=== PATIENT | female | born 1935 | race Caucasian/White ===

== ENCOUNTER 2024-05-28 11:49 | Emergency (ER) | payer OTHER, SELFPAY ==
--- NOTE | 2024-05-28 12:01 | EKG_ITS ---
[facility] Test Date: 2024-05-28 Pat Name: MARIANO HO Department: Room: - Gender: Female [employer]: : 1935 Requested By: Keaton Kwon Order Number: [id number] Reading MD: Keaton Kwon Measurements Intervals [place] Rate: 63 P: 118 FL: 218 QRS: 45 QRSD: 97 T: 14 QT: 440 QTc: 452 Interpretive Statements ELECTRONIC ATRIAL PACEMAKER ABNORMAL RHYTHM ECG Compared to ECG 02/28/2024 11:50:25 No significant changes /store/S0/[id number].pdf
--- NOTE | 2024-05-28 12:07 | XR_ITS ---
Examination: CT cervical spine without contrast 2-D sagittal reconstructions 2-D coronal reconstructions 3-D reconstructions. Exam date and time:May 28, 2024 1224 hrs. Indications: Ground-level fall today with injury to the neck, neck pain CTDI:vol (mGy) 7.71 DLP: (mGycm) 185 Technique: Multiple 2 mm axial sections of the cervical spine have been obtained. The coronal and sagittal reconstructions have been obtained. 3-D reconstructions have been obtained. Low dose protocols were performed. One or more of the following dose reduction techniques were used; automated exposure control, adjustment of the mA and/or KV according to patient size, use of iterative reconstruction technique. Findings: Axial sections demonstrate intact base of the skull. C1 exhibit satisfactory relationship to the odontoid. No acute cervical vertebral body fracture seen. Alignment posterior spinous processes satisfactory. Impression: No acute cervical fracture.
--- NOTE | 2024-05-28 12:07 | XR_ITS ---
Examination: CT brain head without contrast. 2-D sagittal coronal reconstructions Date and time of exam:May 28, 2024 1224 hrs. Indications: Syncopal episode today followed by ground-level fall with injury to the head, head pain CTDI: vol (mGy):49 DLP: (mGycm):969 Technique: Multiple CT axial sections of the brain have been obtained, 5 mm slice thickness. Contrast has not been administered. 2-D sagittal, coronal reconstructions have been obtained Low dose protocols were performed. One or more of the following dose reduction techniques were used; automated exposure control, adjustment of the mA and/or KV according to patient size, use of iterative reconstruction technique. Findings: No significant ventricular enlargement. Intra-axial or extra-axial hemorrhage density is not seen. No mass effect or midline shift Basal cisterns are not remarkable. Fourth ventricle is midline. Cranial vault intact. Prominent left maxillary sinusitis Impression: Negative for acute hemorrhage, mass effect or midline shift
[2024-05-28 12:10] VITALS: BP 159/75; PULSE 61; RESP 20; TEMP 35.9; O2SAT 94
--- NOTE | 2024-05-28 12:20 | PD.EDADULT ---
ED General RME/HPI General Chief complaint: Syncope / Near Syncope Stated complaint: FALL Time Seen by Provider: 05/28/24 12:00 Arrival date/time: 05/28/24 11:49 Related Data Home Medications ?Medication ?Instructions ?Recorded ?Confirmed Metformin Hcl 1,000 mg PO BID ##0 10/06/12 07/20/23 apixaban 5 mg tablet (Eliquis) 5 mg PO QDAY 07/20/23 07/20/23 ibuprofen 800 mg tablet 800 mg PO Q8H PRN Pain (Scale 07/20/23 07/20/23 Score 7-10) Previous Rx's ?Medication ?Instructions ?Recorded meloxicam 15 mg tablet 15 mg PO QDAY #14 tabs 02/28/24 nitrofurantoin 100 mg PO Q12H 7 days #14 caps 05/28/24 monohydrate/macrocrystals 100 mg capsule (Macrobid) Allergies Allergy/AdvReac Type Severity Reaction Status Date / Time levofloxacin Allergy Severe Rash Verified 05/28/24 12:29 Penicillins Allergy Mild Rash Verified 05/28/24 12:29 codeine Allergy Unknown Verified 05/28/24 12:29 meperidine Allergy Unknown Verified 05/28/24 12:29 phenytoin Allergy Unknown Verified 05/28/24 12:29 Course Quality Measures none Orders Category Date Time Status Bedside COVID-19 Antigen Test NOW Care 05/28/24 12:01 Completed Bedside Influenza A&B Antigen Test NOW Care 05/28/24 12:01 Completed EKG (ED ONLY) *Do not use* NOW Care 05/28/24 12:01 Completed Saline [Insert IV] NOW Care 05/28/24 12:[address] cervical spine wo con Stat Exams 05/28/24 12:[address] head/brain wo con Stat Exams 05/28/24 12:07 Completed EKG (ED Only) Stat Exams 05/28/24 12:01 Draft B-Type Natriuretic Peptide Stat Lab 05/28/24 12:11 Completed CBC Stat Lab 05/28/24 12:11 Completed Comprehensive Metabolic Panel Stat Lab 05/28/24 12:11 Completed Digoxin Stat Lab 05/28/24 12:11 Completed Drug Screen,Urine Stat Lab 05/28/24 14:13 Completed LDH (Lactate Dehydrogenase) Stat Lab 05/28/24 12:11 Completed Magnesium Stat Lab 05/28/24 12:11 Completed Partial Thromboplastin Time Stat Lab 05/28/24 12:11 Completed Prothrombin Time with INR Stat Lab 05/28/24 12:11 Completed Troponin I Stat Lab 05/28/24 12:11 Completed Urinalysis Stat Lab 05/28/24 14:13 Completed Urine Culture Stat Lab 05/28/24 14:13 Received Ondansetron Inj [Zofran Inj] Med 05/28/24 12:06 Discontinued 4 mg IV X1 ONE cefTRIAXone/D5w 1gm IV premix [Rocephin/D5w 1gm IV Med 05/28/24 14:33 Discontinued premix] 50 ml IV X1 Vital Signs Vital signs: Vital Signs Temperature 96.6 F L 05/28/24 12:10 Pulse Rate 61 05/28/24 12:10 Respiratory Rate 20 05/28/24 12:10 Blood Pressure 159/75 H 05/28/24 12:10 Pulse Oximetry (%) 94 L 05/28/24 12:10 Oxygen Delivery Method Room Air 05/28/24 12:10 [facility] Patient data External records reviewed:: [facility] previous records and EMS form Clinical information provided by:: patient and EMS Social determinants that could affect healthcare access:: none Patient has the following chronic illnesses:: Hypertension How is presenting disease/condition affected by chronic disease/condition?: uneffected by Evaluation data The following diagnostics were reviewed and interpreted by me:: lab results and radiology exam(s) Lab and/or radiology exams considered but not ordered:: EKG performed at 1217 shows a ventricular of 6 3 AL interval 218 QRS of 9 7 QTc 448 shows electronically paced. CBC shows no acute leukocytosis anemia thrombocytopenia CMP shows no electrolyte imbalances there is a creatinine elevated at 1.4 however this is consistent with previous blood draws BUN is normal no transaminitis or T. bili elevation Urine is positive for UTI and leukocyte Estrace positive WBCs positive bacteria positive. CT head and C-spine is negative for any acute finding requires emergent or immediate intervention as interpreted by me read by radiology. Interpretation Summary: Syncope UTI Medications Medications considered but not ordered:: None Medication administrations:: Medication Administration History Discontinued Medications Ceftriaxone Sodium/Dextrose (Rocephin/D5w 1gm Iv Premix) 50 mls @ 100 mls/hr IV X1 ONE Stop: 05/28/24 15:02 Last Infusion: 05/28/24 15:38 Dose: Infused Documented By: Admin: 05/28/24 15:01 Dose: 100 mls/hr Documented By: DO Ondansetron HCl (Ondansetron Inj 2 Mg/Ml Inj 2 Ml) 4 mg IV X1 ONE; Protocol Stop: 05/28/24 12:07 Last Admin: 05/28/24 13:08 Dose: 4 mg Documented By: DO None Consultations Consultation(s) initiated? (list below): No Diagnosis Differential Diagnosis ED Complaint MDM: Syncope UTI intracranial hemorrhage Most likely diagnosis given after review of the tests above:: Syncope UTI Admission Indicated Admission indicated?: not indicated Explain why admission is indicated or not indicated:: Stable for outpatient follow-up Admission Request Was there a request for admission?: No Disposition Plan Disposition Plan: Discharge Discharge Attestation Discharge Attestation: The patient and all family members were given an opportunity to ask questions and understood the discharge instructions. Discharge instructions specifically effects, indications for sooner follow up or return to the emergency department, and the expected course of current diagnosis. Patient condition: Stable Medical Decision Making Differential Diagnosis Differential Diagnosis: Syncope UTI intracranial hemorrhage Lab Data 05/28/24 12:11 05/28/24 12:11 Labs: Lab Results 05/28/24 05/28/24 Range/Units 12:11 14:13 WBC 7.7 (3.6-11.0) Thou/mm3 RBC 4.43 (4.00-5.20) Miln/mm3 Hgb 12.5 (12.0-16.0) g/dL Hct 38.5 (36.0-46.0) % MCV 87 (80-100) fL MCH 28.2 (25.0-35.0) pg MCHC 32.5 (31.0-37.0) g/dl RDW Std Deviation 49.2 H (36.4-46.3) fL Plt Count 404 (140-440) Thou/mm3 Neut % (Auto) 73 (37-80) % Lymph % (Auto) 12 (10-50) % [place] % (Auto) 12 (0-12) % Eos % (Auto) 2 (0-10) % Baso % (Auto) 1 (0-2.5) % Neut # (Auto) 5.6 (1.8-7.7) Thou/mm3 Lymph # (Auto) 0.9 L (1.0-4.8) Thou/mm3 [place] # (Auto) 0.9 H (0.0-0.8) Thou/mm3 Eos # (Auto) 0.2 (0.0-0.5) Thou/mm3 Baso # (Auto) 0.1 (0.0-0.2) Thou/mm3 Immature Gran # (Auto) 0.02 H (0.00-0.00) Thou/mm3 Absolute Nucleated RBC 0.00 (0.00-0.00) Thou/mm3 Immature Gran % 0 (0-0) % Nucleated RBC % 0 (0) /100 WBC PT 11.8 (9.0-12.2) Seconds INR 1.1 (0.9-1.3) APTT 29.1 (22.0-36.0) Seconds Sodium 132 L (136-145) mMol/L Potassium 4.2 (3.4-5.1) mMol/L Chloride 99 (98-107) mMol/L Carbon Dioxide 24.5 (20.0-31.0) mMol/L Anion Gap 9 (7-16) BUN 18 (9-23) mg/dL Creatinine 1.4 H (0.6-1.3) mg/dL Estim Creat Clear Calc 26.5 L (>60) mL/min eGFR 36 L (60 - ) See Note BUN/Creatinine Ratio 13 (12-20) Ratio Glucose 159 H (74-106) mg/dL Calculated Osmolality 269 L (275-295) Calcium 9.2 (8.3-10.6) mg/dL Corrected Calcium 9.2 (8.5-10.1) mg/dL Magnesium 1.4 L (1.6-2.6) mg/dL Total Bilirubin 0.4 (0.3-1.2) mg/dL AST 16 (0-34) U/L ALT 27 (10-49) U/L Alkaline Phosphatase 82 (46-116) U/L Lactate Dehydrogenase 217 (120-246) U/L Troponin I < 0.020 (0.0-0.045) ng/mL B-Natriuretic Peptide 197 H (0-100) pg/mL Total Protein 7.4 (5.7-8.2) gm/dL Albumin 4.5 (3.4-4.8) gm/dL Globulin 2.9 (2.3-3.5) gm/dL Albumin/Globulin Ratio 1.6 (1.2-2.2) Ur Collection Type Clean Catch Urine Color Lt Yellow (Lt Yel-Yel) Urine Clarity Cloudy A (Clear/Hazy) Urine pH 7.5 H (5.0-7.0) Ur Specific [place] 1.010 (1.001-1.035) Urine Protein Trace (Neg - Trace) Urine Glucose (UA) Negative (Negative) Urine Ketones Negative (Negative) Urine Blood 2+ A (Negative) Urine Nitrite Negative (Negative) Urine Bilirubin Negative (Negative) Urine Urobilinogen (Auto) Negative (0.0-1.0) mg/dL Ur Leukocyte Esterase Positive (Negative) Urine RBC 63 H (0-3) /hpf Urine WBC 53 H (0-5) /hpf Ur Squamous Epith Cells 2 (0-5) /hpf Amorphous Crystals Present A (Absent) Urine Bacteria 2+ A (None) Hyaline Casts < 1 (0-1) /hpf Digoxin 0.1 L (0.8-2.0) ng/mL Urine Opiates Screen Negative (Negative) Urine Fentanyl Screen Negative (Negative) Ur Barbiturates Screen Negative (Negative) U Amphetamin/Meth Scrn Negative (Negative) U Benzodiazepines Scrn Negative (Negative) U Cocaine Metab Screen Negative (Negative) U Marijuana (THC) Screen Negative (Negative) Discharge Plan Plan Patient Disposition: HOME (Self Care) Patient condition on transfer: Stable Prescriptions/Referrals Prescriptions/Med Rec: New nitrofurantoin monohyd/m-cryst [Macrobid] 100 mg capsule 100 mg PO Q12H 7 Days Qty: 14 0RF Rx Instructions: must administer with a meal/food No Action Metformin Hcl 500 MG tablet 1,000 mg PO BID Qty: 0 ibuprofen 800 mg Tablet 800 mg PO Q8H PRN (Reason: Pain (Scale Score 7-10)) Eliquis 5 mg tablet 5 mg PO QDAY Patient Comments: take 1 tablet by mouth twice a day meloxicam 15 mg tablet 15 mg PO QDAY Qty: 14 0RF Referrals: Mateus García MD [Primary Care Provider] - In 1 week Problem List Clinical Impression: Syncope, UTI (urinary tract infection) due to urinary indwelling catheter, Fall Patient/Caregiver Discharge Instructions Education Materials: Urinary Tract Infections in Women, Causes of Syncope Additional Instructions: Take the medication as prescribed there is worsening symptoms return the emergency room medially for further evaluation. Print Language: [place] Stand Alone Forms: [employer] Award Info., Patient Portal Info Letter
--- NOTE | 2024-05-28 12:23 | PC.NURSE ---
pt to ct
[2024-05-28 12:24] VITALS: BMI 24.2
[2024-05-28 12:30] LABS: Basophils # (Auto) 0.1 Thou/mm3 (0.0-0.2); Basophils % (Auto) 1 % (0-2.5); Eosinophils # (Auto) 0.2 Thou/mm3 (0.0-0.5); Eosinophils % (Auto) 2 % (0-10); Hematocrit 38.5 % (36.0-46.0); Hemoglobin 12.5 g/dL (12.0-16.0); Immature Granulocytes % (Auto) 0 % (0-0); Immature Granulocytes Auto 0.02 Thou/mm3 (0.00-0.00); Lymphocytes # (Auto) 0.9 Thou/mm3 (1.0-4.8); Lymphocytes % (Auto) 12 % (10-50); Mean Corpuscular HGB Conc 32.5 g/dl (31.0-37.0); Mean Corpuscular Hemoglobin 28.2 pg (25.0-35.0); Mean Corpuscular Volume 87 fL (80-100); Monocytes # (Auto) 0.9 Thou/mm3 (0.0-0.8); Monocytes % (Auto) 12 % (0-12); Neutrophils # (Auto) 5.6 Thou/mm3 (1.8-7.7); Neutrophils % (Auto) 73 % (37-80); Nucleated Red Blood Cell % 0 /100 WBC (0); Platelet Count 404 Thou/mm3 (140-440); RDW Standard Deviation 49.2 fL (36.4-46.3); Red Blood Count 4.43 Miln/mm3 (4.00-5.20); White Blood Count 7.7 Thou/mm3 (3.6-11.0)
[2024-05-28 12:50] LABS: INR 1.1 (0.9-1.3); Partial Thromboplastin Time 29.1 Seconds (22.0-36.0); Prothrombin Time 11.8 Seconds (9.0-12.2)
[2024-05-28 12:52] LABS: B-Type Natriuretic Peptide 197 pg/mL (0-100)
[2024-05-28 13:00] LABS: Alanine Aminotransferase 27 U/L (10-49); Albumin, Serum 4.5 gm/dL (3.4-4.8); Albumin/Globulin Ratio 1.6 (1.2-2.2); Alkaline Phosphatase 82 U/L (46-116); Anion Gap 9 (7-16); Aspartate Amino Transferase 16 U/L (0-34); BUN/Creatinine Ratio 13 Ratio (12-20); Bilirubin,Total 0.4 mg/dL (0.3-1.2); Blood Urea Nitrogen 18 mg/dL (9-23); Calcium 9.2 mg/dL (8.3-10.6); Calcium (Corrected) 9.2 mg/dL (8.5-10.1); Carbon Dioxide 24.5 mMol/L (20.0-31.0); Chloride 99 mMol/L (98-107); Creatinine (Component) 1.4 mg/dL (0.6-1.3); Digoxin 0.1 ng/mL (0.8-2.0); Estimated Creatinine Clearance 26.5 mL/min (>60); Globulin 2.9 gm/dL (2.3-3.5); Glucose 159 mg/dL (74-106); LDH (Lactate Dehydrogenase) 217 U/L (120-246); Magnesium 1.4 mg/dL (1.6-2.6); Osmolality,Calculated 269 (275-295); Potassium 4.2 mMol/L (3.4-5.1); Sodium 132 mMol/L (136-145); Total Protein 7.4 gm/dL (5.7-8.2); Troponin I < 0.020 ng/mL (0.0-0.045); eGFR 36 See Note
[2024-05-28] MEDS: ONDANSETRON INJ 2 MG/ML INJ 2 ML 4 MG IV (13:08)
[2024-05-28 14:17] LABS: Collection Type, Urine Clean Catch
[2024-05-28 14:27] LABS: Amorphous Crystals,Urine Present (Absent); Bacteria,Urine 2+; Bilirubin,Urine Negative (Negative); Blood,Urine 2+ (Negative); Glucose, Urine Negative (Negative); Hyaline Casts,Urine < 1 /hpf (0-1); Ketones,Urine Negative (Negative); Leukocyte Esterase,Urine Positive (Negative); Nitrite,Urine Negative (Negative); PH,Urine 7.5 (5.0-7.0); Protein,Urine Trace (Neg - Trace); RBC,Urine 63 /hpf (0-3); Squamous Epithelial Cell,Urine 2 /hpf (0-5); Urobilinogen,Urine Negative mg/dL (0.0-1.0); WBC,Urine 53 /hpf (0-5)
[2024-05-28 14:28] VITALS: BP 159/90; PULSE 60; RESP 18; TEMP 36.4; O2SAT 99
[2024-05-28 14:28] LABS: Clarity,Urine Cloudy (Clear/Hazy); Color,Urine Lt Yellow (Lt Yel-Yel)
[2024-05-28 14:39] LABS: Amphetamine/Methamp Scrn,U Negative (Negative); Barbiturate Screen,Urine Negative (Negative); Benzodiazepines Screen,Urine Negative (Negative); Benzoylecgonine Screen, Ur Negative (Negative); Fentanyl Screen,Urine Negative (Negative); Opiate Screen,Urine Negative (Negative); THC Screen,Urine Negative (Negative)
[2024-05-28] MEDS: cefTRIAXone/D5w 1gm IV premix 50 ML IV (15:01)
== END 2024-05-28 15:50 | disposition home or self-care (01) ==
PROVIDERS: Registered Nurse General Practice; Emergency Provider Emergency Medicine; PCP Family Medicine
DX: T83.511A Infection and inflammatory reaction due to indwelling urethral catheter, initial encounter (principal); N39.0 Urinary tract infection, site not specified; R55 Syncope and collapse; S09.90XA Unspecified injury of head, initial encounter; S19.9XXA Unspecified injury of neck, initial encounter; W18.30XA Fall on same level, unspecified, initial encounter; R94.31 Abnormal electrocardiogram [ECG] [EKG]; I10 Essential (primary) hypertension; Y84.6 Urinary catheterization as the cause of abnormal reaction of the patient, or of later complication, without mention of misadventure at the time of the procedure; Z79.01 Long term (current) use of anticoagulants
CPT/HCPCS: 36415; 70450; 72125; 80053; 80162; 80307; 81001; 83615; 83735; 83880; 84484; 85025; 85610; 85730; 87077; 87086; 87186; 87400; 87811; 93005; 96365; 96375; 99284; J0696; J2405

== ENCOUNTER → 2024-06-02 | Outpatient (CLI) | payer OTHER, SELFPAY ==
--- NOTE | 2024-06-02 | XR_ITS ---
Examination:Right hip AP, lateral, AP pelvis 3 views Technique: Hip AP lateral, AP pelvis, 3 views Exam date and time:June 02, 2024 1223 hours INDICATIONS: Patient fell today with injury to the right hip, right hip pain. 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
[2024-06-02 13:33] LABS: Basophils # (Auto) 0.1 Thou/mm3 (0.0-0.2); Basophils % (Auto) 1 % (0-2.5); Eosinophils # (Auto) 0.2 Thou/mm3 (0.0-0.5); Eosinophils % (Auto) 2 % (0-10); Hematocrit 36.6 % (36.0-46.0); Hemoglobin 11.9 g/dL (12.0-16.0); Immature Granulocytes % (Auto) 1 % (0-0); Immature Granulocytes Auto 0.04 Thou/mm3 (0.00-0.00); Lymphocytes % (Auto) 12 % (10-50); Mean Corpuscular HGB Conc 32.5 g/dl (31.0-37.0); Mean Corpuscular Hemoglobin 28.7 pg (25.0-35.0); Mean Corpuscular Volume 88 fL (80-100); Monocytes % (Auto) 13 % (0-12); Neutrophils # (Auto) 5.8 Thou/mm3 (1.8-7.7); Neutrophils % (Auto) 72 % (37-80); Nucleated Red Blood Cell % 0 /100 WBC (0); Platelet Count 416 Thou/mm3 (140-440); RDW Standard Deviation 48.4 fL (36.4-46.3); Red Blood Count 4.14 Miln/mm3 (4.00-5.20)
[2024-06-02 13:42] LABS: Alanine Aminotransferase 30 U/L (10-49); Albumin, Serum 4.4 gm/dL (3.4-4.8); Albumin/Globulin Ratio 1.9 (1.2-2.2); Alkaline Phosphatase 80 U/L (46-116); Anion Gap 10 (7-16); Aspartate Amino Transferase 21 U/L (0-34); BUN/Creatinine Ratio 14 Ratio (12-20); Bilirubin,Total 0.3 mg/dL (0.3-1.2); Blood Urea Nitrogen 20 mg/dL (9-23); Calcium 9.1 mg/dL (8.3-10.6); Calcium (Corrected) 9.1 mg/dL (8.5-10.1); Carbon Dioxide 26.1 mMol/L (20.0-31.0); Chloride 98 mMol/L (98-107); Creatinine (Component) 1.4 mg/dL (0.6-1.3); Globulin 2.3 gm/dL (2.3-3.5); Glucose 104 mg/dL (74-106); Osmolality,Calculated 270 (275-295); Potassium 4.5 mMol/L (3.4-5.1); Sodium 134 mMol/L (136-145); Total Protein 6.7 gm/dL (5.7-8.2); eGFR 36 See Note
== END | disposition home or self-care (01) ==
LOC: CDIM 11:46 → COPL 12:33
PROVIDERS: PCP Internal Medicine; Referring Provider Student in an Organized Health Care Education/Training Program; Visit Provider Radiology Diagnostic Radiology
DX: M25.551 Pain in right hip (principal); N39.0 Urinary tract infection, site not specified; N18.9 Chronic kidney disease, unspecified
CPT/HCPCS: 36415; 73502; 80053; 81001; 85025

== ENCOUNTER 2024-06-06 10:48 | Emergency (ER) | payer MEDICARE, MEDICAID, SELFPAY ==
[2024-06-06 10:51] VITALS: BP 167/74; PULSE 73; RESP 20; TEMP 36.8; O2SAT 98; BMI 25.7
--- NOTE | 2024-06-06 11:08 | XR_ITS ---
Examination: CT brain head without contrast. 2-D sagittal coronal reconstructions Date and time of exam:June 06, 2024 1206 hours Comparison May 28, 2024 INDICATIONS: Ground-level fall today with injury to the head, head pain, patient is anticoagulated CTDI: vol (mGy):48 DLP: (mGycm):1021 Technique: Multiple CT axial sections of the brain have been obtained, 5 mm slice thickness. Contrast has not been administered. 2-D sagittal, coronal reconstructions have been obtained Low dose protocols were performed. One or more of the following dose reduction techniques were used; automated exposure control, adjustment of the mA and/or KV according to patient size, use of iterative reconstruction technique. Findings: No significant ventricular enlargement. Small area of right frontal convexity subarachnoid hemorrhage, axial image 20, coronal image 15, in near the site of soft tissue scalp swelling No mass effect or midline shift Basal cisterns are not remarkable. Fourth ventricle is midline. Cranial vault intact. Right frontal scalp soft tissue swelling Impression: Positive for small area of subarachnoid hemorrhage right frontal convexity, axial image 20 Recommend close clinical observation and short-term follow-up CT brain scans
--- NOTE | 2024-06-06 11:08 | XR_ITS ---
Examination: CT cervical spine without contrast 2-D sagittal reconstructions 2-D coronal reconstructions 3-D reconstructions. Exam date and time:June 06, 2024 1206 hours INDICATIONS: Ground-level fall today with injury to the neck, neck pain CTDI:vol (mGy) 7.53 DLP: (mGycm) 154 Technique: Multiple 2 mm axial sections of the cervical spine have been obtained. The coronal and sagittal reconstructions have been obtained. 3-D reconstructions have been obtained. Low dose protocols were performed. One or more of the following dose reduction techniques were used; automated exposure control, adjustment of the mA and/or KV according to patient size, use of iterative reconstruction technique. Findings: Axial sections demonstrate intact base of the skull. C1 exhibit satisfactory relationship to the odontoid. No acute cervical vertebral body fracture seen. Alignment posterior spinous processes satisfactory. Sagittal image 37 demonstrates 5 mm focal area of sclerosis in the C6 vertebral body Impression: No acute cervical fracture. 5 mm focal area of sclerosis in the C6 vertebral body, recommend elective MRI cervical spine follow-up, pre and postcontrast to exclude early osseous metastatic disease
--- NOTE | 2024-06-06 11:09 | EDNOTE_ITS ---
<Statement entered by Taylor Velasco MD - 06/13/24 12:01> As co-signing physician, I was present and available for consult prn. I concur with the plan and care as documented by the midlevel provider. ED General RME/HPI General Chief complaint: Fall Stated complaint: FALL Time Seen by Provider: 06/06/24 11:07 Arrival date/time: 06/06/24 10:48 CC: Headache HPI patient presents to the ER via EMS with a headache after a ground-level fall while opening her front door. Patient states she thinks she lost her balance denies LOC. EMS report hypertension, and constant bleeding from a laceration over the right eyebrow. Patient is awake alert oriented x 2 complaining of a headache but no other complaints. Upon discussion with family members at bedside at 2:30 PM, the nurse informed the patient does not want to be intubated and no feeding tubes but wants her heart to be restarted. Related Data Home Medications ?Medication ?Instructions ?Recorded ?Confirmed Metformin Hcl 1,000 mg PO BID ##0 10/06/12 07/20/23 apixaban 5 mg tablet (Eliquis) 5 mg PO QDAY 07/20/23 07/20/23 ibuprofen 800 mg tablet 800 mg PO Q8H PRN Pain (Scale 07/20/23 07/20/23 Score 7-10) Previous Rx's ?Medication ?Instructions ?Recorded meloxicam 15 mg tablet 15 mg PO QDAY #14 tabs 02/28/24 Allergies Allergy/AdvReac Type Severity Reaction Status Date / Time levofloxacin Allergy Severe Rash Verified 05/28/24 12:29 Penicillins Allergy Mild Rash Verified 05/28/24 12:29 codeine Allergy Unknown Verified 05/28/24 12:29 meperidine Allergy Unknown Verified 05/28/24 12:29 phenytoin Allergy Unknown Verified 05/28/24 12:29 Review of Systems Review of Systems Narrative Review of Systems: GEN: No fever, no chills, no weight loss EYES: No discharge, no visual changes, no pain HEENT: No ear pain, no congestion, no sore throat PULM: No shortness of breath, no cough, no congestion CV: No chest pain, no dyspnea on exertion, no palpitations GI: No nausea, no vomiting, no diarrhea, no pain, no constipation : No frequency, no urgency, no dysuria MUSC/SKEL: No joint pain, no back pain SKIN: +laceration,No rash PSYCH: No hallucinations, no depression HEME/LYMPH: No easy bleeding or bruising tendencies NEURO: No weakness, no headache Past Medical History Past Medical History NEUROLOGIC: Negative Neurological Disorders CARDIAC: Positive Cardiac Arrhythmia, Atrial Fibrillation, Heart Murmur, Coronary Artery Disease and Hypertension; Negative Cardiac Disorders, Myocardial Infarction, Angina, Atherosclerotic Heart Disease, Peripheral Vascular Disease, Hypercholesterolemia, Aneurysm, Congestive Heart Failure, Congenital Heart Disease, Valvular Heart Disease, Rheumatic Fever, Cardiomyopathy, Edema, Pericarditis, Cellulitis, Deep Vein Thrombosis, Hypotension or Varicose Veins RESPIRATORY: Positive Bronchitis and Pneumonia; Negative Chronic Obstructive Pulmonary Disease (COPD) or Asthma GASTROINTESTINAL: Negative Gastrointestinal Disorders GENITOURINARY: Positive Genitourinary Disorders; Negative Renal Disease REPRODUCTIVE: Negative Pelvic Inflammatory Disease MUSCULOSKELETAL: Negative Musculoskeletal Disorders ENDOCRINE: Positive Endocrine Disorders and Diabetes Mellitus Type 2; Negative Diabetes Mellitus Type 1 HEMATOLOGIC: Negative Blood Disorders, Anemia or Sickle Cell Disease PSYCHO/SOCIAL: Positive Depression and Anxiety OTHER HISTORY: Positive Blood Transfusions, Cancer and Ovarian Cancer; Negative Autoimmune Disease, MRSA or Clostridium Difficile Family History FAMILY HISTORY: Positive Family Cardiac Disorders; Negative Family Psychiatric Problems, Family Respiratory Disorders, Family Gastrointestinal Problems, Family Cancer, Family Surgery or Family Anesthesia Reaction Surgical History SURGICAL: Positive Hysterectomy; Negative Cardiac Surgery, Pacemaker, Endocrine Surgery, Ear Surgery, Abdominal Surgery, Neurologic Surgery or Brain Shunt Social History SMOKING STATUS: Never smoker SUBSTANCE USE: does not use ED Exam Narrative Physical exam: [General: Thin but not emaciated, deconditioned, appears not in any acute distress Head normocephalic, no step-offs hematomas there is a laceration over the lateral aspect of the right eyebrow. HEENT: Eyes pupils are PERRLA EOMs are intact mouth pink dry membranes uvula is midline swallow symmetrical nose no rhinorrhea epistaxis no facial asymmetry raccoon's eyes or Kaur sign. All other subsystems of HEENT are within acceptable limits Neck is supple nontender Chest equal chest rise nontender to palpation Respiratory: Clear to auscultation no wheezes crackles or rubs CV: Rate rhythm is regular no murmurs rubs or clicks Abdomen is distended secondary to body habitus soft nontender no masses positive bowel sounds all 4 quadrants Back: No CVA tenderness no spinous process tenderness from cervical spine thoracic and lumbar spine Skin: Intact no petechiae rash induration ulceration or crepitus Extremities: Moving all extremity against resistance cap refill less than 2 seconds neurosensory intact Neuro: Awake alert oriented x3 Glascow coma 15 no focal deficits] Course Quality Measures none Orders Category Date Time Status EKG (ED ONLY) *Do not use* NOW Care 06/06/24 11:08 Completed Set Up Suture Tray STAT Care 06/06/24 11:[address] cervical spine wo con Stat Exams 06/06/24 11:[address] head/brain wo con Stat Exams 06/06/24 11:08 Completed EKG (ED Only) Stat Exams 06/06/24 11:08 Ordered B-Type Natriuretic Peptide Stat Lab 06/06/24 12:22 Completed CBC Stat Lab 06/06/24 12:22 Completed Comprehensive Metabolic Panel Stat Lab 06/06/24 12:22 Completed Drug Screen,Urine Stat Lab 06/06/24 11:08 Ordered LDH (Lactate Dehydrogenase) Stat Lab 06/06/24 12:22 Completed Magnesium Stat Lab 06/06/24 12:22 Completed Partial Thromboplastin Time Stat Lab 06/06/24 12:22 Completed Prothrombin Time with INR Stat Lab 06/06/24 12:22 Completed Troponin I Stat Lab 06/06/24 12:22 Completed Urinalysis Stat Lab 06/06/24 11:08 Ordered Lidocaine 1% 20 ml [Xylocaine 1% 20 ML] Med 06/06/24 11:09 Discontinued 20 ml INFL X1 ONE Vital Signs Vital signs: Vital Signs Temperature 98.2 F 06/06/24 10:51 Pulse Rate 73 06/06/24 10:51 Respiratory Rate 20 06/06/24 10:51 Blood Pressure 167/74 H 06/06/24 10:51 Pulse Oximetry (%) 98 06/06/24 10:51 [facility] Patient data External records reviewed:: [facility] previous records and EMS form Clinical information provided by:: patient and EMS Social determinants that could affect healthcare access:: none Patient has the following chronic illnesses:: A-fib on thinners How is presenting disease/condition affected by chronic disease/condition?: u neffected by Evaluation data The following diagnostics were reviewed and interpreted by me:: lab results, radiology exam(s) and EKG tracing(s) Lab and/or radiology exams considered but not ordered:: EKG performed at 1155 shows a ventricular rate of 76 DE interval 215 QRS of 93 QTc of 356 electronically paced rhythm CBC shows leukocytosis of 12.2 with an H&H of 11 and 35 no thrombocytopenia Coags within acceptable limits CMP shows a sodium 129 potassium of 4.0 chloride of 95 CO2 of 25.1 BUN of 15 creatinine 1.1 glucose of 128. Mag 1.3. BNP of 177, troponin is negative CT of the head shows the patient has small area of subarachnoid hemorrhage in the right frontal convexity Interpretation Summary: After lengthy discussion with family members the patient is requesting full code i.e. compressions no DNI no tube feeds. Patient's case discussed at length with Dr. Miramontes at [facility] who agrees to consult on the patient patient accepted by [facility] for transfer Medications Medications considered but not ordered:: None Medication administrations:: Medication Administration History Discontinued Medications Lidocaine HCl (Lidocaine Hcl 1% 20 Ml Vial) 20 ml INFL X1 ONE Stop: 06/06/24 11:10 None Consultations Consultation(s) initiated? (list below): No Diagnosis Differential Diagnosis ED Complaint MDM: Subarachnoid hemorrhage cranial fracture subdural Most likely diagnosis given after review of the tests above:: Subarachnoid hemorrhage hypomagnesemia Admission Indicated Admission indicated?: indicated Explain why admission is indicated or not indicated:: Transfer Admission Request Was there a request for admission?: No Disposition Plan Disposition Plan: Transfer Medical Decision Making Differential Diagnosis Differential Diagnosis: Subarachnoid hemorrhage cranial fracture subdural Lab Data 06/06/24 12:22 06/06/24 12:22 Labs: Lab Results 06/06/24 Range/Units 12:22 WBC 12.2 H D (3.6-11.0) Thou/mm3 RBC 4.14 (4.00-5.20) Miln/mm3 Hgb 11.8 L (12.0-16.0) g/dL Hct 35.6 L (36.0-46.0) % MCV 86 (80-100) fL MCH 28.5 (25.0-35.0) pg MCHC 33.1 (31.0-37.0) g/dl RDW Std Deviation 48.2 H (36.4-46.3) fL Plt Count 327 D (140-440) Thou/mm3 Neut % (Auto) 74 (37-80) % Lymph % (Auto) 7 L (10-50) % [place] % (Auto) 16 H (0-12) % Eos % (Auto) 2 (0-10) % Baso % (Auto) 1 (0-2.5) % Neut # (Auto) 9.1 H (1.8-7.7) Thou/mm3 Lymph # (Auto) 0.9 L (1.0-4.8) Thou/mm3 [place] # (Auto) 1.9 H (0.0-0.8) Thou/mm3 Eos # (Auto) 0.2 (0.0-0.5) Thou/mm3 Baso # (Auto) 0.1 (0.0-0.2) Thou/mm3 Immature Gran # (Auto) 0.05 H (0.00-0.00) Thou/mm3 Absolute Nucleated RBC 0.00 (0.00-0.00) Thou/mm3 Immature Gran % 0 (0-0) % Nucleated RBC % 0 (0) /100 WBC PT 11.7 (9.0-12.2) Seconds INR 1.1 (0.9-1.3) APTT 34.5 (22.0-36.0) Seconds Sodium 129 L (136-145) mMol/L Potassium 4.0 (3.4-5.1) mMol/L Chloride 95 L (98-107) mMol/L Carbon Dioxide 25.1 (20.0-31.0) mMol/L Anion Gap 9 (7-16) BUN 15 (9-23) mg/dL Creatinine 1.1 (0.6-1.3) mg/dL Estim Creat Clear Calc 34.1 L (>60) mL/min eGFR 49 L (60 - ) See Note BUN/Creatinine Ratio 14 (12-20) Ratio Glucose 128 H (74-106) mg/dL Calculated Osmolality 261 L (275-295) Calcium 8.8 (8.3-10.6) mg/dL Corrected Calcium 8.8 (8.5-10.1) mg/dL Magnesium 1.3 L (1.6-2.6) mg/dL Total Bilirubin 0.3 (0.3-1.2) mg/dL AST 47 H (0-34) U/L ALT 67 H (10-49) U/L Alkaline Phosphatase 77 (46-116) U/L Lactate Dehydrogenase 276 H (120-246) U/L Troponin I < 0.020 (0.0-0.045) ng/mL B-Natriuretic Peptide 177 H (0-100) pg/mL Total Protein 6.8 (5.7-8.2) gm/dL Albumin 4.3 (3.4-4.8) gm/dL Globulin 2.5 (2.3-3.5) gm/dL Albumin/Globulin Ratio 1.7 (1.2-2.2) Discharge Plan Plan Patient Disposition: Other Care w/in Hosp ([facility]) Patient condition on transfer: Stable Prescriptions/Referrals Prescriptions/Med Rec: No Action Metformin Hcl 500 MG tablet 1,000 mg PO BID Qty: 0 ibuprofen 800 mg Tablet 800 mg PO Q8H PRN (Reason: Pain (Scale Score 7-10)) Eliquis 5 mg tablet 5 mg PO QDAY Patient Comments: take 1 tablet by mouth twice a day meloxicam 15 mg tablet 15 mg PO QDAY Qty: 14 0RF Referrals: Mateus García MD [Primary Care Provider] - In 1 week Problem List Clinical Impression: Subarachnoid hemorrhage, Hyponatremia, Hypomagnesemia, Ground-level fall Patient/Caregiver Discharge Instructions Print Language: Divehi Stand Alone Forms: Gena Award Info., Patient Portal Info Letter PA/SCRAP METAL BURNER Supervising Physician PA/[employer]NER Supervising Physician: Keaton Villavicencio ENP
[2024-06-06 11:33] VITALS: PULSE 83; RESP 18
[2024-06-06 12:30] LABS: Basophils # (Auto) 0.1 Thou/mm3 (0.0-0.2); Basophils % (Auto) 1 % (0-2.5); Eosinophils # (Auto) 0.2 Thou/mm3 (0.0-0.5); Eosinophils % (Auto) 2 % (0-10); Hematocrit 35.6 % (36.0-46.0); Hemoglobin 11.8 g/dL (12.0-16.0); Immature Granulocytes % (Auto) 0 % (0-0); Immature Granulocytes Auto 0.05 Thou/mm3 (0.00-0.00); Lymphocytes # (Auto) 0.9 Thou/mm3 (1.0-4.8); Lymphocytes % (Auto) 7 % (10-50); Mean Corpuscular HGB Conc 33.1 g/dl (31.0-37.0); Mean Corpuscular Hemoglobin 28.5 pg (25.0-35.0); Mean Corpuscular Volume 86 fL (80-100); Monocytes # (Auto) 1.9 Thou/mm3 (0.0-0.8); Monocytes % (Auto) 16 % (0-12); Neutrophils # (Auto) 9.1 Thou/mm3 (1.8-7.7); Neutrophils % (Auto) 74 % (37-80); Nucleated Red Blood Cell % 0 /100 WBC (0); Platelet Count 327 Thou/mm3 (140-440); RDW Standard Deviation 48.2 fL (36.4-46.3); Red Blood Count 4.14 Miln/mm3 (4.00-5.20); White Blood Count 12.2 Thou/mm3 (3.6-11.0)
[2024-06-06 12:57] LABS: INR 1.1 (0.9-1.3); Partial Thromboplastin Time 34.5 Seconds (22.0-36.0); Prothrombin Time 11.7 Seconds (9.0-12.2)
[2024-06-06 13:00] LABS: Alanine Aminotransferase 67 U/L (10-49); Albumin, Serum 4.3 gm/dL (3.4-4.8); Albumin/Globulin Ratio 1.7 (1.2-2.2); Alkaline Phosphatase 77 U/L (46-116); Anion Gap 9 (7-16); Aspartate Amino Transferase 47 U/L (0-34); BUN/Creatinine Ratio 14 Ratio (12-20); Bilirubin,Total 0.3 mg/dL (0.3-1.2); Blood Urea Nitrogen 15 mg/dL (9-23); Calcium 8.8 mg/dL (8.3-10.6); Calcium (Corrected) 8.8 mg/dL (8.5-10.1); Carbon Dioxide 25.1 mMol/L (20.0-31.0); Chloride 95 mMol/L (98-107); Creatinine (Component) 1.1 mg/dL (0.6-1.3); Estimated Creatinine Clearance 34.1 mL/min (>60); Globulin 2.5 gm/dL (2.3-3.5); Glucose 128 mg/dL (74-106); LDH (Lactate Dehydrogenase) 276 U/L (120-246); Magnesium 1.3 mg/dL (1.6-2.6); Osmolality,Calculated 261 (275-295); Sodium 129 mMol/L (136-145); Total Protein 6.8 gm/dL (5.7-8.2); Troponin I < 0.020 ng/mL (0.0-0.045); eGFR 49 See Note
[2024-06-06 13:01] LABS: B-Type Natriuretic Peptide 177 pg/mL (0-100)
[2024-06-06 14:00] VITALS: BP 154/69; PULSE 76; RESP 19; TEMP 36.8; O2SAT 95
--- NOTE | 2024-06-06 14:10 | PC.NURSE ---
[facility] transfer nurse teodoro is aware of the request of a tranfer for a trauma, brain bleed, all paper work faxed, she will review the paper work and call me back
--- NOTE | 2024-06-06 14:47 | PC.NURSE ---
spoke with Sylvia transfer nurse from [facility]. [facility] excepted pt er to er. to Dr Vasquez. report to be called to [phone]
--- NOTE | 2024-06-06 14:59 | PC.NURSE ---
nakul accepted er to er dr rock
== END 2024-06-06 15:55 | disposition short-term general hospital (02) ==
PROVIDERS: Registered Nurse General Practice; Emergency Provider Emergency Medicine; PCP Family Medicine
DX: I60.9 Nontraumatic subarachnoid hemorrhage, unspecified (principal); E87.1 Hypo-osmolality and hyponatremia; E83.42 Hypomagnesemia; W18.30XA Fall on same level, unspecified, initial encounter; I10 Essential (primary) hypertension
CPT/HCPCS: 36415; 70450; 72125; 80053; 80307; 81001; 83615; 83735; 83880; 84484; 85025; 85610; 85730; 93005; 99285

== ENCOUNTER 2024-06-07 19:23 | Inpatient (IN) | payer MEDICARE, SELFPAY ==
[2024-06-07 20:00] VITALS: PULSE 80
[2024-06-07 20:05] VITALS: BMI 25.7
[2024-06-07 20:37] VITALS: BP 136/69; PULSE 89; RESP 17; TEMP 36.5; O2SAT 96
--- NOTE | 2024-06-07 20:52 | PD.RESHP ---
Documentation for date of: 06/07/24 HPI History of Present Illness Chief complaint: Fall History of present illness: 89-year-old female with past medical history of atrial fibrillation on Eliquis, s/p pacemaker implantation, history of oxygen 2 L at home stopped since 07/2023 after pacemaker implantation, hypertension, diabetes, pelvic and left hip fracture status post fixation, history of left breast cancer s/p mastectomy, hearing loss presented to the hospital on 06/2024 with chief complaints of fall. Patient initially came to the ED on 06/06/2024 with complaints of fall and later patient was transferred to [facility] in view of subarachnoid hemorrhage found on the CT brain done in [facility]. In [facility], repeat CT was done and there is no evidence of subarachnoid hemorrhage or intracranial hemorrhage, found periorbital hematoma which was managed conservatively and patient was transferred back to [facility] on 06/07/2024. Per patient, patient was asleep and somebody knocked on her door, while half-asleep patient tried to walk to the door without the help of the walker which she is using regularly and had a fall because of loss of balance. Denies palpitations, loss of consciousness, abnormal movements, chest pain, dizziness. Patient is following Dr. Yung for atrial fibrillation and is using Eliquis, last dose is on 06/05/2024 Patient was transferred to floors directly from [facility] and admitted in [facility] Vitals at the time of admission to floor: Blood pressure 136/69 mmHg, pulse rate 89 bpm, respiratory rate 17/min, temperature 97.7 ?F, SpO2 96% with 2 L oxygen and Labs done on 06/2023 in [facility] showed WBC 10, Hb 10.2, sodium 129, potassium 3.6, creatinine 1.72, BUN 22, glucose 289, coagulation studies are within normal limits Past medical history: Atrial fibrillation on Eliquis, , history of oxygen 2 L at home stopped since 07/2023 after pacemaker implantation, hypertension, diabetes Past surgical history:s/p pacemaker implantation, pelvic and left hip fracture status post fixation, history of left breast cancer s/p mastectomy Social history: History of remote smoking at the age of 22, denies alcohol, other illicit drug abuse. Review of Systems Review of Systems Narrative Review of Systems: Constitutional: No Weight Change, No Fever, No Chills, No Night Sweats, Fatigue, No Malaise ENT/Mouth: Hearing Changes(decreased hearing), No Ear Pain, No Nasal Congestion, No Sinus Pain, No Hoarseness, No sore throat, No Rhinorrhea, No Swallowing Difficulty Eyes: No Eye Pain, No Swelling, No Redness, No Foreign Body, No Discharge, No Vision Changes Cardiovascular: No Chest Pain, No SOB, No PND, No Dyspnea on Exertion, No Orthopnea, No Edema, No Palpitations Respiratory: No Cough, No Sputum, No Wheezing, No Dyspnea Gastrointestinal: No Nausea, No Vomiting, No Diarrhea, No Constipation, No Pain, No Heartburn, No Anorexia, No Dysphagia, No Hematochezia, No Melena, No Flatulence, No Jaundice Genitourinary: No Dysuria, No Urinary Frequency, No Hematuria, No Urinary Incontinence, No Urgency, No Flank Pain, No Urinary Flow Changes, No Hesitancy Musculoskeletal: No Arthralgias, No Myalgias, No Joint Swelling, No Joint Stiffness, No Back Pain, No Neck Pain, No Injury History Skin: No Skin Lesions, No Pruritis Neuro: No Weakness, No Numbness, No Paresthesias, No Loss of Consciousness, No Syncope, No Dizziness, No Headache, No Coordination Changes, No Recent Falls Exam Vital Signs Temp Pulse Resp BP Pulse Ox O2 Del Method 97.7 F 89 17 136/69 H 96 Nasal Cannula 06/07/24 20:37 06/07/24 20:37 06/07/24 20:37 06/07/24 20:37 06/07/24 20:37 06/07/24 20:37 Narrative Exam General: Awake. HEENT: Normocephalic, atraumatic, mucous membranes moist. Hematoma on right forehead above eyebrow Heart: Irregular rate and rhythm, no murmurs. Lungs: Clear to auscultation with no wheezing or crackles. Abdomen: Soft, nondistended, nontender, positive bowel sounds. ?No guarding or rebound tenderness. Neurologic: Alert and oriented x3, no gross neurological deficit, and patient able to move all 4 extremities. Extremities: No edema. Skin: No rash. Noted right periorbital edema Quality Measures Quality Measures VTE prophylaxis Advance care planning discussed with:: patient and child Medications Home Medications and Allergies Home Medications ?Medication ?Instructions ?Recorded ?Confirmed ?Type apixaban 5 mg tablet (Eliquis) 5 mg PO BID 07/20/23 06/07/24 History amiodarone 200 mg tablet 200 mg PO BID 06/07/24 06/07/24 History amlodipine 5 mg tablet 5 mg PO DAILY 06/07/24 06/07/24 History lisinopril 20 mg tablet 20 mg PO DAILY 06/07/24 06/07/24 History metformin 1,000 mg tablet 1,000 mg PO BID 06/07/24 06/07/24 History metoprolol succinate 100 mg 100 mg PO DAILY 06/07/24 06/07/24 History tablet,extended release 24 hr Allergies Allergy/AdvReac Type Severity Reaction Status Date / Time levofloxacin Allergy Severe Rash Verified 06/07/24 20:25 Penicillins Allergy Mild Rash Verified 06/07/24 20:25 codeine Allergy Unknown Diarrhea Verified 06/07/24 20:26 meperidine Allergy Unknown Verified 06/07/24 20:25 phenytoin Allergy Unknown Verified 06/07/24 20:25 Visit Medications Acetaminophen (Acetaminophen 325 Mg Tablet) 650 mg PO Q6H PRN PRN Reason: Fever >100.3 or mild pain 1-3 Stop: 07/07/24 20:31 Magnesium Hydroxide (Milk Of Magnesia Susp 30 Ml Udc) 30 ml PO QDAY PRN; Protocol PRN Reason: CONSTIPATION Stop: 07/07/24 20:31 Ondansetron HCl (Ondansetron Inj 2 Mg/Ml Inj 2 Ml) 4 mg IV Q6H PRN; Protocol PRN Reason: NAUSEA OR VOMITING Stop: 07/07/24 20:31 Pantoprazole Sodium (Pantoprazole 40 Mg Tablet) 40 mg PO QDAY CATE Stop: 07/08/24 08:59 Assessment & Plan Plan 89-year-old female with past medical history of atrial fibrillation on Eliquis, s/p pacemaker implantation, history of oxygen 2 L at home stopped since 07/2023 after pacemaker implantation, hypertension, diabetes, pelvic and left hip fracture status post fixation, history of left breast cancer s/p mastectomy, hearing loss presented to the hospital on 06/2024 with chief complaints of fall. # Fall # Loss of balance #? polypharmacy -Patient was brought to the ED on 06/06/2024 with the complaints of fall -Denies loss of consciousness, palpitations, chest pain at the time of fall -At the baseline, patient ambulates with the help of a walker and during the time of fall patient did not use a walker as she is in a hurry -At the time of presentation to the ED on 06/06/2024, CT read showed subarachnoid hemorrhage for which patient was transferred to [facility] -In [facility], repeat CT scans did not show any evidence of subarachnoid hemorrhage, so patient was transferred back to the [facility] -Vitals are stable at the time of transfer back -On physical examination, there is a periorbital hematoma with bruise on right forehead above the eyebrow Plan -Physical therapy is ordered -Eliquis is held for now and restart after cardiology consultation # History of atrial fibrillation on Eliquis # S/p pacemaker implantation -Will continue amiodarone 200 Mg p.o. twice daily and metoprolol 50mg p.o qday, increase the dose later if patient is tolerating it well -Home dose of metoprolol is 100mg Xl p.o. qday -Last Eliquis intake was on 06/05/2024 -Held it for now as patient appears to be fall risk -Restart after consultation with gas operations analyst # History of hypertension -Blood pressure at the time of admission on 06/2024 is 136/69 mmHg -Patient is using amlodipine 5 Mg and lisinopril at home -Withheld medication for now and restarted after monitoring of blood pressures # History of diabetes mellitus -A1c is 6.3 on 12/2023 -Patient is using metformin 1000 Mg twice daily p.o. at home -Repeat HbA1c is ordered -Start insulin sliding scale if needed Hospital Maintenance: Dispo: medtele DVT ppx: held for now GI ppx:protonix Diet:low sodium IV lines: peripheral Code status:Full code Patient plan of care was discussed with the attending physician, Dr. Sina Meng, PGY1 Attending Provider Attestation/Addendum I have examined the patient, reviewed labs and imaging findings, discussed the case with the resident(s), and reviewed entered orders. I agree with the plan of care as outlined in this note, with these additional summaries/recommendations: 89-year-old female history of hypertension, hyperlipidemia, DM, A-fib on Eliquis, pacemaker, recurrent falls presented to the ED originally on 06/06/2024 with chief complaint of fall after waking up in the middle the night to answer the door. Patient reports he was unsteady on his feet without walker and slipped and fell hit her head. She was initially transferred to [facility] after initial imaging revealed possible subarachnoid hemorrhage where she was monitored for [address] imaging at their facility was negative. She transferred back today in stable condition, still has right periorbital hematoma from trauma. Pending physical therapy eval and discharge planning, home versus SNF. Robin Andino MD
--- NOTE | 2024-06-07 20:57 | PC.NURSE ---
seen and examined by Dr. Meng, daughter at bedside.
[2024-06-07] MEDS: ACETAMINOPHEN 325 MG TABLET 650 MG PO (21:43)
--- NOTE | 2024-06-07 21:50 | PC.NURSE ---
96% O2 sat on 2L/min/nc O2 inh- Decreased to 1L/min/nc.
[2024-06-08] VITALS (14 sets, daily range): BP systolic 101–168; BP diastolic 52–72; PULSE 70–94; RESP 17–25; TEMP 36.3–37.1; O2SAT 92–99
--- NOTE | 2024-06-08 01:26 | PC.NURSE ---
Pt remmoved O2 inh, with 86% O2 sat on room air- Reapplied O2 inh on at 1L/min/nc.
[2024-06-08 05:52] LABS: Basophils % (Auto) 0 % (0-2.5); Eosinophils % (Auto) 0 % (0-10); Hematocrit 30.4 % (36.0-46.0); Hemoglobin 10.1 g/dL (12.0-16.0); Immature Granulocytes % (Auto) 1 % (0-0); Immature Granulocytes Auto 0.18 Thou/mm3 (0.00-0.00); Lymphocytes # (Auto) 0.8 Thou/mm3 (1.0-4.8); Lymphocytes % (Auto) 4 % (10-50); Mean Corpuscular HGB Conc 33.2 g/dl (31.0-37.0); Mean Corpuscular Hemoglobin 28.5 pg (25.0-35.0); Mean Corpuscular Volume 86 fL (80-100); Monocytes # (Auto) 1.7 Thou/mm3 (0.0-0.8); Monocytes % (Auto) 8 % (0-12); Neutrophils # (Auto) 18.7 Thou/mm3 (1.8-7.7); Neutrophils % (Auto) 87 % (37-80); Nucleated Red Blood Cell % 0 /100 WBC (0); Platelet Count 370 Thou/mm3 (140-440); RDW Standard Deviation 47.9 fL (36.4-46.3); Red Blood Count 3.54 Miln/mm3 (4.00-5.20); White Blood Count 21.4 Thou/mm3 (3.6-11.0)
[2024-06-08 06:13] LABS: Glucose Estimated Average 137 mg/dL (80-131); Hemoglobin A1C 6.4 % Hgb (4.8-6.0)
[2024-06-08 06:17] LABS: Anion Gap 8 (7-16); BUN/Creatinine Ratio 20 Ratio (12-20); Blood Urea Nitrogen 28 mg/dL (9-23); Calcium 8.8 mg/dL (8.3-10.6); Carbon Dioxide 28.3 mMol/L (20.0-31.0); Chloride 96 mMol/L (98-107); Creatinine (Component) 1.4 mg/dL (0.6-1.3); Estimated Creatinine Clearance 26.8 mL/min (>60); Glucose 144 mg/dL (74-106); Osmolality,Calculated 273 (275-295); Potassium 4.4 mMol/L (3.4-5.1); Sodium 132 mMol/L (136-145); eGFR 36 See Note
[2024-06-08] MEDS: AMIODARONE HCL 200 MG TABLET PO ×2 (08:39→20:20)
[2024-06-08] MEDS: METOPROLOL SUCCINATE XL 25 MG TABCR 50 MG PO (08:39)
[2024-06-08] MEDS: PANTOPRAZOLE 40 MG TABLET PO (08:39)
--- NOTE | 2024-06-08 10:02 | XR_ITS ---
Examination: AP chest single view Technique one AP portable sitting chest single view Exam date and time: June 08, 2024 and 15 hours Comparison August 09, 2023 Indications: Increasing cough today. Findings: Left base and bilateral perihilar pneumonia Prominent vascular congestion Mild to moderate enlargement left ventricle Cardiac leads satisfactory position Impression: Bilateral pneumonia, significant left base Mild associated heart failure
[2024-06-08] MEDS: FUROSEMIDE INJ 10 MG/ML VIAL 2 ML 20 MG IVP (12:00)
[2024-06-08] MEDS: guaiFENesin SYRUP 200 MG/10 ML UDC 100 MG PO ×2 (12:00→18:09)
[2024-06-08] MEDS: AZITHROMYCIN 250 MG TABLET 500 MG PO (12:01)
[2024-06-08] MEDS: cefTRIAXone/D5w 1gm IV premix 50 ML IV (12:01)
[2024-06-08 12:59] LABS: Basophils % (Auto) 0 % (0-2.5); Eosinophils # (Auto) 0.1 Thou/mm3 (0.0-0.5); Eosinophils % (Auto) 0 % (0-10); Hematocrit 30.9 % (36.0-46.0); Hemoglobin 10.2 g/dL (12.0-16.0); Immature Granulocytes % (Auto) 1 % (0-0); Immature Granulocytes Auto 0.15 Thou/mm3 (0.00-0.00); Lymphocytes % (Auto) 5 % (10-50); Mean Corpuscular Hemoglobin 28.2 pg (25.0-35.0); Mean Corpuscular Volume 85 fL (80-100); Monocytes # (Auto) 2.1 Thou/mm3 (0.0-0.8); Monocytes % (Auto) 10 % (0-12); Neutrophils # (Auto) 17.1 Thou/mm3 (1.8-7.7); Neutrophils % (Auto) 84 % (37-80); Nucleated Red Blood Cell % 0 /100 WBC (0); Platelet Count 373 Thou/mm3 (140-440); Red Blood Count 3.62 Miln/mm3 (4.00-5.20); White Blood Count 20.4 Thou/mm3 (3.6-11.0)
--- NOTE | 2024-06-08 13:43 | ESPR_ITS ---
Documentation for date of: 06/08/24 Subjective Subjective Interval history: Patient is a 89-year-old female with a past medical history of hypertension, diabetes mellitus type 2 tac-asixazo-[id number] (on metformin home), atrial fibrillation currently rate (on Metoprolol Succinate and Amiodarone) s/p pacemaker, and history of pelvic left hip fracutre s/p fixation. Patient was transferred to [facility] for possible intracranial bleed, which was ruled out. Paulette Goodrich resumed care on 06/07/2024. Patient transferred back from [facility] at approximately 9:00 PM on 06/07/2024. No overnight events reported for patient. Patient examined at bedside. Patinet denied headache or visual changes. Patient complained of cough this morning. WBC elevated this morning. chest xray ordered, UA ordered, and repeat WBC which continued to show elevated WBC. No steroids noted on [facility] transfer paper work. Lasix 20 mg X 1 given. Exam Vital Signs Temp Pulse Resp BP Pulse Ox O2 Del Method 98.6 F 94 22 H 168/65 H 95 Nasal Cannula 06/08/24 12:00 06/08/24 12:26 06/08/24 12:26 06/08/24 12:00 06/08/24 12:06/08/24 12:00 Narrative Exam General Appearance: Alert & Oriented X3, well-nourished female who is lying in bed in mild distress secondary to persistent cough. HEENT: Skull symmetrical and atraumatic. Conjunctivae pale pink and moist. Pupils equal, round, reactive to light and accommodation (PERRL). External ear without lesion or discharge. Straight, nares patient, mucosa pink, no discharge. Cardio: Normal Rate and Rhythm with S1 and S2 heart sounds. No murmurs or extra heart sounds auscultated. No bruits on carotid auscultation. No peripheral edema or cyanosis. Lungs: Symmetric with good expansion. Chest and back non-tender. Breath sounds vesicular with mild crackles at lower lung rasheed. Abdomen: Non-tender, Non-distended, Normal Reactive Bowel Sounds Neuro: Alert, cooperative, oriented to person, place, and time. Speech clear. CN grossly intact. Upper motor strength 5/5 and Lower motor strength 5/5. Sensation intact. Objective Labs 06/08/24 12:25 06/08/24 05:20 Labs: Laboratory Results - last 24 hr 06/08/24 06/08/24 05:20 12:25 WBC 21.4 H D 20.4 H RBC 3.54 L 3.62 L Hgb 10.1 L 10.2 L Hct 30.4 L 30.9 L MCV 86 85 MCH 28.5 28.2 MCHC 33.2 33.0 RDW Std Deviation 47.9 H 48.0 H Plt Count 370 D 373 Neut % (Auto) 87 H 84 H Lymph % (Auto) 4 L 5 L Brewster % (Auto) 8 10 Eos % (Auto) 0 0 Baso % (Auto) 0 0 Neut # (Auto) 18.7 H 17.1 H Lymph # (Auto) 0.8 L 1.0 Brewster # (Auto) 1.7 H 2.1 H Eos # (Auto) 0.0 0.1 Baso # (Auto) 0.0 0.0 Immature Gran # (Auto) 0.18 H 0.15 H Absolute Nucleated RBC 0.00 0.00 Immature Gran % 1 H 1 H Nucleated RBC % 0 0 Sodium 132 L Potassium 4.4 Chloride 96 L Carbon Dioxide 28.3 Anion Gap 8 BUN 28 H Creatinine 1.4 H Estim Creat Clear Calc 26.8 L eGFR 36 L BUN/Creatinine Ratio [address] Glu mg/dL 137 H Hemoglobin A1c 6.4 H Calculated Osmolality 273 L Calcium 8.8 Quality Measures Quality Measures VTE prophylaxis Advance care planning discussed with:: patient Assessment & Plan Assessment Current Active Medications: Generic Name Dose Route Start Last Admin Trade Name Freq PRN Reason Stop Dose Admin Acetaminophen 650 mg 06/07/24 20:32 06/07/24 21:43 Acetaminophen 325 Mg Tablet PO 07/07/24 20:31 650 mg Q6H PRN Administration Fever >100.3 or mild pain 1-3 Albuterol/Ipratropium 3 ml 06/08/24 13:00 06/08/24 12:25 Albuterol/Ipratropium (Duoneb) Rt Jodi 3 Ml Nebu INH 07/08/24 12:59 Not Given Q6HRRT CATE Amiodarone HCl 200 mg 06/08/24 09:00 06/08/24 08:39 Amiodarone Hcl 200 Mg Tablet PO 07/08/24 08:59 200 mg BID CATE Administration Azithromycin 500 mg 06/08/24 11:30 06/08/24 12:01 Azithromycin 250 Mg Tablet PO 06/15/24 11:29 500 mg QDAY CATE Administration Protocol Dextrose 25 ml 06/08/24 08:35 Dextrose 50%-Water Inj 50 Ml Syringe IV 07/08/24 08:34 Q15MIN PRN BG 50-70 responsive npo pt Dextrose 50 ml 06/08/24 08:35 Dextrose 50%-Water Inj 50 Ml Syringe IV 07/08/24 08:34 Q15MIN PRN BG <50 OR BG <70 & pt unresponsive Glucagon 1 mg 06/08/24 08:35 Glucagon Inj 1 Mg Vial IM Q15MIN PRN BG <70, and no IV access Guaifenesin 100 mg 06/08/24 10:01 06/08/24 12:00 Guaifenesin Syrup 200 Mg/10 Ml Udc PO 07/08/24 10:00 100 mg QID PRN Administration COUGH Protocol Ceftriaxone Sodium/Dextrose 50 mls @ 100 mls/hr 06/08/24 11:23 06/08/24 12:01 Rocephin/D5w 1gm Iv Premix IV 06/15/24 11:22 100 mls/hr QDAY CATE Administration Insulin Human Lispro 0 unit 06/08/24 11:30 06/08/24 11:51 Insulin Lispro (Admelog) 1 Unit/0.01 Ml Unit SC 07/08/24 11:29 Not Given ACHS CATE Protocol Magnesium Hydroxide 30 ml 06/07/24 20:32 Milk Of Magnesia Susp 30 Ml Udc PO 07/07/24 20:31 QDAY PRN CONSTIPATION Protocol Metoprolol Succinate 50 mg 06/08/24 09:00 06/08/24 08:39 Metoprolol Succinate Xl 25 Mg Tabcr PO 07/08/24 08:59 50 mg QDAY CATE Administration Ondansetron HCl 4 mg 06/07/24 20:32 Ondansetron Inj 2 Mg/Ml Inj 2 Ml IV 07/07/24 20:31 Q6H PRN NAUSEA OR VOMITING Protocol Pantoprazole Sodium 40 mg 06/08/24 09:00 06/08/24 08:39 Pantoprazole 40 Mg Tablet PO 07/08/24 08:59 40 mg QDAY CATE Administration Plan Patient is a 89-year-old female with a past medical history of hypertension, diabetes mellitus type 2 [id number]-elnisxb-hssfkwyjt (on metformin home), atrial fibrillation currently rate (on Metoprolol Succinate and Amiodarone) s/p pacemaker, and history of pelvic left hip fracutre s/p fixation. Patient was transferred to [facility] for possible intracranial bleed, which was ruled out. Trezevant resumed care on 06/07/2024. #Community Acquired Pneumonia #Leukocytosis #Cough Etiology: On admission patient had mildly elevated leukocytosis which increased with morning labs to 21.4 repeat WBC show 20.4. Likely secondary to pneumonia such as a strep pneumoniae. Given patient's recent hospital-acquired pneumonia cannot be ruled out. Flu and COVID and cocci panel obtained. Patient started on ceftriaxone and azithromycin. DDx:Given history of ejection fraction of 50 to 55% and pulmonary vascular congestion CHF exacerbation cannot be ruled out. Pending new echo. Less likely secondary to PE as patient well score 0 with no tachycardia or hypotension present patient is saturating well. less likely secondary to lisinopril as its currently on hold. Diagnostics: WBC (06/08/2024) 21.4 and repeat 20.4 Cxr (06/08/2024): Bilateral pneumonia, significant left base. Mild associated heart failure Echo (06/08/2023): Normal LV size and function. Estimated EF 50-55%. Diastolic dysfunction present but cannot grade because of Afib. Plan -Lasix 20 mg X 1 -Ceftriaxone 1 g and Azithromycin 500 mg (06/08/2024--) Day 1 -echo -Duonebs scheduled -COVID, Flu, and Cocci panel -Chest physiology -cough syrup as needed -UA pending # Fall # Loss of balance #? polypharmacy -Patient was brought to the ED on 06/06/2024 with the complaints of fall -Denies loss of consciousness, palpitations, chest pain at the time of fall -At the baseline, patient ambulates with the help of a walker and during the time of fall patient did not use a walker as she is in a hurry -At the time of presentation to the ED on 06/06/2024, CT read showed subarachnoid hemorrhage for which patient was transferred to [facility] -In [facility], repeat CT scans did not show any evidence of subarachnoid hemorrhage, so patient was transferred back to the [facility] -Vitals are stable at the time of transfer back -On physical examination, there is a periorbital hematoma with bruise on right forehead above the eyebrow Plan -Physical therapy is ordered -Social Service Consulted for possible SNF, lives alone -Eliquis is held for now and restart after cardiology consultation # History of atrial fibrillation on Eliquis # S/p pacemaker implantation -Will continue amiodarone 200 Mg p.o. twice daily and metoprolol 50mg p.o qday, increase the dose later if patient is tolerating it well Diagnostics: Echo -Home dose of metoprolol is 100mg Xl p.o. qday -HOLDING-Eliquis intake was on 06/05/2024 -Held it for now as patient appears to be fall risk -Restart after consultation with glue drier operator # History of hypertension History of hypertension, restart Amlodipine at higher dose of 10 mg Qday. Holding Lisinopril given CrCl <30. Plan -Home dose of Amlodipine 5 Mg--->Increased to Amlodipine 10 mg QDay -Hold Lisinopril given Crcl <30 #CKD stage IIIb Patient has a past medical history of chronic kidney disease likely secondary to longstanding history of diabetes mellitus leading to diabetic nephropathy. Diagnostics (06/08/2024): BUN 28, Cr 1.4 GFR 36 Plan -Continue monitor renal function -Avoid nephrotoxins -Renally dose medication #Mild Hypovolemic Hyponatremia Patient has mild hyponatremia and appears hypovolemic likely secondary to poor oral oral intake. Patient's osmolarity less than 280. Consider urine electrolytes. Na 132 and Osm 273 Plan -Consider urine Electrolytes -Consider NS if does not improve #Diabetes Mellitus Type 2 non-insulin dependent Patient has a past medical history of diabetes mellitus type 2 on home Metformin, well controlled. Diagnostics: -A1c is 6.3 on 12/2023 -A1c 6.4 (06/08/2024) Plan: -Hold home medication of metformin 1000 Mg twice daily p.o. at home -insulin sliding scale if needed Hospital Maintenance: Dispo: medtele DVT ppx: held for now GI ppx:protonix Diet:low sodium IV lines: peripheral Code status:Full code - The patient's plan was discussed with attending Dr. Katz and senior residents Dr. Lorrie Rodríguez MD PGY1 Internal Medicine Senior Resident Attestation: I discussed with and supervised the senior internet sales consultant physician involved in the care of this patient. I personally saw and examined the patient and discussed the assessment and plan with the entire medicine team, including my attending. I agree with the assessment and plan as documented above. Patient seen and examined at bedside. Patient was transferred from [facility] due to a suspected brain bleed which was ruled out. Patient was transferred back to [facility] with possible CHF exacerbation. Patient has preserved ejection fraction with an EF of 50 to 55% echo was done several months ago. Patient also has history of atrial fibrillation on amiodarone metoprolol and apixaban. Patient is also a diabetic with A1c of 6.4. At bedside patient was complaining of cough and shortness of breath chest x-ray showed bilateral base pneumonia with pulmonary congestion. Lower extremity did not show edema. We started the patient on Rocephin and azithromycin and a dose of Lasix 20 mg IV x 1 was given. He will repeat a transthoracic echocardiogram to review patient's LVEF function. Patient also has a mild KELSEA which will monitor. We will order physical therapy. - Patient's care was discussed with my attending physician. Jalil Andrew MD Internal Medicine PGY-3 Attending Provider Attestation/Addendum I attest that I was physically present for the evaluation, physical examination, lab and imaging review of the patient with the residents. I discussed the case with the residents and agree with the findings and plans of care as documented above. Patient was patient is a 39 years old female with past medical history of hypertension, diabetes mellitus type 2, atrial fibrillation on Eliquis status post pacemaker placement initially presented to [facility] ED after a fall was suspected for subarachnoid hemorrhage on imaging and was transferred to [facility]. She underwent multiple imaging at [facility], had neurosurgery consultation who were brain bleed was ruled out. She was admitted there for management of acute hypoxic respiratory failure possibly secondary to CHF exacerbation. Patient was then transferred back to [facility]. At bedside, patient was coughing, she was also complaining of shortness of breath. Currently on 2 L oxygen via nasal cannula. Auscultation showed bilateral crackles but patient did not have any pedal edema. Chest x-ray was obtained which shows bilateral pneumonia with pulmonary congestion. Started patient on IV Rocephin and azithromycin. We will also add Lasix 20 mg x 1. Plan to obtain echocardiogram. We will obtain physical therapy, holding Eliquis for now. Saida Katz MD
[2024-06-08 14:50] LABS: Cocci Serology, IgM Negative (Negative)
[2024-06-08] MEDS: amLODIPine BESYLATE 5 MG TABLET 10 MG PO (14:56)
--- NOTE | 2024-06-08 14:58 | ECHO_ITS ---
Transthoracic Echo Report Ht (in): 64 Wt (lb): 150 Exam Location: Portable Status: Inpatient Diesel Engineer: Audrey He Indications: Procedure Performed: BP: 120 / 56 HR: 73 Technical Quality: Fair MEASUREMENTS (Male / Female) Normal Values 2D ECHO LV Diastolic Diameter PLAX 4.2 cm 4.2 - 5.9 / 3.9 - 5.3 cm LV Systolic Diameter PLAX 3.0 cm IVS Diastolic Thickness 0.9 cm 0.6 - 1.0 / 0.6 - 0.9 cm LVPW Diastolic Thickness 1.2 cm 0.6 - 1.0 / 0.6 - 0.9 cm LV Relative Wall Thickness 0.5 LVOT Diameter 1.7 cm LA Volume Index 29.9 cm?/m? 16 - 28 cm?/m? Ascending Aorta Diameter 2.6 cm M-MODE Aortic Root Diameter MM 2.8 cm LA Systolic Diameter MM 4.1 cm LA Ao Ratio MM 1.5 AV Cusp Separation MM 2.1 cm DOPPLER AV Peak Velocity 148.0 cm/s AV Peak Gradient 8.8 mmHg AV Mean Gradient 5.0 mmHg AV Velocity Time Integral 31.5 cm LVOT Peak Velocity 130.0 cm/s LVOT Peak Gradient 6.8 mmHg LVOT Velocity Time Integral 27.6 cm LVOT Cardiac Index 2589.1 cm?/min?m? AV Area Cont Eq vti 2.0 cm? AV Area Cont Eq pk 2.0 cm? MV Peak Velocity 138.0 cm/s MV Peak Gradient 7.6 mmHg MV Mean Velocity 72.5 cm/s MV Mean Gradient 3.0 mmHg MV Area PHT 2.9 cm? Mitral E Point Velocity 117.0 cm/s Mitral A Point Velocity 108.0 cm/s Mitral E to A Ratio 1.1 LV E' Lateral Velocity 9.3 cm/s Mitral E to LV E' Lateral Ratio 12.6 LV E' Septal Velocity 6.5 cm/s Mitral E to LV E' Septal Ratio 17.9 FINDINGS Left Ventricle Normal left ventricular size, wall thickness, systolic function with no obvious regional wall motion abnormalities. The ejection fraction is visually estimated at 60-65%. Right Ventricle The right ventricle is normal in size and systolic function. Pacing wire present. Left Atrium The left atrium is normal by two-dimensional, color flow and Doppler imaging with no structural abnormalities, no thrombus formation present. Right Atrium The right atrium is normal by two-dimensional imaging, color flow and Doppler imaging with no struct ural abnormalities, no thrombus formation present. Atrial Septum The interatrial septum appears normal with no evidence of a shunt. Aorta The aorta is normal by two-dimensional, color flow and Doppler interrogation. Mitral Valve The mitral valve is normal by two-dimensional, color flow and Doppler interrogation. There is trace mitral valve regurgitation. Aortic Valve The aortic valve is trileaflet and normal by two-dimensional, color flow and Doppler interrogation. There is no significant aortic valve regurgitation. Tricuspid Valve The tricuspid valve is normal by two-dimensional, color flow and Doppler interrogation. There is tra ce tricuspid valve regurgitation. Pulmonic Valve There is no significant pulmonic valve regurgitation. Vessels The pulmonary artery appears normal. The inferior vena cava pulmonary and hepatic veins appear nikhil l. Pericardium The pericardium is normal by two-dimensional imaging. There is no significant pericardial effusion. CONCLUSIONS Normal LV size and function. Estimated EF 60-65% Normal RV size and function. Pacing wire present. Trace MR, TR. Juanita#[id number] Kymberly Alanis (Electronically Signed) Final Date: 10 June 2024 17:52
[2024-06-08] MEDS: INSULIN LISPRO (AdmeLOG) 1 UNIT/0.01 ML UNIT SC ×2 (17:14→20:20)
[2024-06-08] MEDS: ALBUTEROL/IPRATROPIUM (Duoneb) RT SOL 3 ML NEBU INH (18:48)
--- NOTE | 2024-06-08 21:24 | PC.RT ---
sputum sample collected and sent to lab.
[2024-06-09] VITALS (15 sets, daily range): BP systolic 115–127; BP diastolic 47–66; PULSE 60–87; RESP 17–24; TEMP 36.3–36.7; O2SAT 93–100; BMI 11.0
[2024-06-09] MEDS: ALBUTEROL/IPRATROPIUM (Duoneb) RT SOL 3 ML NEBU INH ×4 (00:19→18:12)
[2024-06-09] MEDS: guaiFENesin SYRUP 200 MG/10 ML UDC 100 MG PO ×2 (01:43→13:31)
[2024-06-09 05:50] LABS: Basophils % (Auto) 0 % (0-2.5); Eosinophils # (Auto) 0.2 Thou/mm3 (0.0-0.5); Eosinophils % (Auto) 2 % (0-10); Hematocrit 30.8 % (36.0-46.0); Hemoglobin 10.3 g/dL (12.0-16.0); Immature Granulocytes % (Auto) 1 % (0-0); Immature Granulocytes Auto 0.08 Thou/mm3 (0.00-0.00); Lymphocytes # (Auto) 1.1 Thou/mm3 (1.0-4.8); Lymphocytes % (Auto) 8 % (10-50); Mean Corpuscular HGB Conc 33.4 g/dl (31.0-37.0); Mean Corpuscular Hemoglobin 28.7 pg (25.0-35.0); Mean Corpuscular Volume 86 fL (80-100); Monocytes # (Auto) 1.7 Thou/mm3 (0.0-0.8); Monocytes % (Auto) 14 % (0-12); Neutrophils # (Auto) 9.6 Thou/mm3 (1.8-7.7); Neutrophils % (Auto) 76 % (37-80); Nucleated Red Blood Cell % 0 /100 WBC (0); Platelet Count 362 Thou/mm3 (140-440); RDW Standard Deviation 48.2 fL (36.4-46.3); Red Blood Count 3.59 Miln/mm3 (4.00-5.20); White Blood Count 12.8 Thou/mm3 (3.6-11.0)
[2024-06-09 06:18] LABS: Anion Gap 8 (7-16); BUN/Creatinine Ratio 19 Ratio (12-20); Blood Urea Nitrogen 25 mg/dL (9-23); Calcium 8.7 mg/dL (8.3-10.6); Chloride 97 mMol/L (98-107); Creatinine (Component) 1.3 mg/dL (0.6-1.3); Estimated Creatinine Clearance 28.9 mL/min (>60); Glucose 116 mg/dL (74-106); Magnesium 1.6 mg/dL (1.6-2.6); Osmolality,Calculated 271 (275-295); Phosphorous 3.7 mg/dL (2.4-5.1); Potassium 3.9 mMol/L (3.4-5.1); Sodium 133 mMol/L (136-145); eGFR 40 See Note
[2024-06-09 07:41] LABS: Influenza A Ag Negative; Influenza B Ag Negative
[2024-06-09] MEDS: AMIODARONE HCL 200 MG TABLET PO ×2 (08:16→20:45)
[2024-06-09] MEDS: cefTRIAXone/D5w 1gm IV premix 50 ML IV (08:16)
[2024-06-09] MEDS: AZITHROMYCIN 250 MG TABLET 500 MG PO (08:24)
[2024-06-09] MEDS: PANTOPRAZOLE 40 MG TABLET PO (08:24)
[2024-06-09] MEDS: METOPROLOL SUCCINATE XL 25 MG TABCR 100 MG PO (08:30)
[2024-06-09] MEDS: Magnesium Sulfate 4 GM Ivpb 4 GM/50 ML BAG IV (08:35)
--- NOTE | 2024-06-09 10:53 | PC.SS ---
Cinthia Toure is a 89 year old female admitted to Med-Surg for CHF Exacerbation. SS conducted bedside contact with the patient to complete initial assessment and to discuss discharge planning information pt accompanied by her son Mook, and granddaughter. Patient confirmed demographic. Patient identifies her son Mook Sandra [phone] as her surrogate decision maker. Patient resides at home alone however son Mook visits daily. Mook mentioned the pt she is typically able to complete all ADL?s independently, utilizes a FWW and Rollator; pt also has O2 at home unsure of provider. Pts PCP is (sees [facility] last visit last week). DC options discussed and they are open to either HH ([facility] Preference) or SNF if recommended by PT. Pts son will provide transportation upon DC. No further intervention required at this time, renal social worker would be available to address any further concerns. DC Plan: HH VS SNF Contact: Mook Sandra [phone] PCP: [facility]
--- NOTE | 2024-06-09 10:53 | PC.SS ---
SS received a call from Jaxson with PT that SNF is recommended s the pt only walked a few feet and was weak and SOB. SS attempted to con carla Delvalle to get SNF preference b ut no answer. VM left.
[2024-06-09] MEDS: Furosemide 20 MG TABLET PO (11:45)
[2024-06-09] MEDS: INSULIN LISPRO (AdmeLOG) 1 UNIT/0.01 ML UNIT SC ×2 (11:45→21:09)
--- NOTE | 2024-06-09 13:45 | PC.SS ---
SNF referral submitted, PASRR LVL 1 completed and downloaded. SS awaiting responses from facilities to provide pt with options
[2024-06-09 13:54] LABS: Cocci Serology, IgG Negative (Negative)
--- NOTE | 2024-06-09 14:31 | ESPR_ITS ---
<Statement entered by Syd Solares MD - 06/09/24 16:29> Patient was seen and examined at the bedside. Patient was having upper respiratory secretions formation with cough and congestion. On examination she was found to have expiratory wheezing. No lower extremity edema noticed. Patient uses hearing aids. She reported that she wants to go home as she is tired of sitting at the hospital. We could not record strict BRIAN's given as PureWick catheter was not working properly therefore will place Wren catheter. Bladder scan recorded 100 cc of urine only. Encouraged the patient to take fluid orally and will follow-up on the lactic acid levels. PT recommended SNF however patient declined it and reported that she wanted to go home with home health. We are currently pending on echocardiogram and will likely talk to the patient regarding Eliquis for A-fib given her age and kidney functions and additionally subdural hematoma suspected after a fall at [facility]. Will continue with Rocephin and azithromycin for CAP. Electrolytes were repleted. All labs and orders were reviewed. I saw and examined the patient, and I agree with current management stated by Dr Marybel MD,PGY1. Plan of care was discussed with the attending physician and resident physician. Disclaimer: Despite multiple revisions, due to the dictation software being used, the document bellow may not be free of grammatical errors including phonetic/typographic errors. However, this does not deter from our commitment to providing health care in the patient's best interest in mind. Dr. Beck MD, PGY 2 Documentation for date of: 06/09/24 Subjective Subjective Interval history: No overnight events. Patient seen and examined at bedside. Patient appears mildly anxious, short of breath. Reports subjective improvement in SOB from yesterday. Notes continued cough, with mild production of sputum. Kidney function improving on labs. Gave additional Lasix 20mg. Echo pending, PT eval pending. Exam Vital Signs Temp Pulse Resp BP Pulse Ox O2 Del Method O2 Flow Rate 97.9 F 82 20 117/51 L 97 Nasal Cannula 4 06/09/24 12:00 06/09/24 12:49 06/09/24 12:49 06/09/24 12:00 06/09/24 12:49 06/09/24 12:00 06/09/24 12:49 Narrative Exam General Appearance: Alert & Oriented X3, well-nourished female who is lying in bed in mild distress secondary to persistent cough. HEENT: Skull symmetrical and atraumatic. Conjunctivae pale pink and moist. Pupils equal, round, reactive to light and accommodation (PERRL). External ear without lesion or discharge. Straight, nares patient, mucosa pink, no discharge. Cardio: Normal Rate and Rhythm with S1 and S2 heart sounds. No murmurs or extra heart sounds auscultated. No peripheral edema or cyanosis. Lungs: Symmetric with good expansion. Chest and back non-tender. Rhonchi and expiratory wheezes in all lung rasheed. Abdomen: Non-tender, Non-distended, Normal Reactive Bowel Sounds Neuro: Alert, cooperative, oriented to person, place, and time. Speech clear. CN grossly intact. Upper motor strength 5/5 and Lower motor strength 5/5. Sensation intact. Objective Labs 06/09/24 05:12 06/09/24 05:12 Labs: Laboratory Results - last 24 hr 06/08/24 06/09/24 06/09/24 12:25 04:12 05:12 WBC 12.8 H D RBC 3.59 L Hgb 10.3 L Hct 30.8 L MCV 86 MCH 28.7 MCHC 33.4 RDW Std Deviation 48.2 H Plt Count 362 Neut % (Auto) 76 Lymph % (Auto) 8 L Smyth % (Auto) 14 H Eos % (Auto) 2 Baso % (Auto) 0 Neut # (Auto) 9.6 H Lymph # (Auto) 1.1 Smyth # (Auto) 1.7 H Eos # (Auto) 0.2 Baso # (Auto) 0.0 Immature Gran # (Auto) 0.08 H Absolute Nucleated RBC 0.00 Immature Gran % 1 H Nucleated RBC % 0 Sodium 133 L Potassium 3.9 D Chloride 97 L Carbon Dioxide 28.0 Anion Gap 8 BUN 25 H Creatinine 1.3 Estim Creat Clear Calc 28.9 L eGFR 40 L BUN/Creatinine Ratio 19 Glucose 116 H Calculated Osmolality 271 L Calcium 8.7 Phosphorus 3.7 Magnesium 1.6 Coccidioides IgG Ab Negative Coccidioides IgM Ab Negative Influenza A (Rapid) Negative Influenza B (Rapid) Negative Quality Measures Quality Measures VTE prophylaxis Advance care planning discussed with:: patient Assessment & Plan Assessment Current Active Medications: Generic Name Dose Route Start Last Admin Trade Name Freq PRN Reason Stop Dose Admin Acetaminophen 650 mg 06/07/24 20:32 06/07/24 21:43 Acetaminophen 325 Mg Tablet PO 07/07/24 20:31 650 mg Q6H PRN Administration Fever >100.3 or mild pain 1-3 Albuterol/Ipratropium 3 ml 06/08/24 13:00 06/09/24 12:48 Albuterol/Ipratropium (Duoneb) Rt Jodi 3 Ml Nebu INH 07/08/24 12:59 3 ml Q6HRRT CATE Administration Amiodarone HCl 200 mg 06/08/24 09:00 06/09/24 08:16 Amiodarone Hcl 200 Mg Tablet PO 07/08/24 08:59 200 mg BID CATE Administration Amlodipine Besylate 5 mg 06/09/24 09:00 06/09/24 08:52 Amlodipine Besylate 5 Mg Tablet PO 07/09/24 08:59 Not Given DAILY CATE Azithromycin 500 mg 06/08/24 11:30 06/09/24 08:24 Azithromycin 250 Mg Tablet PO 06/15/24 11:29 500 mg QDAY CATE Administration Protocol Dextrose 25 ml 06/08/24 08:35 Dextrose 50%-Water Inj 50 Ml Syringe IV 07/08/24 08:34 Q15MIN PRN BG 50-70 responsive npo pt Dextrose 50 ml 06/08/24 08:35 Dextrose 50%-Water Inj 50 Ml Syringe IV 07/08/24 08:34 Q15MIN PRN BG <50 OR BG <70 & pt unresponsive Glucagon 1 mg 06/08/24 08:35 Glucagon Inj 1 Mg Vial IM Q15MIN PRN BG <70, and no IV access Guaifenesin 100 mg 06/08/24 10:01 06/09/24 13:31 Guaifenesin Syrup 200 Mg/10 Ml Udc PO 07/08/24 10:00 100 mg QID PRN Administration COUGH Protocol Ceftriaxone Sodium/Dextrose 50 mls @ 100 mls/hr 06/08/24 11:23 06/09/24 08:16 Rocephin/D5w 1gm Iv Premix IV 06/15/24 11:22 100 mls/hr QDAY CATE Administration Insulin Human Lispro 0 unit 06/08/24 11:30 06/09/24 11:45 Insulin Lispro (Admelog) 1 Unit/0.01 Ml Unit SC 07/08/24 11:29 4 unit ACHS CATE Administration Protocol Magnesium Hydroxide 30 ml 06/07/24 20:32 Milk Of Magnesia Susp 30 Ml Udc PO 07/07/24 20:31 QDAY PRN CONSTIPATION Protocol Metoprolol Succinate 100 mg 06/09/24 09:00 06/09/24 08:30 Metoprolol Succinate Xl 25 Mg Tabcr PO 07/09/24 08:59 100 mg DAILY CATE Administration Ondansetron HCl 4 mg 06/07/24 20:32 Ondansetron Inj 2 Mg/Ml Inj 2 Ml IV 07/07/24 20:31 Q6H PRN NAUSEA OR VOMITING Protocol Pantoprazole Sodium 40 mg 06/08/24 09:00 06/09/24 08:24 Pantoprazole 40 Mg Tablet PO 07/08/24 08:59 40 mg QDAY CATE Administration Plan Patient is a 89-year-old female with a past medical history of hypertension, diabetes mellitus type 2 [id number] (on metformin home), atrial fibrillation currently rate (on Metoprolol Succinate and Amiodarone) s/p pacemaker, and history of pelvic left hip fracutre s/p fixation. Patient was transferred to [facility] for possible intracranial bleed, which was ruled out. Paulette Goodrich resumed care on 06/07/2024. #Community Acquired Pneumonia #Leukocytosis #Cough Etiology: On admission patient had mildly elevated leukocytosis which increased with morning labs to 21.4 repeat WBC show 20.4. Likely secondary to pneumonia such as a strep pneumoniae. Given patient's recent hospital-acquired pneumonia cannot be ruled out. Flu and COVID and cocci panel obtained. Patient started on ceftriaxone and azithromycin. DDx:Given history of ejection fraction of 50 to 55% and pulmonary vascular congestion CHF exacerbation cannot be ruled out. Pending new echo. Less likely secondary to PE as patient well score 0 with no tachycardia or hypotension present patient is saturating well. less likely secondary to lisinopril as its currently on hold. Diagnostics: WBC (06/08/2024) 21.4 and repeat 20.4 Cxr (06/08/2024): Bilateral pneumonia, significant left base. Mild associated heart failure Echo (06/08/2023): Normal LV size and function. Estimated EF 50-55%. Diastolic dysfunction present but cannot grade because of Afib. Patient showed mild improvement of symptoms after 1 dose Lasix 20mg. Flu and cocci tests negative. Plan -Lasix 20 mg X 1 -Ceftriaxone 1 g and Azithromycin 500 mg (06/08/2024--) -echo pending -Duonebs scheduled -Chest physiology -cough syrup as needed -UA pending # Fall # Loss of balance #? polypharmacy -Patient was brought to the ED on 06/06/2024 with the complaints of fall -Denies loss of consciousness, palpitations, chest pain at the time of fall -At the baseline, patient ambulates with the help of a walker and during the time of fall patient did not use a walker as she is in a hurry -At the time of presentation to the ED on 06/06/2024, CT read showed subarachnoid hemorrhage for which patient was transferred to [facility] -In [facility], repeat CT scans did not show any evidence of subarachnoid hemorrhage, so patient was transferred back to the [facility] -Vitals are stable at the time of transfer back -On physical examination, there is a periorbital hematoma with bruise on right forehead above the eyebrow Patient is agreeable to SNF placement for rehab Plan -Physical therapy is ordered, follow up -Eliquis is held for now and restart after cardiology consultation # History of atrial fibrillation on Eliquis # S/p pacemaker implantation -Will continue amiodarone 200 Mg p.o. twice daily and metoprolol 50mg p.o qday, increase the dose later if patient is tolerating it well Diagnostics: Echo -Home dose of metoprolol is 100mg Xl p.o. qday -HOLDING-Eliquis intake was on 06/05/2024 -Held it for now as patient appears to be fall risk -Restart after consultation with corporate compliance manager # History of hypertension History of hypertension, restart Amlodipine at higher dose of 10 mg Qday. Holding Lisinopril given CrCl <30. Plan -Home dose of Amlodipine 5 Mg--->Increased to Amlodipine 10 mg QDay -Hold Lisinopril given Crcl <30 #CKD stage IIIb Patient has a past medical history of chronic kidney disease likely secondary to longstanding history of diabetes mellitus leading to diabetic nephropathy. Diagnostics (06/08/2024): BUN 28, Cr 1.4 GFR 36 Plan -Continue monitor renal function -Avoid nephrotoxins -Renally dose medication #Mild Hypovolemic Hyponatremia Patient has mild hyponatremia and appears hypovolemic likely secondary to poor oral oral intake. Patient's osmolarity less than 280. Consider urine electrolytes. Na 132 and Osm 273 Plan -Consider urine Electrolytes -Consider NS if does not improve #Diabetes Mellitus Type 2 non-insulin dependent Patient has a past medical history of diabetes mellitus type 2 on home Metformin, well controlled. Diagnostics: -A1c is 6.3 on 12/2023 -A1c 6.4 (06/08/2024) Plan: -Hold home medication of metformin 1000 Mg twice daily p.o. at home -insulin sliding scale if needed Hospital Maintenance: Dispo: medtele DVT ppx: SCDs GI ppx:protonix Diet:low sodium IV lines: peripheral Code status:Full code - The patient's plan was discussed with attending Dr. Katz and senior residents Dr. Solares PGY-2. Brian No MD PGY-1 Attending Provider Attestation/Addendum I attest that I was physically present for the evaluation, physical examination, lab and imaging review of the patient with the residents. I discussed the case with the residents and agree with the findings and plans of care as documented above. At bedside, patient was sleeping comfortably. Wakes up on calling and answers questions appropriately. Continues to be on supplemental oxygen, 2 L/min at bedside. States that her cough has been improving slowly. We will continue with antibiotics, supplemental oxygen. We will also give Lasix 20 mg x 1. PT recommended SNF placement for physical therapy. Attempted to discuss about Eliquis in setting of fall risk, patient stated she is sleepy and wanted to discuss it at later time. Saida Katz MD
--- NOTE | 2024-06-09 15:41 | PC.SS ---
SS follow up note; SS met with patient and patient's friend at bedside. Patient confirmed that patient's son cares for patient at home. SS followed up with Decision maker, Mook and the discharge plan is for patient to discharge back home with HH. SS informed Dr. Solares and she would notify [facility] to submit HH order. Disharge Plan: Home
--- NOTE | 2024-06-09 16:05 | PC.NURSE ---
Pt. bladder scan shown the 150cc and Dr. patiñoiq been notified
[2024-06-09 16:46] LABS: Lactate (Lactic Acid) 1.2 mMol/L (0.4-2.0)
--- NOTE | 2024-06-09 17:17 | PC.CC ---
Received order, pt is in [facility]
--- NOTE | 2024-06-09 20:40 | PC.NURSE ---
O2 nasal cannula came off with 82% O2 sat on room air- Reapplied O2 inh on at 4L/min/nc.
[2024-06-09 21:12] LABS: Collection Type, Urine Clean Catch; Squamous Epithelial Cell,Urine 0 /hpf (0-5)
[2024-06-09 22:17] LABS: Bacteria,Urine Rare; Bilirubin,Urine Negative (Negative); Blood,Urine 1+ (Negative); Clarity,Urine Clear (Clear/Hazy); Color,Urine Lt-Yellow (Lt Yel-Yel); Glucose, Urine Negative (Negative); Hyaline Casts,Urine 1 /hpf (0-1); Ketones,Urine Negative (Negative); Leukocyte Esterase,Urine Positive (Negative); Nitrite,Urine Negative (Negative); Protein,Urine Negative (Neg - Trace); RBC,Urine 8 /hpf (0-3); Specific Gravity,Urine 1.009 (1.001-1.035); Urobilinogen,Urine Negative mg/dL (0.0-1.0); WBC,Urine 9 /hpf (0-5)
[2024-06-10] VITALS (15 sets, daily range): BP systolic 109–146; BP diastolic 50–65; PULSE 60–81; RESP 17–26; TEMP 36.2–36.6; O2SAT 91–100
[2024-06-10] MEDS: ALBUTEROL/IPRATROPIUM (Duoneb) RT SOL 3 ML NEBU INH ×4 (00:11→18:31)
[2024-06-10 06:38] LABS: Basophils % (Auto) 0 % (0-2.5); Eosinophils # (Auto) 0.3 Thou/mm3 (0.0-0.5); Eosinophils % (Auto) 3 % (0-10); Hematocrit 31.5 % (36.0-46.0); Hemoglobin 10.4 g/dL (12.0-16.0); Immature Granulocytes % (Auto) 1 % (0-0); Immature Granulocytes Auto 0.06 Thou/mm3 (0.00-0.00); Lymphocytes % (Auto) 8 % (10-50); Mean Corpuscular Hemoglobin 28.6 pg (25.0-35.0); Mean Corpuscular Volume 87 fL (80-100); Monocytes % (Auto) 17 % (0-12); Neutrophils # (Auto) 8.5 Thou/mm3 (1.8-7.7); Neutrophils % (Auto) 72 % (37-80); Nucleated Red Blood Cell % 0 /100 WBC (0); Platelet Count 362 Thou/mm3 (140-440); RDW Standard Deviation 48.4 fL (36.4-46.3); Red Blood Count 3.64 Miln/mm3 (4.00-5.20); White Blood Count 11.9 Thou/mm3 (3.6-11.0)
[2024-06-10 07:03] LABS: Anion Gap 8 (7-16); BUN/Creatinine Ratio 18 Ratio (12-20); Blood Urea Nitrogen 24 mg/dL (9-23); Calcium 8.7 mg/dL (8.3-10.6); Carbon Dioxide 30.2 mMol/L (20.0-31.0); Chloride 96 mMol/L (98-107); Creatinine (Component) 1.3 mg/dL (0.6-1.3); Estimated Creatinine Clearance 28.9 mL/min (>60); Glucose 148 mg/dL (74-106); Osmolality,Calculated 275 (275-295); Phosphorous 4.2 mg/dL (2.4-5.1); Potassium 3.7 mMol/L (3.4-5.1); Sodium 134 mMol/L (136-145); eGFR 40 See Note
[2024-06-10] MEDS: INSULIN LISPRO (AdmeLOG) 1 UNIT/0.01 ML UNIT SC ×4 (07:50→21:32)
[2024-06-10] MEDS: AZITHROMYCIN 250 MG TABLET 500 MG PO (08:29)
[2024-06-10] MEDS: guaiFENesin SYRUP 200 MG/10 ML UDC 100 MG PO ×2 (08:29→21:02)
[2024-06-10] MEDS: AMIODARONE HCL 200 MG TABLET PO ×2 (08:30→21:02)
[2024-06-10] MEDS: METOPROLOL SUCCINATE XL 25 MG TABCR 100 MG PO (08:30)
[2024-06-10] MEDS: cefTRIAXone/D5w 1gm IV premix 50 ML IV (08:32)
[2024-06-10] MEDS: POTASSIUM CHLORIDE 20 mEq TABCR PO (08:47)
[2024-06-10] MEDS: PANTOPRAZOLE 40 MG TABLET PO (08:53)
--- NOTE | 2024-06-10 14:23 | ESDS_ITS ---
<Statement entered by Saida Katz MD - 06/10/24 17:54> I attest that I was physically present for the evaluation, physical examination, lab and imaging review of the patient with the residents. I discussed the case with the residents and agree with the findings and plans of care as documented above. At bedside today, patient states he is feeling well and her cough has been improving. Currently at 2 L nasal cannula which is her home oxygen level. Patient stated that she has oxygen at home but does not use it consistently. Discussed with patient's son about Eliquis use in the setting of increased fall risk. Son is stated he had a discussion with the metal casket assembler and is on agreement not to pursue anticoagulation given her increased fall risk. She understands the risk of not continuing. We will discharge patient to home with home health for continuation of physical therapy. Patient will be discharged on oral antibiotics. Saida Katz MD <Statement entered by Syd Solares MD - 06/10/24 16:07> I saw and examined the patient, and I agree with current management stated by Dr Anne MD,PGY1. Plan of care was discussed with the attending physician and resident physician. Disclaimer: Despite multiple revisions, due to the dictation software being used, the document bellow may not be free of grammatical errors including phonetic/typographic errors. However, this does not deter from our commitment to providing health care in the patient's best interest in mind. Dr. Beck MD, PGY 2 Planned Discharge Date 06/10/24 DS: Providers Provider Date of admission: 06/07/24 19:23 Primary care physician: Physician No Primary/Family Admitting Provider: Saida Katz MD Attending Provider on Admission: Saida Katz MD Consults: 06/07/24 20:53 Referral Infection Control Routine Comment: Reason for Infection Control Referral: Patient In Isolation Readmitted within 30 days Health Equity Referral - Knowledge Deficit Routine Comment: Positive screening for knowledge deficit needs. 06/08/24 04:24 Referral Physical Therapy Routine Comment: Physician Instructions: Attending Provider on DC: Saida Katz MD Discharging Provider: Saida Katz MD DS: Diagnosis Problem List Completed Was Problem List Reviewed/Reconciled?: Yes Hospital Course Hospital Course Hospital course: Summary: Patient is a 89-year-old female with a past medical history of hypertension, diabetes mellitus type 2 [id number]-ihmjtby-[id number] (on metformin home), atrial fibrillation currently rate (on Metoprolol Succinate and Amiodarone) s/p pacemaker, and history of pelvic left hip fracutre s/p fixation. Patient was transferred to [facility] for possible intracranial bleed, which was ruled out. Paulette Goodrich resumed care on 06/07/2024 and subsequently treeated for pneumonia. ER Course: None, patient was a transfer back Hospital Course: In the hospital, patient was found leukocytosis and found to have pneumonia with pulmonary vascular congestion on chest x-ray. Patient was started on antibiotics ceftriaxone and azithromycin, with DuoNebs, and chest physio on board. Cough syrup added. Physical therapy recommended patient rehabilitation placement, but patient denied SNF elation and would like home with home health. Patient has a past medical history of atrial fibrillation status post pacemaker, rate controlled on amiodarone and metoprolol. Given risk of ground-level falls risk outweigh benefits of restarting Eliquis as patient's been rate controlled with pacemaker and is at increased risk of ground-level falls thus increased risk of bleeding. Patient subarachnoid hemorrhage was ruled out hyperkalemia where repeat CT showed negative reading. At this moment patient is going home with Amio and metoprolol on board, DC Eliquis. Given patient's CKD stage III with a creatinine clearance less than 30, at this time it is recommended patient not restart home medication metformin. Start Januvia 50 mg daily. -Take doxycycline 100 mg 2 times daily for 5 more days to complete antibiotic course -Please STOP Metformin given chronic kidney disease -Start Januvia 50 mg once a day -Continue guaifenesin 200 mg as needed for cough -Continue Pantoprazole 40 mg once a day -Continue Atrial Fibrillation medication with Amiodarone 200 mg twice a day, Metoprolol 100 mg once a day -STOP Eliquis given risk of bleed. -Hold antihypertensive medication of Amlodipine 5 mg daily and Lisinopril until you see your primary care provider -Follow up with your primary care provider within one week from discharge --If your symptoms worsen,please seek immediate medical attention and return to your nearest emergency room -If you do not have a primary care provider, you may follow up at the [facility] at [address] [place] [address] [address], [place] [address] Disposition: Home Health #Community Acquired Pneumonia #Leukocytosis #Cough #mechanical fall # History of atrial fibrillation on Eliquis # S/p pacemaker implantation # History of hypertension #CKD stage IIIb #Mild Hypovolemic Hyponatremia, improved - The patient's plan was discussed with attending Dr. Katz and senior residents Dr. Beck Rodríguez MD PGY1 Internal Medicine Time Spent with Patient Time attestation: Total time spent providing and/or coordinating discharge services: greater than 35 minutes Home Health Home Health Referral Orders: 06/09/24 16:15 Home Health Referral Routine Reason For Exam: Community acquired pneumonia, fall Home-Bound The patient must either because of illness or injury, need the aid of supportive devices such as crutches, canes, wheelchairs, and walkers; the use of special transportation; or the assistance of another person in order to leave their place of residence; OR have a condition such that leaving his or her home is medically contraindicated. In addition, the patient also meets the following criteria: patient is normally unable to leave the home and leaving home requires considerable taxing effort. Addendum to Home Health Certification Practitioner's Certification: I certify that the patient has been under my care in the hospital and the care of attending physician (see below). We had a [id number] encounter on (see date below). My clinical findings indicate that the patient is home bound per the above criteria and the Home Health Services noted in these orders are medically necessary. The primary reason for the [id number] encounter is related to the fact that the patient requires home health services. Date Certifying Dkji-jf-Iolt Physician Encounter: 06/07/24 Physician's Name who will Assume Oversight for HH Services: Babak Gacría TIMBER SELECTOR - Community Resources: No PT to Evaluate: Yes PT to evaluate and provide a treatmnet plan to increase patient's mobility and strength. Wound Care: No IV Therapy: No RN Safety Evaluation: Yes RN to evaluate and create a plan of care that will produce positive outcomes. Palliative Treatment: No Palliative treatment and evaluate the need for hospice. Home Health Aide - Personal Care: No Home Health Aide to assist with any ADL's. Exam Vital Signs Temp Pulse Resp BP Pulse Ox O2 Del Method O2 Flow Rate 97.7 F 79 18 130/65 100 Nasal Cannula 3 06/10/24 12:00 06/10/24 13:56 06/10/24 13:56 06/10/24 12:00 06/10/24 13:56 06/10/24 12:00 06/10/24 13:56 Narrative Exam General Appearance: Alert & Oriented X3, well-nourished female who is lying in bed in mild distress secondary to persistent cough. HEENT: Skull symmetrical and atraumatic. Conjunctivae pale pink and moist. Pupils equal, round, reactive to light and accommodation (PERRL). External ear without lesion or discharge. Straight, nares patient, mucosa pink, no discharge. Cardio: Normal Rate and Rhythm with S1 and S2 heart sounds. No murmurs or extra heart sounds auscultated. No peripheral edema or cyanosis. Lungs: Symmetric with good expansion. Chest and back non-tender. Rhonchi and improved wheezing. Crackles not appreciated. Improved vesicular breath sounds. Abdomen: Non-tender, Non-distended, Normal Reactive Bowel Sounds Neuro: Alert, cooperative, oriented to person, place, and time. Speech clear. CN grossly intact. Upper motor strength 5/5 and Lower motor strength 5/5. Sensation intact. Discharge Plan Plan Patient Disposition: Home w/HOME HEALTH Care Plan Goals: Instructions: -Take doxycycline 100 mg 2 times daily for 5 more days to complete antibiotic course -Please STOP Metformin given chronic kidney disease -Start Januvia 50 mg once a day -Continue guaifenesin 200 mg as needed for cough -Continue Pantoprazole 40 mg once a day -Continue Atrial Fibrillation medication with Amiodarone 200 mg twice a day, Metoprolol 100 mg once a day -STOP Eliquis given risk of bleed. -Hold antihypertensive medication of Amlodipine 5 mg daily and Lisinopril until you see your primary care provider -Follow up with your primary care provider within one week from discharge --If your symptoms worsen,please seek immediate medical attention and return to your nearest emergency room -If you do not have a primary care provider, you may follow up at the [facility] at [address], [place] [address] Disposition: Home Health Prescriptions/Referrals Prescriptions/Med Rec: New guaifenesin 200 mg tablet 200 mg PO QID PRN (Reason: Cough) 30 Days Qty: 30 0RF pantoprazole 40 mg Tablet,Delayed Release (Dr/Ec) 40 mg PO QDAY 14 Days Qty: 14 0RF Januvia 50 mg tablet 50 mg PO QDAY Qty: 30 0RF doxycycline monohydrate 100 mg capsule 100 mg PO BID 5 Days Qty: 10 0RF Continued amiodarone 200 mg tablet 200 mg PO BID Patient Comments: take 1 tablet by mouth twice a day metoprolol succinate 100 mg tablet extended release 24 hr 100 mg PO DAILY Patient Comments: take 1 tablet by mouth once daily Held lisinopril 20 mg tablet 20 mg PO DAILY Hold Instructions: Resume on 06/10/24. Hold until you see your PCP as Blood pressure is stable Patient Comments: take 1 tablet by mouth once daily amlodipine 5 mg tablet 5 mg PO DAILY Hold Instructions: Resume on 06/10/24. Until you see your PCP as Blood pressure is stable Patient Comments: take 1 tablet by mouth once daily Discontinued Eliquis 5 mg tablet 5 mg PO BID Patient Comments: take 1 tablet by mouth twice a day metformin 1,000 mg tablet 1,000 mg PO BID Patient Comments: take 1 tablet by mouth twice a day for diabetes Referrals: No Primary/Family,Physician [Primary Care Provider] - Patient/Caregiver Discharge Instructions Print Language: Mongolian Stand Alone Forms: Gena Award Info., Patient Portal Info Letter Discharge Order Discharge Orders: Discharge (Routine); Ordered 06/10/24 Ordered By: Syd Solares Quality Discharge Quality Measures VTE prophylaxis
--- NOTE | 2024-06-10 15:20 | PC.NURSE ---
family said they have concern for the pt. discharging at this time and would like to speak with the social woprker for appeal and the social work specialist [place] been notiofied about this.
--- NOTE | 2024-06-10 16:08 | PC.SS ---
SS follow up note; SS met with patient's son, Mook provided IMM. Mook appealed Case # [id number]. SS will follow up with Appeal status tomorrow.
--- NOTE | 2024-06-10 19:44 | ESCONSULT_ITS ---
RE: MARIANO HO : 1935 DATE OF CONSULTATION: 06/09/2024 DATE OF CONSULTATION: 06/09/2024 REASON FOR CONSULTATION: evaluuation of paroxysmal AFib, anticoagulation regimen. HISTORY OF PRESENT ILLNESS: The patient is an 89-year-old with history of paroxysmal atrial fibrillation with difficulty to control. After pacemaker implantation and amiodarone, she is in sinus rhythm, 100% atrial paced, usually followed by me closely, has a history of hypertension, diabetes, _ pelvic fracture, history of breast carcinoma status post mastectomy, and multiple medical problems. Apparently, the patient fell on 06/06/2024, ground level fall when she tried to answer the door. No loss of consciousness. The patient was transferred to [facility] because of the question of subarachnoid hemorrhage found on CT brain. In [facility], repeat CT showed no evidence of subarachnoid hemorrhage, found to have periorbital hematoma only, managed conservatively, sent back to [facility]. She is feeling better, but anticoagulation is discontinued temporarily. She was on Eliquis at home. Cardiac monge, she has some shortness of breath, no chest pain, orthopnea or PND. ALLERGIES: _ multiple allergies CODEINE, PENICILLIN, AND LEVOTHYROXINE. MEDICATIONS: At home, she was on Eliquis, now is held. Amiodarone 200 mg twice daily, amlodipine 5 mg daily, lisinopril 20 mg daily, metformin 1000 mg b.i.d., metoprolol 100 mg daily. PAST MEDICAL HISTORY: Hypertension, diabetes mellitus, hypercholesterolemia, pacemaker implantation, sick sinus syndrome, tachybrady arrhythmia, Afib, RVR, back in sinus rhythm, pacing 100% of the time. SOCIAL HISTORY: NONSMOKER REVIEW OF SYSTEMS: Cardiovascular: No chest pain _shortness of breath. Gastrointestinal: No NAUSEA Genitourinary: NO DYSURIA Central Nervous System/neurologic: _ No seizures. PHYSICAL EXAMINATION: GENERAL: Well-nourished, FEMALE_. VITAL SIGNS: Blood pressure 112/60, pulse rate 60, respirations 18, HEENT: _ normocephalic. Eyes: Normal. There is evidence of periorbital ecchymosis. otherwise unremarkable. NECK: Supple. No JVD. CHEST: lungs clear. No rales or rhonchi. There are some wheezes in the lungs, shows expiratory wheezes. HEART: S1, S2, regular. No gallop. ABDOMEN: Abdomen is thin and soft. EXTREMITIES: Mild edema. LABORATORY DATA: Hemoglobin and hematocrit stable white count 12.6. Chemistry panel shows creatinine 1.3, BUN 25, electrolytes normal. IMPRESSION/ASSESSMENT: 1. History of accidental fall with periorbital hematoma, no intracranial hemorrhage. 2. Paroxysmal atrial fibrillation, pacemaker implantation, now in 100% atrial pacing mode. No A-fib. 3. Hypertension, stable. 4. Diabetes mellitus. 5. Hypercholesterolemia. RECOMMENDATIONS: The patient should stop Eliquis at least temporarily for a few weeks. She does not have any AFib episodes on pacemaker interrogation probably because of fall risk can also increase risk of bleeding, we will stop the Eliquis for now. If the pacemaker interrogation in the future shows Afib episodes, I will consider anticoagulation. For now, we can stop the Eliquis. We will also get a cardiac echo because of episodes of shortness of breath. DT: 18:10:56 TT: 19:15:00 Ref: [id number] - TID: [id number] MTDD
[2024-06-11] VITALS (13 sets, daily range): BP systolic 130–169; BP diastolic 62–81; PULSE 61–99; RESP 16–28; TEMP 36.1–37.1; O2SAT 92–100; BMI 25.6
[2024-06-11] MEDS: ALBUTEROL/IPRATROPIUM (Duoneb) RT SOL 3 ML NEBU INH ×4 (00:35→18:31)
[2024-06-11] MEDS: guaiFENesin SYRUP 200 MG/10 ML UDC 100 MG PO (06:08)
[2024-06-11 06:47] LABS: Basophils # (Auto) 0.1 Thou/mm3 (0.0-0.2); Basophils % (Auto) 1 % (0-2.5); Eosinophils # (Auto) 0.3 Thou/mm3 (0.0-0.5); Eosinophils % (Auto) 3 % (0-10); Hematocrit 29.2 % (36.0-46.0); Hemoglobin 9.6 g/dL (12.0-16.0); Immature Granulocytes % (Auto) 1 % (0-0); Immature Granulocytes Auto 0.09 Thou/mm3 (0.00-0.00); Lymphocytes # (Auto) 0.9 Thou/mm3 (1.0-4.8); Lymphocytes % (Auto) 8 % (10-50); Mean Corpuscular HGB Conc 32.9 g/dl (31.0-37.0); Mean Corpuscular Hemoglobin 28.5 pg (25.0-35.0); Mean Corpuscular Volume 87 fL (80-100); Monocytes # (Auto) 1.7 Thou/mm3 (0.0-0.8); Monocytes % (Auto) 14 % (0-12); Neutrophils # (Auto) 8.7 Thou/mm3 (1.8-7.7); Neutrophils % (Auto) 74 % (37-80); Nucleated Red Blood Cell % 0 /100 WBC (0); Platelet Count 345 Thou/mm3 (140-440); RDW Standard Deviation 48.2 fL (36.4-46.3); Red Blood Count 3.37 Miln/mm3 (4.00-5.20); White Blood Count 11.7 Thou/mm3 (3.6-11.0)
[2024-06-11 07:20] LABS: Alanine Aminotransferase 97 U/L (10-49); Albumin, Serum 3.4 gm/dL (3.4-4.8); Albumin/Globulin Ratio 1.2 (1.2-2.2); Alkaline Phosphatase 60 U/L (46-116); Anion Gap 8 (7-16); Aspartate Amino Transferase 29 U/L (0-34); BUN/Creatinine Ratio 17 Ratio (12-20); Bilirubin,Total 0.2 mg/dL (0.3-1.2); Blood Urea Nitrogen 17 mg/dL (9-23); Calcium 8.6 mg/dL (8.3-10.6); Calcium (Corrected) 9.1 mg/dL (8.5-10.1); Carbon Dioxide 28.2 mMol/L (20.0-31.0); Chloride 98 mMol/L (98-107); Estimated Creatinine Clearance 37.6 mL/min (>60); Globulin 2.9 gm/dL (2.3-3.5); Glucose 135 mg/dL (74-106); Magnesium 1.6 mg/dL (1.6-2.6); Osmolality,Calculated 271 (275-295); Phosphorous 2.7 mg/dL (2.4-5.1); Sodium 134 mMol/L (136-145); Total Protein 6.3 gm/dL (5.7-8.2); eGFR 55 See Note
[2024-06-11] MEDS: INSULIN LISPRO (AdmeLOG) 1 UNIT/0.01 ML UNIT SC ×4 (08:05→20:25)
[2024-06-11] MEDS: METOPROLOL SUCCINATE XL 25 MG TABCR 100 MG PO (08:06)
[2024-06-11] MEDS: PANTOPRAZOLE 40 MG TABLET PO (08:07)
[2024-06-11] MEDS: AMIODARONE HCL 200 MG TABLET PO ×2 (08:07→20:24)
[2024-06-11] MEDS: AZITHROMYCIN 250 MG TABLET 500 MG PO (08:08)
[2024-06-11] MEDS: cefTRIAXone/D5w 1gm IV premix 50 ML IV (08:11)
[2024-06-11] MEDS: Magnesium Sulfate 2 GM Ivpb 2 GM/50 ML BAG IV (08:59)
--- NOTE | 2024-06-11 09:36 | PC.SS ---
Addendum entered by Keya Gonsalez 06/11/24 15:42: SS follow up note; [employer] appeal notification still showing Physician review completing. Still pending outcome notification. Original Note: SS follow up note; Physician review completed, pending outcome notification.
[2024-06-11] MEDS: BENZONATATE 100 MG CAPSULE 200 MG PO (11:55)
--- NOTE | 2024-06-11 13:47 | ESPR_ITS ---
<Statement entered by Syd Solares MD - 06/11/24 14:32> Patient was seen and examined at the bedside this morning. Patient was having dry cough likely bronchitis and had coarse breath sounds on auscultation. Will likely continue with breathing treatments, chest PT Q6 hourly and antitussives. Patient was a failed discharge that they appealed to stay and likely follow-up with review from hospital tomorrow morning. Will continue with current management as she needs to continue antibiotic course for total 7 days. We stopped Eliquis as per cardiology consultation. Labs were unremarkable. Magnesium was repleted. All labs were reviewed. I saw and examined the patient, and I agree with current management stated by Dr Anne MD,PGY1. Plan of care was discussed with the attending physician and resident physician. Disclaimer: Despite multiple revisions, due to the dictation software being used, the document bellow may not be free of grammatical errors including phonetic/typographic errors. However, this does not deter from our commitment to providing health care in the patient's best interest in mind. Dr. Beck MD, PGY 2 Documentation for date of: 06/11/24 Subjective Subjective Interval history: Patient is a 89-year-old female with a past medical history of hypertension, diabetes mellitus type 2 [id number] (on metformin home), atrial fibrillation currently rate (on Metoprolol Succinate and Amiodarone) s/p pacemaker, and history of pelvic left hip fracutre s/p fixation. Patient was transferred to [facility] for possible intracranial bleed, which was ruled out. [place] resumed care on 06/07/2024. No overnight events reported for patient. Patient examinded at bedside. Patient denied chills or fevers overnight. [place] contiues to complain of cough. Likely discharge tomorrow. Weaning off oxygen. Exam Vital Signs Temp Pulse Resp BP Pulse Ox O2 Del Method O2 Flow Rate 98.2 F 99 24 H 130/62 100 Nasal Cannula 2 06/11/24 12:00 06/11/24 12:17 06/11/24 12:17 06/11/24 12:00 06/11/24 12:17 06/11/24 12:00 06/11/24 12:17 Narrative Exam General Appearance: Alert & Oriented X3, well-nourished female who is lying in bed in mild distress secondary to persistent cough. HEENT: Skull symmetrical and atraumatic. Conjunctivae pale pink and moist. Pupils equal, round, reactive to light and accommodation (PERRL). External ear without lesion or discharge. Straight, nares patient, mucosa pink, no discharge. Cardio: Normal Rate and Rhythm with S1 and S2 heart sounds. No murmurs or extra heart sounds auscultated. No bruits on carotid auscultation. No peripheral edema or cyanosis. Lungs: Symmetric with good expansion. Chest and back non-tender. Breath sounds vesicular with mild crackles at lower lung rasheed. Abdomen: Non-tender, Non-distended, Normal Reactive Bowel Sounds Neuro: Alert, cooperative, oriented to person, place, and time. Speech clear. CN grossly intact. Upper motor strength 5/5 and Lower motor strength 5/5. Sensation intact. Objective Labs 06/12/24 05:29 06/12/24 05:29 Labs: Laboratory Results - last 24 hr 06/11/24 05:42 WBC 11.7 H RBC 3.37 L Hgb 9.6 L Hct 29.2 L MCV 87 MCH 28.5 MCHC 32.9 RDW Std Deviation 48.2 H Plt Count 345 Neut % (Auto) 74 Lymph % (Auto) 8 L Metcalfe % (Auto) 14 H Eos % (Auto) 3 Baso % (Auto) 1 Neut # (Auto) 8.7 H Lymph # (Auto) 0.9 L [place]calfe # (Auto) 1.7 H Eos # (Auto) 0.3 Baso # (Auto) 0.1 Immature Gran # (Auto) 0.09 H Absolute Nucleated RBC 0.00 Immature Gran % 1 H Nucleated RBC % 0 Sodium 134 L Potassium 4.0 Chloride 98 Carbon Dioxide 28.2 Anion Gap 8 BUN 17 Creatinine 1.0 Estim Creat Clear Calc 37.6 L eGFR 55 L BUN/Creatinine Ratio 17 Glucose 135 H Calculated Osmolality 271 L Calcium 8.6 Corrected Calcium 9.1 Phosphorus 2.7 Magnesium 1.6 Total Bilirubin 0.2 L AST 29 ALT 97 H Alkaline Phosphatase 60 Total Protein 6.3 Albumin 3.4 Globulin 2.9 Albumin/Globulin Ratio 1.2 Quality Measures Quality Measures VTE prophylaxis Advance care planning discussed with:: patient Assessment & Plan Assessment Current Active Medications: Generic Name Dose Route Start Last Admin Trade Name Freq PRN Reason Stop Dose Admin Acetaminophen 650 mg 06/07/24 20:32 06/07/24 21:43 Acetaminophen 325 Mg Tablet PO 07/07/24 20:31 650 mg Q6H PRN Administration Fever >100.3 or mild pain 1-3 Acetylcysteine 4 ml 06/09/24 16:47 Acetylcysteine Jodi 20% 4 Ml Nebu INH 07/09/24 16:46 Q4HRRT PRN SHORTNESS OF BREATH OR WHEEZE Albuterol/Ipratropium 3 ml 06/08/24 13:00 06/11/24 12:16 Albuterol/Ipratropium (Duoneb) Rt Jodi 3 Ml Nebu INH 07/08/24 12:59 3 ml Q6HRRT CATE Administration Amiodarone HCl 200 mg 06/08/24 09:00 06/11/24 08:07 Amiodarone Hcl 200 Mg Tablet PO 07/08/24 08:59 200 mg BID CATE Administration Amlodipine Besylate 5 mg 06/09/24 09:00 06/09/24 08:52 Amlodipine Besylate 5 Mg Tablet PO 07/09/24 08:59 Not Given DAILY CATE Azithromycin 500 mg 06/08/24 11:30 06/11/24 08:08 Azithromycin 250 Mg Tablet PO 06/15/24 11:29 500 mg QDAY CATE Administration Protocol Benzonatate 200 mg 06/11/24 09:08 06/11/24 11:55 Benzonatate 100 Mg Capsule PO 07/11/24 09:07 200 mg Q8HR PRN Administration COUGH Protocol Dextrose 25 ml 06/08/24 08:35 Dextrose 50%-Water Inj 50 Ml Syringe IV 07/08/24 08:34 Q15MIN PRN BG 50-70 responsive npo pt Dextrose 50 ml 06/08/24 08:35 Dextrose 50%-Water Inj 50 Ml Syringe IV 07/08/24 08:34 Q15MIN PRN BG <50 OR BG <70 & pt unresponsive Glucagon 1 mg 06/08/24 08:35 Glucagon Inj 1 Mg Vial IM Q15MIN PRN BG <70, and no IV access Guaifenesin 100 mg 06/08/24 10:01 06/11/24 06:08 Guaifenesin Syrup 200 Mg/10 Ml Udc PO 07/08/24 10:00 100 mg QID PRN Administration COUGH Protocol Ceftriaxone Sodium/Dextrose 50 mls @ 100 mls/hr 06/08/24 11:23 06/11/24 08:11 Rocephin/D5w 1gm Iv Premix IV 06/15/24 11:22 100 mls/hr QDAY CATE Administration Insulin Human Lispro 0 unit 06/11/24 07:13 06/11/24 11:53 Insulin Lispro (Admelog) 1 Unit/0.01 Ml Unit SC 07/08/24 11:29 2 unit ACHS CATE Administration Protocol Magnesium Hydroxide 30 ml 06/07/24 20:32 Milk Of Magnesia Susp 30 Ml Udc PO 07/07/24 20:31 QDAY PRN CONSTIPATION Protocol Metoprolol Succinate 100 mg 06/09/24 09:00 06/11/24 08:06 Metoprolol Succinate Xl 25 Mg Tabcr PO 07/09/24 08:59 100 mg DAILY CATE Administration Ondansetron HCl 4 mg 06/07/24 20:32 Ondansetron Inj 2 Mg/Ml Inj 2 Ml IV 07/07/24 20:31 Q6H PRN NAUSEA OR VOMITING Protocol Pantoprazole Sodium 40 mg 06/08/24 09:00 06/11/24 08:07 Pantoprazole 40 Mg Tablet PO 07/08/24 08:59 40 mg QDAY CATE Administration Plan Patient is a 89-year-old female with a past medical history of hypertension, diabetes mellitus type 2 [id number] (on metformin home), atrial fibrillation currently rate (on Metoprolol Succinate and Amiodarone) s/p pacemaker, and history of pelvic left hip fracutre s/p fixation. Patient was transferred to [facility] for possible intracranial bleed, which was ruled out. [facility] resumed care on 06/07/2024. #Community Acquired Pneumonia #Leukocytosis, improved Etiology: On admission patient had mildly elevated leukocytosis which increased with morning labs to 21.4 repeat WBC show 20.4. Likely secondary to pneumonia such as a strep pneumoniae. Given patient's recent hospital-acquired pneumonia cannot be ruled out. Flu and COVID and cocci panel obtained. Patient started on ceftriaxone and azithromycin. DDx:Given history of ejection fraction of 50 to 55% and pulmonary vascular congestion CHF exacerbation cannot be ruled out. Pending new echo. Less likely secondary to PE as patient well score 0 with no tachycardia or hypotension present patient is saturating well. less likely secondary to lisinopril as its currently on hold. Diagnostics: WBC (06/08/2024) 21.4 and repeat 20.4-->WBC (06/11/2024) 11.7 Cxr (06/08/2024): Bilateral pneumonia, significant left base. Mild associated heart failure Echo (06/08/2023): Normal LV size and function. Estimated EF 50-55%. Diastolic dysfunction present but cannot grade because of Afib. Flu Negative Coccidiodes Negative Plan -Ceftriaxone 1 g and Azithromycin 500 mg (06/08/2024--) Day 4 -Duonebs scheduled -Chest physiology -cough syrup as needed #Mechanical Fall -Patient was brought to the ED on 06/06/2024 with the complaints of fall -Denies loss of consciousness, palpitations, chest pain at the time of fall -At the baseline, patient ambulates with the help of a walker and during the time of fall patient did not use a walker as she is in a hurry -At the time of presentation to the ED on 06/06/2024, CT read showed subarachnoid hemorrhage for which patient was transferred to [facility] -In [facility], repeat CT scans did not show any evidence of subarachnoid hemorrhage, so patient was transferred back to the [facility] -Vitals are stable at the time of transfer back -On physical examination, there is a periorbital hematoma with bruise on right forehead above the eyebrow -Physical Therapy Recs: SNF for short term PT, patient uses walker. Plan -Physical therapy is ordered -Social Service Consulted for possible SNF-SNF declined. # History of atrial fibrillation # S/p pacemaker implantation Continue amiodarone 200 Mg p.o. twice daily and metoprolol 50mg p.o qday, increase the dose later if patient is tolerating it well. Patient's Eliquis D/C on 06/10/2024 after conversation with patient's son as well as patient's put in beat adjuster having an extensive coversation with family about risk's outweighting benefits given hisotry of falls. NO eliquis any longer. Diagnostics: Echo 06/08/2024: Normal LV size and function. Estimated EF 60-65%. Normal RV size and function. Pacing wire present.Trace MR, TR. Plan: -Home dose of metoprolol is 100mg Xl p.o. qday & Amiodarone 200 mg PO BID -HOLDING-Eliquis intake was on 06/05/2024 -Held it for now as patient appears to be fall risk -Restart after consultation with put in beat adjuster #History of hypertension Plan -Home dose of Amlodipine 5 Mg -Holding home medication of Lisinopril as blood pressure have been adequate, improved CrCl #CKD stage IIIb, improving Patient has a past medical history of chronic kidney disease likely secondary to longstanding history of diabetes mellitus leading to diabetic nephropathy. Diagnostics (06/08/2024): BUN 17, Cr 1.0 GFR 55, improved Crcl to 37.6 Plan -Continue monitor renal function -Avoid nephrotoxins -Renally dose medication #Mild Hypovolemic Hyponatremia, improving Patient has mild hyponatremia and appears hypovolemic likely secondary to poor oral oral intake. Patient's osmolarity less than 280. Consider urine electrolytes. Diagnostics: 06/11/2024: Na 134, Osmolarity 271 Plan -Consider urine Electrolytes -Consider NS if does not improve #Diabetes Mellitus Type 2 non-insulin dependent Patient has a past medical history of diabetes mellitus type 2 on home Metformin, well controlled. Diagnostics: -A1c is 6.3 on 12/2023 -A1c 6.4 (06/08/2024) Plan: -Hold home medication of metformin 1000 Mg twice daily p.o. at home -insulin sliding scale if needed Hospital Maintenance: Dispo: medtele DVT ppx: held for now GI ppx:protonix Diet:low sodium IV lines: peripheral Code status:Full code - The patient's plan was discussed with attending Dr. Katz and senior residents Dr. Beck Rodríguez MD PGY1 Internal Medicine Attending Provider Attestation/Addendum I attest that I was physically present for the evaluation, physical examination, lab and imaging review of the patient with the residents. I discussed the case with the residents and agree with the findings and plans of care as documented above. Patient failed discharge yesterday as the family appealed against the discharge. At bedside patient continues to be comfortable. States her cough has been improving, saturating well on 2L nasal cannula. Continues to be on sinus rhythm, continues to be on antibiotics. Saida Katz MD
--- NOTE | 2024-06-11 17:09 | PC.IP ---
late entry; RN on MS asked IP on COVID specimen that was sent on 06-10 still showing pending, asked if she still needed to collect, RN was referred back to the doctor to make that determination.
[2024-06-12] VITALS (8 sets, daily range): BP systolic 143–160; BP diastolic 65–94; PULSE 61–74; RESP 12–24; TEMP 36.6; O2SAT 91–100
[2024-06-12] MEDS: ALBUTEROL/IPRATROPIUM (Duoneb) RT SOL 3 ML NEBU INH ×2 (00:20→06:07)
[2024-06-12] MEDS: BENZONATATE 100 MG CAPSULE 200 MG PO (02:48)
[2024-06-12] MEDS: ACETAMINOPHEN 325 MG TABLET 650 MG PO (02:53)
[2024-06-12 06:21] LABS: Basophils # (Auto) 0.1 Thou/mm3 (0.0-0.2); Basophils % (Auto) 1 % (0-2.5); Eosinophils # (Auto) 0.2 Thou/mm3 (0.0-0.5); Eosinophils % (Auto) 2 % (0-10); Hematocrit 29.2 % (36.0-46.0); Hemoglobin 9.7 g/dL (12.0-16.0); Immature Granulocytes % (Auto) 1 % (0-0); Lymphocytes # (Auto) 1.1 Thou/mm3 (1.0-4.8); Lymphocytes % (Auto) 10 % (10-50); Mean Corpuscular HGB Conc 33.2 g/dl (31.0-37.0); Mean Corpuscular Hemoglobin 28.5 pg (25.0-35.0); Mean Corpuscular Volume 86 fL (80-100); Monocytes # (Auto) 1.7 Thou/mm3 (0.0-0.8); Monocytes % (Auto) 15 % (0-12); Neutrophils # (Auto) 8.5 Thou/mm3 (1.8-7.7); Neutrophils % (Auto) 72 % (37-80); Nucleated Red Blood Cell % 0 /100 WBC (0); Platelet Count 356 Thou/mm3 (140-440); RDW Standard Deviation 47.4 fL (36.4-46.3); White Blood Count 11.7 Thou/mm3 (3.6-11.0)
[2024-06-12 06:52] LABS: Alanine Aminotransferase 59 U/L (10-49); Albumin, Serum 3.5 gm/dL (3.4-4.8); Albumin/Globulin Ratio 1.5 (1.2-2.2); Alkaline Phosphatase 58 U/L (46-116); Anion Gap 6 (7-16); Aspartate Amino Transferase 21 U/L (0-34); BUN/Creatinine Ratio 16 Ratio (12-20); Bilirubin,Total 0.3 mg/dL (0.3-1.2); Blood Urea Nitrogen 16 mg/dL (9-23); Calcium 8.6 mg/dL (8.3-10.6); Carbon Dioxide 30.6 mMol/L (20.0-31.0); Chloride 96 mMol/L (98-107); Estimated Creatinine Clearance 37.6 mL/min (>60); Globulin 2.3 gm/dL (2.3-3.5); Glucose 125 mg/dL (74-106); Magnesium 1.8 mg/dL (1.6-2.6); Osmolality,Calculated 268 (275-295); Potassium 4.3 mMol/L (3.4-5.1); Sodium 133 mMol/L (136-145); Total Protein 5.8 gm/dL (5.7-8.2); eGFR 55 See Note
[2024-06-12] MEDS: INSULIN LISPRO (AdmeLOG) 1 UNIT/0.01 ML UNIT SC (07:35)
[2024-06-12] MEDS: METOPROLOL SUCCINATE XL 25 MG TABCR 100 MG PO (08:26)
--- NOTE | 2024-06-12 08:28 | PC.SS ---
SS follow up note; NICHOLAS Nunn Agrees with termination of Hospital services, beneficiary Liability Starts on 06/12/2024. SS will follow up with patient's son, Mook.
[2024-06-12] MEDS: PANTOPRAZOLE 40 MG TABLET PO (08:29)
[2024-06-12] MEDS: AZITHROMYCIN 250 MG TABLET 500 MG PO (08:29)
[2024-06-12] MEDS: cefTRIAXone/D5w 1gm IV premix 50 ML IV (08:29)
[2024-06-12] MEDS: AMIODARONE HCL 200 MG TABLET PO (08:29)
--- NOTE | 2024-06-12 09:05 | PC.SS ---
WheelChairs Patients diagnosis creates mobility limitations that significantly impairs ability to participate in the patient?s activities of daily living either in their entirety, or in a reasonable time frame in the home and the patient?s mobility limitations cannot be sufficiently resolved with an appropriately fitted cane or walker. Also the use of a manual wheelchair will sufficiently improve patient?s ability to participate in the activities of daily living in the home and the patient is willing to use the wheelchair that is provided in the home. The patient has some one in the home that is available, willing and able to provide assistance with the wheelchair. Hospital Bed Patient has (dx) a medical condition which requires positioning of the body in ways not feasible with an ordinary bed due to . Patient requires positioning of the body in ways not feasible with an ordinary bed in order to alleviate pain due to . Patient requires positioning of the head or upper body to be elevated more than 30 degrees most of the time due to (pt dx: COPD, CHF, pulmonary disease). The use of pillows and wedges have been considered and ruled out. Patient diagnosis requires positioning of the head or upper body to be elevated more than 30 degrees. Also the diagnosis requires positioning in order to alleviate pain and if the patient requires frequent changes in the body positioning and/or has an immediate need for change in the body position. Pillows and wedges have been considered and ruled out.
--- NOTE | 2024-06-12 09:06 | PC.SS ---
SS met with patient's son, Mook at bedside and he is requesting a Wheelchair and Hospital bed for patient. Mook requesting for transportation home. SS informed him patient does not have transportation coverage. Mook expressed he is not able to pay for transportation at this time. SS will have [employer] form signed to set up transportation through [facility].
--- NOTE | 2024-06-12 09:36 | PC.SS ---
SS contacted [facility] to set up transportation for patient to discharge to [address]. ETA was set up for 1100AM. SS also submitted DME for Hospital bed and wheelchair through [employer]. Tresa will be contacted patient's son in regards to delivery. SS updated patient's nurse Nimo and patient's son Mook in regard to ETA.
--- NOTE | 2024-06-12 15:19 | ESDS_ITS ---
<Statement entered by Syd Solares MD - 06/12/24 15:43> I saw and examined the patient, and I agree with current management stated by Dr Anne MD,PGY1. Plan of care was discussed with the attending physician and resident physician. Disclaimer: Despite multiple revisions, due to the dictation software being used, the document bellow may not be free of grammatical errors including phonetic/typographic errors. However, this does not deter from our commitment to providing health care in the patient's best interest in mind. Dr. Beck MD, PGY 2 Planned Discharge Date 06/12/24 DS: Providers Provider Date of admission: 06/07/24 19:23 Primary care physician: Physician No Primary/Family Admitting Provider: Saida Katz MD Attending Provider on Admission: Silas Mills DO Consults: 06/07/24 20:53 Referral Infection Control Routine Comment: Reason for Infection Control Referral: Patient In Isolation Readmitted within 30 days Health Equity Referral - Knowledge Deficit Routine Comment: Positive screening for knowledge deficit needs. 06/08/24 04:24 Referral Physical Therapy Routine Comment: Physician Instructions: 06/11/24 07:59 Consult to Cardiology Routine Comment: Consulting Provider: Aura Yung Attending Provider on DC: Sylvia Rodríguez MD Discharging Provider: Sylvia Rodríguez MD DS: Diagnosis Problem List Completed Was Problem List Reviewed/Reconciled?: Yes Hospital Course Hospital Course Hospital course: Summary: Patient is a 89-year-old female with a past medical history of hypertension, diabetes mellitus type 2 [id number] (on metformin home), atrial fibrillation currently rate (on Metoprolol Succinate and Am iodarone) s/p pacemaker, and history of pelvic left hip fracutre s/p fixation. Patient was transferred to [facility] for possible intracranial bleed, which was ruled out. Paulette Goodrich resumed care on 06/07/2024 and subsequently treated for pneumonia and urinary tract infection. ER Course: None, patient was a transfer back Hospital Course: In the hospital, patient was found leukocytosis and found to have pneumonia with pulmonary vascular congestion on chest x-ray. Patient was started on antibiotics ceftriaxone and azithromycin, with DuoNebs, and chest physio on board. Cough syrup added. Physical therapy recommended patient rehabilitation placement, but patient denied SNF [facility] and would like home with home health. Patient has a past medical history of atrial fibrillation status post pacemaker, rate controlled on amiodarone and metoprolol. Given risk of ground-level falls risk outweigh benefits of restarting Eliquis as patient's been rate controlled with pacemaker and is at increased risk of ground-level falls thus increased risk of bleeding. Patient subarachnoid hemorrhage was ruled out hyperkalemia where repeat CT showed negative reading. At this moment patient is going home with Amio and metoprolol on board, DC Eliquis. Given patient's CKD stage III with a creatinine clearance less than 30, at this time it is recommended patient not restart home medication metformin. Start Januvia 50 mg daily. Continue taking Levoquin for UTI and Pneumonia, three more days to complete course. Instructions: -Take Levoquin 750 mg 1 times daily for 3 more days to complete antibiotic course -Please STOP Metformin given chronic kidney disease -Start Januvia 50 mg once a day -Continue guaifenesin 200 mg as needed for cough -Continue Pantoprazole 40 mg once a day -Continue Atrial Fibrillation medication with Amiodarone 200 mg twice a day, Metoprolol 100 mg once a day -STOP Eliquis given risk of bleed. -Hold antihypertensive medication of Amlodipine 5 mg daily and Lisinopril until you see your primary care provider -Follow up with your primary care provider within one week from discharge --If your symptoms worsen,please seek immediate medical attention and return to your nearest emergency room -If you do not have a primary care provider, you may follow up at the [facility] at [address] [place] [address] [address], [place] [address] Disposition: Home Health #Community Acquired Pneumonia #Leukocytosis, improved #Mechanical Fall # History of atrial fibrillation # S/p pacemaker implantation #History of hypertension #CKD stage IIIb, improving #Mild Hypovolemic Hyponatremia, improving #Diabetes Mellitus Type 2 non-insulin dependent #Urinary Tract Infection - The patient's plan was discussed with attending Dr. Mills and senior residents Dr. Beck Rodríguez MD PGY1 Internal Medicine Time Spent with Patient Time attestation: Total time spent providing and/or coordinating discharge services: at least 35 minutes Exam Vital Signs Temp Pulse Resp BP Pulse Ox O2 Del Method O2 Flow Rate 97.9 F 68 18 144/66 H 94 L Nasal Cannula 2 06/12/24 08:00 06/12/24 08:29 06/12/24 08:00 06/12/24 08:29 06/12/24 08:00 06/12/24 08:00 06/12/24 08:00 Narrative Exam General Appearance: Alert & Oriented X3, well-nourished female who is lying in bed in no acute distress HEENT: Skull symmetrical and atraumatic. Conjunctivae pink and moist. Pupils equal, round, reactive to light and accommodation (PERRL). External ear without lesion or discharge. Straight, nares patient, mucosa pink, no discharge. Cardio: Normal Rate and Rhythm with S1 and S2 heart sounds. No murmurs or extra heart sounds auscultated. No bruits on carotid auscultation. No peripheral edema or cyanosis. Lungs: Symmetric with good expansion. Chest and back non-tender. Breath sounds vesicular with mild upper respiratory sounds. Abdomen: Non-tender, Non-distended, Normal Reactive Bowel Sounds Neuro: Alert, cooperative, oriented to person, place, and time. Speech clear. CN grossly intact. Upper motor strength 5/5 and Lower motor strength 5/5. Sensation intact. Discharge Plan Plan Patient Disposition: Home w/HOME HEALTH Patient condition on transfer: Stable Care Plan Goals: Instructions: -Take Levoquin 750 mg 1 times daily for 3 more days to complete antibiotic course -Please STOP Metformin given chronic kidney disease -Start Januvia 50 mg once a day -Continue guaifenesin 200 mg as needed for cough -Continue Pantoprazole 40 mg once a day -Continue Atrial Fibrillation medication with Amiodarone 200 mg twice a day, Metoprolol 100 mg once a day -STOP Eliquis given risk of bleed. -Hold antihypertensive medication of Amlodipine 5 mg daily and Lisinopril until you see your primary care provider -Follow up with your primary care provider within one week from discharge --If your symptoms worsen,please seek immediate medical attention and return to your nearest emergency room -If you do not have a primary care provider, you may follow up at the [facility] [address], [place] [address] Disposition: Home Health Prescriptions/Referrals Prescriptions/Med Rec: New guaifenesin 200 mg tablet 200 mg PO QID PRN (Reason: Cough) 30 Days Qty: 30 0RF pantoprazole 40 mg Tablet,Delayed Release (Dr/Ec) 40 mg PO QDAY 14 Days Qty: 14 0RF Januvia 50 mg tablet 50 mg PO QDAY Qty: 30 0RF sulfamethoxazole-trimethoprim [Bactrim DS] 800-160 mg tablet 1 tab PO BID Qty: 6 0RF Rx Instructions: One DS tab twice daily for three days Continued amiodarone 200 mg tablet 200 mg PO BID Patient Comments: take 1 tablet by mouth twice a day metoprolol succinate 100 mg tablet extended release 24 hr 100 mg PO DAILY Patient Comments: take 1 tablet by mouth once daily Held lisinopril 20 mg tablet 20 mg PO DAILY Hold Instructions: Resume on 06/10/24. Hold until you see your PCP as Blood pressure is stable Patient Comments: take 1 tablet by mouth once daily amlodipine 5 mg tablet 5 mg PO DAILY Hold Instructions: Resume on 06/10/24. Until you see your PCP as Blood pressure is stable Patient Comments: take 1 tablet by mouth once daily Discontinued Eliquis 5 mg tablet 5 mg PO BID Patient Comments: take 1 tablet by mouth twice a day metformin 1,000 mg tablet 1,000 mg PO BID Patient Comments: take 1 tablet by mouth twice a day for diabetes Referrals: No Primary/Family,Physician [Primary Care Provider] - Babak García MD [Physician] - Patient/Caregiver Discharge Instructions Education Materials: Treating Pneumonia Print Language: Tajik Stand Alone Forms: [employer] Award Info., Patient Portal Info Letter Discharge Order Discharge Orders: Discharge (Routine); Ordered 06/10/24 Ordered By: Syd Solares Quality Discharge Quality Measures VTE prophylaxis Attestestation MD Attestation I have discussed and was present for the essential components of the discharge history, physical examination, diagnosis, and discharge treatment plan with the resident. I agree with the patient's discharge care as documented by the resident and amended herein by me. Anthony Mills DO. The patient understood all discharge instructions, all questions were answered satisfactorily. The patient was instructed to return to the Emergency Department is symptoms worsened or persisted. 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 Patient presently on room air at time of discharge however does have home O2 if she should need it. Patient was stable, afebrile and tolerating p.o. intake at time of discharge home. Although this document has been carefully reviewed, there may still be some ph onetic and other typographical errors. These errors are purely grammatical due to imperfections in the software program and should not be construed in any way to compromise the substance of the patient's medical care during this visit.
--- NOTE | 2024-06-12 17:48 | PC.CM ---
Addendum entered by Sid Lamb RN 06/13/24 07:26: Start of care date 06/14/24 with [facility]. Original Note: Patient discharged home today and she requested [facility]. I sent referral today.
== END 2024-06-12 10:58 | disposition home health service (06) | DRG 178 ==
PROVIDERS: Student in an Organized Health Care Education/Training Program; Admitting Provider Student in an Organized Health Care Education/Training Program; Visit Provider Student in an Organized Health Care Education/Training Program
DX: J15.1 Pneumonia due to Pseudomonas (principal); E87.1 Hypo-osmolality and hyponatremia; I13.0 Hypertensive heart and chronic kidney disease with heart failure and stage 1 through stage 4 chronic kidney disease, or unspecified chronic kidney disease; N17.9 Acute kidney failure, unspecified; N39.0 Urinary tract infection, site not specified; N18.32 Chronic kidney disease, stage 3b; I50.9 Heart failure, unspecified; E11.22 Type 2 diabetes mellitus with diabetic chronic kidney disease; R29.6 Repeated falls; E78.00 Pure hypercholesterolemia, unspecified; I48.0 Paroxysmal atrial fibrillation; E86.1 Hypovolemia; S00.11XA Contusion of right eyelid and periocular area, initial encounter; H91.90 Unspecified hearing loss, unspecified ear; Z85.3 Personal history of malignant neoplasm of breast; Z90.12 Acquired absence of left breast and nipple; Z95.0 Presence of cardiac pacemaker; Z91.81 History of falling; Z87.891 Personal history of nicotine dependence; Z79.84 Long term (current) use of oral hypoglycemic drugs; Z79.899 Other long term (current) drug therapy; Z88.0 Allergy status to penicillin; Z88.5 Allergy status to narcotic agent; Z88.8 Allergy status to other drugs, medicaments and biological substances; W01.0XXA Fall on same level from slipping, tripping and stumbling without subsequent striking against object, initial encounter
CPT/HCPCS: 36415; 71045; 80048; 80053; 81001; 83036; 83605; 83735; 84100; 85025; 86331; 86635; 87077; 87081; 87186; 87205; 87502; 87811; 93225; 93306; 94640; 94667; 97162; A9270; J0696; J1815; J1940; J3475

== ENCOUNTER 2024-07-22 19:35 | Inpatient (IN) | payer MEDICARE, MEDICAID, SELFPAY ==
[2024-07-22] VITALS (7 sets, daily range): BP systolic 150–161; BP diastolic 68–73; PULSE 77–86; RESP 18–24; TEMP 37.5–38.5; O2SAT 95–98; BMI 32.8
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
--- NOTE | 2024-07-22 20:24 | XR_ITS ---
Examination: AP chest single view Technique one AP portable semiupright chest single view Exam date and time: July 22, [id number] hrs. Comparison June 08, 2024 Indication: Wheezing shortness of breath today. Findings: Mild to moderate CHF with enlarged cardiac contour Prominent vascular congestion and perihilar edema Superimposed pneumonia in both lungs, prominent at the left lung base Cardiac leads satisfactory position Impression: Mild to moderate CHF Superimposed pneumonia both lungs, prominent at the left lung base
[2024-07-22 21:26] LABS: Basophils % (Auto) 0 % (0-2.5); Eosinophils # (Auto) 0.1 Thou/mm3 (0.0-0.5); Eosinophils % (Auto) 1 % (0-10); Hematocrit 37.6 % (36.0-46.0); Hemoglobin 12.3 g/dL (12.0-16.0); Immature Granulocytes % (Auto) 0 % (0-0); Immature Granulocytes Auto 0.03 Thou/mm3 (0.00-0.00); Lymphocytes % (Auto) 13 % (10-50); Mean Corpuscular HGB Conc 32.7 g/dl (31.0-37.0); Mean Corpuscular Hemoglobin 28.1 pg (25.0-35.0); Mean Corpuscular Volume 86 fL (80-100); Monocytes % (Auto) 13 % (0-12); Neutrophils # (Auto) 5.7 Thou/mm3 (1.8-7.7); Neutrophils % (Auto) 73 % (37-80); Nucleated Red Blood Cell % 0 /100 WBC (0); Platelet Count 246 Thou/mm3 (140-440); RDW Standard Deviation 49.4 fL (36.4-46.3); Red Blood Count 4.38 Miln/mm3 (4.00-5.20); White Blood Count 7.8 Thou/mm3 (3.6-11.0)
[2024-07-22] MEDS: ALBUTEROL/IPRATROPIUM (Duoneb) RT SOL 3 ML NEBU INH (21:31)
[2024-07-22 21:45] LABS: Alanine Aminotransferase 68 U/L (10-49); Albumin, Serum 3.9 gm/dL (3.4-4.8); Anion Gap 12 (7-16); Aspartate Amino Transferase 78 U/L (0-34); BUN/Creatinine Ratio 13 Ratio (12-20); Bilirubin,Total 0.3 mg/dL (0.3-1.2); Blood Urea Nitrogen 15 mg/dL (9-23); Calcium 8.8 mg/dL (8.3-10.6); Calcium (Corrected) 8.9 mg/dL (8.5-10.1); Carbon Dioxide 28.5 mMol/L (20.0-31.0); Chloride 100 mMol/L (98-107); Creatinine (Component) 1.2 mg/dL (0.6-1.3); Estimated Creatinine Clearance 36.5 mL/min (>60); Glucose 154 mg/dL (74-106); Magnesium 1.7 mg/dL (1.6-2.6); Osmolality,Calculated 283 (275-295); Potassium 3.5 mMol/L (3.4-5.1); Sodium 140 mMol/L (136-145); Total Protein 6.4 gm/dL (5.7-8.2); Troponin I < 0.020 ng/mL (0.0-0.045); eGFR 44 See Note
[2024-07-22 21:46] LABS: Albumin/Globulin Ratio 1.6 (1.2-2.2); Alkaline Phosphatase 75 U/L (46-116); Globulin 2.5 gm/dL (2.3-3.5); Partial Thromboplastin Time 27.1 Seconds (22.0-36.0); Prothrombin Time 11.2 Seconds (9.0-12.2)
[2024-07-22 21:48] LABS: B-Type Natriuretic Peptide 256 pg/mL (0-100)
[2024-07-22 22:12] LABS: LDH (Lactate Dehydrogenase) 396 U/L (120-246)
[2024-07-22 23:01] LABS: Lactate (Lactic Acid) 2.1 mMol/L (0.4-2.0)
[2024-07-22] MEDS: ACETAMINOPHEN 325 MG TABLET 650 MG PO (23:11)
--- NOTE | 2024-07-22 23:16 | PD.EDADDENDU ---
Emergency Room Addendum Addendum Narrative: 2300: Care assumed from Keaton Villavicencio NP. Past medical, surgical, social and family history reviewed. Vitals and home medications reviewed. Results and treatment plan discussed. I will assume the care of the patient at this time and will follow the patient, pending labs. Sepsis alert was initiated at 2238 by Keaton Villavicencio. NS IVF started at 0013. Rocephin and Azithromycin also given. 0045: Spoke with the patient and her family member at bedside regarding her test results. Patient states she is agreeable to be admitted to the hospital. 0052: Discussed case with [Dr. Marcelo] from Hospitalist service regarding admission. Discussed patients ED course, exam findings, labs, and radiology results. The Hospitalist [agrees] to accept the patient for admission. Diagnoses: pneumonia, sepsis
[2024-07-22 23:25] LABS: B-Type Natriuretic Peptide 268 pg/mL (0-100)
[2024-07-22 23:28] LABS: Lipase 27 U/L (12-53); Magnesium 1.6 mg/dL (1.6-2.6); Troponin I < 0.020 ng/mL (0.0-0.045)
[2024-07-22 23:31] LABS: Collection Type, Urine Clean Catch; RBC,Urine 0 /hpf (0-3); Squamous Epithelial Cell,Urine 0 /hpf (0-5); WBC,Urine 0 /hpf (0-5)
[2024-07-22 23:33] LABS: Procalcitonin 0.15 ng/ml (0.0-0.49)
[2024-07-22 23:56] LABS: Amphetamine/Methamp Scrn,U Negative (Negative); Barbiturate Screen,Urine Negative (Negative); Benzodiazepines Screen,Urine Negative (Negative); Benzoylecgonine Screen, Ur Negative (Negative); Fentanyl Screen,Urine Negative (Negative); Opiate Screen,Urine Negative (Negative); THC Screen,Urine Negative (Negative)
[2024-07-23] VITALS (17 sets, daily range): BP systolic 129–186; BP diastolic 57–90; PULSE 67–86; RESP 15–26; TEMP 36.3–37.7; O2SAT 89–98
[2024-07-23] MEDS: SODIUM CHLORIDE 0.9% 1000 ML 1,000 ML 999 ML IV ×2 (00:13→02:51)
[2024-07-23] MEDS: cefTRIAXone 1,000 MG in SODIUM CHLORIDE 0.9% (Popper) 50 ML 100 MG IV (00:14)
[2024-07-23 00:41] LABS: Bilirubin,Urine Negative (Negative); Blood,Urine Negative (Negative); Clarity,Urine Clear (Clear/Hazy); Color,Urine Lt Yellow (Lt Yel-Yel); Glucose, Urine Negative (Negative); Ketones,Urine 1+ (Negative); Leukocyte Esterase,Urine Trace (Negative); Nitrite,Urine Negative (Negative); PH,Urine 6.5 (5.0-7.0); Protein,Urine 1+ (Neg - Trace); Specific Gravity,Urine 1.015 (1.001-1.035); Urobilinogen,Urine 0.2 mg/dL (0.0-1.0)
[2024-07-23] MEDS: AZITHROMYCIN INJ 500 MG in SODIUM CHLORIDE 0.9% 250 ML 250 ML 250 MG IV (01:01)
--- NOTE | 2024-07-23 01:28 | ESHP_ITS ---
Documentation for date of: 07/23/24 [facility] History of Present Illness History of present illness: This is a 89-year-old female with PMHx of atrial fibrillation, s/p pacemaker, HTN, 2 L home oxygen dependency, T2DM, previous hip fracture, presenting with shortness of breath. She uses 2 L oxygen at home at baseline. However over the last 4 days she has been having worsening SOB, increased oxygen use, and was found desatting in the low 90s. Symptoms associated with reductive cough, clear sputum, and a few episodes of fever. She was admitted for pneumonia in June 2024, discharged on oral ANTIBIOTICS which she completed. She felt well after discharge except for usual dry cough. However, over the last 4 days she's had worsening productive cough. No recent travel or sick exposure. Denies headaches, chills, LOC, fall, chest pain, palpitations, abdominal pain, N/V/D/C, dysuria, urinary frequency or urgency, or abnormal bleed. ED COURSE: Tmax 101.3, HR 77, BP 150/68, RR 22, satting 93% on room air. CBC showed WBC 7.8, Hgb 12.3. Normal coag studies. Chemistry significant for lactic acid 2.1 > 2.2, BNP 268, TSH 0.6, free T4 1.81. Troponin normal. EKG shows pacemaker rhythm with HR in 70s. CXR showed mild to moderate CHF, bibasilar pneumonia worse on the left. Patient admitted for acute hypoxemic respiratory failure likely secondary to pneumonia. PMHx: A-fib, HTN, home oxygen, T2DM, previous hip fracture PSHx: Left hip ORIF, s/p pacemaker MEDS: AMIODARONE 200 mg BID, METOPROLOL 100 mg daily, JANUVIA 50 mg daily. ALLERGIES: LEVOFLOXACIN, PENICILLIN, CODEINE, PHENYTOIN, MEPERIDINE FHx: Parents of natural causes. SH: Smokes tobacco briefly in her 20s, denies alcohol or drug use. Exam Vital Signs Temp Pulse Resp BP Pulse Ox O2 Del Method O2 Flow Rate 101.3 F H 77 22 H 150/68 H 96 Nasal Cannula 2 07/22/24 23:11 07/22/24 21:32 07/22/24 21:32 07/22/24 21:27 07/22/24 21:32 07/22/24 21:27 07/22/24 21:32 Narrative Exam GENERAL * Normal appearing elderly female, no apparent distress, on 2 L NC. HEENT * NCAT.?JEN. Oral mucosa is dry. Patent Nares NECK * Supple, nontender, no thyromegaly, no meningismus, no JVD, no step offs CHEST * RRR, no m/g/r * Coarse breath sound bilaterally with wheezing. No rales * Symmetrical chest rise. No intercostal subcostal retraction * Atraumatic, nontender, no crepitus, symmetrical expansion. ABDOMEN * Soft, flat, nontender. No guarding/rebound tenderness/masses. * Bowel sounds presents EXTREMITIES * Nontender, no cyanosis, no edema * No edema/cyanosis.? SKIN * Warm and dry, no jaundice/rashes. * Decreased skin turgor. NEUROMUSCULAR * No lumbar or midline, no CVA, no paraspinal muscle spasm or tenderness. * Moves all 4 extremities well, with full ROM and good CSM. * MCCLENDON x4, CN II-XII grossly intact. * No focal neurologic deficits. PSYCHIATRY * Normal mood and affect, cooperative, no SI or HI or hallucinations. Results: Labs 07/22/24 20:47 07/22/24 20:47 Labs: Short CBC 07/22/24 Range/Units 20:47 WBC 7.8 (3.6-11.0) Thou/mm3 Hgb 12.3 (12.0-16.0) g/dL Hct 37.6 (36.0-46.0) % Plt Count 246 D (140-440) Thou/mm3 BMP 07/22/24 20:47 Sodium 140 Potassium 3.5 Chloride 100 Carbon Dioxide 28.5 BUN 15 Creatinine 1.2 Glucose 154 H Calcium 8.8 Cardiac Enzymes 07/22/24 07/22/24 Range/Units 20:47 22:53 Troponin I < 0.020 < 0.020 (0.0-0.045) ng/mL Liver Function 07/22/24 Range/Units 20:47 Total Bilirubin 0.3 (0.3-1.2) mg/dL AST 78 H (0-34) U/L ALT 68 H (10-49) U/L Alkaline Phosphatase 75 (46-116) U/L Albumin 3.9 (3.4-4.8) gm/dL Urine 07/22/24 Range/Units 23:26 Urine Color Lt Yellow (Lt Yel-Yel) Urine Clarity Clear (Clear/Hazy) Urine pH 6.5 (5.0-7.0) Ur Specific [place] 1.015 (1.001-1.035) Urine Protein 1+ A (Neg - Trace) Urine Glucose (UA) Negative (Negative) Quality Measures Quality Measures sepsis Current suspected stage: sepsis Possible source: pulmonary Blood cultures ordered: yes Antibiotic ordered: Yes Advance care planning discussed with:: patient and child Medications Home Medications and Allergies Home Medications ?Medication ?Instructions ?Recorded ?Confirmed ?Type amiodarone 200 mg tablet 200 mg PO BID 06/07/2406/07 History amlodipine 5 mg tablet 5 mg PO DAILY 06/07/2406/07 History Held on 06/10/24. Instructions: Resume on 06/10/24. Until you see your PCP as Blood pressure is stable lisinopril 20 mg tablet 20 mg PO DAILY 06/07/2409/26 History Held on 06/10/24. Instructions: Resume on 06/10/24. Hold until you see your PCP as Blood pressure is stable metoprolol succinate 100 mg 100 mg PO DAILY 06/07/24 0 06/07/24 History tablet,extended release 24 hr Allergies Allergy/AdvReac Type Severity Reaction Status Date / Time levofloxacin Allergy Severe Rash Verified 06/07/24 20:25 Penicillins Allergy Mild Rash Verified 06/07/24 20:25 codeine Allergy Unknown Diarrhea Verified 06/07/24 20:26 meperidine Allergy Unknown Verified 06/07/24 20:25 phenytoin Allergy Unknown Verified 06/07/24 20:25 Visit Medications Acetaminophen (Acetaminophen 325 Mg Tablet) 650 mg PO Q6H PRN PRN Reason: PAIN SCALE 1-3 (mild Stop: 08/22/24 01:20 Acetaminophen (Acetaminophen 325 Mg Tablet) 650 mg PO Q6H PRN PRN Reason: Fever >100.4 Stop: 08/22/24 01:20 Albuterol/Ipratropium (Albuterol/Ipratropium (Duoneb) Rt Jodi 3 Ml Nebu) 3 ml INH Q6HRRT CATE Stop: 08/22/24 06:59 Enoxaparin Sodium (Enoxaparin Sod Inj 40 Mg/0.4 Ml Syringe) 40 mg SC QDAY CATE Stop: 08/06/24 08:59 Azithromycin 250 mg/ Sodium (Chloride) 250 mls @ 250 mls/hr IV QDAY CATE Stop: 07/30/24 08:59 Ceftriaxone Sodium 1,000 mg/ (Sodium Chloride) 50 mls @ 100 mls/hr IV QDAY CATE Stop: 07/30/24 08:59 Sodium Chloride (Ns) 1,000 mls @ 999 mls/hr IV .Q1H1M ONE Stop: 07/23/24 02:25 Sodium Chloride (Ns) 500 mls @ 999 mls/hr IV .Q31M ONE Stop: 07/23/24 01:55 Ondansetron HCl (Ondansetron Inj 2 Mg/Ml Inj 2 Ml) 4 mg IV Q6H PRN; Protocol PRN Reason: NAUSEA OR VOMITING Stop: 08/22/24 01:20 Pantoprazole Sodium (Pantoprazole Inj 40 Mg Vial) 40 mg IVP QDAY [facility] Stop: 08/22/24 08:59 Discontinued Medications Acetaminophen (Acetaminophen 325 Mg Tablet) 650 mg PO X1 ONE Stop: 07/22/24 22:24 Last Admin: 07/22/24 23:11 Dose: 650 mg Albuterol/Ipratropium (Albuterol/Ipratropium (Duoneb) Rt Jodi 3 Ml Nebu) 3 ml INH X1 ONE Stop: 07/22/24 20:28 Last Admin: 07/22/24 21:31 Dose: 3 ml Ceftriaxone Sodium 1,000 mg/ (Sodium Chloride) 50 mls @ 100 mls/hr IV X1 ONE Stop: 07/23/24 00:29 Last Admin: 07/23/24 00:14 Dose: 100 mls/hr Azithromycin 500 mg/ Sodium (Chloride) 250 mls @ 250 mls/hr IV X1 ONE Stop: 07/23/24 00:59 Last Admin: 07/23/24 01:01 Dose: 250 mls/hr Sodium Chloride (Ns) 1,000 mls @ 999 mls/hr IV .Q1H1M ONE Stop: 07/23/24 00:59 Last Admin: 07/23/24 00:13 Dose: 999 mls/hr Sodium Chloride (Sodium Chloride Rt 10% 15 Ml Nebu) 5 ml INH X1 ONE Stop: 07/23/24 01:22 Assessment & Plan Plan In summary: 72-year-old female PMHx of A-fib s/p pacemaker, HTN, T2DM, 2 L home oxygen dependency, left hip fracture, presenting with 4 days of shortness of breath. Admitted for AHRF in settings of sepsis and community-acquired pneumonia. #Acute hypoxic respiratory failure #Sepsis #Community-acquired pneumonia #Home oxygen dependency #Lactic acidosis Type A Presenting with 4 days of clear productive cough, worsening shortness of breath, desatting low 90s at home despite oxygen. She was treated for pneumonia inpatient in June. Met 2/4 sepsis criteria with tachypnea, fever, and EOD i.e. lactic acidosis of 2.1 > 2.2. Has wheezing and coarse breath sounds bilaterally on exam. No lower extremity edema. CXR showed mild-moderate CHF, superimposed bilateral pneumonia, worse in left lung base. Low concern for CHF exacerbation, last echo from 06/2024 showed EF 60-65% and normal LV size and function, no crackles on lung exam, no lower extremity edema, appears dry on exam. Negative COVID and influenza A/B. ED gave 1 L normal saline bolus. ? Continue oxygen PRN ? Continue CEFTRIAXONE and AZITHROMYCIN (07/23 to present) ? Continue DuoNebs Q6H ? Started 1.5 L NS bolus per sepsis guideline ? Pending cultures: Blood, sputum, RSV ? Trending lactic acid HTN A-fib S/P pacemaker BP 150/68, HR 77. EKG showed pacemaker rhythm, no acute ST changes. LISINOPRIL and AMLODIPINE were held on last discharge. She states she is only taken AMIODARONE, METOPROLOL and diabetes medications. ? Continue home AMIODARONE 200 mg BID ? Continue home METOPROLOL succinate 100 mg daily Mild BNP elevation BNP 268, appears to have chronic BNP elevation. Last echo from June showed EF 60-65% as stated above. CXR shows mild?moderate CHF with minimal angle blunting. She appears dry, no lower extremity edema, no crackles on lung exam, with dry skin/mucosa. Again, low concern for CHF exacerbation. Will continue with fluid resuscitation and lactic acidosis/sepsis. ? Consider repeat echo ? Monitor closely, discontinue fluids if symptomatic. T2DM Admission GLUCOSE 154. A1c 6.4 from June 2024. ? INSULIN sliding scale ? Accu-Cheks Mild transaminitis Likely in settings of sepsis. Anticipate improvement with fluid resuscitation. ? Daily labs ? Euthyroid hyperthyroxinemia TSH 0.6 normal, free T4 1.81 mildly elevated. Likely in settings of acute illness. ? Recommended repeat thyroid function outpatient in 3-6 months Health maintenance Diet: Cardiac, CHO consistent GI prophylaxis: PROTONIX DVT prophylaxis: LOVENOX Antibiotics: AZITHROMYCIN, CEFTRIAXONE CODE STATUS: DNR [facility] Patient case was discussed with attending, Robin Marcelo MD. Reymundo Hawtohrne DO PGYI Attending Provider Attestation/Addendum Pt was evaluated and plan formulated together with the housestaff team. I have reviewed the residents note above and agree with most of its content. Please refer to the residents note for additional details.
[2024-07-23 01:29] LABS: Free T4 (Free Thyroxine) 1.81 ng/dL (0.89-1.76)
[2024-07-23 01:50] LABS: Lactate (Lactic Acid) 2.2 mMol/L (0.4-2.0)
[2024-07-23 01:58] LABS: Reflex Lactate? Y
[2024-07-23 04:48] LABS: Reflex Lactate? Y
[2024-07-23] MEDS: SODIUM CHLORIDE RT 10% 15 ML NEBU 5 ML INH (05:05)
[2024-07-23] MEDS: SODIUM CHLORIDE 0.9% 500 ML 500 ML 999 ML IV (06:14)
--- NOTE | 2024-07-23 07:42 | PC.NURSE ---
MD Decker made aware that patient's BP 186/90 with re-take BP 182/82. made me aware that she will put in metoprolol PO now instead of scheduled 0900 dose.
[2024-07-23] MEDS: METOPROLOL SUCCINATE XL 25 MG TABCR 100 MG PO (07:50)
[2024-07-23 08:34] LABS: Lactate (Lactic Acid) 2.3 mMol/L (0.4-2.0)
[2024-07-23 08:35] LABS: Basophils % (Auto) 1 % (0-2.5); Eosinophils % (Auto) 0 % (0-10); Hematocrit 34.4 % (36.0-46.0); Hemoglobin 11.1 g/dL (12.0-16.0); Immature Granulocytes % (Auto) 1 % (0-0); Immature Granulocytes Auto 0.04 Thou/mm3 (0.00-0.00); Lymphocytes # (Auto) 0.9 Thou/mm3 (1.0-4.8); Lymphocytes % (Auto) 11 % (10-50); Mean Corpuscular HGB Conc 32.3 g/dl (31.0-37.0); Mean Corpuscular Hemoglobin 28.3 pg (25.0-35.0); Mean Corpuscular Volume 88 fL (80-100); Monocytes % (Auto) 11 % (0-12); Neutrophils # (Auto) 6.3 Thou/mm3 (1.8-7.7); Neutrophils % (Auto) 76 % (37-80); Nucleated Red Blood Cell % 0 /100 WBC (0); Platelet Count 245 Thou/mm3 (140-440); RDW Standard Deviation 51.3 fL (36.4-46.3); Red Blood Count 3.92 Miln/mm3 (4.00-5.20); White Blood Count 8.3 Thou/mm3 (3.6-11.0)
[2024-07-23] MEDS: ENOXAPARIN SOD INJ 40 MG/0.4 ML SYRINGE SC (09:04)
[2024-07-23] MEDS: amLODIPine BESYLATE 5 MG TABLET PO (09:04)
[2024-07-23] MEDS: PANTOPRAZOLE INJ 40 MG VIAL IVP (09:04)
[2024-07-23] MEDS: AMIODARONE HCL 200 MG TABLET PO ×2 (09:09→21:35)
[2024-07-23 09:14] LABS: Alanine Aminotransferase 93 U/L (10-49); Albumin, Serum 3.6 gm/dL (3.4-4.8); Albumin/Globulin Ratio 1.4 (1.2-2.2); Alkaline Phosphatase 64 U/L (46-116); Anion Gap 12 (7-16); Aspartate Amino Transferase 114 U/L (0-34); BUN/Creatinine Ratio 10 Ratio (12-20); Bilirubin,Total 0.2 mg/dL (0.3-1.2); Blood Urea Nitrogen 10 mg/dL (9-23); Calcium (Corrected) 8.3 mg/dL (8.5-10.1); Chloride 102 mMol/L (98-107); Estimated Creatinine Clearance 35.7 mL/min (>60); Globulin 2.5 gm/dL (2.3-3.5); Glucose 178 mg/dL (74-106); Magnesium 1.5 mg/dL (1.6-2.6); Osmolality,Calculated 280 (275-295); Phosphorous 2.7 mg/dL (2.4-5.1); Potassium 3.5 mMol/L (3.4-5.1); Sodium 139 mMol/L (136-145); Total Protein 6.1 gm/dL (5.7-8.2); eGFR 55 See Note
--- NOTE | 2024-07-23 09:47 | XR_ITS ---
Examination: CT chest with intravenous contrast 2-D sagittal and coronal reconstructions Exam date and time: July 23, 2024 1505 hours INDICATIONS: Shortness of breath today, difficulty breathing this week with wheezing CTDI:vol (mGy) 11.1 DLP: (mGycm) 394 Technique: Multiple axial sections of the thorax have been obtained. Sections have been obtained, 3 mm slice thickness. Mediastinal and lung density settings have been obtained. Intravenous contrast administered, 60 cc Isovue-370. 2-D sagittal, coronal images obtained. Low dose protocols were performed. One or more of the following dose reduction techniques were used; automated exposure control, adjustment of the mA and/or KV according to patient size, use of iterative reconstruction technique. Findings: Mildly enlarged right thyroid lobe No thoracic cardiac aneurysm dilatation No pulmonary artery emboli on this non-CTA study Pretracheal and right tracheobronchial lymph nodes, the largest in the right tracheobronchial region 13 mm Bilateral intracapsular breast implant ruptures Extensive bilateral pneumonia most severe at the lung bases and right upper lobe Right lower lobe pulmonary nodule which appears to contain calcification, 12 mm, image 134 Prominent vascular congestion No focal liver or splenic lesions Gallstones versus gallbladder sludge No pancreatic mass Kidneys partially visualized no hydronephrosis Prominent osteopenia IMPRESSION: Mildly enlarged right thyroid lobe Mediastinal lymphadenopathy Extensive bilateral pneumonia Recommend gallbladder sonography to assess gallbladder sludge versus stones
--- NOTE | 2024-07-23 10:04 | ESPR_ITS ---
<Statement entered by Arlin Blackman MD - 07/23/24 10:50> I discussed with and supervised my co-resident involved in the care of this patient. I agree with the assessment and plan as documented above. Patient seen and examined at bedside. Spoke with granddaughter at bedside. Patient live with her son and have in-house round the clock assistance. Been having fever and increased sputum production and cough over the last few days. Suspect sepsis due to PNA, will broaden antibiotics to include Pseudomonal coverage as patient has history of pseudomona pneumonia. Will also get CT chest as suspect underlying fibrosis component given recurrent pneumonia. Will continue O2 (baseline 2-3L), cough syrup, acapella device, and IV antibiotics. Home blood pressure medications restarted. Arlin Blackman MD PGY-3 Documentation for date of: 07/23/24 Subjective Subjective Interval history: Patient was hypoxic at 85% on 3 L via nasal cannula. Called RT to place patient on non-rebreather or high flow. Blood pressure elevated this morning, restarted patient's amlodipine and lisinopril which were discontinued during previous admission. CT of the chest today to evaluate for pulmonary fibrosis. Switched from ceftriaxone to Zosyn, previous sputum shows Pseudomonas. Will trend lactic acid today most likely elevated secondary to hypoxia. Exam Vital Signs Temp Pulse Resp BP Pulse Ox O2 Del Method O2 Flow Rate 97.8 F 74 20 176/74 H 95 Nasal Cannula 3 07/23/24 08:00 07/23/24 09:09 07/23/24 08:00 07/23/24 09:09 07/23/24 08:00 07/23/24 08:00 07/23/24 08:00 Narrative Exam Constitutional: Ill-appearing, resting comfortably in bed Head: Normocephalic Eyes: no conjunctival injection , symmetrical lids. ENMT: Moist Mucous Membranes CVS: RRR, S1 and S2 present, no murmurs, rubs or gallops . RESP: Rhonchi throughout, no increased work of breathing, hypoxic at 85% on 3 L via nasal cannula GI: Soft, nondistended, nontender MSK: No lower extremity edema Skin: Warm to touch, Dry. Neuro: Alert and oriented Psych: Appropriate mood and affect. Objective Labs 07/24/24 05:15 07/24/24 05:15 Labs: Laboratory Results - last 24 hr 07/22/24 07/22/24 07/22/24 20:47 22:53 23:26 WBC 7.8 RBC 4.38 Hgb 12.3 Hct 37.6 MCV 86 MCH 28.1 MCHC 32.7 RDW Std Deviation 49.4 H Plt Count 246 D Neut % (Auto) 73 Lymph % (Auto) 13 [place] % (Auto) 13 H Eos % (Auto) 1 Baso % (Auto) 0 Neut # (Auto) 5.7 Lymph # (Auto) 1.0 [place] # (Auto) 1.0 H Eos # (Auto) 0.1 Baso # (Auto) 0.0 Immature Gran # (Auto) 0.03 H Absolute Nucleated RBC 0.00 Immature Gran % 0 Nucleated RBC % 0 PT 11.2 INR 1.0 APTT 27.1 Sodium 140 Potassium 3.5 Chloride 100 Carbon Dioxide 28.5 Anion Gap 12 BUN 15 Creatinine 1.2 Estim Creat Clear Calc 36.5 L eGFR 44 L BUN/Creatinine Ratio 13 Glucose 154 H Calculated Osmolality 283 Lactic Acid 2.1 H Calcium 8.8 Corrected Calcium 8.9 Phosphorus 3.0 Magnesium 1.7 1.6 Total Bilirubin 0.3 AST 78 H ALT 68 H Alkaline Phosphatase 75 Lactate Dehydrogenase 396 H Troponin I < 0.020 < 0.020 B-Natriuretic Peptide 256 H 268 H Total Protein 6.4 Albumin 3.9 Globulin 2.5 Albumin/Globulin Ratio 1.6 Lipase 27 Procalcitonin 0.15 TSH 0.60 Free T4 1.81 H Ur Collection Type Clean Catch Urine Color Lt Yellow Urine Clarity Clear Urine pH 6.5 Ur Specific [place] 1.015 Urine Protein 1+ A Urine Glucose (UA) Negative Urine Ketones 1+ A Urine Blood Negative Urine Nitrite Negative Urine Bilirubin Negative Urine Urobilinogen (Auto) 0.2 Ur Leukocyte Esterase Trace Urine RBC 0 Urine WBC 0 Ur Squamous Epith Cells 0 Urine Bacteria None Urine Opiates Screen Negative Urine Fentanyl Screen Negative Ur Barbiturates Screen Negative U Amphetamin/Meth Scrn Negative U Benzodiazepines Scrn Negative U Cocaine Metab Screen Negative U Marijuana (THC) Screen Negative 07/23/24 07/23/24 01:46 08:26 WBC 8.3 RBC 3.92 L Hgb 11.1 L Hct 34.4 L MCV 88 MCH 28.3 MCHC 32.3 RDW Std Deviation 51.3 H Plt Count 245 Neut % (Auto) 76 Lymph % (Auto) 11 [place] % (Auto) 11 Eos % (Auto) 0 Baso % (Auto) 1 Neut # (Auto) 6.3 Lymph # (Auto) 0.9 L [place] # (Auto) 1.0 H Eos # (Auto) 0.0 Baso # (Auto) 0.0 Immature Gran # (Auto) 0.04 H Absolute Nucleated RBC 0.00 Immature Gran % 1 H Nucleated RBC % 0 PT INR APTT Sodium 139 Potassium 3.5 Chloride 102 Carbon Dioxide 25.0 Anion Gap 12 BUN 10 Creatinine 1.0 Estim Creat Clear Calc 35.7 L eGFR 55 L BUN/Creatinine Ratio 10 L Glucose 178 H Calculated Osmolality 280 Lactic Acid 2.2 H 2.3 H Calcium 8.0 L Corrected Calcium 8.3 L Phosphorus 2.7 Magnesium 1.5 L Total Bilirubin 0.2 L AST 114 H ALT 93 H Alkaline Phosphatase 64 Lactate Dehydrogenase Troponin I B-Natriuretic Peptide Total Protein 6.1 Albumin 3.6 Globulin 2.5 Albumin/Globulin Ratio 1.4 Lipase Procalcitonin TSH Free T4 Ur Collection Type Urine Color Urine Clarity Urine pH Ur Specific [place] Urine Protein Urine Glucose (UA) Urine Ketones Urine Blood Urine Nitrite Urine Bilirubin Urine Urobilinogen (Auto) Ur Leukocyte Esterase Urine RBC Urine WBC Ur Squamous Epith Cells Urine Bacteria Urine Opiates Screen Urine Fentanyl Screen Ur Barbiturates Screen U Amphetamin/Meth Scrn U Benzodiazepines Scrn U Cocaine Metab Screen U Marijuana (THC) Screen Quality Measures Quality Measures sepsis Current suspected stage: sepsis Possible source: pulmonary Blood cultures ordered: yes Antibiotic ordered: Yes Advance care planning discussed with:: patient Assessment & Plan Assessment Current Active Medications: Generic Name Dose Route Start Last Admin Trade Name Freq PRN Reason Stop Dose Admin Acetaminophen 650 mg 07/23/24 01:21 Acetaminophen 325 Mg Tablet PO 08/22/24 01:20 Q6H PRN PAIN SCALE 1-3 (mild Acetaminophen 650 mg 07/23/24 01:21 Acetaminophen 325 Mg Tablet PO 08/22/24 01:20 Q6H PRN Fever >100.4 Albuterol/Ipratropium 3 ml 07/23/24 11:00 Albuterol/Ipratropium (Duoneb) Rt Jodi 3 Ml Nebu INH 08/22/24 10:59 Q4HRRT CATE Amiodarone HCl 200 mg 07/23/24 09:00 07/23/24 09:09 Amiodarone Hcl 200 Mg Tablet PO 08/22/24 08:59 200 mg BID CATE Administration Amlodipine Besylate 5 mg 07/23/24 09:00 07/23/24 09:04 Amlodipine Besylate 5 Mg Tablet PO 08/22/24 08:59 5 mg QDAY CATE Administration Dextrose 25 ml 07/23/24 01:51 Dextrose 50%-Water Inj 50 Ml Syringe IV 08/22/24 01:50 Q15MIN PRN BG 50-70 responsive npo pt Dextrose 50 ml 07/23/24 01:51 Dextrose 50%-Water Inj 50 Ml Syringe IV 08/22/24 01:50 Q15MIN PRN BG <50 OR BG <70 & pt unresponsive Enoxaparin Sodium 40 mg 07/23/24 09:00 07/23/24 09:04 Enoxaparin Sod Inj 40 Mg/0.4 Ml Syringe SC 08/06/24 08:59 40 mg QDAY CATE Administration Glucagon 1 mg 07/23/24 01:51 Glucagon Inj 1 Mg Vial IM Q15MIN PRN BG <70, and no IV access Azithromycin 250 mg/ Sodium 250 mls @ 250 mls/hr 07/23/24 21:00 Chloride IV 07/30/24 20:59 QDAY@2100 [facility] Piperacillin Sod/Tazobactam 50 mls @ 100 mls/hr 07/23/24 10:00 Sod 3.375 gm/ Sodium Chloride IV 07/23/24 10:29 X1 ONE Piperacillin Sod/Tazobactam 50 mls @ 12.5 mls/hr 07/23/24 22:00 Sod 3.375 gm/ Sodium Chloride IV 07/30/24 21:59 Q8HR [facility] Insulin Human Lispro 0 unit 07/23/24 07:30 07/23/24 07:37 Insulin Lispro (Admelog) 1 Unit/0.01 Ml Unit SC 08/22/24 07:29 Not Given [facility] Protocol Lisinopril 20 mg 07/23/24 09:30 Lisinopril 20 Mg Tablet PO 08/22/24 09:29 QDAY [facility] Metoprolol Succinate 100 mg 07/23/24 08:00 07/23/24 07:50 Metoprolol Succinate Xl 25 Mg Tabcr PO 08/22/24 07:59 100 mg QDAY CATE Administration Ondansetron HCl 4 mg 07/23/24 01:21 Ondansetron Inj 2 Mg/Ml Inj 2 Ml IV 08/22/24 01:20 Q6H PRN NAUSEA OR VOMITING Protocol Pantoprazole Sodium 40 mg 07/23/24 09:00 07/23/24 09:04 Pantoprazole Inj 40 Mg Vial IVP 08/22/24 08:59 40 mg QDAY CATE Administration Promethazine HCl/Dextromethorphan 5 ml 07/23/24 09:51 Promethazine/Dm Syrup 5 Ml Dose PO 08/22/24 09:50 Q6HR PRN COUGH Protocol Plan In summary: 72-year-old female PMHx of A-fib s/p pacemaker, HTN, T2DM, 2 L home oxygen dependency, left hip fracture, presenting with 4 days of shortness of breath. Admitted for AHRF in settings of sepsis and community-acquired pneumonia. #Acute hypoxic respiratory failure #Sepsis #Community-acquired pneumonia #Home oxygen dependency #Lactic acidosis Type A Presenting with 4 days of clear productive cough, worsening shortness of breath, desatting low 90s at home despite oxygen. She was treated for pneumonia inpatient in June. Met 2/4 sepsis criteria with tachypnea, fever, and EOD i.e. lactic acidosis of 2.1 > 2.2. Has wheezing and coarse breath sounds bilaterally on exam. No lower extremity edema. CXR showed mild-moderate CHF, superimposed bilateral pneumonia, worse in left lung base. Low concern for CHF exacerbation, last echo from 06/2024 showed EF 60-65% and normal LV size and function, no crackles on lung exam, no lower extremity edema, appears dry on exam. Negative COVID and influenza A/B. Sputum culture from 06/08 positive for Pseudomonas. Per chart review patient has had multiple admissions for pneumonia in the last year. Possible has underlying etiology, especially considering patient is hypoxic, with a negative Pro-Damián and without leukocytosis. ? Continue oxygen PRN, DuoNebs Q4hr, Incentive spirometry,Acapella, Promethazine/dextromethorph PRN ? s/p CEFTRIAXONE (07/23) ? Azithromycin, Zosyn (07/23?present) ? Pending: Blood, urine, sputum cultures, RSV, cocci ? Trending lactic acid, likely 2/2 hypoxia (type A lactic acidosis) ? CT chest to rule out pulmonary fibrosis HTN A-fib S/P pacemaker ? Continue home AMIODARONE 200 mg BID, METOPROLOL succinate 100 mg daily ?Restarted amlodipine 5 mg daily, lisinopril 20 mg. Will continue to monitor BP. T2DM Admission GLUCOSE 154. A1c 6.4 from June 2024. ? INSULIN sliding scale ? Accu-Cheks Mild transaminitis Likely in settings of sepsis. Anticipate improvement with fluid resuscitation. ? Daily labs ? Euthyroid hyperthyroxinemia TSH 0.6 normal, free T4 1.81 mildly elevated. Likely in settings of acute illness. ? Recommended repeat thyroid function outpatient in 3-6 months Health maintenance Diet: Cardiac, CHO consistent GI prophylaxis: PROTONIX DVT prophylaxis: LOVENOX Antibiotics: Azithromycin, Zosyn CODE STATUS: DNR [facility] Patient case was discussed with attending Dr. Gaffney, Rolo Decker, PGY1 Attending Provider Attestation/Addendum I reviewed labs, imaging, EKG, home medications and prior available records. Face to face evaluation was performed by me. I have personally examined the patient and discussed assessment and plan with the IM team. I reviewed the resident note and agree with the plan with exceptions as below. Acute on chronic hypoxic respiratory failure Bilateral pneumonia Possible interstitial lung disease History of recurrent pneumonias Transaminitis Atrial fibrillation with controlled ventricular rhythm Patient has recurrent pneumonias. Concern for possible interstitial lung disease given the chest x-ray comparison. Ordered CT scan of the chest Started IV Zosyn for Pseudomonas coverage given the recent sputum culture results. Follow-up cultures from this hospital stay Continue oxygen and wean off as tolerated Resume metoprolol and amiodarone Trend LFTs
--- NOTE | 2024-07-23 10:56 | CHAP ---
Patient was visited by a spiritual care volunteer 0n 07/23/2024 between 0923 and 1015 and received encouragement, comfort and/or prayer. This patient refused prayer at this time.
[2024-07-23] MEDS: ALBUTEROL/IPRATROPIUM (Duoneb) RT SOL 3 ML NEBU INH ×4 (10:59→23:15)
[2024-07-23 11:29] LABS: Reflex Lactate? Y
[2024-07-23] MEDS: PIPER/TAZO INJ 3.375 GM in SODIUM CHLORIDE 0.9% (Popper) 50 ML IV ×2 (12:14→21:41)
[2024-07-23 13:02] LABS: Lactic Acid, 3 HR 1.6 mMol/L (0.4-2.0)
--- NOTE | 2024-07-23 15:10 | PC.SS ---
OIL ANALYST conducted bedside contact with the patient conduct initial assessment and to discuss discharge planning.? Patient confirmed demographic information.? Patient resides at home with son, Mook Sandra .? Patient utilizes a walker to assist with ambulation.? Patient utilizes home oxygen.? Patient requires assistance with completion of ADL?s.? Patient?s medical surrogate decision maker is son, Mook Sandra.? Patient?s PCP is Dr. García.? Patient utilizes [facility] for medication services.? Plan is for the patient to return home at the time of discharge.? Family will provide transportation on behalf of the patient. ?No discharge needs identified by the patient.? No further intervention required at this time, social and human services assistant will be available to address any further concerns.? Next of Kin: Mook Sandra D/C Plan: Home
[2024-07-23] MEDS: Magnesium Sulfate 2 GM Ivpb 2 GM/50 ML BAG IV (16:28)
--- NOTE | 2024-07-23 18:58 | PC.CC ---
Pt is open with [facility]
--- NOTE | 2024-07-23 18:59 | PC.CC ---
Pt is open with [facility]
[2024-07-23] MEDS: INSULIN LISPRO (AdmeLOG) 1 UNIT/0.01 ML UNIT SC (21:40)
[2024-07-23] MEDS: AZITHROMYCIN INJ 250 MG in SODIUM CHLORIDE 0.9% 250 ML 250 ML IV (21:54)
[2024-07-24] VITALS (16 sets, daily range): BP systolic 122–162; BP diastolic 55–74; PULSE 59–94; RESP 16–22; TEMP 35.9–36.5; O2SAT 92–100; BMI 24.0
[2024-07-24] MEDS: ALBUTEROL/IPRATROPIUM (Duoneb) RT SOL 3 ML NEBU INH ×6 (03:20→22:10)
[2024-07-24] MEDS: PIPER/TAZO INJ 3.375 GM in SODIUM CHLORIDE 0.9% (Popper) 50 ML IV ×3 (05:57→21:27)
[2024-07-24 06:07] LABS: Basophils % (Auto) 0 % (0-2.5); Eosinophils % (Auto) 0 % (0-10); Hematocrit 31.8 % (36.0-46.0); Hemoglobin 10.5 g/dL (12.0-16.0); Immature Granulocytes % (Auto) 1 % (0-0); Immature Granulocytes Auto 0.03 Thou/mm3 (0.00-0.00); Lymphocytes # (Auto) 0.6 Thou/mm3 (1.0-4.8); Lymphocytes % (Auto) 12 % (10-50); Mean Corpuscular Hemoglobin 27.8 pg (25.0-35.0); Mean Corpuscular Volume 84 fL (80-100); Monocytes # (Auto) 0.3 Thou/mm3 (0.0-0.8); Monocytes % (Auto) 6 % (0-12); Neutrophils # (Auto) 3.9 Thou/mm3 (1.8-7.7); Neutrophils % (Auto) 82 % (37-80); Nucleated Red Blood Cell % 0 /100 WBC (0); Platelet Count 235 Thou/mm3 (140-440); RDW Standard Deviation 49.1 fL (36.4-46.3); Red Blood Count 3.78 Miln/mm3 (4.00-5.20); White Blood Count 4.7 Thou/mm3 (3.6-11.0)
[2024-07-24 06:33] LABS: Respiratory Syncytial Virus Ag Negative (Negative)
[2024-07-24 06:49] LABS: Alanine Aminotransferase 98 U/L (10-49); Albumin, Serum 3.4 gm/dL (3.4-4.8); Albumin/Globulin Ratio 1.4 (1.2-2.2); Alkaline Phosphatase 57 U/L (46-116); Anion Gap 10 (7-16); Aspartate Amino Transferase 96 U/L (0-34); BUN/Creatinine Ratio 13 Ratio (12-20); Bilirubin,Total 0.3 mg/dL (0.3-1.2); Blood Urea Nitrogen 13 mg/dL (9-23); Calcium 8.5 mg/dL (8.3-10.6); Carbon Dioxide 27.3 mMol/L (20.0-31.0); Chloride 101 mMol/L (98-107); Estimated Creatinine Clearance 35.7 mL/min (>60); Globulin 2.4 gm/dL (2.3-3.5); Glucose 227 mg/dL (74-106); Osmolality,Calculated 282 (275-295); Phosphorous 3.1 mg/dL (2.4-5.1); Potassium 3.2 mMol/L (3.4-5.1); Sodium 138 mMol/L (136-145); Total Protein 5.8 gm/dL (5.7-8.2); eGFR 55 See Note
[2024-07-24] MEDS: INSULIN LISPRO (AdmeLOG) 1 UNIT/0.01 ML UNIT SC ×4 (07:40→20:09)
[2024-07-24] MEDS: METOPROLOL SUCCINATE XL 25 MG TABCR 100 MG PO (09:02)
[2024-07-24] MEDS: Lisinopril 20 MG TABLET PO (09:03)
[2024-07-24] MEDS: amLODIPine BESYLATE 5 MG TABLET PO (09:04)
[2024-07-24] MEDS: AMIODARONE HCL 200 MG TABLET PO ×2 (09:04→20:11)
[2024-07-24] MEDS: POTASSIUM CHL 10 mEq IVPB 10 MEQ/100 ML BAG 75 MEQ IV ×3 (09:05→12:56)
[2024-07-24] MEDS: ENOXAPARIN SOD INJ 40 MG/0.4 ML SYRINGE SC (09:06)
[2024-07-24] MEDS: PANTOPRAZOLE INJ 40 MG VIAL IVP (09:07)
--- NOTE | 2024-07-24 10:12 | XR_ITS ---
Examination: Thyroid sonography complete TECHNIQUE: Grayscale sonographic images thyroid lobes with color flow analysis Exam date and time: July 24, 1999 2557 hours INDICATIONS: Clinical diagnosis thyromegaly, mildly enlarged right thyroid lobe on CT chest study July 23, 2024 FINDINGS: Right thyroid 2.9 x 1.8 x 0.9 cm Right mid pole nodule 9 x 10 x 11 mm Left thyroid 3.8 x 2.3 x 2.0 cm No thyroid nodules IMPRESSION: Right thyroid nodule as above
--- NOTE | 2024-07-24 10:23 | ESPR_ITS ---
<Statement entered by Arlin Blackman MD - 07/24/24 16:04> I discussed with and supervised my co-resident involved in the care of this patient. I agree with the assessment and plan as documented above. Patient seen at bedside. On 1L of NC. No acute complaints. Regaridng her pneumonia, RSV was negative and blood cultures negative so far. Cocci pending. Urine culture did grow GPC. Will continue Zosyn. CT imaging also did show enlarged thryoid. Will check TSH and follow up with thyroid ultrasound. Arlin Blackman MD PGY-3 Documentation for date of: 07/24/24 Subjective Subjective Interval history: Patient is doing well. Does not endorse shortness of breath. Is still having a nonproductive cough. Feels she is at her baseline. No fevers or chills. Does have occasional urinary incontinence which is her. UA this morning is positive for gram positive cocci. CT of chest from yesterday shows enlarged right thyroid lobe, consulted oncology Dr. Helms. Will order ultrasound of the thyroid. Still pending cocci studies and urine culture. Will consider switching to Levaquin tomorrow pending studies. Exam Vital Signs Temp Pulse Resp BP Pulse Ox O2 Del Method O2 Flow Rate 96.7 F L 70 16 133/57 H 96 Nasal Cannula 1 07/24/24 08:00 07/24/24 09:04 07/24/24 08:00 07/24/24 09:04 07/24/24 08:00 07/24/24 08:00 07/24/24 08:00 Narrative Exam Constitutional: Resting comfortably in bed Head: Normocephalic Eyes: no conjunctival injection , symmetrical lids. ENMT: Moist Mucous Membranes CVS: RRR, S1 and S2 present, no murmurs, rubs or gallops . RESP: Rhonchi throughout, no increased work of breathing, on 1L via nasal cannula Skin: Warm to touch, Dry. Neuro: Alert and oriented Psych: Appropriate mood and affect. Objective Labs 07/24/24 05:15 07/24/24 05:15 Labs: Laboratory Results - last 24 hr 07/23/24 07/24/24 07/24/24 12:36 05:15 06:00 WBC 4.7 D RBC 3.78 L Hgb 10.5 L Hct 31.8 L MCV 84 MCH 27.8 MCHC 33.0 RDW Std Deviation 49.1 H Plt Count 235 Neut % (Auto) 82 H Lymph % (Auto) 12 [place] % (Auto) 6 Eos % (Auto) 0 Baso % (Auto) 0 Neut # (Auto) 3.9 Lymph # (Auto) 0.6 L [place] # (Auto) 0.3 Eos # (Auto) 0.0 Baso # (Auto) 0.0 Immature Gran # (Auto) 0.03 H Absolute Nucleated RBC 0.00 Immature Gran % 1 H Nucleated RBC % 0 Sodium 138 Potassium 3.2 L Chloride 101 Carbon Dioxide 27.3 Anion Gap 10 BUN 13 Creatinine 1.0 Estim Creat Clear Calc 35.7 L eGFR 55 L BUN/Creatinine Ratio 13 Glucose 227 H Calculated Osmolality 282 Lactic Acid 1.6 Calcium 8.5 Corrected Calcium 9.0 Phosphorus 3.1 Magnesium 2.0 Total Bilirubin 0.3 AST 96 H ALT 98 H Alkaline Phosphatase 57 Total Protein 5.8 Albumin 3.4 Globulin 2.4 Albumin/Globulin Ratio 1.4 RSV Rapid Negative Quality Measures Quality Measures sepsis Current suspected stage: sepsis Possible source: pulmonary Blood cultures ordered: yes Antibiotic ordered: Yes Advance care planning discussed with:: patient Assessment & Plan Assessment Current Active Medications: Generic Name Dose Route Start Last Admin Trade Name Freq PRN Reason Stop Dose Admin Acetaminophen 650 mg 07/23/24 01:21 Acetaminophen 325 Mg Tablet PO 08/22/24 01:20 Q6H PRN PAIN SCALE 1-3 (mild Acetaminophen 650 mg 07/23/24 01:21 Acetaminophen 325 Mg Tablet PO 08/22/24 01:20 Q6H PRN Fever >100.4 Albuterol/Ipratropium 3 ml 07/23/24 11:00 07/24/24 06:38 Albuterol/Ipratropium (Duoneb) Rt Jodi 3 Ml Nebu INH 08/22/24 10:59 3 ml Q4HRRT CATE Administration Amiodarone HCl 200 mg 07/23/24 09:00 07/24/24 09:04 Amiodarone Hcl 200 Mg Tablet PO 08/22/24 08:59 200 mg BID CATE Administration Amlodipine Besylate 5 mg 07/23/24 09:00 07/24/24 09:04 Amlodipine Besylate 5 Mg Tablet PO 08/22/24 08:59 5 mg QDAY CATE Administration Dextrose 25 ml 07/23/24 01:51 Dextrose 50%-Water Inj 50 Ml Syringe IV 08/22/24 01:50 Q15MIN PRN BG 50-70 responsive npo pt Dextrose 50 ml 07/23/24 01:51 Dextrose 50%-Water Inj 50 Ml Syringe IV 08/22/24 01:50 Q15MIN PRN BG <50 OR BG <70 & pt unresponsive Enoxaparin Sodium 40 mg 07/23/24 09:00 07/24/24 09:06 Enoxaparin Sod Inj 40 Mg/0.4 Ml Syringe SC 08/06/24 08:59 40 mg QDAY CATE Administration Glucagon 1 mg 07/23/24 01:51 Glucagon Inj 1 Mg Vial IM Q15MIN PRN BG <70, and no IV access Azithromycin 250 mg/ Sodium 250 mls @ 250 mls/hr 07/23/24 21:00 07/23/24 21:54 Chloride IV 07/30/24 20:59 250 mls/hr QDAY@2100 CATE Administration Piperacillin Sod/Tazobactam 50 mls @ 12.5 mls/hr 07/23/24 22:00 07/24/24 05:57 Sod 3.375 gm/ Sodium Chloride IV 07/30/24 21:59 12.5 mls/hr Q8HR CATE Administration Potassium Chloride 10 meq in 100 mls @ 100 mls/hr 07/24/24 07:36 07/24/24 09:05 Kcl Ivpb IV 07/24/24 10:35 75 mls/hr Q1H CATE Administration Insulin Human Lispro 0 unit 07/23/24 07:30 07/24/24 07:40 Insulin Lispro (Admelog) 1 Unit/0.01 Ml Unit SC 08/22/24 07:29 2 unit ACHS CATE Administration Protocol Lisinopril 20 mg 07/23/24 09:30 07/24/24 09:03 Lisinopril 20 Mg Tablet PO 08/22/24 09:29 20 mg QDAY CATE Administration Methylprednisolone Sodium Succinate 40 mg 07/23/24 14:30 07/24/24 09:07 Methylprednisolone Sod Succ 40 Mg Vial IVP 07/30/24 14:29 40 mg QDAY CATE Administration Metoprolol Succinate 100 mg 07/23/24 08:00 07/24/24 09:02 Metoprolol Succinate Xl 25 Mg Tabcr PO 08/22/24 07:59 100 mg QDAY CATE Administration Ondansetron HCl 4 mg 07/23/24 01:21 Ondansetron Inj 2 Mg/Ml Inj 2 Ml IV 08/22/24 01:20 Q6H PRN NAUSEA OR VOMITING Protocol Pantoprazole Sodium 40 mg 07/23/24 09:00 07/24/24 09:07 Pantoprazole Inj 40 Mg Vial IVP 08/22/24 08:59 40 mg QDAY CATE Administration Promethazine HCl/Dextromethorphan 5 ml 07/23/24 09:51 Promethazine/Dm Syrup 5 Ml Dose PO 08/22/24 09:50 Q6HR PRN COUGH Protocol Plan In summary: 72-year-old female PMHx of A-fib s/p pacemaker, HTN, T2DM, 2 L home oxygen dependency, left hip fracture, presenting with 4 days of shortness of breath. Admitted for AHRF in settings of sepsis and community-acquired pneumonia. #Acute on chronic hypoxic respiratory failure #Sepsis-resolved #Bilateral Community-acquired pneumonia #Home oxygen dependency #Lactic acidosis Type A-resolved #History of recurrent pneumonias #Gram positive UTI Presenting with 4 days of clear productive cough, worsening shortness of breath, desatting low 90s at home despite oxygen. She was treated for pneumonia inpatient in June. Met 2/4 sepsis criteria with tachypnea, fever, and EOD i.e. lactic acidosis of 2.1 > 2.2. Had wheezing and coarse breath sounds bilaterally on exam. No lower extremity edema. CXR showed mild-moderate CHF, superimposed bilateral pneumonia, worse in left lung base. Last echo from 06/2024 showed EF 60-65% and normal LV size and function Negative COVID and influenza A/B. Sputum culture from 06/08 positive for Pseudomonas. Per chart review patient has had multiple admissions for pneumonia in the last year. Possible has underlying etiology, especially considering patient is hypoxic, with a negative Pro-Damián and without leukocytosis. Blood cultures negative at 24 hours. Negative RSV. Urine shows gram-positive cocci. Lactic acidosis resolved. CT chest from 07/23 shows enlarged right thyroid lobe, mediastinal lymphadenopathy, bilateral pneumonia. No pulmonary fibrosis. ? Continue oxygen PRN, DuoNebs Q4hr, Incentive spirometry,Acapella, Promethazine/dextromethorph PRN ? s/p CEFTRIAXONE (07/23) ? Azithromycin, Zosyn (07/23?present). Will consider switching zosyn to Levaquin pending urine culture results. ? Pending: urine culture, cocci studies Enlarged right thyroid lobe Chest CT shows a large right lobe with mediastinal lymphadenopathy TSH 0.6 normal, free T4 1.81 mildly elevated. ?Oncology consulted ?Ultrasound of thyroid pending HTN A-fib S/P pacemaker ?Continue home AMIODARONE 200 mg BID, METOPROLOL succinate 100 mg daily ?amlodipine 5 mg daily, lisinopril 20 mg. T2DM Admission GLUCOSE 154. A1c 6.4 from June 2024. ? INSULIN sliding scale ? Accu-Cheks Mild transaminitis Likely in settings of sepsis. Anticipate improvement with fluid resuscitation. ? Daily labs Health maintenance Diet: Cardiac, CHO consistent GI prophylaxis: PROTONIX DVT prophylaxis: LOVENOX Antibiotics: Azithromycin, Zosyn CODE STATUS: DNR Disposition: Treating AHRF. Patient case was discussed with attending Dr. Gaffney, Rolo Decker, PGY1 Attending Provider Attestation/Addendum I reviewed labs, imaging, EKG, home medications and prior available records. Face to face evaluation was performed by me. I have personally examined the patient and discussed assessment and plan with the IM team. I reviewed the resident note and agree with the plan with exceptions as below. Acute on chronic hypoxic respiratory failure Bilateral pneumonia Possible interstitial lung disease History of recurrent pneumonias Transaminitis Atrial fibrillation with controlled ventricular rhythm Thyroid nodule Patient has recurrent pneumonias. Concern for possible interstitial lung disease given the chest x-ray comparison. Ordered CT scan of the chest: Showed bilateral pneumonia. It also showed a thyroid nodule along with lymphadenopathy. TSH is WNL. Consulted oncology. Ordered thyroid ultrasound Continue IV Zosyn for Pseudomonas coverage given the recent sputum culture results. Follow-up cultures from this hospital stay: Urine culture showed gram- positive cocci Continue oxygen and wean off as tolerated Resume metoprolol and amiodarone Trend LFTs: Downtrending
[2024-07-24 13:20] LABS: Cocci Serology, IgM Negative (Negative)
--- NOTE | 2024-07-24 14:25 | PD.ONCCONS ---
HPI Data of Consult Consult date: 07/24/24 Requesting Physician: Modesto Gaffney MD Primary Care Provider: Babak García MD Consult Narrative Reason for consult: Patient with pneumonia thyroid nodules History of present illness: Patient a month ago, was experiencing several days of cough worsening shortness of breath in the setting low 90s at home despite O2. Who was treated for pneumonia. Chest x-ray 07/22/2024 revealed superimposed pneumonia both lungs prominent at left lung base. Chest CT 07/23/2024 showed mildly enlarged right thyroid lobe mediastinal adenopathy extensive bilateral pneumonia. Patient with elevated temp with lactic acid elevated, sepsis was also suspected. Receiving O2 and antibiotics. Thyroid ultrasound today revealed right thyroid nodule 9 x 10 x 11 mm. Referred for oncological consultation. cc:: cc: Modesto Gaffney MD Past Medical History Social History SOCIAL: Limited to history of smoking no alcohol or drug abuse Past Medical History Comments PMH COMMENT: A-fib hypertension type 2 diabetes history of prior hip fracture ORIF left hip Meds Home Medications and Allergies Home Medications ?Medication ?Instructions ?Recorded ?Confirmed ?Type amiodarone 200 mg tablet 200 mg PO BID 06/07/24 07/23/24 History amlodipine 5 mg tablet 5 mg PO DAILY 06/07/24 06/07/24 History Held on 06/10/24. Instructions: Resume on 06/10/24. Until you see your PCP as Blood pressure is stable lisinopril 20 mg tablet 20 mg PO DAILY 06/07/24 06/07/24 History Held on 06/10/24. Instructions: Resume on 06/10/24. Hold until you see your PCP as Blood pressure is stable metoprolol succinate 100 mg 100 mg PO DAILY 06/07/24 07/23/24 History tablet,extended release 24 hr Allergies Allergy/AdvReac Type Severity Reaction Status Date / Time levofloxacin Allergy Severe Rash Verified 06/07/24 20:25 Penicillins Allergy Mild Rash Verified 06/07/24 20:25 codeine Allergy Unknown Diarrhea Verified 06/07/24 20:26 meperidine Allergy Unknown Verified 06/07/24 20:25 phenytoin Allergy Unknown Verified 06/07/24 20:25 Exam Vital Signs Temp Pulse Resp BP Pulse Ox O2 Del Method O2 Flow Rate 96.7 F L 75 18 133/57 H 100 Nasal Cannula 1 07/24/24 08:00 07/24/24 12:00 07/24/24 10:34 07/24/24 09:04 07/24/24 10:34 07/24/24 08:00 07/24/24 10:34 Narrative Exam Appearing tired but comfortable Results Labs 07/24/24 05:15 07/24/24 05:15 Labs: Short CBC 07/24/24 Range/Units 05:15 WBC 4.7 D (3.6-11.0) Thou/mm3 Hgb 10.5 L (12.0-16.0) g/dL Hct 31.8 L (36.0-46.0) % Plt Count 235 (140-440) Thou/mm3 BMP 07/24/24 05:15 Sodium 138 Potassium 3.2 L Chloride 101 Carbon Dioxide 27.3 BUN 13 Creatinine 1.0 Glucose 227 H Calcium 8.5 Liver Function 07/24/24 Range/Units 05:15 Total Bilirubin 0.3 (0.3-1.2) mg/dL AST 96 H (0-34) U/L ALT 98 H (10-49) U/L Alkaline Phosphatase 57 (46-116) U/L Albumin 3.4 (3.4-4.8) gm/dL Assessment and Plan Additional Assessment & Plan Additional Plan: 1. Admitted with pneumonia acute hypoxic respiratory failure sepsis. 3. Right thyroid nodule noted on ultrasound. 4. 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 5. The nodule at [id number] mm is barely biopsy size, and not recommended due to the indolent nature of most differentiated thyroid cancers and usually not treated for patient in her age and condition. 5. Spoke to daughter about following her upon discharge at the cancer treatment center.
--- NOTE | 2024-07-24 17:10 | PC.SS ---
Rounding Note: Patient receiving IV antibiotics. Dr. Helms consulting. Possible d/c home tomorrow.
[2024-07-24] MEDS: AZITHROMYCIN INJ 250 MG in SODIUM CHLORIDE 0.9% 250 ML 250 ML IV (20:12)
[2024-07-25] VITALS (13 sets, daily range): BP systolic 142–167; BP diastolic 61–93; PULSE 65–99; RESP 16–20; TEMP 36.2–36.9; O2SAT 94–100; BMI 24.1
[2024-07-25] MEDS: PIPER/TAZO INJ 3.375 GM in SODIUM CHLORIDE 0.9% (Popper) 50 ML IV ×3 (05:19→21:44)
[2024-07-25 06:08] LABS: Basophils % (Auto) 0 % (0-2.5); Eosinophils % (Auto) 0 % (0-10); Hematocrit 29.2 % (36.0-46.0); Hemoglobin 9.8 g/dL (12.0-16.0); Immature Granulocytes % (Auto) 0 % (0-0); Immature Granulocytes Auto 0.04 Thou/mm3 (0.00-0.00); Lymphocytes # (Auto) 1.2 Thou/mm3 (1.0-4.8); Lymphocytes % (Auto) 12 % (10-50); Mean Corpuscular HGB Conc 33.6 g/dl (31.0-37.0); Mean Corpuscular Hemoglobin 28.4 pg (25.0-35.0); Mean Corpuscular Volume 85 fL (80-100); Monocytes # (Auto) 0.8 Thou/mm3 (0.0-0.8); Monocytes % (Auto) 8 % (0-12); Neutrophils # (Auto) 7.7 Thou/mm3 (1.8-7.7); Neutrophils % (Auto) 79 % (37-80); Nucleated Red Blood Cell % 0 /100 WBC (0); Platelet Count 270 Thou/mm3 (140-440); RDW Standard Deviation 50.7 fL (36.4-46.3); Red Blood Count 3.45 Miln/mm3 (4.00-5.20); White Blood Count 9.7 Thou/mm3 (3.6-11.0)
[2024-07-25 06:48] LABS: Alanine Aminotransferase 99 U/L (10-49); Albumin, Serum 3.5 gm/dL (3.4-4.8); Albumin/Globulin Ratio 1.5 (1.2-2.2); Alkaline Phosphatase 54 U/L (46-116); Anion Gap 10 (7-16); Aspartate Amino Transferase 81 U/L (0-34); BUN/Creatinine Ratio 14 Ratio (12-20); Bilirubin,Total 0.3 mg/dL (0.3-1.2); Blood Urea Nitrogen 17 mg/dL (9-23); Calcium 8.7 mg/dL (8.3-10.6); Calcium (Corrected) 9.1 mg/dL (8.5-10.1); Carbon Dioxide 26.9 mMol/L (20.0-31.0); Chloride 100 mMol/L (98-107); Creatinine (Component) 1.2 mg/dL (0.6-1.3); Estimated Creatinine Clearance 29.7 mL/min (>60); Globulin 2.4 gm/dL (2.3-3.5); Glucose 174 mg/dL (74-106); Magnesium 1.8 mg/dL (1.6-2.6); Osmolality,Calculated 279 (275-295); Phosphorous 2.4 mg/dL (2.4-5.1); Potassium 3.4 mMol/L (3.4-5.1); Sodium 137 mMol/L (136-145); Total Protein 5.9 gm/dL (5.7-8.2); eGFR 44 See Note
[2024-07-25] MEDS: ALBUTEROL/IPRATROPIUM (Duoneb) RT SOL 3 ML NEBU INH ×4 (07:27→22:52)
[2024-07-25] MEDS: PANTOPRAZOLE INJ 40 MG VIAL IVP (09:13)
[2024-07-25] MEDS: ENOXAPARIN SOD INJ 40 MG/0.4 ML SYRINGE SC (09:13)
[2024-07-25] MEDS: amLODIPine BESYLATE 5 MG TABLET PO (09:14)
[2024-07-25] MEDS: METOPROLOL SUCCINATE XL 25 MG TABCR 100 MG PO (09:14)
[2024-07-25] MEDS: AMIODARONE HCL 200 MG TABLET PO ×2 (09:15→20:14)
[2024-07-25] MEDS: Lisinopril 20 MG TABLET PO (09:15)
[2024-07-25] MEDS: INSULIN LISPRO (AdmeLOG) 1 UNIT/0.01 ML UNIT SC ×3 (09:16→20:22)
--- NOTE | 2024-07-25 11:00 | ESPR_ITS ---
Documentation for date of: 07/25/24 Subjective Subjective Interval history: Patient endorsing generalized weakness and shaking. Attributes symptoms to the medications she has been taking. Denies current shortness of breath. On home amount of O2. Still has wheezes and rhonchi on exam. Will continue to monitor for 1 more day. Exam Vital Signs Temp Pulse Resp BP Pulse Ox O2 Del Method O2 Flow Rate 97.6 F 77 16 158/93 H 99 Nasal Cannula 3 07/25/24 08:00 07/25/24 09:15 07/25/24 08:00 07/25/24 09:15 07/25/24 08:00 07/25/24 08:00 07/25/24 08:00 Narrative Exam Constitutional: Resting comfortably in bed Head: Normocephalic Eyes: no conjunctival injection , symmetrical lids. ENMT: Moist Mucous Membranes CVS: RRR, S1 and S2 present, no murmurs, rubs or gallops . RESP: Wheezing and rhonchi throughout, no increased work of breathing, on 1L via nasal cannula Skin: Warm to touch, Dry. Neuro: Alert and oriented Psych: Appropriate mood and affect. Objective Labs 07/25/24 05:36 07/25/24 05:36 Labs: Laboratory Results - last 24 hr 07/23/24 07/25/24 12:36 05:36 WBC 9.7 D RBC 3.45 L Hgb 9.8 L Hct 29.2 L MCV 85 MCH 28.4 MCHC 33.6 RDW Std Deviation 50.7 H Plt Count 270 D Neut % (Auto) 79 Lymph % (Auto) 12 [place] % (Auto) 8 Eos % (Auto) 0 Baso % (Auto) 0 Neut # (Auto) 7.7 Lymph # (Auto) 1.2 [place] # (Auto) 0.8 Eos # (Auto) 0.0 Baso # (Auto) 0.0 Immature Gran # (Auto) 0.04 H Absolute Nucleated RBC 0.00 Immature Gran % 0 Nucleated RBC % 0 Sodium 137 Potassium 3.4 Chloride 100 Carbon Dioxide 26.9 Anion Gap 10 BUN 17 Creatinine 1.2 Estim Creat Clear Calc 29.7 L eGFR 44 L BUN/Creatinine Ratio 14 Glucose 174 H D Calculated Osmolality 279 Calcium 8.7 Corrected Calcium 9.1 Phosphorus 2.4 Magnesium 1.8 Total Bilirubin 0.3 AST 81 H ALT 99 H Alkaline Phosphatase 54 Total Protein 5.9 Albumin 3.5 Globulin 2.4 Albumin/Globulin Ratio 1.5 Coccidioides IgM Ab Negative Quality Measures Quality Measures sepsis Current suspected stage: sepsis Possible source: pulmonary Blood cultures ordered: yes Antibiotic ordered: Yes Advance care planning discussed with:: patient Assessment & Plan Assessment Current Active Medications: Generic Name Dose Route Start Last Admin Trade Name Freq PRN Reason Stop Dose Admin Acetaminophen 650 mg 07/23/24 01:21 Acetaminophen 325 Mg Tablet PO 08/22/24 01:20 Q6H PRN PAIN SCALE 1-3 (mild Acetaminophen 650 mg 07/23/24 01:21 Acetaminophen 325 Mg Tablet PO 08/22/24 01:20 Q6H PRN Fever >100.4 Albuterol/Ipratropium 3 ml 07/23/24 11:00 07/25/24 07:27 Albuterol/Ipratropium (Duoneb) Rt Jodi 3 Ml Nebu INH 08/22/24 10:59 3 ml Q4HRRT CATE Administration Amiodarone HCl 200 mg 07/23/24 09:00 07/25/24 09:15 Amiodarone Hcl 200 Mg Tablet PO 08/22/24 08:59 200 mg BID CATE Administration Amlodipine Besylate 5 mg 07/23/24 09:00 07/25/24 09:14 Amlodipine Besylate 5 Mg Tablet PO 08/22/24 08:59 5 mg QDAY CATE Administration Dextrose 25 ml 07/23/24 01:51 Dextrose 50%-Water Inj 50 Ml Syringe IV 08/22/24 01:50 Q15MIN PRN BG 50-70 responsive npo pt Dextrose 50 ml 07/23/24 01:51 Dextrose 50%-Water Inj 50 Ml Syringe IV 08/22/24 01:50 Q15MIN PRN BG <50 OR BG <70 & pt unresponsive Enoxaparin Sodium 40 mg 07/23/24 09:00 07/25/24 09:13 Enoxaparin Sod Inj 40 Mg/0.4 Ml Syringe SC 08/06/24 08:59 40 mg QDAY CATE Administration Glucagon 1 mg 07/23/24 01:51 Glucagon Inj 1 Mg Vial IM Q15MIN PRN BG <70, and no IV access Azithromycin 250 mg/ Sodium 250 mls @ 250 mls/hr 07/23/24 21:00 07/24/24 20:12 Chloride IV 07/30/24 20:59 250 mls/hr QDAY@2100 CATE Administration Piperacillin Sod/Tazobactam 50 mls @ 12.5 mls/hr 07/23/24 22:00 07/25/24 05:19 Sod 3.375 gm/ Sodium Chloride IV 07/30/24 21:59 12.5 mls/hr Q8HR CATE Administration Insulin Human Lispro 0 unit 07/23/24 07:30 07/25/24 09:16 Insulin Lispro (Admelog) 1 Unit/0.01 Ml Unit SC 08/22/24 07:29 1 unit ACHS CATE Administration Protocol Lisinopril 20 mg 07/23/24 09:30 07/25/24 09:15 Lisinopril 20 Mg Tablet PO 08/22/24 09:29 20 mg QDAY CATE Administration Methylprednisolone Sodium Succinate 40 mg 07/23/24 14:30 07/25/24 09:13 Methylprednisolone Sod Succ 40 Mg Vial IVP 07/30/24 14:29 40 mg QDAY CATE Administration Metoprolol Succinate 100 mg 07/23/24 08:00 07/25/24 09:14 Metoprolol Succinate Xl 25 Mg Tabcr PO 08/22/24 07:59 100 mg QDAY CATE Administration Ondansetron HCl 4 mg 07/23/24 01:21 Ondansetron Inj 2 Mg/Ml Inj 2 Ml IV 08/22/24 01:20 Q6H PRN NAUSEA OR VOMITING Protocol Pantoprazole Sodium 40 mg 07/23/24 09:00 07/25/24 09:13 Pantoprazole Inj 40 Mg Vial IVP 08/22/24 08:59 40 mg QDAY CATE Administration Promethazine HCl/Dextromethorphan 5 ml 07/23/24 09:51 Promethazine/Dm Syrup 5 Ml Dose PO 08/22/24 09:50 Q6HR PRN COUGH Protocol Plan In summary: 72-year-old female PMHx of A-fib s/p pacemaker, HTN, T2DM, 2 L home oxygen dependency, left hip fracture, presenting with 4 days of shortness of breath. Admitted for AHRF in settings of sepsis and community-acquired pneumonia. #Acute on chronic hypoxic respiratory failure #Sepsis-resolved #Bilateral Community-acquired pneumonia #Home oxygen dependency #Lactic acidosis Type A-resolved #History of recurrent pneumonias #Gram positive UTI Presenting with 4 days of clear productive cough, worsening shortness of breath, desatting low 90s at home despite oxygen. She was treated for pneumonia inpatient in June. Met 2/4 sepsis criteria with tachypnea, fever, and EOD i.e. lactic acidosis of 2.1 > 2.2. Had wheezing and coarse breath sounds bilaterally on exam. No lower extremity edema. CXR showed mild-moderate CHF, superimposed bilateral pneumonia, worse in left lung base. Last echo from 06/2024 showed EF 60-65% and normal LV size and function Negative COVID and influenza A/B. Sputum culture from 06/08 positive for Pseudomonas. Per chart review patient has had multiple admissions for pneumonia in the last year. Possible has underlying etiology, especially considering patient is hypoxic, with a negative Pro-Damián and without leukocytosis. Blood cultures negative at 24 hours. Negative RSV. Urine shows gram-positive cocci. Lactic acidosis resolved. CT chest from 07/23 shows enlarged right thyroid lobe, mediastinal lymphadenopathy, bilateral pneumonia. No pulmonary fibrosis. Cocci IgM is negative. ? Continue oxygen PRN, DuoNebs Q4hr, Incentive spirometry,Acapella, Promethazine/dextromethorph PRN ? s/p CEFTRIAXONE (07/23) ?Methylprednisolone 40 mg daily (07/24-present) ? Azithromycin, Zosyn (07/23?present). Will consider switching zosyn to Levaquin pending urine culture results. ? Pending: urine culture ?Likely discharge tomorrow Enlarged right thyroid lobe Chest CT shows a large right lobe with mediastinal lymphadenopathy TSH 0.6 normal, free T4 1.81 mildly elevated. 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 Nodules not biopsy size, patient can follow-up at the cancer treatment center. HTN A-fib S/P pacemaker ?Continue home AMIODARONE 200 mg BID, METOPROLOL succinate 100 mg daily ?amlodipine 5 mg daily, lisinopril 20 mg. T2DM Admission GLUCOSE 154. A1c 6.4 from June 2024. ? INSULIN sliding scale ? Accu-Cheks Mild transaminitis Likely in settings of sepsis. Anticipate improvement with fluid resuscitation. ? Daily labs Health maintenance Diet: Cardiac, CHO consistent GI prophylaxis: PROTONIX DVT prophylaxis: LOVENOX Antibiotics: Azithromycin, Zosyn CODE STATUS: DNR Disposition: Treating AHRF. Patient case was discussed with attending Rolo Cortez, PGY1 Attending Provider Attestation/Addendum I reviewed labs, imaging, EKG, home medications and prior available records. Face to face evaluation was performed by me. I have personally examined the patient and discussed assessment and plan with the IM team. I reviewed the resident note and agree with the plan with exceptions as below. Acute on chronic hypoxic respiratory failure Bilateral pneumonia Possible interstitial lung disease History of recurrent pneumonias Transaminitis Atrial fibrillation with controlled ventricular rhythm Thyroid nodule Patient has recurrent pneumonias. Concern for possible interstitial lung disease given the chest x-ray comparison. Ordered CT scan of the chest: Showed bilateral pneumonia. It also showed a thyroid nodule along with lymphadenopathy. TSH is WNL. Consulted oncology: Possible malignancy however recommended outpatient follow-up. Continue IV Zosyn for Pseudomonas coverage given the recent sputum culture results. Follow-up cultures from this hospital stay: Urine culture showed gram- positive cocci. Cocci IgM is negative Continue oxygen and wean off as tolerated Resume metoprolol and amiodarone Trend LFTs: Downtrending
[2024-07-25 13:10] LABS: Cocci Serology, IgG Negative (Negative)
--- NOTE | 2024-07-25 14:23 | PC.SS ---
Rounding note: staying another night, continue treating for pneumonia.
--- NOTE | 2024-07-25 15:55 | PC.NURSE ---
Patient is alert and oriented. Patient removed pulsoc oxygen monitor and is refusing placement of another probe. Charge nurse Maicol has been informed and will speak to the patient.
[2024-07-25] MEDS: AZITHROMYCIN INJ 250 MG in SODIUM CHLORIDE 0.9% 250 ML 250 ML IV (20:14)
[2024-07-26] VITALS (11 sets, daily range): BP systolic 136–159; BP diastolic 61–79; PULSE 68–84; RESP 12–20; TEMP 36.2–36.6; O2SAT 90–100; BMI 25.3
[2024-07-26] MEDS: ALBUTEROL/IPRATROPIUM (Duoneb) RT SOL 3 ML NEBU INH ×4 (02:12→15:04)
[2024-07-26] MEDS: PIPER/TAZO INJ 3.375 GM in SODIUM CHLORIDE 0.9% (Popper) 50 ML IV (05:40)
[2024-07-26] MEDS: PANTOPRAZOLE INJ 40 MG VIAL IVP (08:26)
[2024-07-26] MEDS: ENOXAPARIN SOD INJ 40 MG/0.4 ML SYRINGE SC (08:28)
[2024-07-26] MEDS: METOPROLOL SUCCINATE XL 25 MG TABCR 100 MG PO (08:28)
[2024-07-26] MEDS: INSULIN LISPRO (AdmeLOG) 1 UNIT/0.01 ML UNIT SC ×2 (08:28→12:34)
[2024-07-26] MEDS: amLODIPine BESYLATE 5 MG TABLET PO (08:29)
[2024-07-26] MEDS: Lisinopril 20 MG TABLET PO (08:29)
[2024-07-26] MEDS: AMIODARONE HCL 200 MG TABLET PO (08:29)
[2024-07-26 09:44] LABS: Basophils % (Auto) 0 % (0-2.5); Eosinophils % (Auto) 0 % (0-10); Hematocrit 29.8 % (36.0-46.0); Hemoglobin 9.5 g/dL (12.0-16.0); Immature Granulocytes % (Auto) 1 % (0-0); Immature Granulocytes Auto 0.08 Thou/mm3 (0.00-0.00); Lymphocytes # (Auto) 1.3 Thou/mm3 (1.0-4.8); Lymphocytes % (Auto) 14 % (10-50); Mean Corpuscular HGB Conc 31.9 g/dl (31.0-37.0); Mean Corpuscular Hemoglobin 27.9 pg (25.0-35.0); Mean Corpuscular Volume 87 fL (80-100); Monocytes # (Auto) 0.7 Thou/mm3 (0.0-0.8); Monocytes % (Auto) 8 % (0-12); Neutrophils # (Auto) 7.5 Thou/mm3 (1.8-7.7); Neutrophils % (Auto) 78 % (37-80); Nucleated Red Blood Cell % 0 /100 WBC (0); Platelet Count 290 Thou/mm3 (140-440); RDW Standard Deviation 53.2 fL (36.4-46.3); Red Blood Count 3.41 Miln/mm3 (4.00-5.20); White Blood Count 9.7 Thou/mm3 (3.6-11.0)
[2024-07-26 10:09] LABS: Alanine Aminotransferase 85 U/L (10-49); Albumin, Serum 3.3 gm/dL (3.4-4.8); Albumin/Globulin Ratio 1.4 (1.2-2.2); Alkaline Phosphatase 53 U/L (46-116); Anion Gap 9 (7-16); Aspartate Amino Transferase 46 U/L (0-34); BUN/Creatinine Ratio 18 Ratio (12-20); Bilirubin,Total 0.3 mg/dL (0.3-1.2); Blood Urea Nitrogen 22 mg/dL (9-23); Calcium 8.4 mg/dL (8.3-10.6); Carbon Dioxide 26.1 mMol/L (20.0-31.0); Chloride 102 mMol/L (98-107); Creatinine (Component) 1.2 mg/dL (0.6-1.3); Estimated Creatinine Clearance 31.5 mL/min (>60); Globulin 2.4 gm/dL (2.3-3.5); Glucose 193 mg/dL (74-106); Magnesium 1.7 mg/dL (1.6-2.6); Osmolality,Calculated 282 (275-295); Phosphorous 2.3 mg/dL (2.4-5.1); Potassium 3.8 mMol/L (3.4-5.1); Sodium 137 mMol/L (136-145); Total Protein 5.7 gm/dL (5.7-8.2); eGFR 44 See Note
[2024-07-26] MEDS: POTASSIUM CHLORIDE 20 mEq TABCR 40 MEQ PO (11:14)
--- NOTE | 2024-07-26 18:41 | PD.RESDS ---
Planned Discharge Date 07/26/24 DS: Providers Provider Date of admission: 07/23/24 01:21 Primary care physician: Babak García MD Admitting Provider: Robin Marcelo MD Attending Provider on Admission: Modesto Gaffney MD Consults: 07/24/24 10:09 Consult to Oncology Routine Comment: enlarged right thyroid lobe Consulting Provider: Adam Helms 07/24/24 10:23 PT [Referral Physical Therapy] Routine Comment: Physician Instructions: Attending Provider on DC: Jazz Covington MD Discharging Provider: Jazz Covington MD DS: Diagnosis Problem List Completed Was Problem List Reviewed/Reconciled?: Yes Hospital Course Hospital Course Hospital course: Reason for hospitalization: AHRF, sepsis 2/2 PNA Cinthia Toure is 89 yr female with PMH of atrial fibrillation, s/p pacemaker, HTN, 2 L home oxygen dependency, T2DM, previous hip fracture who presented to [facility] ED on 07/23/24 due to shortness of breath. Her home oxygen requirements were increasing, O2 sats in 90s, productive cough with clear sputum, and subjective fevers. In ED, patient was found to have 2 or more SIRS criteria (T101.3), RR (22) and was evaluated for sepsis. Acute sepsis-related organ dysfunction was evidenced by mild transaminitis. WBCs were WNL and lactic acid 2.1. CXR showed mild to moderate CHF, bibasilar pneumonia worse on the left. Patient was admitted for acute hypoxemic respiratory failure secondary to pneumonia. She was started on Zosyn. RSV, flu, COVID, blood cultures, and cocci serology were negative. Symptoms and oxygen requirements improved with duonebs, prednisone, antbiotics, dextromethorphan, and chest PT. CT chest had shown an enlarged right thyroid lobe with mediastinal LAD. Oncologist Dr. Analia Mednia was consulted. He stated that the nodule is barely biopsy size, and not recommended at this time. Family agreed to follow up with Dr. Medina outpatient. Patient is now in stable condition and ready for discharge. Recommendations were given as below. Discharge Recommendations: Continue taking amoxicillin/clavulanate 500 mg 3 times daily for treatment of pneumonia. Continue taking doxycycline 100 mg twice a day for pneumonia. Follow-up with oncology Dr. Analia Medina in 1-2 weeks for workup of thyroid nodule. Follow-up with PCP in 1-2 weeks. Hospital Diagnoses: #Acute on chronic hypoxic respiratory failure-resolved #Sepsis-resolved #Bilateral Community-acquired pneumonia #Home oxygen dependency #Lactic acidosis Type A-resolved #History of recurrent pneumonias #Enterococcus UTI #Enlarged right thyroid lobe #HTN #A-fib #S/P pacemaker #T2DM #Mild transaminitis The patient's management plan was discussed with my attending physician Dr. Covington. Edna Mabry MD, PGY-1 Time Spent with Patient Time attestation: Total time spent providing and/or coordinating discharge services: Time spent: Greater than 30 minutes Home Health Home Health Referral Orders: 07/26/24 09:47 Home Health Referral Routine Reason For Exam: PT Home-Bound The patient must either because of illness or injury, need the aid of supportive devices such as crutches, canes, wheelchairs, and walkers; the use of special transportation; or the assistance of another person in order to leave their place of residence; OR have a condition such that leaving his or her home is medically contraindicated. In addition, the patient also meets the following criteria: patient is normally unable to leave the home and leaving home requires considerable taxing effort. Addendum to Home Health Certification Practitioner's Certification: I certify that the patient has been under my care in the hospital and the care of attending physician (see below). We had a [id number] encounter on (see date below). My clinical findings indicate that the patient is home bound per the above criteria and the Home Health Services noted in these orders are medically necessary. The primary reason for the [id number] encounter is related to the fact that the patient requires home health services. Date Certifying Zocu-lt-Zehk Physician Encounter: 07/23/24 Physician's Name who will Assume Oversight for Services: Babak García Physician's Phone No.who will Assume Oversight for Service[place] [facility] [place]: No PT to Evaluate: Yes PT to evaluate and provide a treatmnet plan to increase patient's mobility and strength. Wound Care: No IV Therapy: No RN Safety Evaluation: Yes RN to evaluate and create a plan of care that will produce positive outcomes. Palliative Treatment: No Palliative treatment and evaluate the need for hospice. Home Health Aide - Personal Care: No Home Health Aide to assist with any ADL's. Exam Vital Signs Temp Pulse Resp BP Pulse Ox O2 Del Method O2 Flow Rate 97.9 F 84 19 155/79 H 94 L Room Air 1 07/26/24 16:00 07/26/24 16:00 07/26/24 16:00 07/26/24 16:00 07/26/24 16:00 07/26/24 16:00 07/26/24 06:45 Narrative Exam Constitutional: Elderly lady, Resting comfortably in bed, cooperative Head: Normocephalic Eyes: no conjunctival injection , symmetrical lids. ENMT: Moist Mucous Membranes CVS: RRR, S1 and S2 present, no murmurs, rubs or gallops . RESP: Wheezing and rhonchi throughout, no increased work of breathing, on room air Skin: Warm to touch, Dry. Neuro: Alert and orientedx3 Psych: Appropriate mood and affect. Discharge Plan Plan Patient Disposition: Home w/HOME HEALTH Patient condition on transfer: Stable Prescriptions/Referrals Prescriptions/Med Rec: New doxycycline hyclate 100 mg tablet 100 mg PO BID 7 Days Qty: 14 0RF amoxicillin-pot clavulanate [Augmentin] 500-125 mg tablet 1 tab PO TID 7 Days Qty: 21 0RF Continued amiodarone 200 mg tablet 200 mg PO BID Patient Comments: take 1 tablet by mouth twice a day lisinopril 20 mg tablet 20 mg PO DAILY Patient Comments: take 1 tablet by mouth once daily metoprolol succinate 100 mg tablet extended release 24 hr 100 mg PO DAILY Patient Comments: take 1 tablet by mouth once daily amlodipine 5 mg tablet 5 mg PO DAILY Patient Comments: take 1 tablet by mouth once daily Januvia 50 mg tablet 50 mg PO QDAY Qty: 30 0RF Discontinued sulfamethoxazole-trimethoprim [Bactrim DS] 800-160 mg tablet 1 tab PO BID Qty: 6 0RF Rx Instructions: One DS tab twice daily for three days Referrals: Babak García MD [Primary Care Provider] - Patient/Caregiver Discharge Instructions Other Discharge Activity Instructions:: Continue taking amoxicillin/clavulanate 500 mg 3 times daily for treatment of pneumonia. Continue taking doxycycline 100 mg twice a day for pneumonia. Follow-up with oncology Dr. Analia Adam in 1-2 weeks for workup of thyroid nodule. Follow-up with PCP in 1-2 weeks. Education Materials: Sepsis Print Language: Kinyarwanda Stand Alone Forms: Gena Award Info., Patient Portal Info Letter Discharge Order Discharge Orders: Discharge (Routine); Ordered 07/26/24 Ordered By: Edna Mabry Quality Discharge Quality Measures VTE prophylaxis
--- NOTE | 2024-07-27 07:13 | PC.CC ---
Addendum entered by Keely Alvarenga RN 07/27/24 09:32: [facility] accepted the pt. Booked [facility]. Pending resume of care date. Original Note: Pt is open with [facility]. HH referral sent on [facility]. Awaiting response. Pending Start of care date.
--- NOTE | 2024-07-28 07:03 | PC.CC ---
Pt accepted by [facility] and DELON is 07/28/24
== END 2024-07-26 16:20 | disposition home health service (06) | DRG 871 ==
LOC: SERX 21:38 → S2NX 07-23 06:25 → SERHOLD 07-24 06:10
PROVIDERS: Registered Nurse General Practice; Admitting Provider Internal Medicine; Emergency Provider Emergency Medicine; PCP Family Medicine; Visit Provider Student in an Organized Health Care Education/Training Program
DX: A41.81 Sepsis due to Enterococcus (principal); J18.9 Pneumonia, unspecified organism; J96.21 Acute and chronic respiratory failure with hypoxia; N39.0 Urinary tract infection, site not specified; E87.20 Acidosis, unspecified; E11.9 Type 2 diabetes mellitus without complications; I48.91 Unspecified atrial fibrillation; R74.01 Elevation of levels of liver transaminase levels; I11.0 Hypertensive heart disease with heart failure; R65.20 Severe sepsis without septic shock; I50.9 Heart failure, unspecified; R59.0 Localized enlarged lymph nodes; E04.2 Nontoxic multinodular goiter; Z66 Do not resuscitate; Z99.81 Dependence on supplemental oxygen; Z95.0 Presence of cardiac pacemaker; Z11.52 Encounter for screening for COVID-19; Z87.01 Personal history of pneumonia (recurrent); Z87.891 Personal history of nicotine dependence; Z79.899 Other long term (current) drug therapy; Z88.0 Allergy status to penicillin; Z88.5 Allergy status to narcotic agent; Z88.8 Allergy status to other drugs, medicaments and biological substances; Z79.84 Long term (current) use of oral hypoglycemic drugs; Z87.81 Personal history of (healed) traumatic fracture
CPT/HCPCS: 36415; 71045; 71260; 76536; 80053; 80307; 81001; 83605; 83615; 83690; 83735; 83880; 84100; 84145; 84439; 84443; 84484; 85025; 85610; 85730; 86331; 86635; 87040; 87077; 87086; 87186; 87400; 87634; 87811; 89220; 93005; 94640; 94664; 94762; 96365; 96366; 96367; 97162; 99285; A4649; A9270; J0456; J0696; J1650; J1815; J2470; J2543; J2919; J3475; J3480; J7030; J7040; J7050; Q9967

== ENCOUNTER 2024-08-06 02:09 | Inpatient (IN) | payer OTHER, MEDICAID, MEDICARE, SELFPAY ==
[2024-08-06] VITALS (12 sets, daily range): BP systolic 148–180; BP diastolic 47–103; PULSE 60–82; RESP 16–18; TEMP 36.9–37.7; O2SAT 94–99; BMI 24.0
--- NOTE | 2024-08-06 03:04 | PD.EDFALL ---
ED Fall Injury RME/HPI General Chief Complaint: Hip Injury/Pain Stated Complaint: FALL Time Seen by Provider: 08/06/24 03:13 Arrival date/time: 08/06/24 02:09 RME / HPI RME / HPI Narrative: Dr. 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 Patient was seen by me upon ED arrival. Per EMS, patient slipped and fell at home when she was ambulating to the bathroom, landing on her right side. Patient complains of RLE pain. EMS denies any loss of consciousness. Patient is not on any blood thinners. Patient denies any chest pain, abdominal pain, shortness of breath or any other associated symptoms. Related Data Home Medications ?Medication ?Instructions ?Recorded ?Confirmed amiodarone 200 mg tablet 200 mg PO BID 06/07/24 07/23/24 amlodipine 5 mg tablet 5 mg PO DAILY 06/07/24 06/07/24 lisinopril 20 mg tablet 20 mg PO DAILY 06/07/24 06/07/24 metoprolol succinate 100 mg 100 mg PO DAILY 06/07/24 07/23/24 tablet,extended release 24 hr Previous Rx's ?Medication ?Instructions ?Recorded sitagliptin phosphate 50 mg tablet 50 mg PO QDAY #30 tabs 06/10/24 (Januvia) Allergies Allergy/AdvReac Type Severity Reaction Status Date / Time levofloxacin Allergy Severe Rash Verified 06/07/24 20:25 Penicillins Allergy Mild Rash Verified 06/07/24 20:25 codeine Allergy Unknown Diarrhea Verified 06/07/24 20:26 meperidine Allergy Unknown Verified 06/07/24 20:25 phenytoin Allergy Unknown Verified 06/07/24 20:25 Review of Systems Review of Systems Systems Reviewed: All systems reviewed, normal except as documented Past Medical History Past Medical History NEUROLOGIC: Positive Brain Tumor and Head Trauma; Negative Neurological Disorders CARDIAC: Positive Cardiac Arrhythmia, Atrial Fibrillation, Heart Murmur, Coronary Artery Disease and Hypertension; Negative Cardiac Disorders, Myocardial Infarction, Angina, Atherosclerotic Heart Disease, Peripheral Vascular Disease, Hypercholesterolemia, Aneurysm, Congestive Heart Failure, Congenital Heart Disease, Valvular Heart Disease, Rheumatic Fever, Cardiomyopathy, Edema, Pericarditis, Cellulitis, Deep Vein Thrombosis, Hypotension or Varicose Veins RESPIRATORY: Positive Chronic Obstructive Pulmonary Disease (COPD), Bronchitis and Pneumonia; Negative Asthma GASTROINTESTINAL: Positive Gastrointestinal Disorders GENITOURINARY: Positive Genitourinary Disorders; Negative Renal Disease or Kidney Stones REPRODUCTIVE: Negative Pelvic Inflammatory Disease MUSCULOSKELETAL: Negative Musculoskeletal Disorders ENT: Positive Cataracts and Head Trauma ENDOCRINE: Positive Endocrine Disorders and Diabetes Mellitus Type 2; Negative Diabetes Mellitus Type 1 HEMATOLOGIC: Negative Blood Disorders, Anemia or Sickle Cell Disease PSYCHO/SOCIAL: Positive Depression and Anxiety OTHER HISTORY: Positive Falls, Blood Transfusions, Anesthesia Reactions, Cancer and Ovarian Cancer; Negative Autoimmune Disease, Blood Transfusion Reaction, MRSA or Clostridium Difficile Family History FAMILY HISTORY: Positive Family Cardiac Disorders; Negative Family Psychiatric Problems, Family Respiratory Disorders, Family Gastrointestinal Problems, Family Cancer, Family Surgery or Family Anesthesia Reaction Surgical History SURGICAL: Positive Pacemaker, Eye Surgery and Hysterectomy; Negative Cardiac Surgery, Endocrine Surgery, Ear Surgery, Abdominal Surgery, Neurologic Surgery or Brain Shunt Social History SMOKING STATUS: Never smoker SECOND HAND EXPOSURE: No SUBSTANCE USE: does not use ED Exam Narrative Physical exam: GENERAL APPEARANCE: alert and oriented, mild confusion at baseline, well-developed, well-nourished, no acute distress VITALS: All vitals were reviewed and the pulse ox is 98% on room air, which is normal according to my interpretation. HEENT: Normocephalic, atraumatic; pupils equal, round, reactive to light; EOMI; mucous membranes pink, moist; oropharynx clear NECK: Supple LUNGSL no wheezes, fine rales bilaterally, no rhonchi HEART: Regular rate, regular rhythm; normal S1, S2; no murmurs ABDOMEN: non distended; normal BS; soft, no tenderness, no guarding, no rebound; no masses, no organomegaly, no hernia BACK: no CVA tenderness EXTREMITIES: RLE is shortened and externally rotated; tenderness to palpation of the right knee, tenderness to the axial loading of the RLE, no edema NEUROLOGIC: awake; alert and oriented x4; cranial nerves II-XII grossly intact; no focal sensory or motor deficits PSYCHIATRIC: appropriate mood and affect SKIN: warm, dry, normal color; no rashes Course Course Course Narrative: CXR is ordered to r/o pneumothorax. Quality Measures none Orders Category Date Time Status CT Screening NOW Care 08/06/24 03:18 Active Tankroom Tender NOW Care 08/06/24 03:15 Active Continuous Pulse Oximetry NOW Care 08/06/24 03:14 Completed EKG (ED ONLY) *Do not use* NOW Care 08/06/24 03:15 Completed Wren [Urinary Catheter] QS Care 08/06/24 05:03 Active Insert IV NOW Care 08/06/24 03:15 Active NPO NOW Care 08/06/24 03:[address] cervical spine wo con Stat Exams 08/06/24 03:[address] chest abdomen pelvis w Stat Exams 08/06/24 03:[address] head/brain wo con Stat Exams 08/06/24 03:14 Ordered EKG (ED Only) Stat Exams 08/06/24 03:14 Ordered XR chest 1V portable Stat Exams 08/06/24 03:14 Taken XR hip RT w pelvis 2-3V Stat Exams 08/06/24 03:14 Taken XR knee limited RT 2V Stat Exams 08/06/24 03:14 Taken Alcohol, Blood Medical Stat Lab 08/06/24 03:15 Completed CBC Stat Lab 08/06/24 03:15 Completed Comprehensive Metabolic Panel Stat Lab 08/06/24 03:15 Completed Drug Screen,Urine Stat Lab 08/06/24 05:15 Received Lipase Stat Lab 08/06/24 03:15 Completed Partial Thromboplastin Time Stat Lab 08/06/24 03:15 Completed Prothrombin Time with INR Stat Lab 08/06/24 03:15 Completed Troponin I Stat Lab 08/06/24 03:15 Completed Urinalysis Stat Lab 08/06/24 05:15 Completed Morphine Inj Med 08/06/24 03:43 Discontinued 1 mg IVP X1 ONE Morphine Inj Med 08/06/24 03:14 Discontinued 2 mg IVP X1 ONE Morphine Inj Med 08/06/24 05:18 Discontinued 2 mg IVP X1 ONE Morphine Inj Med 08/06/24 05:33 Discontinued 2 mg IVP X1 ONE Morphine Inj Med 08/06/24 05:33 Discontinued 2 mg IVP X1 ONE Ondansetron Inj [Zofran Inj] Med 08/06/24 03:14 Discontinued 4 mg IV X1 ONE Sodium Chloride 0.9% 500 ml [Ns] 500 ml Med 08/06/24 03:14 Discontinued IV 999 mls/hr Vital Signs Vital signs: Vital Signs Temperature 98.9 F 08/06/24 02:12 Pulse Rate 65 08/06/24 02:12 Respiratory Rate 17 08/06/24 02:12 Blood Pressure 175/73 H 08/06/24 02:12 Pulse Oximetry (%) 94 L 08/06/24 02:12 Fall MDM Narrative MDM Narrative:: Scribe Attestation: 08/06/24 - Deisi Knapp am scribing for and in the presence of Dr. Fisher. 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 CXR shows dual chamber pacemaker in place, no fractures, and blurring of the left costophrenic angle, according to my interpretation. Right knee x-ray shows severe osteoarthritis, no patellar fracture, and minimal joint effusions, according to my interpretation. Right hip with pelvis x-ray shows a comminuted intertrochanteric right hip fracture with displacement of the lesser trochanter, well-healing left superior and inferior pubic rami fracture, and left hip hardware in place, according to my interpretation. EKG done at 0238, NSR, rate of 70, normal axis, no ectopy, QTc: 356, no STEMI, according to my interpretation. Medications / Prescriptions Medications or Prescriptions considered but not ordered:: none Medication administrations:: Medication Administration History Discontinued Medications Sodium Chloride (Ns) 500 mls @ 999 mls/hr IV .Q31M ONE Stop: 08/06/24 03:44 Last Infusion: 08/06/24 04:00 Dose: Infused Documented By: Admin: 08/06/24 03:29 Dose: 999 mls/hr Documented By: GRAHAM Morphine Sulfate (Morphine Sulf Inj 10 Mg/Ml Vial) 2 mg IVP X1 ONE Stop: 08/06/24 03:15 Last Admin: 08/06/24 03:47 Dose: Not Given Documented By: GRAHAM Non-Admin Reason: Discontinued Morphine Sulfate (Morphine Sulf Inj 10 Mg/Ml Vial) 1 mg IVP X1 ONE Stop: 08/06/24 03:44 Last Admin: 08/06/24 03:45 Dose: 1 mg Documented By: WO Morphine Sulfate (Morphine Sulf Inj 10 Mg/Ml Vial) 2 mg IVP X1 ONE Stop: 08/06/24 05:19 Last Admin: 08/06/24 05:22 Dose: 2 mg Documented By: WO Morphine Sulfate (Morphine Sulf Inj 10 Mg/Ml Vial) 2 mg IVP X1 ONE Stop: 08/06/24 05:34 Morphine Sulfate (Morphine Sulf Inj 10 Mg/Ml Vial) 2 mg IVP X1 ONE Stop: 08/06/24 05:34 Last Admin: 08/06/24 05:34 Dose: Not Given Documented By: GRAHAM Non-Admin Reason: Duplicate Medication on eMAR Ondansetron HCl (Ondansetron Inj 2 Mg/Ml Inj 2 Ml) 4 mg IV X1 ONE; Protocol Stop: 08/06/24 03:15 Last Admin: 08/06/24 03:46 Dose: 4 mg Documented By: GRAHAM see above Consultations Consultation(s) initiated? (list below): No Diagnosis Fall Differential Diagnosis: other (femur fx, pelvis fx, hip fx) Most likely diagnosis given after review of the tests above:: hip fracture; CTs pending at sign out. Admission Indicated Admission indicated?: not indicated Explain why admission is indicated or not indicated:: Patient is pending CTs at signout. Admission Request Was there a request for admission?: No Disposition Plan Disposition Plan: other (specify) (Signed out to Dr. Helms at 0600 pending CTs.) Discharge Plan Prescriptions/Referrals Prescriptions/Med Rec: No Action amiodarone 200 mg tablet 200 mg PO BID Patient Comments: take 1 tablet by mouth twice a day lisinopril 20 mg tablet 20 mg PO DAILY Patient Comments: take 1 tablet by mouth once daily metoprolol succinate 100 mg tablet extended release 24 hr 100 mg PO DAILY Patient Comments: take 1 tablet by mouth once daily amlodipine 5 mg tablet 5 mg PO DAILY Patient Comments: take 1 tablet by mouth once daily Januvia 50 mg tablet 50 mg PO QDAY Qty: 30 0RF Referrals: Babak García MD [Primary Care Provider] - In 1 week Problem List Clinical Impression: Closed hip fracture Patient/Caregiver Discharge Instructions Print Language: Peruvian
--- NOTE | 2024-08-06 03:14 | XR_ITS ---
Examination: CT chest with intravenous contrast CT abdomen with intravenous contrast CT pelvis with intravenous contrast 2-D coronal and sagittal reconstructions Time of exam: August 06, 2024 0556 hrs. Indications: Patient fell today with injury to the chest and abdomen, chest and abdomen pain CTDI: vol (mGy) : 12.4 DLP: (mGycm): 8.86 Technique: Multiple axial images of the chest, abdomen and pelvis with intravenous contrast, 3.0 mm slice thickness. Images obtained post intravenous injection Isovue 370 60 cc. 2-D sagittal and coronal reconstructions. Low dose protocols were performed. One or more of the following dose reduction techniques were used; automated exposure control, adjustment of the mA and/or KV according to patient size, use of iterative reconstruction technique. Findings: Right thyromegaly with poorly defined right thyroid nodules Thoracic aorta pulmonary arteries intact, no aneurysm dilatation thoracic aorta no pulmonary artery filling defects on this non-CTA study Heavy calcification left anterior descending left circumflex coronary arteries No hemopericardium No pneumothorax Mild opacity throughout the lungs with prominent vascular congestion 12 mm pulmonary nodule right lower lobe calcification The manubrium the body the sternum intact Rib detail is obscured by patient motion, no acute displaced rib fractures Sacral segments bones of the pelvis including acetabular regions appear intact Acute intertrochanteric fracture right hip with a avulsion of the lesser trochanter Old fractures right superior inferior pubic rami No thoracic or lumbar vertebral body compression fracture Chronic intracapsular breast implant ruptures No liver or splenic laceration No gallstones Pancreatic calcifications Abdominal aorta intact, no free blood in the abdomen Moderate bilateral renal parenchymal scar formation, no renal laceration Negative for pneumoperitoneum Abundant stool in the right and transverse colon No pericecal inflammatory change Left hip arthroplasty generates artifacts in the pelvis Urinary bladder contracted around a Wren catheter Impression: Thoracic aorta pulmonary arteries appear intact No hemopericardium or hemothorax Subtle opacity throughout both lungs, consider pneumonia and/or pulmonary edema No abdominal parenchymal laceration Abdominal aorta intact No free blood in the abdomen. Acute intertrochanteric fracture right hip Right thyromegaly with poorly defined right thyroid nodules
--- NOTE | 2024-08-06 03:14 | XR_ITS ---
Examination: CT brain head without contrast. 2-D sagittal coronal reconstructions Date and time of exam:August 06, 2024 0546 hrs. Indications: Patient fell today with injury to head, head pain CTDI: vol (mGy):49.2 DLP: (mGycm):978 Technique: Multiple CT axial sections of the brain have been obtained, 5 mm slice thickness. Contrast has not been administered. 2-D sagittal, coronal reconstructions have been obtained Low dose protocols were performed. One or more of the following dose reduction techniques were used; automated exposure control, adjustment of the mA and/or KV according to patient size, use of iterative reconstruction technique. Findings: No significant ventricular enlargement. Left maxillary sinusitis Intra-axial or extra-axial hemorrhage density is not seen. No mass effect or midline shift Basal cisterns are not remarkable. Fourth ventricle is midline. Cranial vault intact. Impression: Negative for acute hemorrhage, mass effect or midline shift
--- NOTE | 2024-08-06 03:14 | XR_ITS ---
Examination:Right hip AP, lateral, AP pelvis 3 views Technique: Hip AP lateral, AP pelvis, 3 views Exam date and time:August 06, 2024 0340 hours INDICATIONS: Patient fell today with injury to the right hip, right hip pain. FINDINGS: Acute intertrochanteric fracture right hip 9 mm separation of the main fracture fragments Avulsion of the lesser trochanter No hip dislocation Severe osteopenia IMPRESSION: Acute intertrochanteric fracture right hip.
--- NOTE | 2024-08-06 03:14 | XR_ITS ---
Examination: CT cervical spine without contrast 2-D sagittal reconstructions 2-D coronal reconstructions 3-D reconstructions. Exam date and time: August 06 2024 at 0546 hrs. Indications: Patient fell today with into the neck, neck pain CTDI:vol (mGy) 7.63 DLP: (mGycm) 147 Technique: Multiple 2 mm axial sections of the cervical spine have been obtained. The coronal and sagittal reconstructions have been obtained. 3-D reconstructions have been obtained. Low dose protocols were performed. One or more of the following dose reduction techniques were used; automated exposure control, adjustment of the mA and/or KV according to patient size, use of iterative reconstruction technique. Findings: Axial sections demonstrate intact base of the skull. Past disc narrowing C4-C5 C1 exhibit satisfactory relationship to the odontoid. No acute cervical vertebral body fracture seen. Alignment posterior spinous processes satisfactory. Impression: No acute cervical fracture.
--- NOTE | 2024-08-06 03:14 | XR_ITS ---
Examination: AP chest single view TECHNIQUE: AP portable semiupright chest single view Exam date and time: August 06, 2024 0335 hours Comparison July 22, 2024 INDICATIONS: Patient fell today with injury to the chest, chest pain FINDINGS: Bilateral lung opacity consistent with pneumonia and/or edema Mild prominence left ventricle Cardiac leads satisfactory position No pneumothoraces Prominent osteopenia IMPRESSION: No pneumothorax Bilateral edema and/or pneumonia
--- NOTE | 2024-08-06 03:14 | XR_ITS ---
Examination: Right knee 2 views TECHNIQUE: AP lateral right knee 2 views Exam date and time: August 06, 2024 1559 hours INDICATIONS: Patient fell today with injury to the knee, knee pain FINDINGS: Severe osteopenia No acute fracture No dislocation IMPRESSION: No acute fracture
[2024-08-06] MEDS: SODIUM CHLORIDE 0.9% 500 ML 500 ML 999 ML IV (03:29)
[2024-08-06 03:31] LABS: Basophils # (Auto) 0.1 Thou/mm3 (0.0-0.2); Basophils % (Auto) 1 % (0-2.5); Eosinophils % (Auto) 0 % (0-10); Hematocrit 34.5 % (36.0-46.0); Hemoglobin 11.2 g/dL (12.0-16.0); Immature Granulocytes % (Auto) 1 % (0-0); Immature Granulocytes Auto 0.12 Thou/mm3 (0.00-0.00); Lymphocytes # (Auto) 0.8 Thou/mm3 (1.0-4.8); Lymphocytes % (Auto) 7 % (10-50); Mean Corpuscular HGB Conc 32.5 g/dl (31.0-37.0); Mean Corpuscular Hemoglobin 27.7 pg (25.0-35.0); Mean Corpuscular Volume 85 fL (80-100); Monocytes # (Auto) 1.3 Thou/mm3 (0.0-0.8); Monocytes % (Auto) 12 % (0-12); Neutrophils # (Auto) 9.2 Thou/mm3 (1.8-7.7); Neutrophils % (Auto) 79 % (37-80); Nucleated Red Blood Cell % 0 /100 WBC (0); Platelet Count 271 Thou/mm3 (140-440); RDW Standard Deviation 51.2 fL (36.4-46.3); Red Blood Count 4.04 Miln/mm3 (4.00-5.20); White Blood Count 11.6 Thou/mm3 (3.6-11.0)
[2024-08-06] MEDS: MORPHINE SULF INJ 10 MG/ML VIAL IVP (03:45)
[2024-08-06] MEDS: ONDANSETRON INJ 2 MG/ML INJ 2 ML 4 MG IV (03:46)
[2024-08-06 03:48] LABS: Prothrombin Time 11.3 Seconds (9.0-12.2)
[2024-08-06 03:53] LABS: Alanine Aminotransferase 30 U/L (10-49); Albumin/Globulin Ratio 1.5 (1.2-2.2); Alcohol, Blood Medical < 3.0 mg/dL (0-10.0); Alkaline Phosphatase 78 U/L (46-116); Anion Gap 11 (7-16); Aspartate Amino Transferase 33 U/L (0-34); BUN/Creatinine Ratio 13 Ratio (12-20); Bilirubin,Total 0.3 mg/dL (0.3-1.2); Blood Urea Nitrogen 15 mg/dL (9-23); Calcium 9.1 mg/dL (8.3-10.6); Calcium (Corrected) 9.1 mg/dL (8.5-10.1); Carbon Dioxide 25.4 mMol/L (20.0-31.0); Chloride 103 mMol/L (98-107); Creatinine (Component) 1.2 mg/dL (0.6-1.3); Estimated Creatinine Clearance 28.5 mL/min (>60); Globulin 2.6 gm/dL (2.3-3.5); Glucose 153 mg/dL (74-106); Lipase 34 U/L (12-53); Osmolality,Calculated 281 (275-295); Potassium 3.8 mMol/L (3.4-5.1); Sodium 139 mMol/L (136-145); Total Protein 6.6 gm/dL (5.7-8.2); Troponin I < 0.020 ng/mL (0.0-0.045); eGFR 44 See Note
[2024-08-06] MEDS: MORPHINE SULF INJ 10 MG/ML VIAL 2 MG IVP ×4 (05:22→17:43)
[2024-08-06 05:23] LABS: Collection Type, Urine Catheter
[2024-08-06 05:25] LABS: Bilirubin,Urine Negative (Negative); Blood,Urine Negative (Negative); Clarity,Urine Clear (Clear/Hazy); Color,Urine Lt-Yellow (Lt Yel-Yel); Glucose, Urine Negative (Negative); Ketones,Urine Trace (Negative); Leukocyte Esterase,Urine Negative (Negative); Nitrite,Urine Negative (Negative); Protein,Urine Trace (Neg - Trace); RBC,Urine 1 /hpf (0-3); Specific Gravity,Urine 1.013 (1.001-1.035); Squamous Epithelial Cell,Urine < 1 /hpf (0-5); Urobilinogen,Urine Negative mg/dL (0.0-1.0); WBC,Urine < 1 /hpf (0-5)
[2024-08-06 05:48] LABS: Amphetamine/Methamp Scrn,U Negative (Negative); Barbiturate Screen,Urine Negative (Negative); Benzodiazepines Screen,Urine Negative (Negative); Benzoylecgonine Screen, Ur Negative (Negative); Fentanyl Screen,Urine Negative (Negative); Opiate Screen,Urine Positive (Negative); THC Screen,Urine Negative (Negative)
--- NOTE | 2024-08-06 07:23 | PD.EDADDENDU ---
Emergency Room Addendum <Gisella Narayanan - Last Filed: 08/06/24 09:46> Addendum Narrative: I took over the care from Dr. Fisher at 6 AM on 08/06/2024, see his notes for complete H&P and ED course. I reviewed all diagnostic test results. My interpretation of the EKG is? My interpretation of the chest x-ray is My review of the CT report is? Blood tests and urine tests At this point, diagnoses include Treatment here included Significant improvement Not yet done: I discussed the case with our hospitalist.? About the presentation and exam and diagnostics and treatments here.? And need of further care in the hospital. Will accept the patient. Not yet done: Based on my best medical judgment, made decision no further evaluation or treatment indicated at this time.? Patient understands and agrees to the discharge instructions customized and printed, see below. Cheo Helms MD <Cheo Helms MD - Last Filed: 08/06/24 09:54> Addendum Narrative: I took over the care from Dr. Fisher at 6 AM on 08/06/2024, see his notes for complete H&P and ED course. I reviewed all diagnostic test results. At this point, diagnoses include right hip fracture. I discussed the case with our orthopedic surgeon, Dr. Slade, and our hospitalist.? About the presentation and exam and diagnostics and treatments here.? And need of further care in the hospital. Will accept the patient. Cheo Helms MD
--- NOTE | 2024-08-06 07:30 | PC.NURSE ---
PT IS RESTING IN BED, PT IS ABLE TO ANSWER QUESTIONS PT IS AAOX4 INFORMED PT THAT I WILL BE HER NURSE TODAY. SHE IS WANTING TO REST. ADVISED THAT IF SHE NEED ANYTHING TO LET ME KNOW.
--- NOTE | 2024-08-06 08:34 | PC.NURSE ---
PROVIDER IN ROOM WITH PT.
--- NOTE | 2024-08-06 08:35 | PC.NURSE ---
WENT IN TO SEE HOW PT WAS DOING ASKED HOW SHE WAS AND WHERE SHE WAS SHE NOW THINKS SHE IS IN HER APARTMENT AT HOME. ADVISED HER THAT WE ARE AT [facility] SHE WAS ASKING ABOUT THE NOISE. SHE STATED OK.
[2024-08-06] MEDS: HEPARIN SOD INJ 5000 UNIT/ML VIAL SC ×2 (09:13→22:04)
--- NOTE | 2024-08-06 09:47 | ESHP_ITS ---
<Statement entered by Caridad Blackman MD - 08/06/24 16:03> Patient was seen and examined by me personally. I have directly supervised and reviewed documentation by the team resident and agree with its findings with any exceptions or additional findings as below. Plan of care was discussed with the attending, Dr. Mckeon. Patient is a 89-year-old female with past medical history of atrial fibrillation on Eliquis s/p pacemaker, hypertension, non-insulin dependent type 2 diabetes, on 2L home oxygen presenting to the ED on 08/06/2024 with an episode of ground- level fall and found to have right acute intertrochanteric fracture of the hip. Orthopedic surgery Dr. Slade was consulted from the ED, will plan for surgery, tentatively planned for Tuesday 08/08. Cardiology Dr. Hines on-call consulted for cardiac clearance. Caridad Blackman, PGY-2 Documentation for date of: 08/06/24 HPI History of Present Illness Chief complaint: R-hip pain History of present illness: 89-year-old female with past medical history of atrial fibrillation on Eliquis status post pacemaker, hypertension, non-insulin dependent type 2 diabetes, on 2 L home oxygen presenting to the ED on 08/06/2024 with an episode of ground-level fall. There was no family at bedside while obtaining history for this patient. Patient is alert oriented x 2 (name and purpose but cannot answer where she is currently). Patient states that she was walking her dogs inside her house when she had a fall. Patient otherwise unable to provide much substantial history; moreover, unable to obtain a full ROS but the patient denies having any chest pain, shortness of breat at this time. Past medical history: A-fib, HTN, home oxygen, T2DM, previous hip fracture Past surgical history: Left hip ORIF, s/p pacemaker Allergies: Levofloxacin, Penicillin, Codeine, Phenytoin, Meperidine Medications: Amiodarone 200 mg BID, metoprolol 100 mg daily, Januvia 50 mg daily. Family history: Parents of natural causes. Social history: Smokes tobacco briefly in her 20s, denies alcohol or drug use. ROS: Unable to obtain full 12 system review of systems. In the ED, patient presented hypertensive with BP of 175/73, HR of 65, RR 17, afebrile and satting 94 on 1L nasal cannuli. Pertinent lab findings include WBC 11.6, hemoglobin 11.2 with MCV of 85, BUN 15, creatinine 1.2, EGFR 44, troponin within normal limits and urinalysis shows no signs of infection. Imaging findings included cervical spine CT which showed no acute fracture chest x-ray which showed no pneumothorax but bilateral edema/pneumonia, CT chest/abdomen/pelvis showed acute intertrochanteric fracture of the right hip with a right thyromegaly and right thyroid nodules, head CT was negative for any acute process hip/pelvis x-ray confirmed a fracture of the right hip, and knee x-ray was negative for any acute fracture and femur x-ray again confirmed fracture of the right hip. Patient will be admitted for orthopedic consultation and likely surgery pending cardiac clearance. Exam Vital Signs Temp Pulse Resp BP Pulse Ox O2 Del Method O2 Flow Rate 99.0 F 75 18 176/95 H 99 Nasal Cannula 1 08/06/24 08:50 08/06/24 08:50 08/06/24 08:50 08/06/24 08:50 08/06/24 08:50 08/06/24 08:50 08/06/24 08:50 Narrative Exam Physical Exam: GENERAL: Awake, answers some questions appropriately, appears stated age, frail and in pain 2/2 to R-hip fracture HEENT: NC/AT. Moist mucosa. PERRLA/EOMI. CARDIO: Heart RRR, no obvious murmurs, no JVD. PULM: No coughing or visible SOB. Lungs CTA B/L. GI: Abdomen soft, NT/ND, +BS. SKIN/MSK/EXT: No wounds/discoloration/rashes/edema/amputations noted. +Pedal pulses present B/L. NEURO: Oriented x2 (person, purpose - not location), no focal neurological deficits noted Results: Labs 08/07/24 05:06 08/07/24 05:06 Labs: Short CBC 08/06/24 Range/Units 03:15 WBC 11.6 H (3.6-11.0) Thou/mm3 Hgb 11.2 L (12.0-16.0) g/dL Hct 34.5 L (36.0-46.0) % Plt Count 271 (140-440) Thou/mm3 BMP 08/06/24 03:15 Sodium 139 Potassium 3.8 Chloride 103 Carbon Dioxide 25.4 BUN 15 Creatinine 1.2 Glucose 153 H Calcium 9.1 Cardiac Enzymes 08/06/24 Range/Units 03:15 Troponin I < 0.020 (0.0-0.045) ng/mL Liver Function 08/06/24 Range/Units 03:15 Total Bilirubin 0.3 (0.3-1.2) mg/dL AST 33 (0-34) U/L ALT 30 (10-49) U/L Alkaline Phosphatase 78 (46-116) U/L Albumin 4.0 (3.4-4.8) gm/dL Urine 08/06/24 Range/Units 05:15 Urine Color Lt-Yellow (Lt Yel-Yel) Urine Clarity Clear (Clear/Hazy) Urine pH 7.0 (5.0-7.0) Ur Specific [place] 1.013 (1.001-1.035) Urine Protein Trace (Neg - Trace) Urine Glucose (UA) Negative (Negative) Quality Measures Quality Measures none Advance care planning discussed with:: patient and child (Son) Medications Home Medications and Allergies Home Medications ?Medication ?Instructions ?Recorded ?Confirmed ?Type amiodarone 200 mg tablet 200 mg PO BID 06/07/2408/06 History amlodipine 5 mg tablet 5 mg PO DAILY 06/07/2408/06 History lisinopril 20 mg tablet 20 mg PO DAILY 06/07/2409/26 History metoprolol succinate 100 mg 100 mg PO DAILY 06/07/24 0 08/06/24 History tablet,extended release 24 hr Allergies Allergy/AdvReac Type Severity Reaction Status Date / Time levofloxacin Allergy Severe Rash Verified 06/07/24 20:25 Penicillins Allergy Mild Rash Verified 06/07/24 20:25 codeine Allergy Unknown Diarrhea Verified 06/07/24 20:26 meperidine Allergy Unknown Verified 06/07/24 20:25 phenytoin Allergy Unknown Verified 06/07/24 20:25 Visit Medications Acetaminophen (Acetaminophen 325 Mg Tablet) 650 mg PO Q6H PRN PRN Reason: Pain 1-3 and/or Fever >100.1 Stop: 09/05/24 08:34 Heparin Sodium (Porcine) (Heparin Sod Inj 5000 Unit/Ml Vial) 5,000 unit SC Q12HR CATE Stop: 08/20/24 08:59 Last Admin: 08/06/24 09:13 Dose: 5,000 unit Morphine Sulfate (Morphine Sulf Inj 10 Mg/Ml Vial) 2 mg IVP Q2H PRN PRN Reason: PAIN SCALE 7-10 (Severe Stop: 08/11/24 08:34 Ondansetron HCl (Ondansetron Inj 2 Mg/Ml Inj 2 Ml) 4 mg IV Q6H PRN; Protocol PRN Reason: NAUSEA OR VOMITING Stop: 09/05/24 08:34 Oxycodone/Acetaminophen (Oxycodone/Apap 5/325 Tablet) 1 tab PO Q6H PRN PRN Reason: PAIN SCALE 4-6 (Moderate Stop: 08/11/24 08:34 Sennosides (Senna Tablet) 1 tab PO QDAY CATE; Protocol Stop: 09/05/24 08:59 Last Admin: 08/06/24 09:10 Dose: Not Given Discontinued Medications Sodium Chloride (Ns) 500 mls @ 999 mls/hr IV .Q31M ONE Stop: 08/06/24 03:44 Last Infusion: 08/06/24 04:00 Dose: Infused Morphine Sulfate (Morphine Sulf Inj 10 Mg/Ml Vial) 2 mg IVP X1 ONE Stop: 08/06/24 03:15 Last Admin: 08/06/24 03:47 Dose: Not Given Morphine Sulfate (Morphine Sulf Inj 10 Mg/Ml Vial) 1 mg IVP X1 ONE Stop: 08/06/24 03:44 Last Admin: 08/06/24 03:45 Dose: 1 mg Morphine Sulfate (Morphine Sulf Inj 10 Mg/Ml Vial) 2 mg IVP X1 ONE Stop: 08/06/24 05:19 Last Admin: 08/06/24 05:22 Dose: 2 mg Morphine Sulfate (Morphine Sulf Inj 10 Mg/Ml Vial) 2 mg IVP X1 ONE Stop: 08/06/24 05:34 Last Admin: 08/06/24 05:33 Dose: 2 mg Morphine Sulfate (Morphine Sulf Inj 10 Mg/Ml Vial) 2 mg IVP X1 ONE Stop: 08/06/24 05:34 Last Admin: 08/06/24 05:34 Dose: Not Given Ondansetron HCl (Ondansetron Inj 2 Mg/Ml Inj 2 Ml) 4 mg IV X1 ONE; Protocol Stop: 08/06/24 03:15 Last Admin: 08/06/24 03:46 Dose: 4 mg Assessment & Plan Plan 89-year-old female with past medical history of atrial fibrillation on Eliquis status post pacemaker, hypertension, non-insulin dependent type 2 diabetes, on 2 L home oxygen presenting to the ED on 08/06/2024 with an episode of ground-level fall will be admitted for orthopedic consultation and likely surgery pending cardiac clearance. #Ground-level fall #Acute Intertrochanteric fracture of the right hip Per HPI above, patient had a ground-level fall while walking her dogs inside her residence Patient denies losing consciousness or hitting her head but she is not the most accurate historian In the ED, patient presented hypertensive likely secondary to pain and given a total of 5 mg IV morphine Imaging findings included cervical spine CT which showed no acute fracture CT chest/abdomen/pelvis showed acute intertrochanteric fracture of the right hip Head CT was negative for any acute process Hip/pelvis x-ray confirmed a fracture of the right hip, and knee x-ray was negative for any acute fracture and femur x-ray again confirmed fracture of the right hip. Patient's family understands that the patient will require SNF placement after surgery Plan: Multimodal analgesia Dr. Slade, orthopedic surgery, consulted appreciate recommendations Cardiac clearance needed but tentative date for surgery is on 08/08/2024 Will do n.p.o. after midnight on 08/07 if the above remains true PT consult #Atrial fibrillation, likely paroxysmal #Hypertension #Cardiac clearance CHADVASc of 5?points Stroke risk was 7.2% per year in >90,000 patients? Patient on home amiodarone 200 mg p.o. twice daily and Eliquis for atrial fibrillation On home amlodipine 5 mg p.o. daily and metoprolol succinate 100 mg p.o. daily for hypertension Currently normal sinus rhythm Plan: Holding Eliquis Restarted amiodarone, metoprolol and amlodipine Dr. Hines, cardiology, consulted for cardiac clearance; appreciate recommendations Cardiac diet Telemetry monitoring #Pulmonary edema/pneumonia? #Leukocytosis Patient has noted pulmonary edema/possible pneumonia noted on chest x-ray and CT chest abdomen/pelvis Patient is also on supplemental oxygen 2 L but at baseline she uses 2 L at home No fevers noted but the patient does have a mild leukocytosis with WBC of 11.6 Plan: Will monitor for now and consider adding antibiotics #Pvs-qjamnxa-kuzsbstll type 2 diabetes Last A1c on file 6.4 on 06/08/2024 Patient does not appear to be on any home medications for diabetes Plan: Sliding scale insulin Bedside blood glucose monitoring #Thyroid nodules CT chest/abdomen/pelvis showed right thyromegaly and right thyroid nodules On last admission, Dr. Helms was consulted about these thyroid nodules but there were not big enough for biopsy Plan at that time was for the patient to follow-up with Dr. Helms outpatient Plan: Reiterate that the patient will need to follow-up with Dr. Helms upon discharge Hospital Management: Lines: PIV Diet: Dysphagia I, cardiac Bowel: Senna GI prophylaxis: Not needed DVT prophylaxis: Heparin subcu Dispo: Pending cardiac clearance for right hip surgery Code: Limited (chest compressions okay until patient's family notified, no intubation) Patient seen and examined with attending Dr. Mckeon and senior resident Dr. Hiral Handy, PGY-1 Attending Provider Attestation/Addendum I have examined the patient, reviewed labs and imaging findings, discussed the case with the resident(s), and reviewed entered orders. I agree with the plan of care as outlined in this note, with these additional summaries/recommendations: Patient is a 89-year-old female with a medical history of previous hip fracture, chronic atrial fibrillation, history of pacemaker, primary hypertension, chronic O2 home therapy, diabetes mellitus type 2 who presented to [facility] emergency department on 08/06/2024 with chief complaint of ground-level mechanical fall. Patient was ambulating to the bathroom and fell. She denied losing consciousness or hitting her head. She denies taking blood thinners at this time. In the emergency room patient was found to have acute intertrochanteric fracture of right hip. We will continue pain management with oral [place] and IV morphine for breakthrough pain. Orthopedics consulted, recommendations appreciated. We will consult in-house cardiology for cardiac clearance. Continue home amiodarone for history of A-fib. No longer taking anticoagulation. Repeat hematology and chemistry panel in AM. Dr. Mike MD
--- NOTE | 2024-08-06 09:52 | PC.NURSE ---
son pauline in room with pt
--- NOTE | 2024-08-06 10:02 | PC.NURSE ---
called tele to give report nurse will call back
--- NOTE | 2024-08-06 11:18 | XR_ITS ---
Examination: Right femur 2 views Technique one AP lateral right femur 2 views Exam date and time: August 06, 2024 1140 hours INDICATIONS: Patient fell today with injury to the right hip, right femur pain FINDINGS: Acute intertrochanteric fracture right hip Avulsion of the lesser trochanter Shaft of the femur intact IMPRESSION: Acute intertrochanteric fracture right hip
[2024-08-06] MEDS: METOPROLOL SUCCINATE XL 25 MG TABCR 100 MG PO (12:18)
[2024-08-06] MEDS: amLODIPine BESYLATE 5 MG TABLET PO (12:19)
--- NOTE | 2024-08-06 14:44 | PC.NURSE ---
Pt. and family requesting Dr. Medina to do hip surgery. Dr. Mckeon aware and states our team will reach out to Dr. Medina and as if he is available. If not, Dr. Slade will be the surgeon. Family aware.
--- NOTE | 2024-08-06 16:26 | PD.IMCONS ---
HPI Data of Consult Requesting Physician: Trenton Mckeon MD Primary Care Provider: Babak García MD Consult Narrative History of present illness: This is a 89-year-old female with past medical history of atrial fibrillation on Eliquis status post pacemaker, hypertension, non-insulin dependent type 2 diabetes, on 2 L home oxygen pt seen in the ER with s/p fall presenting to the ED on 08/06/2024 with an episode of ground-level fall. There was no family at bedside while obtaining history for this patient. Patient is alert oriented x 2 (name and purpose but cannot answer where she is currently). Patient states that she was walking her dogs inside her house when she had a fall. Patient otherwise unable to provide much substantial history; moreover, unable to obtain a full ROS but the patient denies having any chest pain, shortness of breat at this time. cc:: cc: Trenton Mckeon MD Meds Home Medications and Allergies Home Medications ?Medication ?Instructions ?Recorded ?Confirmed ?Type amiodarone 200 mg tablet 200 mg PO BID 06/07/24 08/06/24 History amlodipine 5 mg tablet 5 mg PO DAILY 06/07/24 08/06/24 History lisinopril 20 mg tablet 20 mg PO DAILY 06/07/24 06/07/24 History metoprolol succinate 100 mg 100 mg PO DAILY 06/07/24 08/06/24 History tablet,extended release 24 hr Allergies Allergy/AdvReac Type Severity Reaction Status Date / Time levofloxacin Allergy Severe Rash Verified 06/07/24 20:25 Penicillins Allergy Mild Rash Verified 06/07/24 20:25 codeine Allergy Unknown Diarrhea Verified 06/07/24 20:26 meperidine Allergy Unknown Verified 06/07/24 20:25 phenytoin Allergy Unknown Verified 06/07/24 20:25 Exam Vital Signs Temp Pulse Resp BP Pulse Ox O2 Del Method O2 Flow Rate 98.4 F 75 17 156/82 H 95 Nasal Cannula 2 08/06/24 12:00 08/06/24 12:19 08/06/24 12:00 08/06/24 15:00 08/06/24 12:00 08/06/24 12:00 08/06/24 12:00 Results Labs 08/06/24 03:15 08/06/24 03:15 Labs: Short CBC 08/06/24 Range/Units 03:15 WBC 11.6 H (3.6-11.0) Thou/mm3 Hgb 11.2 L (12.0-16.0) g/dL Hct 34.5 L (36.0-46.0) % Plt Count 271 (140-440) Thou/mm3 BMP 08/06/24 03:15 Sodium 139 Potassium 3.8 Chloride 103 Carbon Dioxide 25.4 BUN 15 Creatinine 1.2 Glucose 153 H Calcium 9.1 Cardiac Enzymes 08/06/24 Range/Units 03:15 Troponin I < 0.020 (0.0-0.045) ng/mL Liver Function 08/06/24 Range/Units 03:15 Total Bilirubin 0.3 (0.3-1.2) mg/dL AST 33 (0-34) U/L ALT 30 (10-49) U/L Alkaline Phosphatase 78 (46-116) U/L Albumin 4.0 (3.4-4.8) gm/dL Urine 08/06/24 Range/Units 05:15 Urine Color Lt-Yellow (Lt Yel-Yel) Urine Clarity Clear (Clear/Hazy) Urine pH 7.0 (5.0-7.0) Ur Specific [place] 1.013 (1.001-1.035) Urine Protein Trace (Neg - Trace) Urine Glucose (UA) Negative (Negative)
--- NOTE | 2024-08-06 18:26 | PC.NURSE ---
Called to Dr. Cespedes with the hospitalist team covering for Dr. Handy. Dr. espinal pt. continues to refuse to eat. RN asked if pain was a barrier and pt. said yes. Pt. provided pain medication but continues to refuse to eat. Pt. refused lunch as well. Dr. espinal pt. refusing to eat and is at times forgetful, son stated earlier today that this is not her normal Dr. espinal, no orders recieved at this time.
[2024-08-07] VITALS (9 sets, daily range): BP systolic 125–151; BP diastolic 55–78; PULSE 66–76; RESP 16–24; TEMP 36.1–37.7; O2SAT 96–100
[2024-08-07 01:57] LABS: Lactate (Lactic Acid) 1.2 mMol/L (0.4-2.0)
[2024-08-07] MEDS: RINGERS LACTATED 1000 ML 500 ML 999 ML IV (02:11)
[2024-08-07] MEDS: DiphenhydrAMINE INJ 50 MG/ML VIAL 12.5 MG IM (02:16)
[2024-08-07 02:23] LABS: Ammonia < 10 uMol/L (11-32)
[2024-08-07] MEDS: MORPHINE SULF INJ 10 MG/ML VIAL 2 MG IVP (05:41)
[2024-08-07 05:54] LABS: Basophils % (Auto) 0 % (0-2.5); Eosinophils % (Auto) 0 % (0-10); Hematocrit 29.9 % (36.0-46.0); Immature Granulocytes % (Auto) 1 % (0-0); Immature Granulocytes Auto 0.09 Thou/mm3 (0.00-0.00); Lymphocytes # (Auto) 0.9 Thou/mm3 (1.0-4.8); Lymphocytes % (Auto) 9 % (10-50); Mean Corpuscular HGB Conc 33.4 g/dl (31.0-37.0); Mean Corpuscular Hemoglobin 28.2 pg (25.0-35.0); Mean Corpuscular Volume 84 fL (80-100); Monocytes # (Auto) 1.5 Thou/mm3 (0.0-0.8); Monocytes % (Auto) 14 % (0-12); Neutrophils # (Auto) 7.9 Thou/mm3 (1.8-7.7); Neutrophils % (Auto) 76 % (37-80); Nucleated Red Blood Cell % 0 /100 WBC (0); Platelet Count 148 Thou/mm3 (140-440); RDW Standard Deviation 51.5 fL (36.4-46.3); Red Blood Count 3.55 Miln/mm3 (4.00-5.20); White Blood Count 10.4 Thou/mm3 (3.6-11.0)
[2024-08-07 06:33] LABS: Alanine Aminotransferase 50 U/L (10-49); Albumin, Serum 3.4 gm/dL (3.4-4.8); Albumin/Globulin Ratio 1.5 (1.2-2.2); Alkaline Phosphatase 56 U/L (46-116); Anion Gap 9 (7-16); Aspartate Amino Transferase 67 U/L (0-34); BUN/Creatinine Ratio 15 Ratio (12-20); Bilirubin,Total 0.3 mg/dL (0.3-1.2); Blood Urea Nitrogen 17 mg/dL (9-23); Calcium 8.5 mg/dL (8.3-10.6); Carbon Dioxide 26.1 mMol/L (20.0-31.0); Chloride 103 mMol/L (98-107); Creatinine (Component) 1.1 mg/dL (0.6-1.3); Globulin 2.3 gm/dL (2.3-3.5); Glucose 146 mg/dL (74-106); Osmolality,Calculated 280 (275-295); Potassium 4.8 mMol/L (3.4-5.1); Sodium 138 mMol/L (136-145); Total Protein 5.7 gm/dL (5.7-8.2); eGFR 49 See Note
[2024-08-07] MEDS: RINGERS LACTATED 500 ML 500 ML 125 ML IV ×2 (06:36→08:59)
[2024-08-07 08:31] LABS: Magnesium 1.5 mg/dL (1.6-2.6)
[2024-08-07] MEDS: AMIODARONE HCL 200 MG TABLET PO ×2 (08:45→21:02)
[2024-08-07] MEDS: HEPARIN SOD INJ 5000 UNIT/ML VIAL SC (08:45)
[2024-08-07] MEDS: amLODIPine BESYLATE 5 MG TABLET PO (08:46)
[2024-08-07] MEDS: METOPROLOL SUCCINATE XL 25 MG TABCR 100 MG PO (08:46)
[2024-08-07] MEDS: SENNA TABLET 1 TAB PO (08:47)
[2024-08-07 08:51] LABS: INR 1.1 (0.9-1.3); Prothrombin Time 11.6 Seconds (9.0-12.2)
--- NOTE | 2024-08-07 09:03 | ESCONSULT_ITS ---
<Statement entered by Aura Yung MD - 08/10/24 16:45> The patient is well known to me, I examined and reviewed the findings with DR Del Real PGY3 and agree with assessment and recommendations, low risk for surgery HPI Data of Consult Requesting Physician: Trenton Mckeon MD Admitting Provider: Trenton Mckeon MD Attending Provider: Trenton Mckeon MD Primary Care Provider: Babak García MD Consult Narrative Reason for consult: Cardiac Clearance History of present illness: Patient is a 89-year-old female with history of hypertension, atrial fibrillation on Eliquis s/p pacemaker in July 2023 for, zwq-ebuerqn-zstqumysd diabetes mellitus, and home 2 L of oxygen who presented to the ED with concerns of ground-level fall, was found to have right-sided acute intertrochanteric fracture. Orthopedic surgeon Dr. Slade was consulted with possible surgery planned for 08/08/2024, cardiology team was consulted for preoperative cardiac clearance. Today patient was examined at bedside and was AOx2 (name, place), however had difficulty answering all questions, history limited. Patient did endorse pain on her left hip and leg, however was unable to provide additional information. History obtained per chart review, patient reported to have had ground-level fall while walking her dogs, unclear of patient's physical activity tolerance prior to fall at this time. Past surgical history includes a left hip ORIF and a pacemaker placement July 2023 due to bradycardia. Home medications per chart include amiodarone 200 Mg twice daily, Eliquis 5 mg twice daily, amlodipine 5 Mg daily, metoprolol succinate 100 mg daily, and lisinopril 20 Mg daily, patient unable to confirm medication list at this time. PMH: hypertension, atrial fibrillation on Eliquis s/p pacemaker in July 2023 for, [id number]-hdapmnaov diabetes mellitus, and home 2 L of oxygen FH: Unable to obtain at this time Surgical Hx: Left hip ORIF, pacemaker placement July 2023 Social Hx: No current alcohol, tobacco, or drug use cc:: cc: Trenton Mckeon MD Review of Systems Review of Systems ROS Unobtainable: unobtainable due to mental status (Patient unable to answer ROS questions) Exam Vital Signs Temp Pulse Resp BP Pulse Ox O2 Del Method O2 Flow Rate 99.8 F 76 24 H 151/78 H 98 Nasal Cannula 1 08/07/24 08:00 08/07/24 08:00 08/07/24 08:00 08/07/24 08:00 08/07/24 08:00 08/07/24 08:00 08/07/24 08:00 Narrative Exam General: AOx2 (person, place), in no acute distress, unable to answer questions HEENT: Atraumatic/normocephalic Heart: RRR, S1 and S2 without clicks or murmurs Lungs: Clear on auscultation bilaterally Abdomen: Soft, nontender. Bowel sounds present on all quadrants Neuro: No focal neurological deficits noted on appearance, however unable to test individual cranial nerves Results Labs 08/07/24 05:06 08/07/24 05:06 Labs: Short CBC 08/07/24 Range/Units 05:06 WBC 10.4 (3.6-11.0) Thou/mm3 Hgb 10.0 L (12.0-16.0) g/dL Hct 29.9 L (36.0-46.0) % Plt Count 148 D (140-440) Thou/mm3 BMP 08/07/24 05:06 Sodium 138 Potassium 4.8 D Chloride 103 Carbon Dioxide 26.1 BUN 17 Creatinine 1.1 Glucose 146 H Calcium 8.5 Liver Function 08/07/24 Range/Units 05:06 Total Bilirubin 0.3 (0.3-1.2) mg/dL AST 67 H (0-34) U/L ALT 50 H (10-49) U/L Alkaline Phosphatase 56 D (46-116) U/L Albumin 3.4 D (3.4-4.8) gm/dL Quality Measures Quality Measures none Advance care planning discussed with:: patient Medications Home Medications and Allergies Home Medications ?Medication ?Instructions ?Recorded ?Confirmed ?Type amiodarone 200 mg tablet 200 mg PO BID 06/07/2408/06 History amlodipine 5 mg tablet 5 mg PO DAILY 06/07/2408/06 History lisinopril 20 mg tablet 20 mg PO DAILY 06/07/2409/26 History metoprolol succinate 100 mg 100 mg PO DAILY 06/07/24 0 08/06/24 History tablet,extended release 24 hr Allergies Allergy/AdvReac Type Severity Reaction Status Date / Time levofloxacin Allergy Severe Rash Verified 06/07/24 20:25 Penicillins Allergy Mild Rash Verified 06/07/24 20:25 codeine Allergy Unknown Diarrhea Verified 06/07/24 20:26 meperidine Allergy Unknown Verified 06/07/24 20:25 phenytoin Allergy Unknown Verified 06/07/24 20:25 Visit Medications Acetaminophen (Acetaminophen 325 Mg Tablet) 650 mg PO Q6H PRN PRN Reason: Pain 1-3 and/or Fever >100.1 Stop: 09/05/24 08:34 Amiodarone HCl (Amiodarone Hcl 200 Mg Tablet) 200 mg PO BID [facility] Stop: 09/05/24 20:59 Last Admin: 08/06/24 22:12 Dose: Not Given Amlodipine Besylate (Amlodipine Besylate 5 Mg Tablet) 5 mg PO DAILY [facility] Stop: 09/05/24 10:59 Last Admin: 08/06/24 12:19 Dose: 5 mg Dextrose (Dextrose 50%-Water Inj 50 Ml Syringe) 25 ml IV Q15MIN PRN PRN Reason: BG 50-70 responsive npo pt Stop: 09/05/24 11:04 Dextrose (Dextrose 50%-Water Inj 50 Ml Syringe) 50 ml IV Q15MIN PRN PRN Reason: BG <50 OR BG <70 & pt unresponsive Stop: 09/05/24 11:04 Glucagon (Glucagon Inj 1 Mg Vial) 1 mg IM Q15MIN PRN PRN Reason: BG <70, and no IV access Heparin Sodium (Porcine) (Heparin Sod Inj 5000 Unit/Ml Vial) 5,000 unit SC Q12HR [facility] Stop: 08/20/24 08:59 Last Admin: 08/06/24 22:04 Dose: 5,000 unit Lactated Ringer's (Lactated Ringers) 500 mls @ 125 mls/hr IV .Q4H [facility] Stop: 08/07/24 09:34 Last Admin: 08/07/24 06:36 Dose: 125 mls/hr Insulin Human Lispro (Insulin Lispro (Admelog) 1 Unit/0.01 Ml Unit) 0 unit SC [facility]; Protocol Stop: 09/05/24 11:29 Last Admin: 08/07/24 07:17 Dose: Not Given Metoprolol Succinate (Metoprolol Succinate Xl 25 Mg Tabcr) 100 mg PO DAILY [facility] Stop: 09/05/24 10:59 Last Admin: 08/06/24 12:18 Dose: 100 mg Morphine Sulfate (Morphine Sulf Inj 10 Mg/Ml Vial) 2 mg IVP Q2H PRN PRN Reason: PAIN SCALE 7-10 (Severe Stop: 08/11/24 08:34 Last Admin: 08/07/24 05:41 Dose: 2 mg Ondansetron HCl (Ondansetron Inj 2 Mg/Ml Inj 2 Ml) 4 mg IV Q6H PRN; Protocol PRN Reason: NAUSEA OR VOMITING Stop: 09/05/24 08:34 Oxycodone/Acetaminophen (Oxycodone/Apap 5/325 Tablet) 1 tab PO Q6H PRN PRN Reason: PAIN SCALE 4-6 (Moderate Stop: 08/11/24 08:34 Sennosides (Senna Tablet) 1 tab PO QDAY CATE; Protocol Stop: 09/05/24 08:59 Last Admin: 08/06/24 09:10 Dose: Not Given Discontinued Medications Diphenhydramine HCl (Diphenhydramine Inj 50 Mg/Ml Vial) 12.5 mg IM X1 ONE Stop: 08/07/24 01:57 Last Admin: 08/07/24 02:16 Dose: 12.5 mg Sodium Chloride (Ns) 500 mls @ 999 mls/hr IV .Q31M ONE Stop: 08/06/24 03:44 Last Infusion: 08/06/24 04:00 Dose: Infused Lactated Ringer's (Lactated Ringers) 500 mls @ 999 mls/hr IV .Q31M ONE Stop: 08/07/24 02:04 Last Admin: 08/07/24 06:36 Dose: Not Given Lactated Ringer's (Lactated Ringers) 500 mls @ 999 mls/hr IV .Q31M ONE Stop: 08/07/24 02:38 Last Admin: 08/07/24 02:11 Dose: 999 mls/hr Morphine Sulfate (Morphine Sulf Inj 10 Mg/Ml Vial) 2 mg IVP X1 ONE Stop: 08/06/24 03:15 Last Admin: 08/06/24 03:47 Dose: Not Given Morphine Sulfate (Morphine Sulf Inj 10 Mg/Ml Vial) 1 mg IVP X1 ONE Stop: 08/06/24 03:44 Last Admin: 08/06/24 03:45 Dose: 1 mg Morphine Sulfate (Morphine Sulf Inj 10 Mg/Ml Vial) 2 mg IVP X1 ONE Stop: 08/06/24 05:19 Last Admin: 08/06/24 05:22 Dose: 2 mg Morphine Sulfate (Morphine Sulf Inj 10 Mg/Ml Vial) 2 mg IVP X1 ONE Stop: 08/06/24 05:34 Last Admin: 08/06/24 05:33 Dose: 2 mg Morphine Sulfate (Morphine Sulf Inj 10 Mg/Ml Vial) 2 mg IVP X1 ONE Stop: 08/06/24 05:34 Last Admin: 08/06/24 05:34 Dose: Not Given Ondansetron HCl (Ondansetron Inj 2 Mg/Ml Inj 2 Ml) 4 mg IV X1 ONE; Protocol Stop: 08/06/24 03:15 Last Admin: 08/06/24 03:46 Dose: 4 mg Assessment & Plan Plan Patient is a 89-year-old female with history of hypertension, atrial fibrillation on Eliquis s/p pacemaker in July 2023 for, mbe-ttisuqj-nhnigfiyf diabetes mellitus, and home 2 L of oxygen who presented to the ED with concerns of ground-level fall, was found to have right-sided acute intertrochanteric fracture. Orthopedic surgeon Dr. Slade was consulted with possible surgery planned for 08/08/2024, cardiology team was consulted for preoperative cardiac clearance. #Right sided intertrochanteric hip fracture #Hx of Hypertension #Hx of Atrial fibrillation on Eliquis s/p Pacemaker placement - Femur xray: Acute intertrochanteric fracture right hip - EKG (08/06): Electronic atrial pacemaker, HR 70 bpm - Echo (Jun 2024): EF 60-65%, normal LV and RV size/function - Echo (August 2024): EF 60-65%, Diastolic dysfunction II. MAC with mild mitral regurgitation. Aortic sclerosis no stenosis. Mild TR - CHADVasc 5 - Independent risk factors predicting major cardiac complications: No CAD, renal insufficiency (pre-op Cr noted to be 1.1, less than 2.0), diabetes requiring insulin, heart failure, or CVA history noted. - Continue home amiodarone, amlodipine, and metoprolol - Hold Eliquis for orthopedic surgery, plan to resume 2 days following surgery if clinically warranted - Patient remains low-risk for cardiac complications, surgery intermediate-risk - Patient is cleared for orthopedic surgery from cardiac standpoint. #Thyroid nodules #Hx Sacral Pressure Ulcer #Hx of NIDDM - Management per primary team Patient case discussed with attending physician Dr. Dilshad Del Real, DO PGY-3
--- NOTE | 2024-08-07 10:23 | PC.SS ---
Addendum entered by Chana Rees 08/07/24 12:44: SS has sent inquiry to the local SNF using [facility]. Son's choice is [facility]. Addendum entered by Chana Rees 08/07/24 12:24: [facility] assessment has been completed. Original Note: SS met with patient and her son, Mook regarding patient's d/c plan.? Pt is alert/oriented.? Pt was admitted for Ground Level Fall.? Son confirmed patient's demographic and contact information is correct on facesheet.? Pt resides alone but has family (son and grandson) who stays over to help care for her at home.? Pt ambulates using a 2 wheel walker.? Pt has a gate belt, hospital bed, shower chair, toilet extension, commode, wheelchair, and power recliner.? Pt utilizes O2 at home from [facility].? Pt is on 1 liters of O2.? Pt requires assistance with all ADLs.? SS provided son with d/c options for home or SNF.? Son's choice is for pt to go to SNF and he prefers [facility] and 2nd choice is [facility].? Son declines [facility].? ?Patient's son, Mook Sandra and her dtr, Milvia Buckley are patient's medical decision maker if she is unable.? Per son, pt followed up with PCP in June 2024.? Per son, pt was followed up [facility] in the past. D/C plan:? SNF Next of Kin:? Mook Sandra, son, phone# [phone] PCP:? Dr. Babak García Address:? Correct on facesheet
[2024-08-07] MEDS: Magnesium Sulfate 4 GM Ivpb 4 GM/50 ML BAG IV (10:40)
--- NOTE | 2024-08-07 11:17 | ECHO_ITS ---
Transthoracic Echo Report Ht (in): 64 Wt (lb): 148 Exam Location: Echo Lab Status: Inpatient Slotter Operator: RAMIRO Hughes^^^^ Indications: Procedure Performed: BP: 132 / 74 HR: 73 Rhythm: Sinus Technical Quality: Fair MEASUREMENTS (Male / Female) Normal Values 2D ECHO LV Diastolic Diameter PLAX 3.9 cm 4.2 - 5.9 / 3.9 - 5.3 cm LV Systolic Diameter PLAX 2.6 cm IVS Diastolic Thickness 0.7 cm 0.6 - 1.0 / 0.6 - 0.9 cm LVPW Diastolic Thickness 0.6 cm 0.6 - 1.0 / 0.6 - 0.9 cm LV Relative Wall Thickness 0.3 LVOT Diameter 1.5 cm Aortic Root Diameter 3.0 cm LA Systolic Diameter LX 3.8 cm 3.0 - 4.0 / 2.7 - 3.8 cm LV Ejection Fraction MOD BP 67.3 % >= 55 % LV Cardiac Index MOD BP 2626.7 cm?/min?m? LV Ejection Fraction MOD 4C 61.9 % LV Cardiac Index MOD 4C 3167.9 cm?/min?m? LV Ejection Fraction 4C AL 63.1 % LV Cardiac Index 4C AL 3345.0 cm?/min?m? LV Ejection Fraction MOD 2C 69.1 % LV Cardiac Index MOD 2C 1860.8 cm?/min?m? LV Ejection Fraction 2C AL 70.0 % LV Cardiac Index 2C AL 1914.0 cm?/min?m? LA Volume Index 39.2 cm?/m? 16 - 28 cm?/m? Ascending Aorta Diameter 2.7 cm DOPPLER AV Peak Velocity 174.0 cm/s AV Peak Gradient 12.1 mmHg AV Mean Gradient 9.0 mmHg AV Velocity Time Integral 39.0 cm LVOT Peak Velocity 125.0 cm/s LVOT Peak Gradient 6.3 mmHg LVOT Velocity Time Integral 31.7 cm LVOT Cardiac Index 2331.9 cm?/min?m? AV Area Cont Eq vti 1.4 cm? AV Area Cont Eq pk 1.3 cm? MV Area PHT 2.9 cm? MR Peak Velocity 431.5 cm/s MR Peak Gradient 74.5 mmHg Mitral E Point Velocity 130.0 cm/s Mitral A Point Velocity 79.6 cm/s Mitral E to A Ratio 1.6 LV E' Lateral Velocity 5.7 cm/s Mitral E to LV E' Lateral Ratio 22.7 LV E' Septal Velocity 6.2 cm/s Mitral E to LV E' Septal Ratio 21.0 TR Peak Velocity 235.0 cm/s TR Peak Gradient 22.1 mmHg PV Peak Velocity 90.5 cm/s PV Peak Gradient 3.3 mmHg RVOT Peak Velocity 77.6 cm/s FINDINGS Left Ventricle Normal left ventricular size, wall thickness, systolic function with no obvious regional wall motion abnormalities. There is grade II diastolic dysfunction of the left ventricle (pseudonormal filling pattern). The left ventricular ejection fraction is normal, estimated at 55-60%. Right Ventricle The right ventricle is normal in size and systolic function. The estimated right ventricular systolic pressure, 23 mmHg. Left Atrium The left atrium is normal by two-dimensional, color flow and Doppler imaging with no structural abnormalities, no thrombus formation present. Right Atrium The right atrium is normal by two-dimensional imaging, color flow and Doppler imaging with no structural abnormalities, no thrombus formation present. Atrial Septum The interatrial septum appears normal with no evidence of a shunt. Aorta The aorta is normal by two-dimensional, color flow and Doppler interrogation. Mitral Valve Moderate mitral regurgitation. Mild mitral annular calcification. Aortic Valve Aortic valve sclerosis. Tricuspid Valve There is mild tricuspid valve regurgitation. Pulmonic Valve Trivial pulmonic valve regurgitation. Vessels The pulmonary artery appears normal. The inferior vena cava pulmonary and hepatic veins appear normal. Pericardium The pericardium is normal by two-dimensional imaging. There is no significant pericardial effusion. CONCLUSIONS indication: Cardiac clearance LV appears normal with EF 60-65%. Diastolic Dysfunction II is present. RV appears normal with RVSP 22 mmHg. MAC with mild mitral regurgitation Aortic sclerosis no stenosis mild Tricuspid regurgitation Kymberly Alanis (Electronically Signed) Final Date: 07 August 2024 17:17
--- NOTE | 2024-08-07 12:06 | PC.NURSE ---
Pt. agreeable to turn for complete skin assessment at this time, pt. was previously not agreeable due to pain from hip fracture but pt. educated on importance of turning and assessing skin due to risk for skin breakdown. When pt. turned, RN assessed a large stage 1 to sacrum area. Pt. also assessed to have a full thickness wound to the medial right thigh and appearance of infection to groin. Dr. Handy at bedside and aware. wound veterinary meat inspector ordered. Sacrum cleansed and allevyn applied. Attempted to apply allevyn to medial right groin and pt. refused to all RN to put dressing to that area, pt. would not cooperate. Groin cleansed and cream applied as much as pt. would allow.
--- NOTE | 2024-08-07 14:43 | ESPR_ITS ---
<Statement entered by Caridad Blackman MD - 08/07/24 22:08> Patient was seen and examined by me personally. I have directly supervised and reviewed documentation by the team resident and agree with its findings with any exceptions or additional findings as below. Plan of care was discussed with the attending, Dr. Mckeon. Overnight, patient was agitated so was given a dose of diphenhydramine 12.5 mg IV x1. Patient was also not consuming much so night team gave fluids. This morning she was unable to answer questions appropriately but arousable and reactive to pain. Patient will be cleared for surgery by cardiology and is planned for right hip procedure Sunday, 08/[address] Slade. Prophylactic heparin has been held and the patient was placed NPO after midnight. Anticipate PT and acute rehab placement following surgery. Caridad Blackman, PGY-2 Documentation for date of: 08/07/24 Subjective Subjective Interval history: 08/07/2024: Overnight patient was confused and was removing nasal cannula and desatting; improved after nasal cannula reapplied. Night team also gave the patient 500cc bolus of IVF and 1 bag (@150cc/hr) of maintenance fluids as she has not been eating. Patient did pass swallow eval; will add Ensure to diet. Patient seen this morning, awake but not answering to questioning but she does talk and react to noxious stimuli. Patient's son updated and he will be the one to give consent for the surgery. Weaning off pain medications as this might be playing part in her current mental stauts. Surgery planned tentatively for 08/08/[address] Slade if cardiology clears the patient this afternoon. Will be NPO after midnight on anticipation of surgery. Family is expecting SNF placement. Exam Vital Signs Temp Pulse Resp BP Pulse Ox O2 Del Method O2 Flow Rate 98.0 F 73 16 142/67 H 100 Nasal Cannula 1 08/07/24 12:00 08/07/24 12:08/07/24 12:08/07/24 12:08/07/24 12:08/07/24 12:08/07/24 12:00 Narrative Exam Physical Exam: GENERAL: Awake, not answering to questioning, appears stated age, frail and in pain 2/2 to R-hip fracture HEENT: NC/AT. Moist mucosa. PERRLA/EOMI. CARDIO: Heart RRR, no obvious murmurs, no JVD. PULM: No coughing or visible SOB. Lungs CTA B/L. GI: Abdomen soft, NT/ND, +BS. SKIN/MSK/EXT: Grade I/II Sacral wound noted. No discoloration/rashes/edema/amputations noted. +Pedal pulses present B/L. NEURO: Oriented x0 (awake but not answering questions), no focal neurological deficits noted Objective Labs 08/08/24 05:07 08/08/24 05:07 Labs: Laboratory Results - last 24 hr 08/07/24 08/07/24 08/07/24 01:46 05:06 07:28 WBC 10.4 RBC 3.55 L Hgb 10.0 L Hct 29.9 L MCV 84 MCH 28.2 MCHC 33.4 RDW Std Deviation 51.5 H Plt Count 148 D Neut % (Auto) 76 Lymph % (Auto) 9 L [place] % (Auto) 14 H Eos % (Auto) 0 Baso % (Auto) 0 Neut # (Auto) 7.9 H Lymph # (Auto) 0.9 L [place] # (Auto) 1.5 H Eos # (Auto) 0.0 Baso # (Auto) 0.0 Immature Gran # (Auto) 0.09 H Absolute Nucleated RBC 0.00 Immature Gran % 1 H Nucleated RBC % 0 PT 11.6 INR 1.1 Sodium 138 Potassium 4.8 D Chloride 103 Carbon Dioxide 26.1 Anion Gap 9 BUN 17 Creatinine 1.1 Estim Creat Clear Calc 34.0 L eGFR 49 L BUN/Creatinine Ratio 15 Glucose 146 H Calculated Osmolality 280 Lactic Acid 1.2 Calcium 8.5 Corrected Calcium 9.0 Magnesium 1.5 L Total Bilirubin 0.3 AST 67 H ALT 50 H Alkaline Phosphatase 56 D Ammonia < 10 L Total Protein 5.7 Albumin 3.4 D Globulin 2.3 Albumin/Globulin Ratio 1.5 Quality Measures Quality Measures none Advance care planning discussed with:: child (Son) Assessment & Plan Assessment Current Active Medications: Generic Name Dose Route Start Last Admin Trade Name Freq PRN Reason Stop Dose Admin Acetaminophen 650 mg 08/06/24 08:35 Acetaminophen 325 Mg Tablet PO 09/05/24 08:34 Q6H PRN Pain 1-3 and/or Fever >100.1 Amiodarone HCl 200 mg 08/06/24 21:00 08/07/24 08:45 Amiodarone Hcl 200 Mg Tablet PO 09/05/24 20:59 200 mg BID CATE Administration Amlodipine Besylate 5 mg 08/06/24 11:00 08/07/24 08:46 Amlodipine Besylate 5 Mg Tablet PO 09/05/24 10:59 5 mg DAILY CATE Administration Dextrose 25 ml 08/06/24 11:05 Dextrose 50%-Water Inj 50 Ml Syringe IV 09/05/24 11:04 Q15MIN PRN BG 50-70 responsive npo pt Dextrose 50 ml 08/06/24 11:05 Dextrose 50%-Water Inj 50 Ml Syringe IV 09/05/24 11:04 Q15MIN PRN BG <50 OR BG <70 & pt unresponsive Glucagon 1 mg 08/06/24 11:05 Glucagon Inj 1 Mg Vial IM Q15MIN PRN BG <70, and no IV access Heparin Sodium (Porcine) 5,000 unit 08/06/24 09:00 08/07/24 08:45 Heparin Sod Inj 5000 Unit/Ml Vial SC 08/20/24 08:59 5,000 unit Q12HR CATE Administration Insulin Human Lispro 0 unit 08/06/24 11:30 08/07/24 11:59 Insulin Lispro (Admelog) 1 Unit/0.01 Ml Unit SC 09/05/24 11:29 Not Given ACHS [facility] Protocol Metoprolol Succinate 100 mg 08/06/24 11:00 08/07/24 08:46 Metoprolol Succinate Xl 25 Mg Tabcr PO 09/05/24 10:59 100 mg DAILY CATE Administration Morphine Sulfate 1 mg 08/07/24 10:19 Morphine Sulf Inj 10 Mg/Ml Vial IVP 08/11/24 08:34 Q2H PRN PAIN SCALE 7-10 (Severe Ondansetron HCl 4 mg 08/06/24 08:35 Ondansetron Inj 2 Mg/Ml Inj 2 Ml IV 09/05/24 08:34 Q6H PRN NAUSEA OR VOMITING Protocol Oxycodone/Acetaminophen 1 tab 08/06/24 08:35 Oxycodone/Apap 5/325 Tablet PO 08/11/24 08:34 Q6H PRN PAIN SCALE 4-6 (Moderate Sennosides 1 tab 08/06/24 09:00 08/07/24 08:47 Senna Tablet PO 09/05/24 08:59 1 tab QDAY CATE Administration Protocol Plan 89-year-old female with past medical history of atrial fibrillation on Eliquis status post pacemaker, hypertension, non-insulin dependent type 2 diabetes, on 2 L home oxygen presenting to the ED on 08/06/2024 with an episode of ground-level fall will be admitted for orthopedic consultation and likely surgery pending cardiac clearance. #Ground-level fall #Acute Intertrochanteric fracture of the right hip Per HPI above, patient had a ground-level fall while walking her dogs inside her residence Patient denies losing consciousness or hitting her head but she is not the most accurate historian In the ED, patient presented hypertensive likely secondary to pain and given a total of 5 mg IV morphine Imaging findings included cervical spine CT which showed no acute fracture CT chest/abdomen/pelvis showed acute intertrochanteric fracture of the right hip Head CT was negative for any acute process Hip/pelvis x-ray confirmed a fracture of the right hip, and knee x-ray was negative for any acute fracture and femur x-ray again confirmed fracture of the right hip. Patient's family understands that the patient will require SNF placement after surgery Plan: Multimodal analgesia; reduced morphine dose Dr. Slade, orthopedic surgery, consulted appreciate recommendations Cardiac clearance needed but tentative date for surgery is on 08/08/2024 Will do n.p.o. after midnight on 08/07 if the above remains true PT consult #Atrial fibrillation, likely paroxysmal #Hypertension #Cardiac clearance CHADVASc of 5?points Stroke risk was 7.2% per year in >90,000 patients? Patient on home amiodarone 200 mg p.o. twice daily and Eliquis for atrial fibrillation On home amlodipine 5 mg p.o. daily and metoprolol succinate 100 mg p.o. daily for hypertension Currently normal sinus rhythm Plan: Holding Eliquis, will restart when appropriate Continue amiodarone, metoprolol and amlodipine Dr. Yung, cardiology, consulted for cardiac clearance; appreciate recommendations Cardiac diet Telemetry monitoring #Bti-[id number] type 2 diabetes Last A1c on file 6.4 on 06/08/2024 Patient does not appear to be on any home medications for diabetes Plan: Sliding scale insulin Bedside blood glucose monitoring #Thyroid nodules CT chest/abdomen/pelvis showed right thyromegaly and right thyroid nodules On last admission, Dr. Helms was consulted about these thyroid nodules but there were not big enough for biopsy Plan at that time was for the patient to follow-up with Dr. Helms outpatient Plan: Patient will need to follow-up with Dr. Helms upon discharge #Sacral Pressure Ulcer As noted on exam, patient has G1/2 sacral ulcer Plan: Wound care ordered Hospital Management: Lines: PIV Diet: Dysphagia I, cardiac + Ensure added Bowel: Senna GI prophylaxis: Not needed DVT prophylaxis: Heparin subcu Dispo: Pending cardiac clearance for right hip surgery Code: Limited (chest compressions okay until patient's family notified, no intubation) Patient seen and examined with attending Dr. Mckeon and senior resident Dr. Hiral Handy, PGY-1 Attending Provider Attestation/Addendum I have examined the patient, reviewed labs and imaging findings, discussed the case with the resident(s), and reviewed entered orders. I agree with the plan of care as outlined in this note, with these additional summaries/recommendations: Patient is a 89-year-old female with a medical history of previous hip fracture, chronic atrial fibrillation, history of pacemaker, primary hypertension, chronic O2 home therapy, diabetes mellitus type 2 who presented to [facility] emergency department on 08/06/2024 with chief complaint of ground-level mechanical fall. Patient was ambulating to the bathroom and fell. She denied losing consciousness or hitting her head. She denies taking blood thinners at this time. In the emergency room patient was found to have acute intertrochanteric fracture of right hip. Today at bedside patient reports her pain is controlled. We will continue pain management with oral [place] and IV morphine for breakthrough pain. Orthopedics consulted, recommendations appreciated. Pending cardiac clearance and cardiology following. Continue home amiodarone for history of A-fib. No longer taking anticoagulation. Repeat hematology and chemistry panel in AM. Dr. Mike MD
[2024-08-07] MEDS: MORPHINE SULF INJ 10 MG/ML VIAL IVP (19:18)
--- NOTE | 2024-08-07 19:23 | PD.SUROPNT ---
Date of Procedure 08/08/24 Pre Op Diagnosis right hip intertrochanteric fracture Post Op Diagnosis right hip intertrochanteric fracture Procedure right hip cephalomedullary nail Findings intertrochanteric fracture right Procedure Description Indications Patient is a pleasant 89 yo female with a ground level fall. We discussed operative treatment with a cephalomedullary nail given the intertrochanteric fracture. We Discussed nonoperative and operative options. He understands the risk of surgery, including infection, nonunion, malunion, hardware failure, and medical complications including , and would like to proceed with surgery Procedure in detail The patient was brought to the [place] table and was prepped and draped in the usual sterile fashion. We first obtained prereduction fluoroscopy films. We reduced it with traction and gentle internal rotation. Once an adequate reduction was performed, the patient was prepped and draped in usual sterile fashion. A surgical timeout was then performed. A trochanteric starting point was found and an entry wire was inserted followed by an opening reamer. We then inserted a 11 mm 130 degrees intermediate TFNA nail into the femur and ensured that it was reduced. We then inserted a wire into the 130 degree holding the jig and try to ensure that was center center on both the AP and lateral films. We then used a drill and inserted a helical blade. We ensured on both AP and lateral fluoroscopy views that we were in good position. We then used the static interlock screw. The patient was closed in the usual sterile fashion with Vicryl and Monocryl. Patient is to be weightbearing as tolerated Plan: WBAT Resume dvt ppx PT/OT Anesthesia spinal Implants adam intermediate nail Pathology / specimen None Pathology comment: none Estimated Blood Loss 150 Condition Stable Disposition floor Surgeon Woodrow Slade MD Surgical Staff Operation Date: 08/08/24 15:45 <No data on this case meets the specified criteria>
--- NOTE | 2024-08-07 19:24 | ESCONSULT_ITS ---
HPI Consult details Reason for consultation narrative: right hip fracture History of present illness: Patient is a 89-year-old female with past medical history of atrial fibrillation on Eliquis s/p pacemaker, hypertension, non-insulin dependent type 2 diabetes, on 2L home oxygen presenting to the ED on 08/06/2024 with an episode of ground- level fall. She reports significant right hip pain and found to have right acute intertrochanteric fracture of the hip. She is a baseline ambulator with a walker and her last dose of eliquis was believed to be 08/05/2024 at night. Meds Home Medications and Allergies Home Medications ?Medication ?Instructions ?Recorded ?Confirmed ?Type amiodarone 200 mg tablet 200 mg PO BID 06/07/2408/06 History amlodipine 5 mg tablet 5 mg PO DAILY 06/07/2408/06 History lisinopril 20 mg tablet 20 mg PO DAILY 06/07/2409/26 History metoprolol succinate 100 mg 100 mg PO DAILY 06/07/24 0 08/06/24 History tablet,extended release 24 hr Allergies Allergy/AdvReac Type Severity Reaction Status Date / Time levofloxacin Allergy Severe Rash Verified 06/07/24 20:25 Penicillins Allergy Mild Rash Verified 06/07/24 20:25 codeine Allergy Unknown Diarrhea Verified 06/07/24 20:26 meperidine Allergy Unknown Verified 06/07/24 20:25 phenytoin Allergy Unknown Verified 06/07/24 20:25 Exam Vital Signs Temp Pulse Resp BP Pulse Ox O2 Del Method O2 Flow Rate 98.8 F 68 16 145/65 H 100 Nasal Cannula 1 08/07/24 16:00 08/07/24 16:00 08/07/24 16:00 08/07/24 16:00 08/07/24 16:00 08/07/24 16:00 08/07/24 16:00 Additional findings Additional findings: NAD AAOx2 RLE: shortened and ER +DP/PT SILT +EHL/FHL/PF/DF Range of motion not performed secondary to pain Results - Ortho Labs 08/07/24 05:06 08/07/24 05:06 Labs: Short CBC 08/07/24 Range/Units 05:06 WBC 10.4 (3.6-11.0) Thou/mm3 Hgb 10.0 L (12.0-16.0) g/dL Hct 29.9 L (36.0-46.0) % Plt Count 148 D (140-440) Thou/mm3 BMP 08/07/24 05:06 Sodium 138 Potassium 4.8 D Chloride 103 Carbon Dioxide 26.1 BUN 17 Creatinine 1.1 Glucose 146 H Calcium 8.5 Liver Function 08/07/24 Range/Units 05:06 Total Bilirubin 0.3 (0.3-1.2) mg/dL AST 67 H (0-34) U/L ALT 50 H (10-49) U/L Alkaline Phosphatase 56 D (46-116) U/L Albumin 3.4 D (3.4-4.8) gm/dL Assessment & Plan Problem List (1) Fracture of hip, right, closed: Status: Acute Assessment and plan: Patient is a 89 yo female with a closed right interotrchanteric fracture s/p fall. SHe is on eliquis and we are obtaining cardiac clearance. I discussed different options with her daughter who is power of assistant attorney general as the patient is altered at this time. We discussed nonopperative treatment vs operative treatment. We discussed cephalomedullary nail of the right femur as a reasonable option. We discussed the risks including infection, malunion, nonunion, fracture, and medical complications from having surgery. - NWB - Plan for surgery 08/08/2024 once eliquis has been discontinued
[2024-08-08] VITALS (16 sets, daily range): BP systolic 119–143; BP diastolic 47–92; PULSE 60–89; RESP 14–22; TEMP 36.2–36.7; O2SAT 91–100; BMI 25.8
[2024-08-08] MEDS: MORPHINE SULF INJ 10 MG/ML VIAL IVP ×2 (02:11→19:30)
[2024-08-08 05:22] LABS: Basophils % (Auto) 1 % (0-2.5); Eosinophils % (Auto) 0 % (0-10); Hemoglobin 9.5 g/dL (12.0-16.0); Immature Granulocytes % (Auto) 1 % (0-0); Immature Granulocytes Auto 0.07 Thou/mm3 (0.00-0.00); Lymphocytes # (Auto) 0.6 Thou/mm3 (1.0-4.8); Lymphocytes % (Auto) 7 % (10-50); Mean Corpuscular HGB Conc 32.8 g/dl (31.0-37.0); Mean Corpuscular Hemoglobin 27.9 pg (25.0-35.0); Mean Corpuscular Volume 85 fL (80-100); Monocytes # (Auto) 1.2 Thou/mm3 (0.0-0.8); Monocytes % (Auto) 15 % (0-12); Neutrophils # (Auto) 5.9 Thou/mm3 (1.8-7.7); Neutrophils % (Auto) 76 % (37-80); Nucleated Red Blood Cell % 0 /100 WBC (0); Platelet Count 185 Thou/mm3 (140-440); RDW Standard Deviation 51.7 fL (36.4-46.3); White Blood Count 7.7 Thou/mm3 (3.6-11.0)
[2024-08-08 05:34] LABS: Prothrombin Time 10.9 Seconds (9.0-12.2)
[2024-08-08 05:50] LABS: Alanine Aminotransferase 46 U/L (10-49); Albumin, Serum 2.9 gm/dL (3.4-4.8); Albumin/Globulin Ratio 1.2 (1.2-2.2); Alkaline Phosphatase 52 U/L (46-116); Anion Gap 9 (7-16); Aspartate Amino Transferase 63 U/L (0-34); BUN/Creatinine Ratio 15 Ratio (12-20); Bilirubin,Total 0.3 mg/dL (0.3-1.2); Blood Urea Nitrogen 18 mg/dL (9-23); Calcium 8.2 mg/dL (8.3-10.6); Calcium (Corrected) 9.1 mg/dL (8.5-10.1); Carbon Dioxide 26.6 mMol/L (20.0-31.0); Chloride 103 mMol/L (98-107); Creatinine (Component) 1.2 mg/dL (0.6-1.3); Estimated Creatinine Clearance 31.4 mL/min (>60); Globulin 2.4 gm/dL (2.3-3.5); Glucose 129 mg/dL (74-106); Osmolality,Calculated 281 (275-295); Potassium 3.7 mMol/L (3.4-5.1); Sodium 139 mMol/L (136-145); Total Protein 5.3 gm/dL (5.7-8.2); eGFR 44 See Note
--- NOTE | 2024-08-08 08:02 | PC.NURSE ---
Per Dr. Ole dhillon to administer morning medications related to patient being NPO for procedure.
[2024-08-08] MEDS: METOPROLOL SUCCINATE XL 25 MG TABCR 100 MG PO (08:08)
[2024-08-08] MEDS: amLODIPine BESYLATE 5 MG TABLET PO (08:09)
[2024-08-08] MEDS: AMIODARONE HCL 200 MG TABLET PO ×2 (08:09→21:07)
[2024-08-08] MEDS: SENNA TABLET 1 TAB PO (08:09)
--- NOTE | 2024-08-08 11:59 | PC.SS ---
Follow up note: Pt will have surgery today. Pt will d/c to SNF and family prefers [facility]. If [facility] is unable to accept 2nd choice is [facility].
--- NOTE | 2024-08-08 14:05 | PD.RESPRO ---
Documentation for date of: 08/08/24 Subjective Subjective Interval history: 08/08/2024: No acute overnight events to report. Patient seen and assessed in hospital bed, appears to be more awake and answering questions more appropriately. Patient has scheduled surgery with Dr. Slade this afternoon at 3:30pm (08/08/24). Family bedside is aware and understand that the patient will need SNF placement. Will monitor for any acute changes and control pain after the surgery. Exam Vital Signs Temp Pulse Resp BP Pulse Ox O2 Del Method O2 Flow Rate 97.3 F 61 18 137/55 H 96 Nasal Cannula 2 08/08/24 12:00 08/08/24 12:00 08/08/24 12:00 08/08/24 12:00 08/08/24 12:00 08/08/24 12:00 08/08/24 12:00 Narrative Exam Physical Exam: GENERAL: Awake, answering questions appropriately, appears stated age, frail and in pain 2/2 to R-hip fracture HEENT: NC/AT. Moist mucosa. PERRLA/EOMI. CARDIO: Heart RRR, no obvious murmurs, no JVD. PULM: No coughing or visible SOB. Lungs CTA B/L. GI: Abdomen soft, NT/ND, +BS. SKIN/MSK/EXT: Grade I/II Sacral wound noted. No discoloration/rashes/edema/amputations noted. +Pedal pulses present B/L. NEURO: Oriented x3, no focal neurological deficits noted Objective Labs 08/09/24 05:12 08/09/24 05:12 Labs: Laboratory Results - last 24 hr 08/08/24 08/08/24 05:07 11:50 WBC 7.7 RBC 3.40 L Hgb 9.5 L Hct 29.0 L MCV 85 MCH 27.9 MCHC 32.8 RDW Std Deviation 51.7 H Plt Count 185 D Neut % (Auto) 76 Lymph % (Auto) 7 L Grand % (Auto) 15 H Eos % (Auto) 0 Baso % (Auto) 1 Neut # (Auto) 5.9 Lymph # (Auto) 0.6 L Grand # (Auto) 1.2 H Eos # (Auto) 0.0 Baso # (Auto) 0.0 Immature Gran # (Auto) 0.07 H Absolute Nucleated RBC 0.00 Immature Gran % 1 H Nucleated RBC % 0 PT 10.9 INR 1.0 Sodium 139 Potassium 3.7 D Chloride 103 Carbon Dioxide 26.6 Anion Gap 9 BUN 18 Creatinine 1.2 Estim Creat Clear Calc 31.4 L eGFR 44 L BUN/Creatinine Ratio 15 Glucose 129 H Calculated Osmolality 281 Calcium 8.2 L Corrected Calcium 9.1 Total Bilirubin 0.3 AST 63 H ALT 46 Alkaline Phosphatase 52 Total Protein 5.3 L Albumin 2.9 L D Globulin 2.4 Albumin/Globulin Ratio 1.2 Blood Type O Positive Antibody Screen NEGATIVE Crossmatch See Detail Blood Bank Wristband ID Yes Quality Measures Quality Measures none Advance care planning discussed with:: patient and child Assessment & Plan Assessment Current Active Medications: Generic Name Dose Route Start Last Admin Trade Name Freq PRN Reason Stop Dose Admin Acetaminophen 650 mg 08/06/24 08:35 Acetaminophen 325 Mg Tablet PO 09/05/24 08:34 Q6H PRN Pain 1-3 and/or Fever >100.1 Amiodarone HCl 200 mg 08/06/24 21:00 08/08/24 08:09 Amiodarone Hcl 200 Mg Tablet PO 09/05/24 20:59 200 mg BID CATE Administration Amlodipine Besylate 5 mg 08/06/24 11:00 08/08/24 08:09 Amlodipine Besylate 5 Mg Tablet PO 09/05/24 10:59 5 mg DAILY CATE Administration Dextrose 25 ml 08/06/24 11:05 Dextrose 50%-Water Inj 50 Ml Syringe IV 09/05/24 11:04 Q15MIN PRN BG 50-70 responsive npo pt Dextrose 50 ml 08/06/24 11:05 Dextrose 50%-Water Inj 50 Ml Syringe IV 09/05/24 11:04 Q15MIN PRN BG <50 OR BG <70 & pt unresponsive Glucagon 1 mg 08/06/24 11:05 Glucagon Inj 1 Mg Vial IM Q15MIN PRN BG <70, and no IV access Heparin Sodium (Porcine) 5,000 unit 08/06/24 09:00 08/07/24 08:45 Heparin Sod Inj 5000 Unit/Ml Vial SC 08/20/24 08:59 5,000 unit Q12HR CATE Administration Insulin Human Lispro 0 unit 08/08/24 06:00 08/08/24 13:09 Insulin Lispro (Admelog) 1 Unit/0.01 Ml Unit SC 09/07/24 05:59 Not Given Q6HR [facility] Protocol Metoprolol Succinate 100 mg 08/06/24 11:00 08/08/24 08:08 Metoprolol Succinate Xl 25 Mg Tabcr PO 09/05/24 10:59 100 mg DAILY CATE Administration Morphine Sulfate 1 mg 08/07/24 10:19 08/08/24 02:11 Morphine Sulf Inj 10 Mg/Ml Vial IVP 08/11/24 08:34 1 mg Q2H PRN Administration PAIN SCALE 7-10 (Severe Ondansetron HCl 4 mg 08/06/24 08:35 Ondansetron Inj 2 Mg/Ml Inj 2 Ml IV 09/05/24 08:34 Q6H PRN NAUSEA OR VOMITING Protocol Oxycodone/Acetaminophen 1 tab 08/06/24 08:35 Oxycodone/Apap 5/325 Tablet PO 08/11/24 08:34 Q6H PRN PAIN SCALE 4-6 (Moderate Sennosides 1 tab 08/06/24 09:00 08/08/24 08:09 Senna Tablet PO 09/05/24 08:59 1 tab QDAY CATE Administration Protocol Plan 89-year-old female with past medical history of atrial fibrillation on Eliquis status post pacemaker, hypertension, non-insulin dependent type 2 diabetes, on 2 L home oxygen presenting to the ED on 08/06/2024 with an episode of ground-level fall will be admitted for orthopedic consultation and likely surgery pending cardiac clearance. #Ground-level fall #Acute Intertrochanteric fracture of the right hip Per HPI above, patient had a ground-level fall while walking her dogs inside her residence Patient denies losing consciousness or hitting her head but she is not the most accurate historian In the ED, patient presented hypertensive likely secondary to pain and given a total of 5 mg IV morphine Imaging findings included cervical spine CT which showed no acute fracture CT chest/abdomen/pelvis showed acute intertrochanteric fracture of the right hip Head CT was negative for any acute process Hip/pelvis x-ray confirmed a fracture of the right hip, and knee x-ray was negative for any acute fracture and femur x-ray again confirmed fracture of the right hip. Patient's family understands that the patient will require SNF placement after surgery Cleared by cardiology Plan: Multimodal analgesia; reduced morphine dose Dr. Slade, orthopedic surgery, consulted appreciate recommendations Surgery on 08/08/2024 PT consult #Atrial fibrillation, likely paroxysmal #Hypertension #Cardiac clearance CHADVASc of 5?points Stroke risk was 7.2% per year in >90,000 patients? Patient on home amiodarone 200 mg p.o. twice daily and Eliquis for atrial fibrillation On home amlodipine 5 mg p.o. daily and metoprolol succinate 100 mg p.o. daily for hypertension Currently normal sinus rhythm Plan: Holding Eliquis, will restart when appropriate Continue amiodarone, metoprolol and amlodipine Dr. Yung, cardiology, consulted for cardiac clearance; appreciate recommendations Cardiac diet Telemetry monitoring #[id number] type 2 diabetes Last A1c on file 6.4 on 06/08/2024 Patient does not appear to be on any home medications for diabetes Plan: Sliding scale insulin Bedside blood glucose monitoring #Thyroid nodules CT chest/abdomen/pelvis showed right thyromegaly and right thyroid nodules On last admission, Dr. Helms was consulted about these thyroid nodules but there were not big enough for biopsy Plan at that time was for the patient to follow-up with Dr. Helms outpatient Plan: Patient will need to follow-up with Dr. Helms upon discharge #Sacral Pressure Ulcer As noted on exam, patient has G1/2 sacral ulcer Plan: Wound care ordered Hospital Management: Lines: PIV Diet: Dysphagia I, cardiac + Ensure added Bowel: Senna GI prophylaxis: Not needed DVT prophylaxis: Heparin subcu Dispo: Pending cardiac clearance for right hip surgery Code: Limited (chest compressions okay until patient's family notified, no intubation) Patient seen and examined with attending Dr. Mckeon and senior resident Dr. Real Handy, PGY-1 -- ATTESTATION: I saw and examined the patient this morning, and I agree with current management stated by the resident. Will continue to monitor patient during their stay. Patient is a 89-year-old female past medical history of A-fib on Eliquis status post pacemaker, hypertension, insulin-dependent diabetes type 2, on home 2 L of oxygen that came in on 08/06/2024 due to a fall that caused her to have a right hip fracture. Patient is undergoing surgery today with Dr. Slade and will restart her food postop as well as anticoagulation as per Ortho recommendations. Disclaimer: Despite multiple revisions, due to the dictation software being used, the document bellow may not be free of grammatical errors including phonetic/typographic errors. However, this does not deter from our commitment to providing health care in the patient's best interest in mind. Dr. Rajiv Noble, PGY-3 Attending Provider Attestation/Addendum I have examined the patient, reviewed labs and imaging findings, discussed the case with the resident(s), and reviewed entered orders. I agree with the plan of care as outlined in this note, with these additional summaries/recommendations: Patient is a 89-year-old female with a medical history of previous hip fracture, chronic atrial fibrillation, history of pacemaker, primary hypertension, chronic O2 home therapy, diabetes mellitus type 2 who presented to [facility] emergency department on 08/06/2024 with chief complaint of ground-level mechanical fall patient was found to have right hip fracture and hospitalist team consulted for continuation of care. Patient seen at bedside. No acute overnight events. She reports her pain is currently controlled. Patient has been cleared by cardiology for surgery. Orthopedics following and patient will go for surgical correction of acute intertrochanteric fracture of right hip. Continue pain management. Hold chemical anticoagulation. Continue amiodarone for history of A-fib. Repeat hematology and chemistry panel in AM. Dr. Mike MD
--- NOTE | 2024-08-08 14:47 | ESPR_ITS ---
<Statement entered by Aura Yung MD - 08/10/24 16:46> I examined and reviewed the findings with DR Del Real PGY3 , in NSR today and agree with assessment and recommendations, low risk for surgery, Documentation for date of: 08/08/24 Subjective Subjective Interval history: Overnight events, lab/imaging results, and notes reviewed. Patient examined bedside, reports feeling better today than yesterday, does not appear as lethargic. Orthopedic surgery team following, surgery planned for today. Exam Vital Signs Temp Pulse Resp BP Pulse Ox O2 Del Method O2 Flow Rate 97.3 F 61 18 137/55 H 96 Nasal Cannula 2 08/08/24 12:00 08/08/24 12:00 08/08/24 12:00 08/08/24 12:00 08/08/24 12:00 08/08/24 12:00 08/08/24 12:00 Narrative Exam General: AOx2 (person, place), in no acute distress HEENT: Atraumatic/normocephalic Heart: RRR, S1 and S2 without clicks or murmurs Lungs: Clear on auscultation bilaterally Abdomen: Soft, nontender. Bowel sounds present on all quadrants Neuro: No focal neurological deficits noted on appearance, however unable to test individual cranial nerves Objective Labs 08/08/24 05:07 08/08/24 05:07 Labs: Laboratory Results - last 24 hr 08/08/24 08/08/24 05:07 11:50 WBC 7.7 RBC 3.40 L Hgb 9.5 L Hct 29.0 L MCV 85 MCH 27.9 MCHC 32.8 RDW Std Deviation 51.7 H Plt Count 185 D Neut % (Auto) 76 Lymph % (Auto) 7 L Bartholomew % (Auto) 15 H Eos % (Auto) 0 Baso % (Auto) 1 Neut # (Auto) 5.9 Lymph # (Auto) 0.6 L Bartholomew # (Auto) 1.2 H Eos # (Auto) 0.0 Baso # (Auto) 0.0 Immature Gran # (Auto) 0.07 H Absolute Nucleated RBC 0.00 Immature Gran % 1 H Nucleated RBC % 0 PT 10.9 INR 1.0 Sodium 139 Potassium 3.7 D Chloride 103 Carbon Dioxide 26.6 Anion Gap 9 BUN 18 Creatinine 1.2 Estim Creat Clear Calc 31.4 L eGFR 44 L BUN/Creatinine Ratio 15 Glucose 129 H Calculated Osmolality 281 Calcium 8.2 L Corrected Calcium 9.1 Total Bilirubin 0.3 AST 63 H ALT 46 Alkaline Phosphatase 52 Total Protein 5.3 L Albumin 2.9 L D Globulin 2.4 Albumin/Globulin Ratio 1.2 Blood Type O Positive Antibody Screen NEGATIVE Crossmatch See Detail Blood Bank Wristband ID Yes Quality Measures Quality Measures none Advance care planning discussed with:: patient Assessment & Plan Assessment Current Active Medications: Generic Name Dose Route Start Last Admin Trade Name Freq PRN Reason Stop Dose Admin Acetaminophen 650 mg 08/06/24 08:35 Acetaminophen 325 Mg Tablet PO 09/05/24 08:34 Q6H PRN Pain 1-3 and/or Fever >100.1 Amiodarone HCl 200 mg 08/06/24 21:00 08/08/24 08:09 Amiodarone Hcl 200 Mg Tablet PO 09/05/24 20:59 200 mg BID CATE Administration Amlodipine Besylate 5 mg 08/06/24 11:00 08/08/24 08:09 Amlodipine Besylate 5 Mg Tablet PO 09/05/24 10:59 5 mg DAILY CATE Administration Dextrose 25 ml 08/06/24 11:05 Dextrose 50%-Water Inj 50 Ml Syringe IV 09/05/24 11:04 Q15MIN PRN BG 50-70 responsive npo pt Dextrose 50 ml 08/06/24 11:05 Dextrose 50%-Water Inj 50 Ml Syringe IV 09/05/24 11:04 Q15MIN PRN BG <50 OR BG <70 & pt unresponsive Glucagon 1 mg 08/06/24 11:05 Glucagon Inj 1 Mg Vial IM Q15MIN PRN BG <70, and no IV access Heparin Sodium (Porcine) 5,000 unit 08/06/24 09:00 08/07/24 08:45 Heparin Sod Inj 5000 Unit/Ml Vial SC 08/20/24 08:59 5,000 unit Q12HR CATE Administration Insulin Human Lispro 0 unit 08/08/24 06:00 08/08/24 13:09 Insulin Lispro (Admelog) 1 Unit/0.01 Ml Unit SC 09/07/24 05:59 Not Given Q6HR CATE Protocol Metoprolol Succinate 100 mg 08/06/24 11:00 08/08/24 08:08 Metoprolol Succinate Xl 25 Mg Tabcr PO 09/05/24 10:59 100 mg DAILY CATE Administration Morphine Sulfate 1 mg 08/07/24 10:19 08/08/24 02:11 Morphine Sulf Inj 10 Mg/Ml Vial IVP 08/11/24 08:34 1 mg Q2H PRN Administration PAIN SCALE 7-10 (Severe Ondansetron HCl 4 mg 08/06/24 08:35 Ondansetron Inj 2 Mg/Ml Inj 2 Ml IV 09/05/24 08:34 Q6H PRN NAUSEA OR VOMITING Protocol Oxycodone/Acetaminophen 1 tab 08/06/24 08:35 Oxycodone/Apap 5/325 Tablet PO 08/11/24 08:34 Q6H PRN PAIN SCALE 4-6 (Moderate Sennosides 1 tab 08/06/24 09:00 08/08/24 08:09 Senna Tablet PO 09/05/24 08:59 1 tab QDAY CATE Administration Protocol Plan Patient is a 89-year-old female with history of hypertension, atrial fibrillation on Eliquis s/p pacemaker in July 2023 for, [id number] diabetes mellitus, and home 2 L of oxygen who presented to the ED with concerns of ground-level fall, was found to have right-sided acute intertrochanteric fracture. Orthopedic surgeon Dr. Slade was consulted with possible surgery planned for 08/08/2024, cardiology team was consulted for preoperative cardiac clearance. #Right sided intertrochanteric hip fracture #Hx of Hypertension #Hx of Atrial fibrillation on Eliquis s/p Pacemaker placement - Femur xray: Acute intertrochanteric fracture right hip - EKG (08/06): Electronic atrial pacemaker, HR 70 bpm - Echo (Jun 2024): EF 60-65%, normal LV and RV size/function - Echo (August 2024): EF 60-65%, Diastolic dysfunction II. MAC with mild mitral regurgitation. Aortic sclerosis no stenosis. Mild TR - CHADVasc 5 - Independent risk factors predicting major cardiac complications: No CAD, renal insufficiency (pre-op Cr noted to be 1.1, less than 2.0), diabetes requiring insulin, heart failure, or CVA history noted. - Continue home amiodarone, amlodipine, and metoprolol - Patient remains low-risk for cardiac complications, surgery intermediate-risk - Patient is cleared for orthopedic surgery from cardiac standpoint. - Surgery planned for 08/08, advise resuming Eliquis 48 hours after surgery if clinically warranted #Thyroid nodules #Hx Sacral Pressure Ulcer #Hx of NIDDM - Management per primary team Patient case discussed with attending physician Dr. Dilshad Del Real, DO PGY-3
--- NOTE | 2024-08-08 15:10 | PC.NURSE ---
Patient transported to surgery via bed per DAVID Martinez. No signs of acute distress.
--- NOTE | 2024-08-08 15:30 | XR_ITS ---
Examination: AP lateral spot fluoroscopic films femur, 22 views Fluoroscopy Exam date and time: August 08, 2024 1707 hrs. Indications: Acute right hip fracture August 06, 2024, operative reduction internal fixation hip fracture today Findings: Operative reduction internal fixation right hip fracture. Satisfactory alignment. The hardware satisfactory position Fluoroscopy 30 seconds 22 spot fluoroscopic films of the femur Impression: Operative reduction internal fixation right hip fracture with satisfactory alignment
--- NOTE | 2024-08-08 17:25 | SUR.PHASEI ---
1725: pt received from OR via bed. report received from DAVID Benites and Dr. Trujillo. pt alert and oriented to name, place and time. denies any pain or discomfort. no s/s of resp. distress or discomfort. dressing to right hip clean, dry and intact. CMS positive. cap reill less than 2 seconds.
--- NOTE | 2024-08-08 17:32 | XR_ITS ---
Examination:Right hip AP, lateral, AP pelvis 3 views Technique: Hip AP lateral, AP pelvis, 3 views Exam date and time:August 18, 2024 7056 hours Indications: Acute fracture right hip August 06, 2024, postop reduction internal session and fracture today. Findings: Operative reduction internal fixation intertrochanteric fracture right hip. Satisfactory alignment Satisfactory position orthopedic hardware Impression: Postop reduction internal fixation intertrochanteric fracture right hip with satisfactory alignment.
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
--- NOTE | 2024-08-08 18:03 | SUR.PHASEI ---
x-ray completed at this time.
--- NOTE | 2024-08-08 18:10 | SUR.PHASEI ---
given report to DAVID Santo
--- NOTE | 2024-08-08 18:30 | SUR.PHASEI ---
1830: update report given to DAVID Santo.
--- NOTE | 2024-08-08 18:33 | SUR.PHASEI ---
1833: pt transfer back to room 278 via bed. pt alert and oriented to name, place and time. denies any c/o pain or discomfort. no s/s of resp. distress or discomfort. dressing to right hip clean, dry and intact. no bleeding or discharge noted. CMS positive. able to move right toes when asked. cap refill less than 2 seconds.
[2024-08-09] VITALS (13 sets, daily range): BP systolic 124–143; BP diastolic 56–76; PULSE 60–77; RESP 14–99; TEMP 36.3–37.1; O2SAT 91–100; BMI 24.6
[2024-08-09] MEDS: MORPHINE SULF INJ 10 MG/ML VIAL IVP (02:56)
[2024-08-09 05:46] LABS: Basophils % (Auto) 0 % (0-2.5); Eosinophils % (Auto) 0 % (0-10); Hemoglobin 9.5 g/dL (12.0-16.0); Immature Granulocytes % (Auto) 0 % (0-0); Immature Granulocytes Auto 0.03 Thou/mm3 (0.00-0.00); Lymphocytes # (Auto) 0.7 Thou/mm3 (1.0-4.8); Lymphocytes % (Auto) 7 % (10-50); Mean Corpuscular HGB Conc 32.8 g/dl (31.0-37.0); Mean Corpuscular Volume 86 fL (80-100); Monocytes # (Auto) 1.4 Thou/mm3 (0.0-0.8); Monocytes % (Auto) 14 % (0-12); Neutrophils # (Auto) 7.4 Thou/mm3 (1.8-7.7); Neutrophils % (Auto) 78 % (37-80); Nucleated Red Blood Cell % 0 /100 WBC (0); Platelet Count 225 Thou/mm3 (140-440); RDW Standard Deviation 50.5 fL (36.4-46.3); Red Blood Count 3.39 Miln/mm3 (4.00-5.20); White Blood Count 9.5 Thou/mm3 (3.6-11.0)
[2024-08-09 06:01] LABS: Prothrombin Time 10.9 Seconds (9.0-12.2)
[2024-08-09 06:18] LABS: Alanine Aminotransferase 56 U/L (10-49); Albumin, Serum 3.2 gm/dL (3.4-4.8); Albumin/Globulin Ratio 1.4 (1.2-2.2); Alkaline Phosphatase 62 U/L (46-116); Anion Gap 9 (7-16); Aspartate Amino Transferase 82 U/L (0-34); BUN/Creatinine Ratio 23 Ratio (12-20); Bilirubin,Total 0.3 mg/dL (0.3-1.2); Blood Urea Nitrogen 32 mg/dL (9-23); Calcium 8.7 mg/dL (8.3-10.6); Calcium (Corrected) 9.3 mg/dL (8.5-10.1); Carbon Dioxide 28.3 mMol/L (20.0-31.0); Chloride 101 mMol/L (98-107); Creatinine (Component) 1.4 mg/dL (0.6-1.3); Estimated Creatinine Clearance 24.4 mL/min (>60); Globulin 2.3 gm/dL (2.3-3.5); Glucose 187 mg/dL (74-106); Osmolality,Calculated 287 (275-295); Potassium 3.7 mMol/L (3.4-5.1); Sodium 138 mMol/L (136-145); Total Protein 5.5 gm/dL (5.7-8.2); eGFR 36 See Note
[2024-08-09] MEDS: SODIUM CHLORIDE 0.9% 500 ML 500 ML 100 ML IV (07:51)
[2024-08-09] MEDS: AMIODARONE HCL 200 MG TABLET PO ×2 (08:26→21:30)
[2024-08-09] MEDS: amLODIPine BESYLATE 5 MG TABLET PO (08:26)
[2024-08-09] MEDS: SENNA TABLET 1 TAB PO (08:26)
[2024-08-09] MEDS: METOPROLOL SUCCINATE XL 25 MG TABCR 100 MG PO (08:27)
--- NOTE | 2024-08-09 11:17 | PC.SS ---
SLATE HANDLER summited SNF referral via ENSO, and completed PASSAR
[2024-08-09] MEDS: oxyCODONE/APAP 5/325 TABLET 1 TAB PO (11:28)
[2024-08-09] MEDS: INSULIN LISPRO (AdmeLOG) 1 UNIT/0.01 ML UNIT SC ×3 (12:02→21:30)
--- NOTE | 2024-08-09 13:03 | ESPR_ITS ---
<Statement entered by Caridad Blackman MD - 08/10/24 01:00> Patient was seen and examined by me personally. I have directly supervised and reviewed documentation by the team resident and agree with its findings with any exceptions or additional findings as below. Plan of care was discussed with the attending, Dr. Mckeon. Patient is post-op day 1 following right hip surgery with Dr. Slade. She is sleeping but arousable to voice, able to answer questions. She denies any complaints of pain this morning. She is receiving morphine and [place] as needed for pain control. Plan to resume home Eliquis 48 hours post-op. Patient creatinine was noted to uptrend from 1.1 to 1.4, therefore given 500 ml fluids and encouraged oral intake. Plan is for discharge to SNF in the next 48 hours. Per case management insurance authorization is likely to be obtained Sunday. Caridad Blackman, PGY-2 Documentation for date of: 08/09/24 Subjective Subjective Interval history: 08/09/2024: No acute overnight events to report; patient is postop day 1 from right hip surgery. Patient seen and examined in hospital bed is awake and answering questions, but does have some pain secondary to the surgery. Patient otherwise denies having any concerning symptoms such as chest pain, shortness of breath, palpitations, abdominal pain or any new headaches. Patient's kidney function worsened with laboratory findings today creatinine went up from 1.1- 1.4; likely secondary to dehydration and poor p.o. intake. Started patient on 100 cc an hour of maintenance fluids for one 500 cc bag; moreover, will continue to assess the patient and expect discharge within the next 24 hours to SNF. Exam Vital Signs Temp Pulse Resp BP Pulse Ox O2 Del Method O2 Flow Rate 98.3 F 76 23 H 124/67 99 Nasal Cannula 1 08/09/24 08:00 08/09/24 08:27 08/09/24 08:00 08/09/24 08:27 08/09/24 08:00 08/09/24 08:00 08/09/24 08:00 Narrative Exam Physical Exam: GENERAL: Awake, answering questions appropriately, appears stated age, frail and in pain 2/2 to R-hip fracture HEENT: NC/AT. Moist mucosa. PERRLA/EOMI. CARDIO: Heart RRR, no obvious murmurs, no JVD. PULM: No coughing or visible SOB. Lungs CTA B/L. GI: Abdomen soft, NT/ND, +BS. SKIN/MSK/EXT: Grade I/II Sacral wound noted. No discoloration/rashes/edema/amputations noted. +Pedal pulses present B/L. NEURO: Oriented x3, no focal neurological deficits noted Objective Labs 08/10/24 05:54 08/10/24 05:54 Labs: Laboratory Results - last 24 hr 08/08/24 08/09/24 11:50 05:12 WBC 9.5 RBC 3.39 L Hgb 9.5 L Hct 29.0 L MCV 86 MCH 28.0 MCHC 32.8 RDW Std Deviation 50.5 H Plt Count 225 D Neut % (Auto) 78 Lymph % (Auto) 7 L [place] % (Auto) 14 H Eos % (Auto) 0 Baso % (Auto) 0 Neut # (Auto) 7.4 Lymph # (Auto) 0.7 L [place] # (Auto) 1.4 H Eos # (Auto) 0.0 Baso # (Auto) 0.0 Immature Gran # (Auto) 0.03 H Absolute Nucleated RBC 0.00 Immature Gran % 0 Nucleated RBC % 0 PT 10.9 INR 1.0 Sodium 138 Potassium 3.7 Chloride 101 Carbon Dioxide 28.3 Anion Gap 9 BUN 32 H Creatinine 1.4 H Estim Creat Clear Calc 24.4 L eGFR 36 L BUN/Creatinine Ratio 23 H Glucose 187 H D Calculated Osmolality 287 Calcium 8.7 Corrected Calcium 9.3 Magnesium 2.0 Total Bilirubin 0.3 AST 82 H ALT 56 H Alkaline Phosphatase 62 Total Protein 5.5 L Albumin 3.2 L Globulin 2.3 Albumin/Globulin Ratio 1.4 Blood Type O Positive Antibody Screen NEGATIVE Crossmatch See Detail Blood Bank Wristband ID Yes Quality Measures Quality Measures none Advance care planning discussed with:: patient and child Assessment & Plan Assessment Current Active Medications: Generic Name Dose Route Start Last Admin Trade Name Freq PRN Reason Stop Dose Admin Acetaminophen 650 mg 08/06/24 08:35 Acetaminophen 325 Mg Tablet PO 09/05/24 08:34 Q6H PRN Pain 1-3 and/or Fever >100.1 Amiodarone HCl 200 mg 08/06/24 21:00 08/09/24 08:26 Amiodarone Hcl 200 Mg Tablet PO 09/05/24 20:59 200 mg BID CATE Administration Amlodipine Besylate 5 mg 08/06/24 11:00 08/09/24 08:26 Amlodipine Besylate 5 Mg Tablet PO 09/05/24 10:59 5 mg DAILY CATE Administration Dextrose 25 ml 08/06/24 11:05 Dextrose 50%-Water Inj 50 Ml Syringe IV 09/05/24 11:04 Q15MIN PRN BG 50-70 responsive npo pt Dextrose 50 ml 08/06/24 11:05 Dextrose 50%-Water Inj 50 Ml Syringe IV 09/05/24 11:04 Q15MIN PRN BG <50 OR BG <70 & pt unresponsive Glucagon 1 mg 08/06/24 11:05 Glucagon Inj 1 Mg Vial IM Q15MIN PRN BG <70, and no IV access Heparin Sodium (Porcine) 5,000 unit 08/06/24 09:00 08/07/24 08:45 Heparin Sod Inj 5000 Unit/Ml Vial SC 08/20/24 08:59 5,000 unit Q12HR CATE Administration Insulin Human Lispro 0 unit 08/08/24 21:00 08/09/24 12:02 Insulin Lispro (Admelog) 1 Unit/0.01 Ml Unit SC 09/07/24 20:59 3 unit ACHS CATE Administration Protocol Metoprolol Succinate 100 mg 08/06/24 11:00 08/09/24 08:27 Metoprolol Succinate Xl 25 Mg Tabcr PO 09/05/24 10:59 100 mg DAILY CATE Administration Midazolam HCl 1 mg 08/08/24 16:58 Midazolam Inj 1 Mg/Ml Vial 2 Ml IV 08/09/24 16:57 Q5MIN PRN ANXIETY Morphine Sulfate 1 mg 08/07/24 10:19 08/09/24 02:56 Morphine Sulf Inj 10 Mg/Ml Vial IVP 08/11/24 08:34 1 mg Q2H PRN Administration PAIN SCALE 7-10 (Severe Ondansetron HCl 4 mg 08/06/24 08:35 Ondansetron Inj 2 Mg/Ml Inj 2 Ml IV 09/05/24 08:34 Q6H PRN NAUSEA OR VOMITING Protocol Oxycodone/Acetaminophen 1 tab 08/06/24 08:35 08/09/24 11:28 Oxycodone/Apap 5/325 Tablet PO 08/11/24 08:34 1 tab Q6H PRN Administration PAIN SCALE 4-6 (Moderate Sennosides 1 tab 08/06/24 09:00 08/09/24 08:26 Senna Tablet PO 09/05/24 08:59 1 tab QDAY CATE Administration Protocol Plan 89-year-old female with past medical history of atrial fibrillation on Eliquis status post pacemaker, hypertension, non-insulin dependent type 2 diabetes, on 2 L home oxygen presenting to the ED on 08/06/2024 with an episode of ground-level fall will be admitted for orthopedic consultation and likely surgery pending cardiac clearance. #Ground-level fall #Acute Intertrochanteric fracture of the right hip Per HPI above, patient had a ground-level fall while walking her dogs inside her residence Patient denies losing consciousness or hitting her head but she is not the most accurate historian In the ED, patient presented hypertensive likely secondary to pain and given a total of 5 mg IV morphine Imaging findings included cervical spine CT which showed no acute fracture CT chest/abdomen/pelvis showed acute intertrochanteric fracture of the right hip Head CT was negative for any acute process Hip/pelvis x-ray confirmed a fracture of the right hip, and knee x-ray was negative for any acute fracture and femur x-ray again confirmed fracture of the right hip. Patient's family understands that the patient will require SNF placement after surgery Cleared by cardiology Plan: Multimodal analgesia Dr. Slade, orthopedic surgery, consulted appreciate recommendations PT consult, SNF placement pending #KELSEA #Likely prerenal azotemia Patient's creatinine uptrending from 1.1 to 1.4 Patient does have poor p.o. intake and has not been eating well as noted on meal inquiry Plan: Started gentle IV fluid hydration with 100 cc an hour of NS for one bag 500 cc Will monitor with morning labs Encourage p.o. intake #Atrial fibrillation, likely paroxysmal #Hypertension #Cardiac clearance CHADVASc of 5?points Stroke risk was 7.2% per year in >90,000 patients? Patient on home amiodarone 200 mg p.o. twice daily and Eliquis for atrial fibrillation On home amlodipine 5 mg p.o. daily and metoprolol succinate 100 mg p.o. daily for hypertension Currently normal sinus rhythm Plan: Holding Eliquis, will restart upon 48 hours postop Continue amiodarone, metoprolol and amlodipine Dr. Yung, cardiology, consulted for cardiac clearance; appreciate recommendations Cardiac diet Telemetry monitoring #[id number] type 2 diabetes Last A1c on file 6.4 on 06/08/2024 Patient does not appear to be on any home medications for diabetes Plan: Sliding scale insulin Bedside blood glucose monitoring #Thyroid nodules CT chest/abdomen/pelvis showed right thyromegaly and right thyroid nodules On last admission, Dr. Helms was consulted about these thyroid nodules but there were not big enough for biopsy Plan at that time was for the patient to follow-up with Dr. Helms outpatient Plan: Patient will need to follow-up with Dr. Helms upon discharge #Sacral Pressure Ulcer As noted on exam, patient has G1/2 sacral ulcer Plan: Wound care ordered Hospital Management: Lines: PIV Diet: Dysphagia I, cardiac + Ensure added Bowel: Senna GI prophylaxis: Not needed DVT prophylaxis: Heparin subcu Dispo: Pending cardiac clearance for right hip surgery Code: Limited (chest compressions okay until patient's family notified, no intubation) Patient seen and examined with attending Dr. Mckeon and senior resident Dr. Hiral Handy, PGY-1 Attending Provider Attestation/Addendum I have examined the patient, reviewed labs and imaging findings, discussed the case with the resident(s), and reviewed entered orders. I agree with the plan of care as outlined in this note, with these additional summaries/recommendations: Patient is a 89-year-old female with a medical history of previous hip fracture, chronic atrial fibrillation, history of pacemaker, primary hypertension, chronic O2 home therapy, diabetes mellitus type 2 who presented to [facility] emergency department on 08/06/2024 with chief complaint of ground-level mechanical fall patient was found to have right hip fracture and hospitalist team consulted for continuation of care. Patient seen at bedside. No acute overnight events. Patient appears very somnolent at bedside and we will hold increasing pain regimen. Patient is POD # 2 s/p surgical correction of acute intertrochanteric fracture of right hip. Continue pain management. Hold chemical anticoagulation and will resume tomorrow 08/10. Continue amiodarone for history of A-fib. Cardiology following. Repeat hematology and chemistry panel in AM. Patient encouraged to work with physical therapy. Dr. Mike MD
[2024-08-10] VITALS (11 sets, daily range): BP systolic 122–152; BP diastolic 57–77; PULSE 61–76; RESP 13–96; TEMP 36.1–36.9; O2SAT 92–99; BMI 25.0; BMI 12.0
[2024-08-10 06:29] LABS: Basophils % (Auto) 0 % (0-2.5); Eosinophils # (Auto) 0.1 Thou/mm3 (0.0-0.5); Eosinophils % (Auto) 1 % (0-10); Hematocrit 27.6 % (36.0-46.0); Immature Granulocytes % (Auto) 1 % (0-0); Immature Granulocytes Auto 0.06 Thou/mm3 (0.00-0.00); Lymphocytes # (Auto) 1.1 Thou/mm3 (1.0-4.8); Lymphocytes % (Auto) 9 % (10-50); Mean Corpuscular HGB Conc 32.6 g/dl (31.0-37.0); Mean Corpuscular Volume 86 fL (80-100); Monocytes # (Auto) 1.6 Thou/mm3 (0.0-0.8); Monocytes % (Auto) 14 % (0-12); Neutrophils # (Auto) 8.5 Thou/mm3 (1.8-7.7); Neutrophils % (Auto) 76 % (37-80); Nucleated Red Blood Cell % 0 /100 WBC (0); Platelet Count 258 Thou/mm3 (140-440); RDW Standard Deviation 51.5 fL (36.4-46.3); Red Blood Count 3.22 Miln/mm3 (4.00-5.20); White Blood Count 11.3 Thou/mm3 (3.6-11.0)
[2024-08-10 06:45] LABS: Alanine Aminotransferase 47 U/L (10-49); Albumin, Serum 3.1 gm/dL (3.4-4.8); Albumin/Globulin Ratio 1.4 (1.2-2.2); Alkaline Phosphatase 60 U/L (46-116); Anion Gap 6 (7-16); Aspartate Amino Transferase 48 U/L (0-34); BUN/Creatinine Ratio 26 Ratio (12-20); Bilirubin,Total 0.4 mg/dL (0.3-1.2); Blood Urea Nitrogen 34 mg/dL (9-23); Calcium 8.8 mg/dL (8.3-10.6); Calcium (Corrected) 9.5 mg/dL (8.5-10.1); Carbon Dioxide 28.6 mMol/L (20.0-31.0); Chloride 107 mMol/L (98-107); Creatinine (Component) 1.3 mg/dL (0.6-1.3); Estimated Creatinine Clearance 28.6 mL/min (>60); Globulin 2.2 gm/dL (2.3-3.5); Glucose 171 mg/dL (74-106); Osmolality,Calculated 294 (275-295); Potassium 4.9 mMol/L (3.4-5.1); Sodium 142 mMol/L (136-145); Total Protein 5.3 gm/dL (5.7-8.2); eGFR 40 See Note
[2024-08-10] MEDS: INSULIN LISPRO (AdmeLOG) 1 UNIT/0.01 ML UNIT SC ×4 (07:56→21:37)
[2024-08-10] MEDS: METOPROLOL SUCCINATE XL 25 MG TABCR 100 MG PO (09:17)
[2024-08-10] MEDS: amLODIPine BESYLATE 5 MG TABLET PO (09:20)
[2024-08-10] MEDS: AMIODARONE HCL 200 MG TABLET PO ×2 (09:20→20:11)
[2024-08-10] MEDS: SENNA TABLET 1 TAB PO (09:20)
[2024-08-10] MEDS: SODIUM CHLORIDE 0.9% 1000 ML 1,000 ML 75 ML IV (09:22)
[2024-08-10] MEDS: APIXABAN 2.5 MG TABLET 5 MG PO ×2 (10:38→20:11)
--- NOTE | 2024-08-10 10:58 | PC.SS ---
CANDIDO followed up with Rach from [employer] on pt's auth, and Rach stated it was still pending
--- NOTE | 2024-08-10 14:34 | PD.RESPRO ---
Documentation for date of: 08/10/24 Subjective Subjective Interval history: No acute events overnight.?Patient seen and examined at bedside this AM.?Patient is post-op Day 2 following right hip surgery. She denied pain this morning. She was unable to participate much in PT secondary to pain at that time. Pain meds to be given prior to next PT session. Patient appears to express lethargy and doubts as to whether she will get better. She was given encouragement. Labs and vitals were reviewed. Patient stable on room air. On labs there is mild leukocytosis of 11.3, likely reactive. Creatinine downtrended slightly from 1.4 to 1.3, will add another 1L IV fluids at 75 ml/hr. Planning to continue patient's Eliquis today as it has been 48 hours post-op. Pending discharge to SNF, insurance authorization awaiting approval, likely Sunday.?No further complaints at this time. Review of systems otherwise negative except what is mentioned above. Exam Vital Signs Temp Pulse Resp BP Pulse Ox O2 Del Method O2 Flow Rate 98.1 F 69 15 128/73 97 Room Air 1 08/10/24 12:00 08/10/24 12:00 08/10/24 12:00 08/10/24 12:00 08/10/24 12:00 08/10/24 12:00 08/10/24 04:00 Narrative Exam Physical Exam: GENERAL: Awake, answering questions appropriately, appears stated age, frail and in pain 2/2 to R-hip fracture HEENT: NC/AT. Moist mucosa. PERRLA/EOMI. CARDIO: Heart RRR, no obvious murmurs, no JVD. PULM: No coughing or visible SOB. Lungs CTA B/L. GI: Abdomen soft, NT/ND, +BS. SKIN/MSK/EXT: Grade I/II Sacral wound noted. No discoloration/rashes/edema/amputations noted. +Pedal pulses present B/L. NEURO: Oriented x3, no focal neurological deficits noted Objective Labs 08/11/24 05:32 08/11/24 05:32 Labs: Laboratory Results - last 24 hr 08/10/24 05:54 WBC 11.3 H RBC 3.22 L Hgb 9.0 L Hct 27.6 L MCV 86 MCH 28.0 MCHC 32.6 RDW Std Deviation 51.5 H Plt Count 258 D Neut % (Auto) 76 Lymph % (Auto) 9 L [place] % (Auto) 14 H Eos % (Auto) 1 Baso % (Auto) 0 Neut # (Auto) 8.5 H Lymph # (Auto) 1.1 [place] # (Auto) 1.6 H Eos # (Auto) 0.1 Baso # (Auto) 0.0 Immature Gran # (Auto) 0.06 H Absolute Nucleated RBC 0.00 Immature Gran % 1 H Nucleated RBC % 0 Sodium 142 Potassium 4.9 D Chloride 107 Carbon Dioxide 28.6 Anion Gap 6 L BUN 34 H Creatinine 1.3 Estim Creat Clear Calc 28.6 L eGFR 40 L BUN/Creatinine Ratio 26 H Glucose 171 H Calculated Osmolality 294 Calcium 8.8 Corrected Calcium 9.5 Total Bilirubin 0.4 AST 48 H ALT 47 Alkaline Phosphatase 60 Total Protein 5.3 L Albumin 3.1 L Globulin 2.2 L Albumin/Globulin Ratio 1.4 Quality Measures Quality Measures none Advance care planning discussed with:: patient Assessment & Plan Assessment Current Active Medications: Generic Name Dose Route Start Last Admin Trade Name Freq PRN Reason Stop Dose Admin Acetaminophen 650 mg 08/06/24 08:35 Acetaminophen 325 Mg Tablet PO 09/05/24 08:34 Q6H PRN Pain 1-3 and/or Fever >100.1 Amiodarone HCl 200 mg 08/06/24 21:00 08/10/24 09:20 Amiodarone Hcl 200 Mg Tablet PO 09/05/24 20:59 200 mg BID CATE Administration Amlodipine Besylate 5 mg 08/06/24 11:00 08/10/24 09:20 Amlodipine Besylate 5 Mg Tablet PO 09/05/24 10:59 5 mg DAILY CATE Administration Apixaban 5 mg 08/10/24 10:00 08/10/24 10:38 Apixaban 2.5 Mg Tablet PO 09/09/24 09:59 5 mg BID CATE Administration Dextrose 25 ml 08/06/24 11:05 Dextrose 50%-Water Inj 50 Ml Syringe IV 09/05/24 11:04 Q15MIN PRN BG 50-70 responsive npo pt Dextrose 50 ml 08/06/24 11:05 Dextrose 50%-Water Inj 50 Ml Syringe IV 09/05/24 11:04 Q15MIN PRN BG <50 OR BG <70 & pt unresponsive Glucagon 1 mg 08/06/24 11:05 Glucagon Inj 1 Mg Vial IM Q15MIN PRN BG <70, and no IV access Sodium Chloride 1,000 mls @ 75 mls/hr 08/10/24 07:50 08/10/24 09:22 Ns IV 08/10/24 21:09 75 mls/hr .[id number] CATE Administration Insulin Human Lispro 0 unit 08/08/24 21:00 08/10/24 11:49 Insulin Lispro (Admelog) 1 Unit/0.01 Ml Unit SC 09/07/24 20:59 1 unit ACHS CATE Administration Protocol Metoprolol Succinate 100 mg 08/06/24 11:00 08/10/24 09:17 Metoprolol Succinate Xl 25 Mg Tabcr PO 09/05/24 10:59 100 mg DAILY CATE Administration Morphine Sulfate 1 mg 08/07/24 10:19 08/09/24 02:56 Morphine Sulf Inj 10 Mg/Ml Vial IVP 08/11/24 08:34 1 mg Q2H PRN Administration PAIN SCALE 7-10 (Severe Ondansetron HCl 4 mg 08/06/24 08:35 Ondansetron Inj 2 Mg/Ml Inj 2 Ml IV 09/05/24 08:34 Q6H PRN NAUSEA OR VOMITING Protocol Oxycodone/Acetaminophen 1 tab 08/06/24 08:35 08/09/24 11:28 Oxycodone/Apap 5/325 Tablet PO 08/11/24 08:34 1 tab Q6H PRN Administration PAIN SCALE 4-6 (Moderate Sennosides 1 tab 08/06/24 09:00 08/10/24 09:20 Senna Tablet PO 09/05/24 08:59 1 tab QDAY CATE Administration Protocol Plan 89-year-old female with past medical history of atrial fibrillation on Eliquis status post pacemaker, hypertension, non-insulin dependent type 2 diabetes, on 2 L home oxygen presenting to the ED on 08/06/2024 with an episode of ground-level fall will be admitted for orthopedic consultation and likely surgery pending cardiac clearance. #Ground-level fall #Acute Intertrochanteric fracture of the right hip Per HPI above, patient had a ground-level fall while walking her dogs inside her residence Patient denies losing consciousness or hitting her head but she is not the most accurate historian In the ED, patient presented hypertensive likely secondary to pain and given a total of 5 mg IV morphine Imaging findings included cervical spine CT which showed no acute fracture CT chest/abdomen/pelvis showed acute intertrochanteric fracture of the right hip Head CT was negative for any acute process Hip/pelvis x-ray confirmed a fracture of the right hip, and knee x-ray was negative for any acute fracture and femur x-ray again confirmed fracture of the right hip. Patient's family understands that the patient will require SNF placement after surgery Cleared by cardiology Plan: Multimodal analgesia, morphine and [place] Dr. Slade, orthopedic surgery, consulted appreciate recommendations PT consult, SNF placement pending insurance authorization #KELSEA #Likely prerenal azotemia Patient's creatinine uptrending from 1.1 to 1.4 Patient does have poor p.o. intake and has not been eating well as noted on meal inquiry Plan: Continue gentle IV fluid hydration with 75 cc an hour of NS for one bag 1000 cc Will monitor with morning labs Encourage p.o. intake #Atrial fibrillation, likely paroxysmal #Hypertension #Cardiac clearance CHADVASc of 5?points Stroke risk was 7.2% per year in >90,000 patients? Patient on home amiodarone 200 mg p.o. twice daily and Eliquis for atrial fibrillation On home amlodipine 5 mg p.o. daily and metoprolol succinate 100 mg p.o. daily for hypertension Currently normal sinus rhythm Plan: Restart home Eliquis 5 mg BID Continue amiodarone, metoprolol and amlodipine Dr. Yung, cardiology, consulted for cardiac clearance; appreciate recommendations Cardiac diet Telemetry monitoring #[id number] type 2 diabetes Last A1c on file 6.4 on 06/08/2024 Patient does not appear to be on any home medications for diabetes Plan: Sliding scale insulin Bedside blood glucose monitoring #Thyroid nodules CT chest/abdomen/pelvis showed right thyromegaly and right thyroid nodules On last admission, Dr. Helms was consulted about these thyroid nodules but there were not big enough for biopsy Plan at that time was for the patient to follow-up with Dr. Helms outpatient Plan: Patient will need to follow-up with Dr. Helms upon discharge #Sacral Pressure Ulcer As noted on exam, patient has G1/2 sacral ulcer Plan: Wound care ordered Hospital Management: Lines: PIV Diet: Dysphagia I, cardiac + Ensure added Bowel: Senna GI prophylaxis: Not needed DVT prophylaxis: Eliquis Dispo: Pending insurance auth for SNF placement Code: Limited (chest compressions okay until patient's family notified, no intubation) Patient plan of care was discussed with the attending physician, Dr. Mckeon. Caridad Blackman, PGY-2 Attending Provider Attestation/Addendum I have examined the patient, reviewed labs and imaging findings, discussed the case with the resident(s), and reviewed entered orders. I agree with the plan of care as outlined in this note, with these additional summaries/recommendations: Patient is a 89-year-old female with a medical history of previous hip fracture, chronic atrial fibrillation, history of pacemaker, primary hypertension, chronic O2 home therapy, diabetes mellitus type 2 who presented to [facility] emergency department on 08/06/2024 with chief complaint of ground-level mechanical fall patient was found to have right hip fracture and hospitalist team consulted for continuation of care. Patient seen at bedside. No acute overnight events. Patient is somewhat somnolent today but appears comfortable. She reports her pain is controlled. Continue pain management. Patient is encouraged to continue to work with physical therapy. Continue amiodarone for history of chronic atrial fibrillation. We will resume home Eliquis for atrial fibrillation and DVT prophylaxis. Patient is cleared for discharge although pending authorization for half-way facility. Patient updated on the plan and in agreement. Anticipate discharge in the next [address] Mike MD
--- NOTE | 2024-08-10 18:12 | PD.IMPROG ---
Documentation for date of: 08/10/24 Subjective Subjective Interval history: Patient seen and examined at the bedside. No new cardiac complaints. patient had successful right hip fracture surgery with an intermediate TFNA without any major cardiac complications. Resume Eliquis 48 hours after surgery if clinically warranted if hemostasis achieved. Overall patient doing well and plan is to discharge her to senior living facility. Rest of the labs and vitals appear to be stable. Exam Vital Signs Temp Pulse Resp BP Pulse Ox O2 Del Method O2 Flow Rate 98.4 F 70 20 122/67 96 Room Air 1 08/10/24 16:00 08/10/24 16:00 08/10/24 16:00 08/10/24 16:00 08/10/24 16:00 08/10/24 16:08/10/24 04:00 Narrative Exam General: AAOx2 (person, place), in no acute distress HEENT: Atraumatic/normocephalic Heart: RRR, S1 and S2 without clicks or murmurs Lungs: Clear on auscultation bilaterally Abdomen: Soft, nontender. Bowel sounds present on all quadrants Neuro: No focal neurological deficits noted on appearance, however unable to test individual cranial nerves Extremities: s/p dressing right thigh, site appears clean and slightly tender Objective Labs 08/11/24 05:32 08/11/24 05:32 Labs: Laboratory Results - last 24 hr 08/10/24 05:54 WBC 11.3 H RBC 3.22 L Hgb 9.0 L Hct 27.6 L MCV 86 MCH 28.0 MCHC 32.6 RDW Std Deviation 51.5 H Plt Count 258 D Neut % (Auto) 76 Lymph % (Auto) 9 L [place] % (Auto) 14 H Eos % (Auto) 1 Baso % (Auto) 0 Neut # (Auto) 8.5 H Lymph # (Auto) 1.1 [place] # (Auto) 1.6 H Eos # (Auto) 0.1 Baso # (Auto) 0.0 Immature Gran # (Auto) 0.06 H Absolute Nucleated RBC 0.00 Immature Gran % 1 H Nucleated RBC % 0 Sodium 142 Potassium 4.9 D Chloride 107 Carbon Dioxide 28.6 Anion Gap 6 L BUN 34 H Creatinine 1.3 Estim Creat Clear Calc 28.6 L eGFR 40 L BUN/Creatinine Ratio 26 H Glucose 171 H Calculated Osmolality 294 Calcium 8.8 Corrected Calcium 9.5 Total Bilirubin 0.4 AST 48 H ALT 47 Alkaline Phosphatase 60 Total Protein 5.3 L Albumin 3.1 L Globulin 2.2 L Albumin/Globulin Ratio 1.4 Assessment & Plan A&P Narrative Patient is a 89-year-old female with history of hypertension, atrial fibrillation on Eliquis s/p pacemaker in July 2023 for, [id number] diabetes mellitus, and home 2 L of oxygen who presented to the ED with concerns of ground-level fall, was found to have right-sided acute intertrochanteric fracture. Orthopedic surgeon Dr. Slade was consulted with possible surgery planned for 08/08/2024, cardiology team was consulted for preoperative cardiac clearance. #Right sided intertrochanteric hip fracture #Hx of Hypertension #Hx of Atrial fibrillation on Eliquis s/p Pacemaker placement - Femur xray: Acute intertrochanteric fracture right hip - EKG (08/06): Electronic atrial pacemaker, HR 70 bpm - Echo (Jun 2024): EF 60-65%, normal LV and RV size/function - Echo (August 2024): EF 60-65%, Diastolic dysfunction II. MAC with mild mitral regurgitation. Aortic sclerosis no stenosis. Mild TR - CHADVasc 5 - Independent risk factors predicting major cardiac complications: No CAD, renal insufficiency (pre-op Cr noted to be 1.1, less than 2.0), diabetes requiring insulin, heart failure, or CVA history noted. - Continue home amiodarone, amlodipine, and metoprolol - Patient remains low-risk for cardiac complications, surgery intermediate-risk - patient had successful right hip fracture surgery with an intermediate TFNA without any major cardiac complications. - Overall patient doing well and plan is to discharge her to senior living facility. - Rest of the labs and vitals appear to be stable - Resume Eliquis 48 hours after surgery if clinically warranted #Thyroid nodules #Hx Sacral Pressure Ulcer #Hx of NIDDM - Management per primary team Management of rest of the medical conditions as per primary team and other consultants. Thank you for the consult and allowing me to participate in the care of the patient. Cardiology will continue to follow. Nate Murphy M.D. Interventional Cardiology Time Spent With Patient Time: Total time spent is greater than 50% in coordination of care (as documented) at patient's floor/unit and/or counseling patient:
[2024-08-11] VITALS (8 sets, daily range): BP systolic 123–156; BP diastolic 56–75; PULSE 60–86; RESP 15–93; TEMP 36.3–36.7; O2SAT 92–97; BMI 26.1; BMI 12.0
[2024-08-11] MEDS: MORPHINE SULF INJ 10 MG/ML VIAL IVP (01:10)
[2024-08-11] MEDS: oxyCODONE/APAP 5/325 TABLET 1 TAB PO (04:54)
[2024-08-11 06:12] LABS: Basophils % (Auto) 0 % (0-2.5); Eosinophils # (Auto) 0.1 Thou/mm3 (0.0-0.5); Eosinophils % (Auto) 1 % (0-10); Hematocrit 25.6 % (36.0-46.0); Immature Granulocytes % (Auto) 1 % (0-0); Immature Granulocytes Auto 0.08 Thou/mm3 (0.00-0.00); Lymphocytes # (Auto) 0.8 Thou/mm3 (1.0-4.8); Lymphocytes % (Auto) 8 % (10-50); Mean Corpuscular HGB Conc 32.4 g/dl (31.0-37.0); Mean Corpuscular Hemoglobin 27.4 pg (25.0-35.0); Mean Corpuscular Volume 85 fL (80-100); Monocytes # (Auto) 1.2 Thou/mm3 (0.0-0.8); Monocytes % (Auto) 12 % (0-12); Neutrophils # (Auto) 8.4 Thou/mm3 (1.8-7.7); Neutrophils % (Auto) 79 % (37-80); Nucleated Red Blood Cell % 0 /100 WBC (0); Platelet Count 269 Thou/mm3 (140-440); RDW Standard Deviation 50.7 fL (36.4-46.3); Red Blood Count 3.03 Miln/mm3 (4.00-5.20); White Blood Count 10.6 Thou/mm3 (3.6-11.0)
[2024-08-11 06:32] LABS: Hemoglobin 8.3 g/dL (12.0-16.0)
[2024-08-11 06:43] LABS: Alanine Aminotransferase 44 U/L (10-49); Albumin, Serum 2.9 gm/dL (3.4-4.8); Anion Gap 9 (7-16); Aspartate Amino Transferase 45 U/L (0-34); BUN/Creatinine Ratio 30 Ratio (12-20); Bilirubin,Total 0.6 mg/dL (0.3-1.2); Blood Urea Nitrogen 30 mg/dL (9-23); Calcium 8.7 mg/dL (8.3-10.6); Calcium (Corrected) 9.6 mg/dL (8.5-10.1); Carbon Dioxide 26.4 mMol/L (20.0-31.0); Chloride 105 mMol/L (98-107); Estimated Creatinine Clearance 37.9 mL/min (>60); Glucose 222 mg/dL (74-106); Osmolality,Calculated 292 (275-295); Potassium 3.5 mMol/L (3.4-5.1); Sodium 140 mMol/L (136-145); Total Protein 5.1 gm/dL (5.7-8.2); eGFR 55 See Note
[2024-08-11 06:44] LABS: Albumin/Globulin Ratio 1.3 (1.2-2.2); Alkaline Phosphatase 63 U/L (46-116); Globulin 2.2 gm/dL (2.3-3.5)
[2024-08-11] MEDS: INSULIN LISPRO (AdmeLOG) 1 UNIT/0.01 ML UNIT SC ×2 (07:35→12:00)
--- NOTE | 2024-08-11 08:40 | PC.SS ---
Addendum entered by Chana Rees 08/11/24 16:04: SS spoke to Malini at [facility] who explained she will be providing [facility] with insurance authorization. SS has spoke to Rach at [facility] who states they have received insurance authorization. SS has setup gurney transportation with Sera from [facility] and requested transportation time of 6pm with [facility]. Ref# [id number]. Estimated time is 3-4 hours. SS has sent patient's facesheet and ambulance form to [facility] using [employer]. SS spoke to Nereyda at [facility] and provided her with 2nd floor's phone# to follow up with transport time once they have been [facility]. SS provided [employer] with 2nd floor's phone# to follow up with transport. Patient's son is aware transport time is around 6pm to [facility]. Bedside nurse, Sukhwinder is aware. Rach at [facility] is aware. Joyce CHOWDHURY is aware and [facility] [phone] will contact her with transport time. Addendum entered by Chana Rees 08/11/24 13:39: SS followed up with Concepción at [facility] for insurance authorization. Insurance authorization is still pending. SS left phone# for [facility] to contact SS once authorization is provided. Concepción is aware [facility] has accepted pt. Addendum entered by Chana Rees 08/11/24 11:13: SS has confirmed with Rach at [facility] she is working on insurance authorization. SS has sent updated PT notes and PASRR assessment to [facility] using [employer]. Original Note: Follow up note: SS spoke to Rach at [facility] who explained she will start insurance authorization this morning.? Insurance authorization was not started yesterday due to being Sunday (unable to start insurance authorization over the weekend)
[2024-08-11] MEDS: AMIODARONE HCL 200 MG TABLET PO (08:55)
[2024-08-11] MEDS: SENNA TABLET 1 TAB PO (08:55)
[2024-08-11] MEDS: amLODIPine BESYLATE 5 MG TABLET PO (08:56)
[2024-08-11] MEDS: METOPROLOL SUCCINATE XL 25 MG TABCR 100 MG PO (08:56)
[2024-08-11] MEDS: APIXABAN 2.5 MG TABLET 5 MG PO (08:56)
[2024-08-11] MEDS: INSULIN HUM REGULAR 1 UNIT/0.01 ML (PER UNIT) 5 UNIT IV (10:57)
[2024-08-11] MEDS: POTASSIUM CHLORIDE 10% 20 MEQ/15 ML UDC 40 MEQ PO (10:58)
--- NOTE | 2024-08-11 13:00 | ESPR_ITS ---
<Statement entered by Aura Yung MD - 08/13/24 08:45> I personally examined the patient appears to be doing better postoperatively recovering well no complication remains in sinus rhythm evaluated the patient with resident physician Dr. Bernard Del Real agree with the treatment plan recommendation recommend the patient to keep her regular appointment to see me as an outpatient Documentation for date of: 08/11/24 Subjective Subjective Interval history: Overnight events, lab/imaging results, and notes reviewed. Patient examined bedside, reports feeling well today without any complaints. States her leg pain has mostly resolved, still AOx2 today, may be patient's baseline. Right hip cephalomedullary nail procedure was completed by orthopedic surgery team on 08/08, patient pending discharge to SNF. Exam Vital Signs Temp Pulse Resp BP Pulse Ox O2 Del Method O2 Flow Rate 97.9 F 77 19 151/62 H 96 Room Air 1 08/11/24 12:00 08/11/24 12:00 08/11/24 12:00 08/11/24 12:00 08/11/24 12:00 08/11/24 12:00 08/11/24 04:00 Narrative Exam General: AOx2 (person, place), in no acute distress HEENT: Atraumatic/normocephalic Heart: RRR, S1 and S2 without clicks or murmurs Lungs: Clear on auscultation bilaterally Abdomen: Soft, nontender. Bowel sounds present on all quadrants Neuro: No focal neurological deficits noted on appearance, however unable to test individual cranial nerves Objective Labs 08/11/24 05:32 08/11/24 05:32 Labs: Laboratory Results - last 24 hr 08/08/24 08/11/24 11:50 05:32 WBC 10.6 RBC 3.03 L Hgb 8.3 L Hct 25.6 L MCV 85 MCH 27.4 MCHC 32.4 RDW Std Deviation 50.7 H Plt Count 269 Neut % (Auto) 79 Lymph % (Auto) 8 L Stearns % (Auto) 12 Eos % (Auto) 1 Baso % (Auto) 0 Neut # (Auto) 8.4 H Lymph # (Auto) 0.8 L Stearns # (Auto) 1.2 H Eos # (Auto) 0.1 Baso # (Auto) 0.0 Immature Gran # (Auto) 0.08 H Absolute Nucleated RBC 0.00 Immature Gran % 1 H Nucleated RBC % 0 Sodium 140 Potassium 3.5 D Chloride 105 Carbon Dioxide 26.4 Anion Gap 9 BUN 30 H Creatinine 1.0 Estim Creat Clear Calc 37.9 L eGFR 55 L BUN/Creatinine Ratio 30 H Glucose 222 H D Calculated Osmolality 292 Calcium 8.7 Corrected Calcium 9.6 Total Bilirubin 0.6 AST 45 H ALT 44 Alkaline Phosphatase 63 Total Protein 5.1 L Albumin 2.9 L Globulin 2.2 L Albumin/Globulin Ratio 1.3 Crossmatch See Detail Quality Measures Quality Measures none Advance care planning discussed with:: patient Assessment & Plan Assessment Current Active Medications: Generic Name Dose Route Start Last Admin Trade Name Freq PRN Reason Stop Dose Admin Acetaminophen 650 mg 08/06/24 08:35 Acetaminophen 325 Mg Tablet PO 09/05/24 08:34 Q6H PRN Pain 1-3 and/or Fever >100.1 Amiodarone HCl 200 mg 08/06/24 21:00 08/11/24 08:55 Amiodarone Hcl 200 Mg Tablet PO 09/05/24 20:59 200 mg BID CATE Administration Amlodipine Besylate 5 mg 08/06/24 11:00 08/11/24 08:56 Amlodipine Besylate 5 Mg Tablet PO 09/05/24 10:59 5 mg DAILY CATE Administration Apixaban 5 mg 08/10/24 10:00 08/11/24 08:56 Apixaban 2.5 Mg Tablet PO 09/09/24 09:59 5 mg BID CATE Administration Dextrose 25 ml 08/06/24 11:05 Dextrose 50%-Water Inj 50 Ml Syringe IV 09/05/24 11:04 Q15MIN PRN BG 50-70 responsive npo pt Dextrose 50 ml 08/06/24 11:05 Dextrose 50%-Water Inj 50 Ml Syringe IV 09/05/24 11:04 Q15MIN PRN BG <50 OR BG <70 & pt unresponsive Glucagon 1 mg 08/06/24 11:05 Glucagon Inj 1 Mg Vial IM Q15MIN PRN BG <70, and no IV access Insulin Glargine 10 unit 08/11/24 21:00 Insulin Glargine (Lantus) 5 Unit/0.05 Ml (Per 5 Units) SC 09/10/24 20:59 HS CATE Insulin Human Lispro 0 unit 08/08/24 21:00 08/11/24 12:00 Insulin Lispro (Admelog) 1 Unit/0.01 Ml Unit SC 09/07/24 20:59 1 unit ACHS CATE Administration Protocol Metoprolol Succinate 100 mg 08/06/24 11:00 08/11/24 08:56 Metoprolol Succinate Xl 25 Mg Tabcr PO 09/05/24 10:59 100 mg DAILY CATE Administration Ondansetron HCl 4 mg 08/06/24 08:35 Ondansetron Inj 2 Mg/Ml Inj 2 Ml IV 09/05/24 08:34 Q6H PRN NAUSEA OR VOMITING Protocol Sennosides 1 tab 08/06/24 09:00 08/11/24 08:55 Senna Tablet PO 09/05/24 08:59 1 tab QDAY CATE Administration Protocol Plan Patient is a 89-year-old female with history of hypertension, atrial fibrillation on Eliquis s/p pacemaker in July 2023 for, ssd-qorbgci-nvgarwkda diabetes mellitus, and home 2 L of oxygen who presented to the ED with concerns of ground-level fall, was found to have right-sided acute intertrochanteric fracture. Orthopedic surgeon Dr. Slade was consulted with possible surgery planned for 08/08/2024, cardiology team was consulted for preoperative cardiac clearance. #Right sided intertrochanteric hip fracture s/p right hip cephalomedullary nail (intermediate TFNA #Hx of Hypertension #Hx of Atrial fibrillation on Eliquis s/p Pacemaker placement - Femur xray: Acute intertrochanteric fracture right hip - EKG (08/06): Electronic atrial pacemaker, HR 70 bpm - Echo (Jun 2024): EF 60-65%, normal LV and RV size/function - Echo (August 2024): EF 60-65%, Diastolic dysfunction II. MAC with mild mitral regurgitation. Aortic sclerosis no stenosis. Mild TR - CHADVasc 5 - Independent risk factors predicting major cardiac complications: No CAD, renal insufficiency (pre-op Cr noted to be 1.1, less than 2.0), diabetes requiring insulin, heart failure, or CVA history noted. - Continue home amiodarone, amlodipine, and metoprolol - Patient remains low-risk for cardiac complications, surgery intermediate-risk - Patient is cleared for orthopedic surgery from cardiac standpoint. - Surgery completed on 08/08, right hip cephalomedullary nail (intermediate TFNA) completed - Advise resuming eliquis 48 hours after surgery if clinically warranted #Thyroid nodules #Hx Sacral Pressure Ulcer #Hx of NIDDM - Management per primary team Patient case discussed with attending physician Dr. Dilshad Del Real, DO PGY-3
--- NOTE | 2024-08-11 13:45 | ESDS_ITS ---
<Statement entered by Caridad Blackman MD - 08/12/24 08:20> Patient was seen and examined by me personally. I have reviewed the below documentation by the team resident and agree with its findings with any exceptions as below. Discharge plan was discussed with the attending, Dr. Mckeon. Patient ready for discharge and will continue to work with physical therapy s/p right hip repair at acute rehab facility. Caridad Blackman, PGY-2 Planned Discharge Date 08/11/24 DS: Providers Provider Date of admission: 08/06/24 08:50 Primary care physician: Babak García MD Admitting Provider: Trenton Mckeon MD Attending Provider on Admission: Trenton Mckeon MD Consults: 08/06/24 07:12 Consult to Orthopedic Stat Comment: Right hip fracture Consulting Provider: Woodrow Slade 08/06/24 08:38 Referral Physical Therapy Routine Comment: Physician Instructions: 08/06/24 11:15 Consult to Cardiology Routine Comment: Cardiac clearance for R hip surgery Consulting Provider: Aura Yung 08/07/24 12:05 Referral Wound Care Stat Comment: See nurses note 08/07/24 15:47 Referral Nutritional Services Routine Comment: Wounds 08/08/24 17:33 PT [Referral Physical Therapy] Routine Comment: Physician Instructions: Instructions: wbat Attending Provider on DC: Christiano Handy MD Discharging Provider: Christiano Handy MD DS: Diagnosis Problem List Completed Was Problem List Reviewed/Reconciled?: Yes Hospital Course Status at Discharge Cognitive/behavioral status at discharge: 89-year-old female with past medical history of atrial fibrillation on Eliquis status post pacemaker, hypertension, irt-mzgdtux-kmdecxxdz type 2 diabetes, on 2 L home oxygen presenting to the ED on 08/06/2024 with episode of ground-level fall. In the ED, patient presented hypertensive, regular heart rate and afebrile satting 94 on 1 L nasal cannula. Pertinent lab findings include WBC 11.6, troponin within normal limits and urinalysis showed no signs of infection. Imaging studies including cervical spine CT showed no acute fracture, head CT was negative for any acute process, hip/pelvis x-ray confirmed fracture of the right hip and femur x-ray confirmed presence of a fracture. Chest x-ray also showed bilateral edema which was noted. Orthopedic surgery was consulted and requested cardiac clearance for the patient before surgery. Cardiology was consulted and their recommendations were to hold anticoagulation at this time but continue other home medications. Patient was deemed low risk for cardiac complications and surgery; thus, on 08/07/2024 patient completed right hip intertrochanteric cephalomedullary nail placement with orthopedic surgery. There were no acute complications postoperatively and the patient's pain was m anaged with multimodal analgesia and physical therapy was consulted. During hospitalization, patient did develop acute kidney injury likely secondary to prerenal azotemia which later on improved. Patient will be discharged to SNF with the following strict instructions. Please take [place] 5-325mg for pain 4-6 every 6 hours as needed Please take Eliquis 5mg by mouth twice a day for atrial fibrillation Please take Senna 8.6mg daily for constipation as needed Continue taking all your home medications as needed Please follow-up with your PCP within 1 week after discharge - ask about thyroid nodules; follow-up with Dr. Helms (oncology) Continue physical therapy at SNF, daily If your symptoms worsen or if you develop new fever/chills, chest pain, shortness of breath or severe leg pain - please come back to the ED immediately. Hospital Diagnosis: #Ground-level fall #Acute Intertrochanteric fracture of the right hip, s/p surgery #[place] #Prerenal azotemia #Atrial fibrillation, likely paroxysmal #Hypertension #Qwq-qynvzrg-lkszucyty type 2 diabetes #Thyroid nodules #Sacral Pressure Ulcer Christiano Handy, PGY-1 Overall status at discharge: patient is progressing back to baseline Time Spent with Patient Time attestation: Total time spent providing and/or coordinating discharge services: 45 minutes Time spent: Greater than 30 minutes Exam Vital Signs Temp Pulse Resp BP Pulse Ox O2 Del Method O2 Flow Rate 97.9 F 77 19 151/62 H 96 Room Air 1 08/11/24 12:00 08/11/24 12:00 08/11/24 12:08/11/24 12:08/11/24 12:08/11/24 12:08/11/24 04:00 Narrative Exam Physical Exam: GENERAL: Awake, answering questions appropriately, appears stated age, frail and in pain 2/2 to R-hip fracture HEENT: NC/AT. Moist mucosa. PERRLA/EOMI. CARDIO: Heart RRR, no obvious murmurs, no JVD. PULM: No coughing or visible SOB. Lungs CTA B/L. GI: Abdomen soft, NT/ND, +BS. SKIN/MSK/EXT: Grade I/II Sacral wound noted. No discoloration/rashes/edema/amputations noted. +Pedal pulses present B/L. NEURO: Oriented x3, no focal neurological deficits noted Discharge Plan Plan Patient Disposition: Xfer Skilled Nsg Fac (SNF) Care Plan Goals: Please take [place] 5-325mg for pain 4-6 every 6 hours as needed Please take Eliquis 5mg by mouth twice a day for atrial fibrillation Please take Senna 8.6mg daily for constipation as needed Continue taking all your home medications as needed Please follow-up with your PCP within 1 week after discharge - ask about thyroid nodules; follow-up with Dr. Helms (oncology) Continue physical therapy at SNF, daily If your symptoms worsen or if you develop new fever/chills, chest pain, shortness of breath or severe leg pain - please come back to the ED immediately. Prescriptions/Referrals Prescriptions/Med Rec: New oxycodone-acetaminophen 5-325 mg Tablet 1 tab PO Q6H MDD 20mg oxycodone PRN (Reason: Pain Scale 4-6 (Moderate) 3 Days Qty: 12 0RF sennosides [senna] 8.6 mg Tablet 8.6 mg PO QDAY PRN (Reason: constipation) 7 Days Qty: 7 0RF metformin 1,000 mg tablet 1,000 mg PO BID 30 Days Qty: 60 3RF Eliquis 2.5 mg Tablet 5 mg PO BID 30 Days Qty: 120 3RF Continued amiodarone 200 mg tablet 200 mg PO BID Patient Comments: take 1 tablet by mouth twice a day metoprolol succinate 100 mg tablet extended release 24 hr 100 mg PO DAILY Patient Comments: take 1 tablet by mouth once daily amlodipine 5 mg tablet 5 mg PO DAILY Patient Comments: take 1 tablet by mouth once daily Discontinued lisinopril 20 mg tablet 20 mg PO DAILY Patient Comments: take 1 tablet by mouth once daily Januvia 50 mg tablet 50 mg PO QDAY Qty: 30 0RF Referrals: Babak García MD [Primary Care Provider] - Patient/Caregiver Discharge Instructions Education Materials: AFL/Afib, After a Hip Fracture: Common Questions Print Language: German Stand Alone Forms: E Ink., Patient Portal Info Letter Discharge Order Discharge Orders: Discharge (Routine); Ordered 08/11/24 Ordered By: Christiano Handy Quality Discharge Quality Measures VTE prophylaxis MD Attestestation MD Attestation I have examined the patient, reviewed labs and imaging findings, discussed the case with the resident(s), and reviewed entered orders. I agree with the plan of care as outlined in this note. Dr. Mike MD
== END 2024-08-11 17:15 | disposition skilled nursing facility (03) | DRG 481 ==
LOC: SERX 07:52 → SERHOLD 08:53 → S2NX 10:22
PROVIDERS: Emergency Medicine; Orthopaedic Surgery Adult Reconstructive Orthopaedic Surgery; Student in an Organized Health Care Education/Training Program; Admitting Provider Student in an Organized Health Care Education/Training Program; Emergency Provider Emergency Medicine; PCP Family Medicine; Visit Provider Student in an Organized Health Care Education/Training Program
DX: S72.141A Displaced intertrochanteric fracture of right femur, initial encounter for closed fracture (principal); I48.20 Chronic atrial fibrillation, unspecified; N17.9 Acute kidney failure, unspecified; J81.1 Chronic pulmonary edema; I10 Essential (primary) hypertension; E11.9 Type 2 diabetes mellitus without complications; E04.2 Nontoxic multinodular goiter; R45.1 Restlessness and agitation; R79.89 Other specified abnormal findings of blood chemistry; Z99.81 Dependence on supplemental oxygen; Z95.0 Presence of cardiac pacemaker; Z79.899 Other long term (current) drug therapy; L89.152 Pressure ulcer of sacral region, stage 2; Z79.84 Long term (current) use of oral hypoglycemic drugs; Z79.01 Long term (current) use of anticoagulants; W01.0XXA Fall on same level from slipping, tripping and stumbling without subsequent striking against object, initial encounter; Y92.009 Unspecified place in unspecified non-institutional (private) residence as the place of occurrence of the external cause; Y93.01 Activity, walking, marching and hiking; Z88.5 Allergy status to narcotic agent; Z88.0 Allergy status to penicillin; Z88.1 Allergy status to other antibiotic agents; Z88.8 Allergy status to other drugs, medicaments and biological substances; Z87.81 Personal history of (healed) traumatic fracture; Z79.4 Long term (current) use of insulin
CPT/HCPCS: 36415; 70450; 71045; 71260; 72125; 73502; 73552; 73560; 74177; 76000; 80053; 80307; 80320; 81001; 82140; 83605; 83690; 83735; 84484; 85025; 85610; 85730; 86850; 86900; 86901; 86923; 87081; 93005; 93306; 96361; 96372; 96374; 96375; 96376; 97161; 99285; A4217; A4649; C1713; C1776; J0736; J1200; J1643; J1815; J2250; J2270; J2405; J2704; J3010; J3475; J3490; J7030; J7040; J7120; Q9967; A9270; G0480

== ENCOUNTER 2024-08-26 10:55 | Outpatient (AMB) | payer MEDICAID, MEDICARE, SELFPAY ==
[2024-08-26 11:06] VITALS: BP 138/73; PULSE 70; RESP 19; TEMP 36.1
--- NOTE | 2024-08-26 11:06 | ORTHONT_ITS ---
Vital signs 08/26/24 11:06 BP 138/73 H Blood Pressure Source Automatic Cuff Blood Pressure Location Right Upper Arm Position Sitting Respiration 19 Pulse 70 Pulse Source Monitor Temp 97.0 F Temp Source Temporal Artery Scan Med/Allergies Allergies & Medications Allergies levofloxacin Allergy (Severe, Verified 08/26/24 11:07) Rash Penicillins Allergy (Mild, Verified 08/26/24 11:07) Rash codeine Allergy (Unknown, Verified 08/26/24 11:07) Diarrhea meperidine Allergy (Unknown, Verified 08/26/24 11:07) phenytoin Allergy (Unknown, Verified 08/26/24 11:07) Medication Reconciliation amiodarone 200 mg tablet 200 mg PO BID 06/07/24 [History Confirmed 08/26/24] amlodipine 5 mg tablet 5 mg PO DAILY 06/07/24 [History Confirmed 08/26/24] metoprolol succinate 100 mg tablet,extended release 24 hr 100 mg PO DAILY 06/07/24 [History Confirmed 08/26/24] apixaban 2.5 mg tablet (Eliquis) 5 mg (2 x 2.5 mg) PO BID 1 month #120 tabs 08/11/24 [Rx Confirmed 08/26/24] metformin 1,000 mg tablet 1,000 mg PO BID 1 month #60 tabs 08/11/24 [Rx Confirmed 08/26/24] Exam Exam Patient is in no acute distress and is cooperative with the examination today. Patient has a normal mood and affect. Breathing is nonlabored. In no respiratory distress. Bilateral extremities were evaluated and demonstrates sensation intact to light touch. Palpable pedal pulses are present. No significant edema is present. Right hip incision is clean dry intact Assessment and Plan Problem List (1) Fracture of hip, right, closed: Status: Acute Plan: Patient is a pleasant 89-year-old female with a right hip cephalomedullary nail for right hip fracture. She is doing well. We recommend follow-up in approximately 2 weeks with new x-rays. She should continue to work with therapy Advanced Care Planning Discussion Advance care planning discussed with:: patient Office Procedures GNS Level of Care Nursing/Assessment Patient Status: Established Patient Nursing Assessment/Reassesment: Medication Reconciliation, Update PMH in EMR and Vital Signs Coordination of Care: Complex Care/Chronic Disease 5 or more, Education Complex Pt/Fam and Staff clarify orders Established Patient Charge Established Patient Point Assignment: 95 Established Patient Point Charge: EP Level 3 (80-115) [place] Intake Visit Data Collection New Patient or Established: Established Patient (seen at [facility] within 3 years) Reason for Visit:: POST OP RIGHT [place] Education Sales Consultant Required: No Questionairres Past Medical History Past Medical History Have you ever been diagnosed with any of the following: Neurological Problems Brain Tumor: Yes Seizures: No Head Trauma: Yes Cardiology Problems Myocardial Infarction: No Cardiac Arrhythmia: Yes Atrial Fibrillation: Yes Angina: No Heart Murmur: Yes Coronary Artery Disease: Yes Atherosclerotic Heart Disease: No Peripheral Vascular Disease: No Hypercholesterolemia: No Aneurysm: No Congestive Heart Failure: No Congenital Heart Disease: No Valvular Heart Disease: No Rheumatic Fever: No Cardiomyopathy: No Edema: No Pericarditis: No Cellulitis: No Deep Vein Thrombosis: No Hypertension: Yes Hypotension: No Varicose Veins: No Respiratory Problems Chronic Obstructive Pulmonary Disease (COPD): Yes Asthma: No Bronchitis: Yes Pneumonia: Yes Smoking: No Smoking Exposure: No Genital/Urinary Problems Renal Disease: No Kidney Stones: No Reproductive Problems Pelvic Inflammatory Disease: No Head,Eye,Nose,Throat Problems Cataracts: Yes Endocrine Problems Diabetes Mellitus Type 1: No Diabetes Mellitus Type 2: Yes Blood Problems Anemia: No Sickle Cell Disease: No Psychologic Problems Depression: Yes Anxiety: Yes Other Problems Falls: Yes Blood Transfusions: Yes Blood Transfusion Reaction: No Anesthesia Reactions: No MRSA: No Clostridium Difficile: No Cancer: Yes Ovarian Cancer: Yes Surgical History Hysterectomy: Yes Pacemaker: Yes Subjective Visit Visit for: post op #1 Immunization / Flu Flu Vaccine in the Last 12 Months: Yes Flu Vaccine Exclusion Criteria: Already Received History of Present Illness Chief complaint: POST OP RIGHT Hip nailing Patient is an 89-year-old female who is status post right hip cephalomedullary nail . She is in a halfway and has not been walking very much. We recommend continued physical therapy. I would like to see new x-rays Personal History Red flag PMH: none BMI Counceling provided: Yes Additional comments: PATIENT IS WHEELCHAIR BOUND Pain Pain level (0-10): 8 Pain duration: INTERMITTENT Review of Systems Review of Systems: All systems negative unless otherwise noted in HPI.
== END 2024-08-26 11:26 | disposition home or self-care (01) ==
LOC: HODSRG 10:55
PROVIDERS: PCP Family Medicine; Referring Provider Family Medicine; Supervising Provider Orthopaedic Surgery Adult Reconstructive Orthopaedic Surgery; Visit Provider Orthopaedic Surgery Adult Reconstructive Orthopaedic Surgery
DX: S72.001D Fracture of unspecified part of neck of right femur, subsequent encounter for closed fracture with routine healing (principal); X58.XXXD Exposure to other specified factors, subsequent encounter; I10 Essential (primary) hypertension; E11.9 Type 2 diabetes mellitus without complications; I48.91 Unspecified atrial fibrillation; I25.10 Atherosclerotic heart disease of native coronary artery without angina pectoris; J44.9 Chronic obstructive pulmonary disease, unspecified; Z99.3 Dependence on wheelchair
CPT/HCPCS: 99213; G0463

== ENCOUNTER 2024-09-23 10:42 | Outpatient (AMB) | payer MEDICARE, MEDICAID, SELFPAY ==
[2024-09-23 10:51] VITALS: BP 137/75; PULSE 71; RESP 18; TEMP 36.3; O2SAT 92
--- NOTE | 2024-09-23 10:51 | ORTHONT_ITS ---
Vital signs 09/23/24 10:51 Height 1.63 m Height Method Stated BP 137/75 H Blood Pressure Source Automatic Cuff Blood Pressure Location Right Upper Arm Position Sitting Respiration 18 Pulse 71 Pulse Source Monitor Temp 97.4 F Temp Source Temporal Artery Scan Pulse Oximetry (%) 92 L Oxygen Delivery Method Room Air Med/Allergies Allergies & Medications Allergies levofloxacin Allergy (Severe, Verified 09/23/24 10:52) Rash Penicillins Allergy (Mild, Verified 09/23/24 10:52) Rash codeine Allergy (Unknown, Verified 09/23/24 10:52) Diarrhea meperidine Allergy (Unknown, Verified 09/23/24 10:52) phenytoin Allergy (Unknown, Verified 09/23/24 10:52) Medication Reconciliation amiodarone 200 mg tablet 200 mg PO BID 06/07/24 [History Confirmed 09/23/24] amlodipine 5 mg tablet 5 mg PO DAILY 06/07/24 [History Confirmed 09/23/24] metoprolol succinate 100 mg tablet,extended release 24 hr 100 mg PO DAILY 06/07/24 [History Confirmed 09/23/24] apixaban 2.5 mg tablet (Eliquis) 5 mg (2 x 2.5 mg) PO BID 1 month #120 tabs 08/11/24 [Rx Confirmed 09/23/24] metformin 1,000 mg tablet 1,000 mg PO BID 1 month #60 tabs 08/11/24 [Rx Confirmed 09/23/24] Assessment and Plan Advanced Care Planning Discussion Advance care planning discussed with:: patient Office Procedures GNS Level of Care Nursing/Assessment Patient Status: Established Patient Nursing Assessment/Reassesment: Medication Reconciliation, Update PMH in EMR and Vital Signs Coordination of Care: Complex Care and Chronic Disease 1-5, Education Complex Pt/Fam, Consent,records obtained, informed consent, Lab and Imaging orders, Results/Orders obtained and Staff clarify orders Established Patient Charge Established Patient Point Assignment: 110 Established Patient Point Charge: EP Level 3 (80-115) [place] Intake Visit Data Collection New Patient or Established: Established Patient (seen at [facility] within 3 years) Reason for Visit:: follow up Seen by Clinical Staff ONLY (RN/MA): No Verbal consent obtained for Telemed visit?: No Exhibits Curator Required: No PCP or OBGYN visit in last 3 months: Yes Hx Now: No Do You Feel Safe at Home: Yes Authorities Contacted: N/A Questionairres Past Medical History Past Medical History Have you ever been diagnosed with any of the following: Neurological Problems Brain Tumor: Yes Seizures: No Head Trauma: Yes Cardiology Problems Myocardial Infarction: No Cardiac Arrhythmia: Yes Atrial Fibrillation: Yes Angina: No Heart Murmur: Yes Coronary Artery Disease: Yes Atherosclerotic Heart Disease: No Peripheral Vascular Disease: No Hypercholesterolemia: No Aneurysm: No Congestive Heart Failure: No Congenital Heart Disease: No Valvular Heart Disease: No Rheumatic Fever: No Cardiomyopathy: No Edema: No Pericarditis: No Cellulitis: No Deep Vein Thrombosis: No Hypertension: Yes Hypotension: No Varicose Veins: No Respiratory Problems Chronic Obstructive Pulmonary Disease (COPD): Yes Asthma: No Bronchitis: Yes Pneumonia: Yes Smoking: No Smoking Exposure: No Genital/Urinary Problems Renal Disease: No Kidney Stones: No Reproductive Problems Pelvic Inflammatory Disease: No Head,Eye,Nose,Throat Problems Cataracts: Yes Endocrine Problems Diabetes Mellitus Type 1: No Diabetes Mellitus Type 2: Yes Blood Problems Anemia: No Sickle Cell Disease: No Psychologic Problems Depression: Yes Anxiety: Yes Other Problems Falls: Yes Blood Transfusions: Yes Blood Transfusion Reaction: No Anesthesia Reactions: No MRSA: No Clostridium Difficile: No Cancer: Yes Ovarian Cancer: Yes Surgical History Hysterectomy: Yes Pacemaker: Yes Subjective Visit Visit for: follow up visit and x-rays Immunization / Flu Flu Vaccine in the Last 12 Months: No Flu Vaccine Exclusion Criteria: No Exclusion Criteria History of Present Illness Chief complaint: follow up Personal History Red flag PMH: BMI BMI Counceling provided: Yes Pain Pain level (0-10): 0 Associated signs & symptoms: none Ambulatory data Ambulatory device: other (specify) (wheelchair) Treatments Improvement with previous injections: No Improvement with PT: No Improvement with NSAIDS: no Review of Systems Review of Systems: All systems negative unless otherwise noted in HPI.
== END 2024-09-23 10:56 | disposition home or self-care (01) ==
LOC: HODSRG 10:42
PROVIDERS: PCP Family Medicine; Referring Provider Family Medicine; Supervising Provider Orthopaedic Surgery Adult Reconstructive Orthopaedic Surgery; Visit Provider Orthopaedic Surgery Adult Reconstructive Orthopaedic Surgery
CPT/HCPCS: 99213; G0463

== ENCOUNTER 2024-10-21 13:57 | Outpatient (AMB) | payer MEDICARE, MEDICAID, SELFPAY ==
[2024-10-21 14:07] VITALS: BP 120/67; PULSE 60; RESP 17; TEMP 36.8; O2SAT 96; BMI 23.0
--- NOTE | 2024-10-21 14:07 | ORTHONT_ITS ---
Vital signs 10/21/24 14:07 Height 1.63 m Height Method Stated Weight 60.781 kg Weight Measurement Method Stated by Patient BMI 23.0 BP 120/67 Blood Pressure Source Automatic Cuff Blood Pressure Location Right Upper Arm Position Sitting Respiration 17 Pulse 60 Pulse Source Monitor Temp 98.3 F Temp Source Temporal Artery Scan Pulse Oximetry (%) 96 Oxygen Delivery Method Room Air Med/Allergies Allergies & Medications Allergies levofloxacin Allergy (Severe, Verified 10/21/24 14:08) Rash Penicillins Allergy (Mild, Verified 10/21/24 14:08) Rash codeine Allergy (Unknown, Verified 10/21/24 14:08) Diarrhea meperidine Allergy (Unknown, Verified 10/21/24 14:08) phenytoin Allergy (Unknown, Verified 10/21/24 14:08) Medication Reconciliation amiodarone 200 mg tablet 200 mg PO BID 06/07/24 [History Confirmed 10/21/24] amlodipine 5 mg tablet 5 mg PO DAILY 06/07/24 [History Confirmed 10/21/24] metoprolol succinate 100 mg tablet,extended release 24 hr 100 mg PO DAILY 06/07/24 [History Confirmed 10/21/24] apixaban 2.5 mg tablet (Eliquis) 5 mg (2 x 2.5 mg) PO BID 1 month #120 tabs 08/11/24 [Rx Confirmed 10/21/24] metformin 1,000 mg tablet 1,000 mg PO BID 1 month #60 tabs 08/11/24 [Rx Confirmed 10/21/24] Exam Exam Patient is in no acute distress and is cooperative with the examination today. Breathing is nonlabored. In no respiratory distress. Patient has no paraspinal tenderness. Spinal deformity cannot be appreciated. The gait of the patient is nonantalgic Bilateral extremities were evaluated and demonstrates sensation intact to light touch. Palpable pedal pulses are present. No significant edema is present. Bilateral knees were examined and the patient has full strength and range of motion.. The left hip was examined. Patient was able to flex to 90 degrees, adduct to 30 degrees, abduct to 40 degrees, internally rotate to 20 degrees, and externally rotate to 20 degrees. Patient has a negative logroll. Stinchfield is negative. The patient is nontender diffusely to touch. Right hip incision is clean dry and intact. Leg lengths are equal. Assessment and Plan Problem List (1) Intertrochanteric fracture of right hip: Status: Acute Plan: Patient is a 89-year-old female with a right hip intertrochanteric fracture. It has been 2 months since we last seen her. The incision is healed up well. I would like to get x-rays to see what the fracture looks like now. She is walking with a walker and is very happy We will see her in approximately 2 weeks with new x-rays Advanced Care Planning Discussion Advance care planning discussed with:: patient Office Procedures GNS Level of Care Nursing/Assessment Patient Status: Established Patient Nursing Assessment/Reassesment: Medication Reconciliation, Update PMH in EMR and Vital Signs Coordination of Care: Complex Care and Chronic Disease 1-5, Consent,records obtained, informed consent, Education Simp Pt/Fam, Results/Orders obtained and Staff clarify orders Established Patient Charge Established Patient Point Assignment: 90 Established Patient Point Charge: EP Level 3 (80-115) MA Intake Visit Data Collection New Patient or Established: Established Patient (seen at [facility] within 3 years) Reason for Visit:: FU Seen by Clinical Staff ONLY (RN/MA): No Test Lead Application Testing Required: No PCP or OBGYN visit in last 3 months: Yes Hx Now: No Do You Feel Safe at Home: Yes Authorities Contacted: N/A Questionairres Past Medical History Past Medical History Have you ever been diagnosed with any of the following: Neurological Problems Brain Tumor: Yes Seizures: No Head Trauma: Yes Cardiology Problems Myocardial Infarction: No Cardiac Arrhythmia: Yes Atrial Fibrillation: Yes Angina: No Heart Murmur: Yes Coronary Artery Disease: Yes Atherosclerotic Heart Disease: No Peripheral Vascular Disease: No Hypercholesterolemia: No Aneurysm: No Congestive Heart Failure: No Congenital Heart Disease: No Valvular Heart Disease: No Rheumatic Fever: No Cardiomyopathy: No Edema: No Pericarditis: No Cellulitis: No Deep Vein Thrombosis: No Hypertension: Yes Hypotension: No Varicose Veins: No Respiratory Problems Chronic Obstructive Pulmonary Disease (COPD): Yes Asthma: No Bronchitis: Yes Pneumonia: Yes Smoking: No Smoking Exposure: No Genital/Urinary Problems Renal Disease: No Kidney Stones: No Reproductive Problems Pelvic Inflammatory Disease: No Head,Eye,Nose,Throat Problems Cataracts: Yes Endocrine Problems Diabetes Mellitus Type 1: No Diabetes Mellitus Type 2: Yes Blood Problems Anemia: No Sickle Cell Disease: No Psychologic Problems Depression: Yes Anxiety: Yes Other Problems Falls: Yes Blood Transfusions: Yes Blood Transfusion Reaction: No Anesthesia Reactions: No MRSA: No Clostridium Difficile: No Cancer: Yes Ovarian Cancer: Yes Surgical History Hysterectomy: Yes Pacemaker: Yes Subjective Visit Visit for: follow up visit Immunization / Flu Flu Vaccine in the Last 12 Months: Yes Flu Vaccine Exclusion Criteria: Already Received History of Present Illness Chief complaint: Right hip fracture Cinthia is a pleasant 89-year-old female with a right hip intertrochanteric fracture. We treated with cephalomedullary nail. It has been 2 months in surgery. She is doing well. She is at [facility]. She is working with therapy and uses a walker. Personal History Red flag PMH: none Pain Pain level (0-10): 0 Ambulatory data Ambulatory device: other (specify) (WHEELCHAIR ) Treatments Improvement with NSAIDS: n/a Review of Systems Review of Systems: All systems negative unless otherwise noted in HPI.
== END 2024-10-21 14:18 | disposition home or self-care (01) ==
LOC: HODSRG 13:57
PROVIDERS: PCP Family Medicine; Referring Provider Family Medicine; Supervising Provider Orthopaedic Surgery Adult Reconstructive Orthopaedic Surgery; Visit Provider Orthopaedic Surgery Adult Reconstructive Orthopaedic Surgery
DX: S72.141D Displaced intertrochanteric fracture of right femur, subsequent encounter for closed fracture with routine healing (principal); X58.XXXD Exposure to other specified factors, subsequent encounter; I10 Essential (primary) hypertension; I25.10 Atherosclerotic heart disease of native coronary artery without angina pectoris; I48.91 Unspecified atrial fibrillation; J44.9 Chronic obstructive pulmonary disease, unspecified; Z95.0 Presence of cardiac pacemaker
CPT/HCPCS: 99213; G0463